=== PATIENT | male | born 1945 | race Caucasian/White ===

== ENCOUNTER 2023-08-14 11:56 | Outpatient (OUT) | payer MEDICARE, SELFPAY ==
[2023-08-14 10:05] LABS: Basophils Percent Auto 0.6 % (0.2-2.0); Eosinophils Absolute Auto 0.4 10^3/uL (0.0-0.7); Eosinophils Percent Auto 7.9 % (0.9-7.0); Immature Granulocytes Abs Auto 0.01 10^3/uL (0.00-0.03); Immature Granulocytes Pct Auto 0.2 % (0.0-0.5); Lymphocytes Absolute Auto 1.1 10^3/uL (1.2-3.8); Lymphocytes Percent Auto 20.7 % (20.5-60.0); Mean Corpuscular HGB Conc 32.6 g/dL (29.9-35.2); Mean Corpuscular Hemoglobin 29.6 pg (25.9-34.0); Mean Corpuscular Volume 90.9 fL (80.0-94.0); Mean Platelet Volume 9.5 fL (9.5-13.5); Monocytes Absolute Auto 0.4 10^3/uL (0.3-0.8); Monocytes Percent Auto 8.3 % (1.7-12.0); Neutrophils Absolute Auto 3.2 10^3/uL (1.4-6.5); Neutrophils Percent Auto 62.3 % (43.0-75.0); Platelet Count 242 10^3/uL (150-450); Red Blood Count 5.06 10^6/uL (4.70-6.10); Red Cell Distribution Width 13.1 % (11.0-15.0); White Blood Count 5.2 10^3/uL (4.0-11.0)
[2023-08-14 10:27] LABS: Estimated Average Glucose 114 mg/dL; Glycohemoglobin A1C 5.6 % (4.5-6.2)
[2023-08-14 11:28] LABS: Alanine Aminotransferase 26 U/L (16-63); Albumin Level 3.5 g/dL (3.4-5.0); Alkaline Phosphatase 97 U/L (46-116); Anion Gap 12.5; Aspartate Amino Transferase 19 U/L (15-37); BUN Creatinine Ratio 18.8; Bilirubin Total 0.7 mg/dL (0.2-1.0); Calcium 8.8 mg/dL (8.5-10.1); Carbon Dioxide 28.5 mmol/L (21.0-32.0); Chloride 108 mmol/L (98-107); Chol HDL Ratio 4.9; Cholesterol 244 mg/dL (<=200); Estimated GFR (African America >60 (>=60); Estimated GFR (Non-African Ame >60 (>=60); Globulin 3.5 g/dL; Glucose 91 mg/dL (74-106); HDL Cholesterol 50 mg/dL (40-60); Sodium 145 mmol/L (136-145); Triglycerides 111 mg/dL (<=150); VLDL CHOLESTEROL 22.2 mg/dL
[2023-08-14 11:36] LABS: Prostate Specific Antigen Scrn 3.08 ng/mL (<=4.00)
--- OUTSIDE RECORDS SUMMARY | 2023-08-14 12:38 | XMS_ITS | CCD ---
Author Name Unknown Address [address] [place] [address] Organization [facility] Care Team Providers Care Occupational Medicine Physician Name Role Phone UZIEL HALLMAN Primary Care Physician [phone] ANSELMO, DR CHRISTOPHER Wilkes Consulting Unavailable HAY, DR COELHO Attending Unavailable HAY, DR COELHO Admitting Unavailable HALLMAN, DR UZIEL Yao Primary Care Unavailable HAY, DR COELHO Consulting Unavailable HALLMAN, DR UZIEL Yao Admitting Unavailable HALLMAN, DR UZIEL Yao Attending Unavailable HALLMAN, DR UZIEL Yao Consulting Unavailable HALLMAN, DR UZIEL Yao Primary Care Unavailable HALLMAN, DR UZIEL Yao Admitting Unavailable HALLMAN, DR UZIEL Yao Attending Unavailable HALLMAN, DR UZIEL Yao Consulting Unavailable HALLMAN, DR UZIEL Yao Primary Care Unavailable ZIEBER, DR CHRISTOPHER Wilkes Consulting Unavailable COOK, Joey P Attending Unavailable COOK, Joey P Attending Unavailable COOK, Joey P Attending Unavailable COOK, Joey P Attending Unavailable COOK, Joey P Admitting Unavailable COOK, Joey P Attending Unavailable COOK, Joey P Referring Unavailable COOK, Joey P Admitting Unavailable COOK, Joey P Attending Unavailable COOK, Joey P Admitting Unavailable AMIR, Hasan Attending Unavailable AMIR, Hasan Admitting Unavailable COOK, Joey P Referring Unavailable COOK, Joey P Consulting Unavailable COOK, Joey P Consulting Unavailable COOK, Joey P Consulting Unavailable COOK, Joey P Consulting Unavailable COOK, Joey P Consulting Unavailable COOK, Joey P Consulting Unavailable COOK, Joey P Consulting Unavailable COOK, Joey P Consulting Unavailable COOK, Joey P Consulting Unavailable COOK, Joey P Consulting Unavailable COOK, Joey P Consulting Unavailable COOK, Joey P Consulting Unavailable COOK, Joey P Consulting Unavailable COOK, Joey P Attending Unavailable COOK, Joey P Referring Unavailable COOK, Joey P Admitting Unavailable COOK, Joey P Attending Unavailable COOK, Joey P Referring Unavailable COOK, Joey P Admitting Unavailable Joey DAVIS Attending Unavailable Joey DAVIS Referring Unavailable Joey DAVIS Admitting Unavailable Joey DAVIS Attending Unavailable Joey DAVIS Attending Unavailable Allergies Allergy Classification Reported Allergen(s) Allergy Type Date of Onset Reaction(s) Facility (10 sources) Adhesive Tape; Translations: [Tape] Drug allergy Red color (finding) [facility] (10 sources) Ketorolac; Translations: [ketorolac] Drug Allergy Swelling [facility] (10 sources) peanut; Translations: [Peanuts] Drug allergy Headache (finding) [facility] (10 sources) Sulfamethoxazole; Translations: [sulfamethoxazole ] Drug Allergy On examination - lip swelling (context-depend ent category) [facility] (1 source) Desonide Drug Allergy 4 [facility] (1 source) peanut allergenic extract Drug Allergy 4 [facility] (1 source) Sulfonamides (Antibiotic) Drug allergy (disorder) 4 [facility] Medications Current Medications Medication Drug Class(es) Dates Sig (Normalized) Sig (Original) acetaminophen 325 mg / HYDROcodone bitartrate 5 mg oral tablet (1 source) Opioid Agonist Start: 11-23-2021 End: 11-25-2021 acetaminophen-hy drocodone 325 mg-5 mg oral tablet 1 tab(s), Oral, q4hr Pain for 2 day(s), 7 tab(s), Refill(s) 0, N20.0, [facility]/pharmacy #[id number], 170, cm, 11/23/21 10:32:00 EDT, Height/Length Dosing, 72.1, kg, 11/23/21 10:32:00 EDT, Weight Dosing Start Date: 11/23/21 Stop Date: 11/25/21 Status: Ordered cephalexin 500 mg oral capsule (1 source) Cephalosporin Antibacterial Start: 10-27-2021 End: 10-30-2021 take 1 capsule by mouth three times daily Keflex 500 mg Cap 500 mg = 1 cap(s), Oral, TID, X 3 day(s), # 9 cap(s), Refills(s) 0, Pharmacy: [facility]/pharmacy #[id number], 170, cm, 04/27/22 16:22:00 EDT, Height/Length Dosing, 75.5, kg, 10/25/21 16:22:00 EDT, Weight Dosing Start Date: 10/27/21 Stop Date: 10/30/21 Status: Ordered ciprofloxacin 500 mg oral tablet (2 sources) Quinolone Antimicrobial Start: 01-04-2022 take 1 tablet by mouth twice daily Cipro 500 mg Tab 500 mg = 1 tab(s), Oral, BID, # 10 tab(s), Refills(s) 0, Pharmacy: [facility]/pharmacy #[id number], 170, cm, 12/28/21 10:50:00 EDT, Height/Length Dosing, 73, kg, 12/28/21 10:50:00 EDT, Weight Dosing Start Date: 01/04/22 Status: Ordered Mometasone (12 sources) Corticosteroid Start: 12-28-2021 mometasone = 0.1 %, Topical, Daily, solution for scalp, Refills(s) 0 Start Date: 12/28/21 Status: Ordered Start: 11-07-2020 mometasone Top 0.1% Crm 15 gram 1 jarrod, Topical, 30 gram, Refill(s) 0, prn psoriasis Start Date: 11/07/20 Status: Ordered Start: 11-07-2020 mometasone Top 0.1% Crm 15 gram 1 jarrod, Topical, Daily, 30 gram, Refill(s) 0 Start Date: 11/07/20 Status: Ordered mometasone Top 0.1% Lotion (6 sources) Start: 10-25-2021 mometasone Top 0.1% Lotion 1 jarrod, Topical, Daily, 30 mL, Refill(s) 0 Start Date: 10/25/21 Status: Ordered ondansetron 4 mg disintegrating oral tablet (9 sources) Serotonin-3 Receptor Antagonist Start: 10-25-2021 take 1 tablet by mouth every six hours as needed for nausea ondansetron 4 mg Dis Tab 4 mg = 1 tab(s), Oral, q6hr, PRN Nausea/Vomiting, # 10 tab(s), Refills(s) 0 Start Date: 10/25/21 Status: Ordered Start: 10-25-2021 take 1 tablet by jessica th every six hours as needed for nausea ondansetron 4 mg Dis Tab 4 mg = 1 tab(s), Oral, q6hr, PRN Nausea/Vomiting, # 10 tab(s), Refills(s) 0 Start Date: 10/25/21 Status: Ordered tamsulosin hydrochloride 0.4 mg oral capsule (7 sources) alpha-Adrenergic Etienne Start: 10-25-2021 End: 10-27-2021 take 1 capsule by mouth once daily tamsulosin 0.4 mg Cap 0.4 mg = 1 cap(s), Oral, Daily, Refills(s) 0 Start Date: 10/25/21 Status: Ordered thyroid (nursing home) 60 mg oral tablet (9 sources) Start: 10-25-2021 take 1 tablet by mouth once daily [place] Thyroid 60 mg Tab 60 mg = 1 tab(s), Oral, Daily, # 30 tab(s), Refills(s) 0, Thyroid Start Date: 10/25/21 Status: Ordered Problems Active Problems Problem Classification Problem Date Documented Date Episodic/Chronic Acute and unspecified renal failure (1 source) Acute renal failure syndrome; Translations: [Other acute kidney failure] Onset: 2 Episodic Calculus of urinary tract (15 sources) Kidney stone; Translations: [Calculus of kidney] Onset: 2 Episodic Coagulation and hemorrhagic disorders (1 source) Thrombocytopenia, unspecified; Translations: [THROMBOCYTOPENIA UNSPECIFIED] Onset: 2 Chronic Diabetes mellitus without complication (1 source) Prediabetes; Translations: [PREDIABETES] Onset: 2 Episodic Disorders of lipid metabolism (10 sources) Hypercholesterolemia; Translations: [Pure hypercholesterolemia, unspecified] Onset: 2 09-11-2013 Chronic Genitourinary symptoms and ill-defined conditions (8 sources) Urge incontinence; Translations: [Urge incontinence of urine] Onset: 2 Chronic Genitourinary symptoms and ill-defined conditions (5 sources) Urinary tract obstruction; Translations: [Obstructive and reflux uropathy, unspecified] Onset: 2 Episodic Headache; including migraine (9 sources) Headache 11-08-2020 Episodic Heart valve disorders (1 source) Rheumatic disorders of both mitral and aortic valves; Translations: [RHEUMATIC D/O MITRAL AORTIC VALVES] Onset: 1 Chronic Hyperplasia of prostate (17 sources) Benign prostatic hypertrophy with outflow obstruction; Translations: [Benign prostatic hyperplasia with lower urinary tract symptoms] Onset: 2 Chronic Nausea and vomiting (9 sources) Postoperative nausea and vomiting 11-07-2020 Episodic Open wounds of extremities (9 sources) Traumatic amputation, finger, 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 Comment on above: Partial amputation, from being caught in planer 1994 Other ear and sense organ disorders (9 sources) Hearing loss 11-07-2020 Chronic Other female genital disorders (7 sources) Disorder of reproductive system 11-13-2021 Episodic Other inflammatory condition of skin (9 sources) Psoriasis 09-11-2013 Chronic Other male genital disorders (1 source) Hydrocele of testis; Translations: [Hydrocele, unspecified] Onset: 2 Episodic Other nutritional; endocrine; and metabolic disorders (9 sources) Body mass index 25-29 - overweight 11-08-2020 Episodic Other screening for suspected conditions (not mental disorders or infectious disease) (3 sources) Plain X-ray cervical spine abnormal; Translations: [Encounter for screening for malignant neoplasm of prostate] Onset: 2 11-08-2020 Episodic Residual codes; unclassified (1 source) Patient encounter status; Translations: [Other specified health status] Onset: 2 Episodic Residual codes; unclassified (1 source) Family history of cancer; Translations: [Family history of malignant neoplasm of prostate] Onset: 2 Episodic Residual codes; unclassified (7 sources) Family history of prostate cancer 11-13-2021 Episodic Thyroid disorders (14 sources) Hypothyroidism; Translations: [Hypothyroidism, unspecified] Onset: 2 Chronic Unclassified (1 source) Asymptomatic microscopic hematuria 08-22-2022 Viral infection (9 sources) Herpes labialis 09-11-2013 Episodic Past or Other Problems Problem Classification Problem Date Documented Da te Episodic/Chronic Abdominal pain (3 sources) Left lower quadrant pain; Translations: [LEFT LOWER QUADRANT PAIN] Onset: 10-24-2021 Episodic Conditions associated with dizziness or vertigo (4 sources) Dizziness and giddiness; Translations: [DIZZINESS AND GIDDINESS] Onset: 05-31-2021 Episodic Heart valve disorders (1 source) Cardiac murmur, unspecified; Translations: [CARDIAC MURMUR UNSPECIFIED] Onset: 06-05-2021 Episodic Other aftercare (1 source) Other terminal gauger supervisor (current) drug therapy; Translations: [OTH DIRECTOR OF REGULATORY AFFAIRS CURRENT DRUG THERAPY] Onset: 10-26-2021 Episodic Results Test Name Value Interpretation Reference Range Facil ity Screenson 08-23-2022 Screens [id number]. 00CD:127 Normal [facility] Ambulatory Visit Summaryon 0 08-22-2022 Ambulatory Visit Summary WALT SKELTON :1945 Visit Date:08/22/2022 Ambulatory Visit Instructions Your Diagnosis Kidney stone 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 Asymptomatic microscopic hematuria Tests Performed Urnls Dip Stick Auto w/o Microscopy POC 20051 Your Care Team Attending Physician - Joey DAVIS MD Primary Care Physician - UZIEL HALLMAN DO This Is Your Medications List Contact prescribing physician if questions or concerns ciprofloxacin (Cipro 500 mg Tab) mometasone mometasone topical (mometasone Top 0.1% Crm 15 gram) ondansetron (ondansetron 4 mg Dis Tab) thyroid desiccated ([place] Thyroid 60 mg Tab) Procedures Performed Cystoscopy (01/04/2022), ESWL of kidney (11/23/2021), Cystoscopy (10/26/2021), Eye (07/01/2015), Excision of ganglion cyst of wrist, recurrent (09/21/2013), Arm (07/01/2013), EGD (esophagogastroduoden oscopy) gastric outlet reduction (07/01/2012), ESWL - Extracorporeal shockwave lithotripsy for renal calculus (07/01/2010), Cataract extraction and insertion of intraocular lens, Colonoscopy, History of subtotal thyroidectomy, INGUINAL HERNIA REPAIR,RIGHT, OPEN REDUCTION LEFT RADIUS. Discharge Vitals Heart Rate (Peripheral) 76 Respiratory Rate 16 Blood Pressure 125/61 Height 170 cm Height 67 in Weight 75 kg Weight 165 lb BMI 25.95 What to do next Scheduled Follow-Up Appointments Saturday 8:45 AM EST With: MARIBEL ANN, Joey Cantu Where: [facility] Coding Summary.on 08-22-2022 Coding Summary. CD:[id number] G h0bWw+PGhlYWQ+WF5ARJK bO92oiUIanD8SQ6hHZD6B MLGEFLWXZG5BGK0baHZ9S ToyG8JkteYq XgoeyHJxMJ17YNe2HZB2w QobPVejiI4qoBBoJ4r3Kl GkJF74oN67PQukFBPlJoA 3LjZpbjsgbWFy E7gqZxXyvJGiXzd+PHRhY mxlIHdpZHRoPScxMDAlJy LfoDluMX5tMx6qHDSoKZI vbGxhcHNlOiBj s6bxZRMiLXogRN3ifXamO 5ZtvBN3ZAEyh1d0Dw94zA I+AOItOJU0nOqfMKvvq71 4AtDav9qsITV3 cXBcECnpUKV5O92eg8Y2S EVsYNMfQOF9bQE6dR0gcZ lqepjfJ9NynETuVgW1DHH 5xKRlcI5ktUpf juyhdX6gOir+S40WBZ8IV DDXNV9VBuk9N0XqVvvlvZ I+EL84KWMuMC37oGYnbUK op5xbjEa9MwGt JBFwRFJ6jZqxXEfzq5WkR ICxJ50naKVjr2H6XUQdgJ kqwPEoMqPxkBJ3fF8kXDf ybchke7mwlptx Skaci2tqkj51vM53D37hB XdyKYRbUYM8LQKrEWTeuW hzut7biS2vFe6+GDawx0i sm2slfRl2HuHu RRVrujPxdHyqEED0s0KdB i72H0WkfVsqr0WtHjq5dd 91eXZdg3V5lCI0XQyrNLH toM7jNFbxUcI5 CHIvKwJhjC60pPGnVQyiH v3kzAezfWiqTA2wIKDbny rhRBUteH4hPXPnlEOhjFk gKC6pQPEavrhe n683CrAyCVN2WVKzfQRaP 8JjiF7oKtNyKCQaPJDyJ1 LxzJApJLnfX330BKdaQkC 7HAAobqPsU0Te UVIqbDitYrZ3v1J0Br2Dj 8NziidyTEZ9XTnuBKDyYw CiVhTcUcI6A3QuIlc8JKZ mbDdnTB9nC3Xi FBStmyvseaailMY3MIPnA XUxhQ62hPXiWFxiGy3ny6 Z1n998UMIiWLFctM42Nl4 udDogMTBwdCBU uV5jdtyki4espaezHoVqX DHaXNn5ODq7IRHrzRwsZm JjDCJ1VqU2YAQ2hFDufQ7 pyTcebkufbW0c Oyc+I49zhT8lFGP2CNN3f aavTDYtbsRbXL81UX79L5 RyPjwvdGFibGU+PGRpdiB jpYznGT0gWrXg h6tqa5ZqPPdiS0PlFXCmX VofQdf3YDTtDAF8fBR8tL 1gECLgBYrav2S7fJI8F3L hvuXtca5xf0yu SZOqEIwsL35yvCDps8L0E MIvaIW5OJFjcAatRfSofC 93Oyc+RGIulEktm5EaGpu vr4ohh0mgmQb4 PlExOQCntnUpxRplJUR1o 9LwJe18O62qWMizGJJwRG XqNSUyLKQimArhmd1biI7 wIi8+PGNvbCB3 dRD7wG1wQZRwZpC4WWxkC 263EiRkrTCtPrmzq5nsp4 penNu6JiKfFRFkamEbpVw gULM4h6OlKj02 X52hFFzdTWSqPJAoYJUkB MAolCgqer5ynT9sAy8+PC 1ll4ypzs48kX13jWK+PHR lFSR0lHmpEDva KTGmqM4gYVnuQaU2FFWbY wEuvB07fMFgJOnuPj1wkX hfeTgvEP3cMINmwgzzx15 1RpSjm1twMZFj fTVzOTlhXOV8C94za3G9N LBdABNjDLE0xGV4rF1arX lnbjogbGVmdDsgdmVydGl gIOcmDTilE143 IHRvcDsnPlBhdGllbnQgT nLdPUv3U7WmSpn7QWEaoL oxIW9jsEVxDKxtYf1vdOp hhZfuIV7fTBDr xngss171XvMim7uxXIZom NYvYBinMAS3A43mk7G7VQ CmCUFuVCI3pIN3mP3chCw nbjogbGVmdDsg mnWiwElrDDzkUBicM351K HRvcDsnPkJpcnRoIERhdG Q9UM31PP94kXCcv3U7sWA 9C0UgJURcmkye fniejFV8YPNcXXAxyK31Z l1evTbzQm1mJOAvLUK7QN FkuETiJ9QvnY0pMvXiCEZ sHUOgC1CrhSOy WBxvM556ENkvFgJ6HUOgg yAmM7BcXOOqwRzlPoR6j4 Z1Jf3CO1D6RW17EJ02iOS uc1S1eSG9Y5Xp WYYtmlxhqajrrQE8DTNnM TGslO87Tr5rtUuwXc5kDU WhGZC4XOUcbDBwX2BclQ7 yOiAjMDAwMDAw R0HwvNHzMBeqU648XMjzU cB7PHYvrxPkE4SiAWDchQ irGrU1s1F6Zn5DDPg8EC4 8KJ68nVKbk0G2 tRI6Z0AdXPOmbjgdmqtzu NF6LVYaUECssA64Dk3buG bwBp2jUCExCDP3JLVeaPJ rW7KwjW3eAhIt GSOuPFBoG8RycVOnXGvwZ 562KVdvCyO7PXJqxsEbG0 TrVGYxwJgqRbB5j4U7Yy9 MDZRwFP43KGO9 fVT8QL19WF49M3UvBzjgo GFibGU+PHRhYmxlIHdpZH RoPScxMDAlJyBzdHlsZT0 oKi8yPWBtOFNe qFctiRGaNaGac7jrMOEsS HzpJE6ytWmvW7KpaOW2RW Akq1g1Bv36C87vT3KsgDR +IRSksDN8zIT7 vM9rLgPtUgS3SRkiW870I fPlyQHcAxocz5lst5deiG q4VoU4WECtyjGcvMcfFMR 1e4YsBw29H19a IHdpZHRoPSIxNSUiIHZhb Exvbe7blD4fZt9+PGNvbC Q1rKT1cV8uPiSmHrZ7YYv zB143BsLfrLJr Rvfmv8xbs2kxaTx1SjTxK AXvkkKuaFinXGM1k3DrWf 13U2QasHdby9VjNrv7we5 7eOAic6W6jFG1 E0NiWWIdlkzxgFTpoZtoD R6dWNOemggoSGWlzE1lBG IdX1c2NkDgYfE4RNupE8R yuuT6GZCptIZv JNjkMBD2P85rn2K3CRRzC LUoAUA4mNV0kS5rcKupan ogbGVmdDsgdmVydGljYWw lRZthA700JSUg lNmvEDGrmN3nBMDfpFUlg EnfJS7rARNoedpkZubYTK DTWuwND36cMWVBOfZLJHM DBV24ZO88eOZj r6L5xPM4J9OmOHDnsvgze vgggZV5FXUjPWHioZ27pQ BoIMouZj0bx7V9s179CLS cDCUxlW86Ba5v lRyjYOPiuFQZrG0wiqkuv 3alfbpwGoWyANFsNOg0DN i2ZVKigIstKyLqRYT5DfP 1XRE3gVNvmD2c cTclruvptB8lCas+MDgvM aXlGWo7OzmdqBD+PHRkIH Y2oXtoJQrfHJMdzV1fSDA xT5m4YmOjCbY8 PTqiY6JhTWRdsgoqMu03u Z7tDlPqGvT4GYldZ2Bpnd T0ARUlgZMuEQmjJNL1Q40 vb5F2OINgJLAl EEY0oLB0bA2dxPqsvtcxg GVmdDsgdmVydGljYWwtYW crA157ERYpdIydAma3VYb wNVObKS92XQ90 cOGhw9C3kKR9D1SgFLJus cterdmwnFA7TXHkGASbtT 85zYYxHCzxQj8yu3O8s01 8RNUkMBJbuQ37 Fi3ujPmhQCOekGFPoR9dc eish5rgfdauAhUgGQAhLF q6TQt6XOOupFotGmKlUHS 5HhG5OBN2aUPf wT1ucZnfpshspP4mLkm+T WFsZTwvdGQ+RFDgNHK0rT taTTeoHSKurS1dUSMzM9v 6MxLfZlV5GThl A5BcBGEnxeogDq75iG6uX wZbVrE4LUxyS3HwnkX7DX GnkTCyZSeaKUV2B57sw3Y 8EMZdZRKzIWS1 cXS2fB3iyAanfbqoaAMcz DsgdmVydGljYWwtYWxpZ2 01MSAleRgeZx33eEFvzLf fxwO4G0IbRblw dHI+SR53LHGbJT18wEGaj KUkn1gitNd8WnGkGZJzBS J0rDmcLGpsq4QuNGSjL35 teQZgg3D4MFRw aWffaKKeUfSpyHW9mU9gI Yxcugbzi8dcidnlFrnxw0 vwqk46fU34E84wECybOCA oPSIzMCUiIHZh jZfjhp8anU0aAt0+PGNvb ZQ4gJY4oR9qHrXlBvI3AK daG847UlZmeEEfEtfif4c ja5vroRa8GbUi MTFpdpLyxSguDBP9k1IkP g50N27vCGcoYFAiPADiIY CeCMFfgBujro4ihV9cRn8 +BU3ep8qzck52 tS68jZZ+JYReCIS3nPjwR EzrCIMkaU6eYZgxGyR2XF ObEyRcsJ41oIQxTJiiUw7 ujWmkzZyaPD5b GWPkirxtp049JsSez5xlR SRoqFAwQHhiAGR0S24lt8 Y8ANLnSTSxVCF9xDU6yX8 hbGlnbjogbGVm dDsgdmVydGljYWwtYWxpZ 420JMOdyVcsMxBziVAzG3 njvgITHX9vCojvcDG+PHR vCHE7hUirSWzg QHNxfX9pMBFrS3y6RsHcR vD8LSxwI6OsuoD0AEMkoG EyUUSmmJVNpY4owklpf3d vcjogIzAwMDAw RFc0GEu0RWDjiLogSoZoV IP4SkD4QTG5rPHvhD1vqL eopnoosD0zQdl+RklOOjw vdGQ+PHRkIHN0 bMuxERtoGWHpcN0bLKUyJ 5a5QdPpSpS7GLnfP4Rxpt F7QHBpbALfHKVzzNMJlJ2 qkpwgb2ulnizi XfYkGZShFYt5YOk3LOYcl KapFoSfGKJ9PnV6VXQ4eT JweC7toVdktxjnrA3hJke +TVJOOjwvdGQ+ PYSbYWN8qMfcNQzrOXWdb E0oHZYnD9z5TpIaRqG1EI qjG0LtquA3DFYakHZpQQI ysYOMsT5eqzfv l2uvllkhWyHzZMWaFBr9E Mq8PFVriEcmRlQiGUG5Ck L7QFM7tPCjwF4nuEmmlfv oxU3yDqi+UGF5 YAC2ND44MZ74O2ObCcaxp GFibGU+PHRhYmxlIHdpZH RoPScxMDAlJyBzdHlsZT0 zVe3hQIHwOGBo bGxh (more content not included)... Normal [facility] Patient Educationon 08-22-19 Patient Education Urology Kidney Stones Kidney stones are rock-like masses that form inside of the kidneys. Kidneys are organs that make pee (urine). A kidney stone may move into other parts of the urinary tract, including: ? The tubes that connect the kidneys to the bladder (ureters). ? The bladder. ? The tube that carries urine out of the body (urethra). Kidney stones can cause very bad pain and can block the flow of pee. The stone usually leaves your body (passes) through your pee. You may need to have a doctor take out the stone. What are the causes? Kidney stones may be caused by: ? A condition in which certain glands make too much parathyroid hormone (primary hyperparathyroidism). ? A buildup of a type of crystals in the bladder made of a chemical called uric acid. The body makes uric acid when you eat certain foods. ? Narrowing (stricture) of one or both of the ureters. ? A kidney blockage that you were born with. ? Past surgery on the kidney or the ureters, such as gastric bypass surgery. What increases the risk? You are more likely to develop this condition if: ? You have had a kidney stone in the past. ? You have a family history of kidney stones. ? You do not drink enough water. ? You eat a diet that is high in protein, salt (sodium), or sugar. ? You are overweight or very overweight (obese). What are the signs or symptoms? Symptoms of a kidney stone may include: ? Pain in the side of the belly, right below the ribs (flank pain). Pain usually spreads (radiates) to the groin. ? Needing to pee often or right away (urgently). ? Pain when going pee (urinating). ? Blood in your pee (hematuria). ? Feeling like you may vomit (nauseous). ? Vomiting. ? Fever and chills. How is this treated? Treatment depends on the size, location, and makeup of the kidney stones. The stones will often pass out of the body through peeing. You may need to: ? Drink more fluid to help pass the stone. In some cases, you may be given fluids through an IV tube put into one of your veins at the hospital. ? Take medicine for pain. ? Make changes in your diet to help keep kidney stones from coming back. Sometimes, medical procedures are needed to remove a kidney stone. This may involve: ? A procedure to break up kidney stones using a beam of light (laser) or shock waves. ? Surgery to remove the kidney stones. Follow these instructions at home: Medicines ? Take cusy-chs-bpquebb and prescription medicines only as told by your doctor. ? Ask your doctor if the medicine prescribed to you requires you to avoid driving or using heavy machinery. Eating and drinking ? Drink enough fluid to keep your pee pale yellow. You may be told to drink at least 8?10 glasses of water each day. This will help you pass the stone. ? If told by your doctor, change your diet. This may include: ? Limiting how much salt you eat. ? Eating more fruits and vegetables. ? Limiting how much meat, poultry, fish, and eggs you eat. ? Follow instructions from your doctor about eating or drinking restrictions. General instructions ? Collect pee samples as told by your doctor. You may need to collect a pee sample: ? 24 hours after a stone comes out. ? 8?12 weeks after a stone comes out, and every 6?12 months after that. ? Strain your pee every time you pee (urinate), for as long as told. Use the strainer that your doctor recommends. ? Do not throw out the stone. Keep it so that it can be tested by your doctor. ? Keep all follow-up visits as told by your doctor. This is important. You may need follow-up tests. How is this prevented? To prevent another kidney stone: ? Drink enough fluid to keep your pee pale yellow. This is the best way to prevent kidney stones. ? Eat healthy foods. ? Avoid certain foods as told by your doctor. You may be told to eat less protein. ? Stay at a healthy weight. Where to find more information ? National Kidney Foundation (NKF): www.kidney.org ? [employer] (UCF): www.urologyhealth.org Contact a doctor if: ? You have pain that gets worse or does not get better with medicine. Get help right away if: ? You have a fever or chills. ? You get very bad pain. ? You get new pain in your belly (abdomen). ? You pass out (faint). ? You cannot pee. Summary ? Kidney stones are rock-like masses that form inside of the kidneys. ? Kidney stones can cause very bad pain and can block the flow of pee. ? The stones will often pass out of the body through peeing. ? Drink enough fluid to keep your pee pale yellow. This information is not intended to replace advice given to you by your health care provider. Make sure you discuss any questions you have with your health care provider. Document Released: 12/03/2008 Document Revised: 11/03/2019 Document Reviewed: 11/03/2019 [employer] Patient Education ? 2019 [employer]. [facility] Urology Office/Clinic Noteon 08-22-2022 Urology Office/Clinic Note Chief Complaint 6 month with KUB HPI Staff This is a 77 year old male here for 6 month with KUB. KUB done 08/20/22. S/P cysto/Lt. ureteral stent removal/Lt. ureteroscopy and ureteroscopic stone basket extraction/Lt. nephroscopy done 01/04/22, Rt. ESWL done 11/23/21. Previous DX: kidney stones and BPH w/LUTS. Dysuria: no Incomplete bladder emptying: no Hematuria: UA shows trace today Frequency: yes Urgency: yes Nocturia: 2x Stream: slow in the morning Leaking: yes Post void dripping: very little Wearing pads/ Depends: no Urge incontinence: yes mild Stress incontinence: no Incontinence without Sensory Awareness: no Abdominal pain: no Flank pain: no History of Present Illness Tests reviewed: reviewed UA & KUB. I have reviewed the previous health record information and history for this patient from Dr. Davis. I have reviewed and verified the staff HPI to be accurate for this encounter. There have been no associated fever, chills, flank pain, or blood in the urine. Denies any urinary infections since last encounter. Review of Systems PHQ Score Initial Depression Screen Score: 0 ROS - Provider Constitutional: denies weight loss, denies hot flashes. Eyes: denies eye problems. Gastrointestinal: denies nausea, denies vomiting. Cardiovascular: denies chest pain or angina. Integumentary: no dryness Musculoskeletal: denies musculoskeletal symptoms. ENMT: denies otolaryngeal symptoms. Respiratory: no shortness of breath. Heme/Lymph: denies easy bleeding tendency, denies easy bruising tendency. Psychiatric: no confusion, no anxiety. Genitourinary: denies dysuria, denies hematuria, denies discharge, denies urinary frequency, denies urinary hesitancy, denies nocturia, denies incontinence, denies genital sores, denies decreased libido, and denies erectile dysfunction. Physical Exam Vitals & Measurements HR: 76(Peripheral) RR: 16 BP: 125/61 HT: 67 in HT: 170 cm WT: 75 kg WT: 165 lb BMI: 25.95 General Appearance: alert, no distress, well nourished, well developed male. Genitourinary: normal scrotum, normal testes, normal urethra, normal epididymis, normal vas deferens/spermatic cord. Flank Pain: none. Bladder: nonpalpable. Assessment/Plan 1. Kidney stone (N20.0: Calculus of kidney) S/p Laser Litho done 10/26/21. S/p R stent removal and L ESWL done 11/23/21. S/p Cysto, L stent removal, L stone basket extraction done 01/04/22. Stone analysis shows calcium oxalate. KUB done 08/20/22 neg for obvious renal/ureteral stones. Pt. states he has increased his water intake. Advised to add lemon to water. Discussed metabolic workup, pt. states he completed work up years ago. At this time pt wishes to not repeat met w/up. Follow up in 1 year w/ KUB. All questions/concerns were discussed. Pt. to call the office if heencounters any issues prior. Pt. acknowledges understanding. 2. 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 is not currently taking any prostate medications. IPSS 13 (moderate symptoms). Experiencing small amount of post void dribbling. Pt. is not bothered at this time. States his primary care checks PSA, no DADA checks. 3. Asymptomatic microscopic hematuria (R31.21: Asymptomatic microscopic hematuria) UA today shows TRACE-INTACT blood, denies gross hematuria. Pt. to call our office if he would witness gross blood. Overall the patient is doing well. He has moderate urinary obstructive symptoms. We did look back at his operative note and he has moderate prostatic hypertrophy. Symptoms are not bad enough to undergo any therapy at this time but he will monitor this over time. Current KUB is negative as noted we will see him in 1 year with a repeat KUB. PSAs are being checked by his primary care physician Follow-up With When Contact Information Joey DAVIS MD, URL [address] [place], [place] [id number]- Additional Instructions: 1 year w/ KUB Patient Education Kidney Stones, Mrbh-pc-Eoyg INathaly, personally scribed for Dr. Davis on 08/22/2022 10:21:25. . Documentation recorded by the scribe, Nathaly Dumont, accurately reflects the services(s) I performed and decisions made by me. Authenticated by Dr. Davsi on 08/22/2022 10:25:12. 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 Normal [facility] Comment on above: Result Comment: Elec tronically Signed By: Joey DAVIS MD\.br\Date and Time Signed: 08/22/22 10:25 EST\.br\Electronically Co-Signed By: Nathaly Dumont\.br\Date and Time Co-Signed: 08/22/22 10:23 EST XR Abdomen 1 Viewon 08-21-19 23 XR Abdomen 1 View Exam Date/Time: 08/20/2022 09:46 EST Reason for Exam: N20.0 Report IMPRESSION: NONSPECIFIC ABDOMEN. CLINICAL HISTORY: N20.0 COMPARISON: KUB, January 04, 2022. FINDINGS: Gas and stool in colon. Gas in small bowel. No diffuse small bowel dilatation or mass effect. Multiple phleboliths again identified in pelvis, unchanged. Gas and stool obscures region of the kidneys bilaterally. Ordering Provider: Joey DAVIS FINAL REPORT Dictated: 08/21/2022 2:16 pm Savage Rodriguez MD Signed (Electronic Signature): 08/21/2022 2:16 pm Signed by: Savage Rodriguez MD Transcribed by: BEV Technologist: CAN [facility] Consent for Treatmenton 08-02 Consent for Treatment [id number] .00CD:127 Normal [facility] Physician Orderon 08-20-2022 Physician Order [id number]# 1.00CD:127 [facility] CBC AUTO DIFFon 05-21-2022 BASO # 0.0 103/ul Normal 0.0-0.1 [facility] Comment on above: Performed By: #### C BC ####[facility] [address] [place] [address]Dr. Keaton Tan Basophils/100 WBC (Bld) 0.4 % Normal 0.2-2.0 [facility] Comment on above: Performed By: #### C BC ####[facility] [address] [place] [address]Dr. Keaton Tan EO # 0.3 103/ul Normal 0.0-0.7 [facility] Comment on above: Performed By: #### C BC ####[facility] [address] [place] [address]Dr. Keaton Tan Eosinophils/100 WBC (Bld) 4.9 % Normal 0.9-7.0 [facility] Comment on above: Performed By: #### C BC ####[facility] [address] [place] [address]Dr. Keaton Tan Erythrocyte distribution width (RBC) [Ratio] 13.6 % Normal 11.0-15.0 [facility] Comment on above: Performed By: #### C BC ####[facility] [address] [place], [place] [address]Dr. Keaton Tan Hematocrit (Bld) [Volume fraction] 44.4 % Normal 42.0-54.0 [facility] Comment on above: Performed By: #### C BC ####[facility] [address] [place], [place] [address]Dr. Keaton Tan Hemoglobin (Bld) [Mass/Vol] 14.8 g/dL Normal 14.0-18.0 [facility] Comment on above: Performed By: #### C BC ####[facility] [address] [place], [place] [address]Dr. Keaton Tan IG # 0.01 10e3/ul Normal 0.00-0.03 [facility] Comment on above: Performed By: #### C BC ####[facility] [address] [place], [place] [address]Dr. Keaton Tan IG % 0.2 % Normal 0.0-0.5 [facility] Comment on above: Performed By: #### C BC ####[facility] [address] [place], [place] [address]Dr. Keaton Tan LYMPH # 1.0 103/ul Critically low 1.2-3.8 [facility] Comment on above: Performed By: #### C BC ####[facility] R[address] [place], [place] [address]Dr. Keaton Tan Lymphocytes/100 WBC (Bld) 19.8 % Critically low 20.5-60.0 [facility] Comment on above: Performed By: #### C BC ####[facility] [address] [place], [place] [address]Dr. Keaton Tan MANUAL DIFF REQ NO Normal [facility] Comment on above: Performed By: #### C BC ####[facility] [address] [place] [address]Dr. Keaton Tan MCH (RBC) [Entitic mass] 29.1 pg Normal 25.9-34.0 [facility] Comment on above: Performed By: #### C BC ####[facility] [address] [place] [address]Dr. Keaton Tan MCHC (RBC) [Mass/Vol] 33.3 g/dL Normal 29.9-35.2 [facility] Comment on above: Performed By: #### C BC ####[facility] [address] [place] [address]Dr. Keaton Dominick MCV (RBC) [Entitic vol] 87.2 fL Normal 80.0-94.0 [facility] Comment on above: Performed By: #### C BC ####[facility] [address] [place], [place] [address]Dr. Keaton Tan MONO # 0.4 103/ul Normal 0.3-0.8 [facility] Comment on above: Performed By: #### C BC ####[facility] [address] [place], [place] [address]Dr. Gertrudisdelfina Tan Monocytes/100 WBC (Bld) 7.6 % Normal 1.7-12.0 [facility] Comment on above: Performed By: #### C BC ####[facility] [address] [place], [place] [address]Dr. Keaton Tan NEUT # 3.5 103/ul Normal 1.4-6.5 [facility] Comment on above: Performed By: #### C BC ####[facility] [address] [place], [place] [address]Dr. Keaton Tan Neutrophils/100 WBC (Bld) 67.1 % Normal 43.0-75.0 [facility] Comment on above: Performed By: #### C BC ####[facility] [address]ls[address] [place], [place] [address]Dr. Keaton Tan Platelet mean volume (Bld) [Entitic vol] 8.8 fL Critically low 9.5-13.5 [facility] Comment on above: Performed By: #### C BC ####[facility] [address] [place] [address]Dr. Keaton Tan PLT 268 103/ul Normal 150-450 [facility] Comment on above: Performed By: #### C BC ####[facility] [address] [place], [place] [address]UvJak Tan RBC 5.09 106/ul Normal 4.70-6.10 [facility] Comment on above: Performed By: #### C BC ####[facility] [address] [place] [address]Dr. Keaton Tan WBC 5.1 103/ul Normal 4.0-11.0 [facility] Comment on above: Performed By: #### C BC ####[facility] [address] [place] [address]Dr. Keaton Tan FREE T3on 05-21-2022 FREE T3 2.87 pg/mlL Normal 2.18-3.98 [facility] Comment on above: Performed By: #### C MP, TSH, LIPID, FT3 #### [facility] [address] [place], [place] [address] Dr. Keaton Tan FREE T4on 05-21-2022 Free T4 [Mass/Vol] 0.87 ng/dL Normal 0.76-1.46 [facility] Comment on above: Performed By: #### P SASC, FT4 ####[facility] [address] [place] [address]Dr. Keaton Tan GLYCOHEMOGLOBIN A1Con 2021 ADA RECOMMENDATION SEE BELOW Normal [facility] Comment on above: Result Comment: ADA RECOMMENDED LIMIT 4.0 - 6.0 ADA THERAPEUTIC TARGET < 7.0 ACTION SUGGESTED > 7.0 Performed By: #### A 1C ####[facility] [address] [place] [address]Dr. Keaton Tan Glucose [Mass/Vol] 126 mg/dL Normal [facility] Comment on above: Performed By: #### A 1C ####[facility] [address] [place] [address]Dr. Keaton Tan HbA1c (Bld) [Mass fraction] 6.0 % Normal 4.5-6.2 [facility] Comment on above: Performed By: #### A 1C ####[facility] [address] [place] [address]Dr. Keaton Tan LIPID PROFILEon 05-21-2022 CHOL-HDL RATIO NORM SEE BELOW Normal [facility] Comment on above: Result Comment: 3.3 - 4.4 LOW RISK 4.4 - 7.1 AVERAGE RISK 7.1 - 11.0 MODERATE RISK >11.0 HIGH RISK Performed By: #### C MP, TSH, LIPID, FT3 #### [facility] [address] [place] [address] [address] Keaton Tan Cholesterol [Mass/Vol] 226 mg/dL Critically high <=200 [facility] Comment on above: Performed By: #### C MP, TSH, LIPID, FT3 #### [facility] [address] [place] [address] [address] Keaton Tan Cholesterol in HDL [Mass/Vol] 51 mg/dL Normal 40-60 [facility] Comment on above: Performed By: #### C MP, TSH, LIPID, FT3 #### [facility] [address] [place] [address] [address] Keaton Tan Cholesterol in LDL [Mass/Vol] 152.6 mg/dL Normal [facility] Comment on above: Performed By: #### C MP, TSH, LIPID, FT3 #### [facility] [address] [place] [address] [address] Keaton Tan Cholesterol.total/ Cholesterol in HDL [Mass ratio] 4.4 {ratio} Normal [facility] Comment on above: Performed By: #### C MP, TSH, LIPID, FT3 #### [facility] [address] [place] [address] [address] Keaton Tan HDL NORMAL > or = 60 mg/dl - LO W CARDIOVASCULAR RISK <40 mg/dl - HIGH CARDIOVASCULAR RISK Normal [facility] Comment on above: Performed By: #### C MP, TSH, LIPID, FT3 #### [facility] [address] [place] [address] [address] Keaton Tan LDL CALC NORMAL SEE BELOW Normal [facility] Comment on above: Result Comment: <100 mg/dl OPTIMAL 100 - 129 mg/dl NEAR OR ABOVE OPTIMAL 130 - 159 mg/dl BORDERLINE HIGH 160 - 189 mg/dl HIGH >190 mg/dl VERY HIGH Performed By: #### C MP, TSH, LIPID, FT3 #### [facility] [address] [place] [address] [address] Keaton Tan Triglyceride [Mass/Vol] 112 mg/dL Normal <=150 [facility] Comment on above: Performed By: #### C MP, TSH, LIPID, FT3 #### [facility] [address] [place] [address] [address] Keaton Tan VLDL CALC 22.4 mg/dL Normal [facility] Comment on above: Performed By: #### C MP, TSH, LIPID, FT3 #### [facility] [address] [place] [address] [address] Keaton Tan MICROALB CREAT RATIO RANDOMo n 05-21-2022 mALB 1.7 mg/L Normal <=30.0 [facility] Comment on above: Performed By: #### M CRR ####[facility] [address] [place] [address]Dr. Keaton Tan MALB CR RATIO 8.5 mg/g Normal 0.0-29.9 [facility] Comment on above: Performed By: #### M CRR ####[facility] [address] [place] [address]DrJak Tan MALB CR RATIO RANGE SEE BELOW Normal [facility] Comment on above: Result Comment: NO M ICROALBUMINURIA 0-29 MG/G CLINICAL MICROALBUMINURIA 30-300 MG/G MACROALBUMINURIA >300 MG/G Performed By: #### M CRR ####[facility] [address] [place] [address]Dr. Keaton Tan URINE CREAT 199.60 mg/dL Normal 20.00-300.00 [facility] Comment on above: Performed By: #### M CRR ####[facility] [address] [place] [address]Dr. Keaton Tan PROF 14(COMP METB)on 022 Albumin [Mass/Vol] 3.7 g/dL Normal 3.4-5.0 [facility] Comment on above: Performed By: #### C MP, TSH, LIPID, FT3 #### [facility] [address] [place] [address] [address] Keaton Tan Albumin/Globulin [Mass ratio] 1.1 {ratio} Normal [facility] Comment on above: Performed By: #### C MP, TSH, LIPID, FT3 #### [facility] [address] [place] [address] [address] Keaton Tan ALP [Catalytic activity/Vol] 88 U/L Normal 46-116 [facility] Comment on above: Performed By: #### C MP, TSH, LIPID, FT3 #### [facility] [address] [place] [address] [address] Keaton Tan ALT [Catalytic activity/Vol] 31 U/L Normal 16-63 [facility] Comment on above: Performed By: #### C MP, TSH, LIPID, FT3 #### [facility] [address] [place] [address] [address] Keaton Tan Anion gap [Moles/Vol] 8.6 mmol/L Normal [facility] Comment on above: Performed By: #### C MP, TSH, LIPID, FT3 #### [facility] [address] [place] [address] [address] Keaton Tan AST [Catalytic activity/Vol] 24 U/L Normal 15-37 [facility] Comment on above: Performed By: #### C MP, TSH, LIPID, FT3 #### [facility] [address] [place] [address] [address] Keaton Tan Bilirubin [Mass/Vol] 0.6 mg/dL Normal 0.2-1.0 [facility] Comment on above: Performed By: #### C MP, TSH, LIPID, FT3 #### [facility] [address] [place] [address] [address] Keaton Tan Calcium [Mass/Vol] 8.5 mg/dL Normal 8.5-10.1 [facility] Comment on above: Performed By: #### C MP, TSH, LIPID, FT3 #### [facility] [address] [place] [address] Dr. Keaton Tan Chloride [Moles/Vol] 105 mmol/L Normal 98-107 [facility] Comment on above: Performed By: #### C MP, TSH, LIPID, FT3 #### [facility] [address] [place] [address] Dr. Keaton Tan CO2 [Moles/Vol] 29.3 mmol/L Normal 21.0-32.0 [facility] Comment on above: Performed By: #### C MP, TSH, LIPID, FT3 #### [facility] [address] [place] [address] Dr. Keaton Tan Creatinine [Mass/Vol] 0.95 mg/dL Normal 0.70-1.30 [facility] Comment on above: Performed By: #### C MP, TSH, LIPID, FT3 #### [facility] [address] [place] [address] Dr. Keaton Tan EGFR-AF IRAQI >60 Normal >=60 [facility] Comment on above: Performed By: #### C MP, TSH, LIPID, FT3 #### [facility] [address] [place] [address] Dr. Keaton Tan EGFR-NON AF IRAQI >60 Normal >=60 [facility] Comment on above: Performed By: #### C MP, TSH, LIPID, FT3 #### [facility] [address] [place] [address] Dr. Keaton Tan Globulin (S) [Mass/Vol] 3.3 g/dL Normal [facility] Comment on above: Performed By: #### C MP, TSH, LIPID, FT3 #### [facility] [address] [place] [address] Dr. Keaton Tan Glucose [Mass/Vol] 100 mg/dL Normal 74-106 [facility] Comment on above: Performed By: #### C MP, TSH, LIPID, FT3 #### [facility] [address] [place] [address] [address] Keaton Tan Potassium [Moles/Vol] 3.9 mmol/L Normal 3.5-5.1 [facility] Comment on above: Performed By: #### C MP, TSH, LIPID, FT3 #### [facility] [address] [place] [address] [address] Keaton Tan Protein [Mass/Vol] 7.0 g/dL Normal 6.4-8.2 [facility] Comment on above: Performed By: #### C MP, TSH, LIPID, FT3 #### [facility] [address] [place] [address] [address] Keaton Tan Sodium [Moles/Vol] 139 mmol/L Normal 136-145 [facility] Comment on above: Performed By: #### C MP, TSH, LIPID, FT3 #### [facility] [address] [place] [address] [address] Keaton Tan Urea nitrogen [Mass/Vol] 18.0 mg/dL Normal 7.0-18.0 [facility] Comment on above: Performed By: #### C MP, TSH, LIPID, FT3 #### [facility] [address] [place] [address] [address] Keaton Tan Urea nitrogen/Creatinin e [Mass ratio] 18.9 mg/mg Normal [facility] Comment on above: Performed By: #### C MP, TSH, LIPID, FT3 #### [facility] [address] [place] [address] [address] Keaton Tan TSHon 05-21-2022 TSH 1.417 uIU/mL Normal 0.358-3.740 [facility] Comment on above: Performed By: #### C MP, TSH, LIPID, FT3 ####[facility] [address] [place], [place] [address]Dr. Keaton Tan Progress Note-Physicianon Progress Note-Physician Patient: WALT SKELTON Age: 76 years Sex: Male : 1945 Associated Diagnoses: None Author: Uziel Magana MD Postoperative Information Post Operative Note: Post Anesthesia Care Unit. Anesthetic utilized: General. Health Status Allergies: Allergic Reactions (All) Severity Not Documented Peanuts- Headache. Sulfamethoxazole- O/e - lip swelling. Tape- Redness. Toradol- Swelling. 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 / SNOMED CT 660226033 / Confirmed Partial amputation, 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 PONV (postoperative nausea and vomiting) / SNOMED CT 2357511 / Confirmed Benign localized hyperplasia of prostate with urinary retention / SNOMED CT 8132022331 / Confirmed Headache / SNOMED CT 60187684 / Confirmed Left hydrocele / SNOMED CT 671293988 / Confirmed Urge incontinence / SNOMED CT 371228763 / Confirmed Hypothyroid / SNOMED CT 60948521 / Confirmed Resolved: Psoriasis / SNOMED CT 85620330 Resolved: Hypercholesterolemia / SNOMED CT 58241542 Resolved: Cold sore / SNOMED CT 305762079 Canceled: Abnormal x-ray of cervical spine / SNOMED CT 561635307 Physical Examination Intake and Output adequate hydration Pain assessment: Self-reports no pain. General: Alert and oriented, No acute distress. HENT: Oral mucosa is moist, dentition unchanged. Respiratory: Respirations: Are within normal limits. Pattern: Regular. Cardiovascular: Normal rate. Neurologic: Alert, Oriented. Review / Management Lines and Tubes: Peripheral catheter. ECG interpretation: Within normal limits. Condition: Stable. Assessment Anesthetic outcome No anesthetic complications noted. Adequate pain relief. No Complaint of nausea and vomiting. Plan Transfer/ Discharge: Patient can be discharged from PACU when criteria met, Patient can be discharged from anesthesia care. Condition stable. Normal [facility] Comment on above: Result Comment: Elec tronically Signed By: Uziel Magana MD\.br\Date and Time Signed: 01/17/22 08:24 EDT Postoperative Documentson Postoperative Documents [id number]# 1.00CD:127 Normal [facility] Calculus Analysison 01-11-20 Calcium oxalate dihydrate Infrared spectroscopy (Stone) [Mass fraction] 10 % Invalid Interpretation Code [facility] Comment on above: Performed By: #### 2 194196, 1966351, [id number], [id number] #### [facility] [address] [place] [address] Calcium oxalate monohydrate (Stone) [Mass fraction] 90 % Invalid Interpretation Code [facility] Comment on above: Performed By: #### 2 673977, 6731225, 4653314, [id number] #### [facility] [address] [place] [address] Color (Stone) Brown Invalid Interpretation Code [facility] Comment on above: Performed By: #### 2 906831, 9651046, [id number], [id number] #### [facility] [address] [place] [address] Composition Comment Invalid Interpretation Code [facility] Comment on above: Result Comment: Perc entage (Represents the % composition) Performed By: #### 2 233449, 3280810, 4351243, [id number] #### [facility] [address] [place] [address] Disclaimer: Comment Invalid Interpretation Code [facility] Comment on above: Result Comment: This test was developed and its performance characteristics determined by [facility]. It has not been cleared or approved by the Food and Drug Administration. Performed at: [facility] [address] [place] [address] Dr Herrera, [place] [id number] PhD Ramiro Mills Performed By: #### 2 040436, 0346088, [id number], [id number] #### [facility] [address] [place] [address] Laboratory comment Carlos (Report) Comment Invalid Interpretation Code [facility] Comment on above: Result Comment: Loy villarreal questions regarding Calculi Analysis contact [facility] at: [phone]. Performed By: #### 2 125007, 6324275, 4156236, [id number] #### [facility] [address] [place] [address] Please Note: Comment Invalid Interpretation Code [facility] Comment on above: Result Comment: Calc lanette report will follow via computer, mail or nerve specialist delivery. Performed By: #### 2 783447, 8369382, 2976549, [id number] #### [facility] [address] [place] [address] Size (Stone) [Entitic vol] 4x3 Invalid Interpretation Code [facility] Comment on above: Result Comment: Mult iple pieces received. Dimensions of the largest piece reported. Performed By: #### 2 045367, 2418756, 5712618, [id number] #### [facility] [address] [place] [address] Specimen source subject Nom Comment Invalid Interpretation Code [facility] Comment on above: Result Comment: Urin pavel Bladder Performed By: #### 2 424165, 2521697, 2264194, [id number] #### [facility] [address] [place] [address] Stone Photo Comment Invalid Interpretation Code [facility] Comment on above: Result Comment: Phot ograph will follow under a separate cover Performed By: #### 2 679185, 1216140, 8502671, [id number] #### [facility] [address] [place] [address] Weight (Stone) 56 mg Invalid Interpretation Code [facility] Comment on above: Performed By: #### 2 734231, 1951126, 7260153, [id number] #### [facility] [address] [place] [address] Coding Summary.on 01-10-2022 Coding Summary. CD:[id number] G h0bWw+PGhlYWQ+HM7EOEN tJ55odRGvnL4XA9uAYK2W IPROZALBJZ1YJF7biGO2D VsnA8PbldNh QhlovUNdNH74XOl8YQJ0v AgyZQhiqQ8qbEEnH4d0Jk JjIC37cF99JTyhEDXfFxI 3LjZpbjsgbWFy J9ryOaWjhXKxBbd+PHRhY mxlIHdpZHRoPScxMDAlJy AvlRcqPW0mEt2kRKSzHJW vbGxhcHNlOiBj x7khFEYxBBfnBD0ooFpgS 1JxbUT0OEUhw8j5Px11cJ I+WDXaCAC1eYguSIrto76 4RmRub1xnYER7 pAFgCSvgZBK0L85os7N2A OUhCLAeUWJ4cCP6qK4jgK atsssbP7RunHRkLpY6ZGE 1kCAcmJ1vlKcb pltcwF5vUaw+Z58XPM1KA YSNAS3WLwu2Z8LmKsxkuC I+XF40HHDhLM95xMUgcRQ zv2zvaXn7WiDz NNXdTTM7zZsbBTsrm9QpI SQbB88wuPSfi2L2UTQrzF ycnKQdYxFolNH5lW0fTBe ecuxba2lludxd Fvbgt4dhfw15zS79U33dH BhkUFNtPIY1GTTbQNEcgP ewpy0fbR9sSi5+HEelj4r rv5qvlRj9BcVq JXDsrwNvmPnvSIY5t1LbS i32S6NdpDywz0GbIjg0fe 92hKEra1F2nPQ2PTctXHY xvN0nZStgZqI2 SZFrZpZdmT86iKKrLXbiA b4ydFltmYbkAZ4pFNCndm yxRDHhwE4yWXXgbPDtwXd hGP4tDJTmibio m235PbPxSZC7CJQqsEMaT 2BdiQ6lAyAwYKVvZSAvH9 DejZXmTRcdN624LFmxFqX 1SOPdzvGaX7Qt OKIkdJjlNdZ3b3U1Oc2Qn 6GpiwkmVSU0GDtjCQC7Jp MkQuCdBgH4K8KsYme7ELT pzMfaVE7nB2Xn HLCxlzabfdfevGU9ABZkU EAsmT57pGNeDVwmUd5ew8 Y1u395SNTpCTNttU46Ot7 udDogMTBwdCBU hG8cqchxv7fiecawTxGbD INoIGf4EPu2XNSmkMcfKl EvCQA8LeL7CIU9zGQofQ7 dwZxogpmaoO6k Oyc+V99ptD9mMBV7MXY8t xzxOCWigsWvKL16FK85W3 RyPjwvdGFibGU+PGRpdiB saHnxNZ3cUjMr l5afa8DiJXpbL8KuIGWaO YqnFto4SYMwFEA4dLL8sP 8jTSTyBXnfs7K9yOK5T9P jydNceg8pj1qi GTVnOGmlE30upXQfn0F2O TRpbIN2GMEnmSbmSyHagJ 93Oyc+ONItoXrpd2SiIdg hs5cxg1qruOd3 AfBlLSGrfdVcvZtcMLM6d 2RxOl14X04pNDftAVEdMW YwFZBfTPVihZzkma9flQ4 wIi8+PGNvbCB3 uVU1mM0cVVQdWrX1NPdaA 010QhKlrCThMcrwy8whm2 jetPl5QaNlYRAfizHvvWs mYWL6t1InRf96 O09uLHusNAEwRLIiVXZyK CLxkAhkye5pwB0lJi0+PC 9dz8jybw10xF30yQY+PHR zYUW3bDiqHOfd BBEkeL1jSYuuOwZ4BCUmB nWwhA23cTZoFFwbNk4vzG rwwPxoSR2gCAHrgadkz26 3GpQij8duMCNi tZFnLCuhRGB6O55ba3K6X OIdZRGaPXP0lME1eW8bxG lnbjogbGVmdDsgdmVydGl qKLrwAQseY372 IHRvcDsnPlBhdGllbnQgT kMaWCs4M7GqCyn1AQBppV ecQP9byDKyJYkxEn9lvGm qnHtvYQ5yUMXw wnhdf819HlHaa9twQTBfc CYeJTjnHTK5G04ru2X1YB HnQYOzESR3gZD3uM1ytUb nbjogbGVmdDsg gmCqnOexVSmxKQliF529A HRvcDsnPkJpcnRoIERhdG O5XD04WJ96wOHeb0D2zFS 6M4RtSQDykafq cdmsmGT2LHGuLDEjsA43F i3mqJnzHv9iKYEnNOH5FS YmrKWlA1SagK1lDlLmXRN gBXAwA0OcnUUm ZZbjG868HLoqWvK1DYUaq kTwN2KoPRRvhMlrBvP5z0 R6Ng3CV7A0SB62RQ78bDQ fo4N5rXA0C0Zf VXJbhlsihbryuGR8ZZHgX QQksS27Kl2dxZqeWo4bUG LoRYM4BOWkmOYkK2AkfF4 yOiAjMDAwMDAw H0GggBDwGQuaT815WFpdV mV0HFNclgSkV4CtRFTavJ clIgS6h8D0Re0MOPs5XI3 4LU59pXVyq4A8 bWQ4C8ZxFBXzfsymyvrcs NN1INEfRRXbbD04Eh7juK goQn2kDWYfRPG0EGSjhWL bS4YfoG0mOvAk SRWaFNTcS1VllTZlNRqaV 038RIrjGaG0LITwdoWiA1 VxESZisLvnIkS1a0E4Xs5 JDTJeFA69NCL0 oTU1AK61EB80U0EuAxixz GFibGU+PHRhYmxlIHdpZH RoPScxMDAlJyBzdHlsZT0 aEh4zAGSnECZh rZzkaGGhIfRfy0gtVISxD VepPO2yrMkrX2PerMV5VP Jft2q9Zj47T73iJ6KmbOT +CIHltZD8dUV7 lB2dQhKgBmP0QFibH962S tYmjVObOhsky1wpl6mmmV t2XmU1TKPlmhVsoAvhFDP 9n3CmJk73B38v IHdpZHRoPSIxNSUiIHZhb Bbsir1xeX7fCf4+PGNvbC D1wPG1wI3lNnXhUkG9ZOm fB683YwXwtHIp Qwzji6hzh2tuzVu0WrLuY FDghkVhfWdiNLQ0m0BsJt 36O6NigVfbu3ZdFgt4hp1 9eGEze6M8qLZ9 K0WaMJVpzajokUAoxIqjU Z8nNGMhwiqxBYSafL7vYF EjT9r3NjSxHdC7SBsvK2X yumR5APOsoLBl HSzuXJR6M17ok8U0FYIfW AHcXXC5lLB4jV5iqRqjqy ogbGVmdDsgdmVydGljYWw mCLmnU220WIWo eBabVPBqrD1mQBRsaKBrr IdpNU8jMPPjkporFktEQU TUQblGL29hWOCXGmWYGQQ WMB30WD55lAGh p0N5tSL9K8QfNVKdsvxmy bmcaJL0LWFeZLWowO53wT KtONgfYp2zw8B3o669HVD iFJYoqY97Eh9n nUomLVYomZUMcQ6czxfxp 8mpzuemGlGwGIDuEHm1YN z9AVFsaOinPrFySDM5MlO 4BCT4oHOxtP0p hKnkltgxsD2xZor+MDgvM zThNNu5CshvlVO+PHRkIH I3bGvkPSvvYGZjrQ7gOVP gK3x7YdXaQqZ5 IGdmI4MmEYUanridGx23a D7wUeBxPtR9YNglL3Fata K0NCPrjNGsLSjjTNO5A63 nb5E9GIAdWEUs QII5wVP4cS5ojAqezefvb GVmdDsgdmVydGljYWwtYW xzF682YZAyqCnfDof7EBi jZURcIU07CT92 bCMnw6Z4wIR3B4BgMQAta sacakhaxGS7IPQjTFJcsO 67uVVvAKwsXi9gt5A2m33 7EOWsFHMhpJ09 Oz5wtFzjVDYhoLNRvI9ct jvsk9vjciccJiXvIPVhLG w1DRh2LOLsjXdsSqWeHOX 0YfE9MMP3dMUl cW4dmChctfgwoX4nMoo+T WFsZTwvdGQ+OQLcFSG1fP ktFQwkTGCjiE2kBFYdO4x 7JiHnZiJ6AJgh H1GmLKKthpgzPy13wH4pE tOyNpR0CZpaQ5NdasS8XW FtpBCcMDipUZR4R53gn0J 1JWOrFWOiDCJ6 eXR1mO3qeWyxtxaybHMdm DsgdmVydGljYWwtYWxpZ2 46IHRvcDsnPkFtYnVsYXR cvdbzF2PqCGVB URtmD2IwL3KdoHuhlSE+P U98jc13H1DhPstsAon5FO QdURQ6mQV4bR3vWAUaHDr vz1T8dWY4A3Uj umKlkt3fc0vcXQAlGSqgP 93bnEQce8H3NXEzvEM2CT DvaHyeAaPhgQ31Hjh+PGN itBmcw2NtDray i5ipl6resEi8YfSaFNEly bDibGueYDL3v8PsGh07Y0 9sIHdpZHRoPSIzMCUiIHZ rcLpqlv0rkK7x Ii8+FXGblYZ6eCS4uM7kR rOfXaE4SDvkL672McVsjV PuQxmxb5sla3ibzBy1CuA wJSIgdmFsaWdu UMH3z5RsHz16P9WpaBkgi 3BqGki3fb07kUFtc9Y2vW P8E7BvSIBnlloinMDkoMg jKK0eYENyazra RITzbY8pQQHlA5s7BuNjN xK0DIrnX2UlccI1QOWdrF WzGSSzuQXXaL9ufgotk6d vcjogIzAwMDAw UIt1HOk7PEJrdFqpOuIgE TO5UfB6HYM5hQCrvF1cnV rkwdutvF9mEgy+VDn7q8m dyVOaUL5wjXP5 QD97NO80aXYss2P6lYZ3V 1AgDDQnpenusjktbGO3DC JjRDZygO77Uw5stWidGr8 vLQRhLQH4QUFu nVEbW6NgpK7dRlSmVYJwO YCeE7EafTNiVQoaL674LQ ykYnA4TAUpjyUlK0CtMIY iiBvkYhB4m1A2 Ru6KNS51BU29XG11pHVbo 4J7wMO4I1MvOVEzfxyysn njeEE8GEIbWUVxsF32Hy8 ksHmpBj1nGBYo QSR2XDKyqKAwV0IelN2bO dFgFSKqEKHbJ6JoaRPxHA shH315CGliByK7CZEvnnD mG4LyELFnsZcw OvE7e5I5Ho6FVe73EI31C R73hAMws8Y2dPR4R6EdXZ AqykmzhqdtjEM4SLQoQVL tnS78Tq8pgHws Gd7bGLBjMTC7OEQmdRFpY 2OzlJ8dKjJsEBUwOSGxE1 MxaJUlTSxmZ012HVszMbR 6FBMotjZyY4Iy EEMcfCqvAaI0m3T6Tf4IA Xdqzrk6Q1IhEmjpjXB+PC 41FTKkFY16zAUhkBZxq2t xyFz6UrKmUVQb IHN0 (more content not included)... [facility] IntraOperative Documentson 0 01-09-2022 IntraOperative Documents [id number]# 1.00CD:127 [facility] Consent for Anesthesiaon Consent for Anesthesia [id number]# 1.00CD:127 [facility] Consent for Procedure/Surger yon 01-05-2022 Consent for Procedure/Surgery [id number]# 1.00CD:127 [facility] Discharge Instructionson Discharge Instructions [id number]# 1.00CD:127 [facility] IntraOperative Documentson 0 01-05-2022 IntraOperative Documents [id number]# 1.00CD:127 [facility] Main OR Intraoperative Recor don 01-05-2022 Main OR Intraoperative Record IntraOp Document Type FT Summary Primary Physician: Joey DAVIS MD Finalized Date/Time: 01/05/22 09:28:22 Pt. Name: WALT SKELTON/Sex: 1945 Male Med Rec #: [id number] Physician: Joey DAVIS MD Financial #: [id number] Pt. Type: A Room/Bed: AS111/29 Admit/Disch: 01/04/22 09:27:35 - 01/04/22 14:55:00 Institution: Case Times FT Entry 1 Patient Times In Room 01/04/22 12:18:00 Out Room 01/04/22 13:00:00 Procedure Times Start 01/04/22 12:30:00 Stop 01/04/22 12:52:00 Anesthesia Times Start 01/04/22 12:18:00 Stop 01/04/22 13:00:00 Last Modified By: Lanette Wills RN 01/04/22 13:00:23 General Comments: 01/05/22 Chart opened to review and send charges [facility] CSFA Case Attendance FT Entry 1 Entry 2 Entry 3 Case Attendee Bacilio ANDUJAR, Rad DAVIS MD, Joey Orellana MACHINE TRIMMER, Savage Role Performed SHINGLE CARRIER Surgeon - Primary Fretted Instrument Inspector Time In 01/04/22 12:18:00 01/04/22 12:18:00 01/04/22 12:18:00 Time Out 01/04/22 13:00:00 01/04/22 13:00:00 01/04/22 13:00:00 Procedure CYSTOSCOPY CYSTOSCOPY CYSTOSCOPY URETEROSCOPY(Left) URETEROSCOPY(Left) URETEROSCOPY(Left) Comments DR MAGANA SUPERVISING Last Modified By: Anabela MACHINE TRIMMER, Monique Wills RN, Lanette Travis RN 01/05/22 09:25:54 01/04/22 14:04:16 01/04/22 14:04:16 Entry 4 Entry 5 Entry 6 Case Attendee Katia Nova RN, Lanette Woodson RT(R), Gillian Role Performed Scrub - Primary Construction Superintendent - Primary Hardboard Supervisor Time In 01/04/22 12:18:00 01/04/22 12:18:00 01/04/22 12:18:00 Time Out 01/04/22 13:00:00 01/04/22 13:00:00 01/04/22 13:00:00 Procedure CYSTOSCOPY CYSTOSCOPY CYSTOSCOPY URETEROSCOPY(Left) URETEROSCOPY(Left) URETEROSCOPY(Left) Comments Last Modified By: Elma RN, Lanette Wills RN, Lanette Travis RN 01/04/22 14:04:16 01/04/22 14:04:16 01/04/22 14:04:16 Perioperative Protocols FT Pre-Care Text: Implements protective measures prior to operative or invasive procedure, confirms identity before the operative or invasive procedure, verifies operative procedure, surgical site, and laterality Entry 1 Procedure(s) CYSTOSCOPY Patient Identity Birthday, ID Band URETEROSCOPY(Left) Verified (select at Check, Patient least 2): Participation Consents / H and P Anesthesia Consent, Operative Site Present Verified HandP, Surgery/Procedure Marking Verified Consent Surgical Site Yes Laterality Verified Yes Verified Procedure Verified Yes Correct Patient Yes Position Verified Availability Equipment, Implant, Prep Dry n/a Verified (If Medication, X-ray Applicable) PreOp Antibiotic Yes Time Out Rad Ribera CRNA, Given Participants Joey DAVIS MD, Wilhelm CST, Rohini Wan Kandyce, Barbee RN, Kimberly Y, Christman RT(R)Gillian Time Out Complete 01/04/22 12:29:00 Outcomes Met? Yes Last Modified By: Lanette Wills RN 01/04/22 14:04:18 Post-Care Text: The patient is free from signs and symptoms of injury caused by extraneous objects Allergy Information FT Pre-Care Text: Verifies allergies Entry 1 Allergies Reviewed? Yes Allergies Reviewed Self/Patient With Outcomes Met? Yes Last Modified By: Lanette Wilsl RN 01/04/22 12:38:43 Post-Care Text: The patient received appropriate medication(s) safely administered during the perioperative period Surgical Procedures FT Entry 1 Procedure Description Procedure CYSTOSCOPY URETEROSCOPY Modifiers Left Surgeon Description CYSTOSCOPY; LEFT URETERAL STENT REMOVAL; LEFT URETEROSCOPY AND URETEROSCOPIC STONE BASKET STONE EXTRACTION; LEFT NEPHROSCOPY Primary Procedure Yes Primary Surgeon Joey DAVIS MD Start 01/04/22 12:30:00 Stop 01/04/22 12:52:00 Anesthesia Type General Surgical Service Urology Wound Class 2 - Clean-Contaminated Last Modified By: Lanette Wills RN 01/04/22 14:05:41 General Case Data FT Pre-Care Text: Classifies surgical wound, implements aseptic technique, initiates traffic control Entry 1 Case Information OR OR 1 FT Case Level Level 3 Wound Class 2 - Clean-Contaminated Specialty Urology ASA Class 2 Preop Diagnosis KIDNEY STONES Postop Same As Preop Yes Postop Diagnosis KIDNEY STONES Outcomes Met? Yes Last Modified By: Monique Peñaloza CST 01/05/22 09:28:16 Post-Care Text: The patient is free from signs and symptoms of infection Skin Assessment (Pre Procedure) FT Pre-Care Text: Implements protective measures to prevent skin/ tissue injury due to thermal or mechanical sources Evaluates for signs and symptoms of physical injury to skin and tissue Entry 1 Skin Integrity Intact, [place], Warm, and Skin Abnormality No Dry Outcomes Met? Yes Last Modified By: Lanette Wills RN 01/04/22 12:46:43 Post-Care Text: The patient is free from signs and symptoms of injury caused by extraneous objects Patient Positioning FT Pre-Care Text: Identifies physical alterations that (more content not included)... [facility] Preoperative Documentson Preoperative Documents [id number]# 1.00CD:127 [facility] Preoperative Documents [id number]# 1.00CD:127 [facility] Coding Summary.on 01-04-2022 Coding Summary. CD:[id number]:[id number] G h0bWw+PGhlYWQ+LS4DJZS wA71rpBBvwT2OF6oONM6P CCZBHKBWMU7JBK0djBM2Q XxfI9SrthUc HjhqgLIhKX74FBp7IID0p BlyXEbtmU3oxPOcQ9l5Cb TcEC46kV90UYbpLNFdFxK 3LjZpbjsgbWFy G9xbZiSwzZHiHjy+PHRhY mxlIHdpZHRoPScxMDAlJy YhcWkoOP2pXf3sRLZtOCK vbGxhcHNlOiBj x5msTYUgKLcmFT2xvGgjQ 1TvbRO4XHExx1z9Lq64gL I+MEFsEAW4zLdcBUddg96 3HpGpi3pvQCG3 gZRfAKcmMNF4V88po6M0N GLuOCDsFFO2bAO5tZ3gvI opfpdoJ3LqqJZfUzW3WNP 5gYCzkA6jkEhq drygmW1xMyd+T33VKE9TA YZRFI5WKcs5W9NyQdgijZ I+QQ25UTZsTX21mCElvIT fw1nuzCz2DtUo RMRrNMZ1zPneCMrhw2EvW JLxD95psWBlj1Y2PSMnlM mzkASiLlUxdAG2rD0qFJk mspxph9fwwhfl Qwsgv4xmev17lE31H67pF WwzWDCqKBG7LNHoFHMvrX vrzu5lpV0aBt4+XMpjn6p cn9eooVk1LzIt HHJmmnZtkYqgEWG7i8AdI w56T0OdwYixa5PvSuq1ks 84fBDxz5A1fAB7QWbiWGT lgW9tBYxrGbK4 JVOoEeDymX82sLXrJTlkQ t3rwKyzyQitGD5yYISaai cjHYPvwA8nCDKlsOHakRh pRH5rCRXqgkyq h301CrWoCXV6JXHhiTNxF 4WuqX4bDoTjZVPrKKWoF5 FacYIcESnxQ480NJyoLoJ 8LZYusjGmH0Nb QLNeeIjaNxF3t1K4Jc7Yz 7EvjjvaLNM1NDhkIRF2Gq J9NnCaUrS0E5XhScb2MXV viEotWO5yI6Vs XQBcmubyjinioZN8CNEyW ZXbhD49pCFaMGzpBj5tp7 K8b660NWIaFPSzoJ18Fo6 udDogMTBwdCBU rS1cmypqr7pstlcxWhCnJ GKhQZr4EIo2XIIpoZsiXo XjNDM4LxM8ILZ0kBQdcL1 cpKfwgbpcfK9z Oyc+R19keR2nRJH0OEP6l zpiGNJngsRpJO54JK76K1 RyPjwvdGFibGU+PGRpdiB thUzwDP3vVnHj t1ppz0OnIMwfI8VqOKPuA SezPff4KKLrAME7lOL1tH 8nIQDlJYddj5X8dLL4U7S oxtZpup7tu0aa FSKhCYxsC02hoEFzg3D8J KKtmPI8KITkkEwiJhVnrP 93Oyc+YDRhrVuzy3KaDyq zb9qfc2ybnUu5 CcRgZCXbpvBifErvZOH7g 4OeMc22P12vHTzuDYVzAO FxEOZkBLHajVqtkj2aaU6 wIi8+PGNvbCB3 kGV0zC9iWZGcRyF5PQkbN 847KkLkiJNeVriju4lnk8 isiHy8HxBzLVUynyZclMs eIIP2y6YyWd63 I97jLGvkJVWpUSWgCBKuX EKpnWdjsf3riN6eJz8+PC 6gn5sgfd31bP34bWY+PHR jMVT0qWjsTEfs GDOqaJ8oPOdnJuZ0WNJkU dRxgV55jJHaYUulQi4ndC ijrIplHS5iKWUxgmvpv85 3AxMjl9mhTYPw tGBjBEkjPLI5L93ag9Z8R IBtRRLhBOT3vBW0jZ9dcZ lnbjogbGVmdDsgdmVydGl sKPpoZTvkF948 IHRvcDsnPlBhdGllbnQgT tQfONt7J7VnQie6OZFzrQ owFN4mgJNpQRzhFa7sxJg zsCneJJ8dPOTs pmcit539TyHuc0jsTTFeo QAnEPptACU3T79nw0F6WB IoKHZeHCB8iVY5eY6alEs nbjogbGVmdDsg raMwcJrePKxdKUcoO469R HRvcDsnPkJpcnRoIERhdG Y2IW71LS16zXGsq0V9lOJ 3P4MuJJXsfome kwxejER8UVKpETPwjS41L a3qdWmvTp8cUDXpAJG3CW FmxDXyB1PbiW4rQjDxUMA pNPHfP2CouDSg LFnnE652YYdiXgD7RFSif xHsI4DpYQQpmZpuGfM8v2 O1Bd6VC3W7FI87TX56sGD ra0N5bFY4S4Hb RMDpjromfftmhME8FCHrO WFjlW07Ph0gtNxkSe6uZI LqBQY7DYUanOEpK8AtyJ4 yOiAjMDAwMDAw D9YbfALuCZqgX862WVvwS jS1SCHzzuKoO3NbIEFtgQ ubDyL2g3W2Kq3ZBHr3OU9 7SI22aVTsg3I7 qCS8B7TbPMWzbtkpjymbv QB6TJWsHREbvA73Tu2kfL ioZq8uVBNtFIN6QCBoeCX oK6VulV8jOgUu ENAeINGdM9FvhRWyLSldM 444AKpuKsY4EDUrofTuY8 UhKPQdfUicJoM8d5N4Wi2 OEVDkPL93JUI1 dMO9PZ54CE76Q7UuBvqgx GFibGU+PHRhYmxlIHdpZH RoPScxMDAlJyBzdHlsZT0 vMg9wBVGmNCEb oWqryKZyWuIcg2pvPMIeT JvcZG9qfHktP9RnzUC1ZB Ioy4h8Qu08B85mC2MkoQP +GOVemTJ1cYU9 vZ1lHlQgNpQ3CYuiC390H aYwqZPfDmfmm8zau0ldjR z0EkP7FZRwmaJqzRnzMTB 7t0EyYq68E18b IHdpZHRoPSIxNSUiIHZhb Cqeyf8pkC4zOw9+PGNvbC W6oTC2gB2dVeWtLiR9HFe vM348PmWzfRTy Nonbl3rfs5dkaBg4AmNhD YIcrfHwbBbiQNI9q8CeYz 96A1MmlEpao0GqCmq7ro0 8uBScn7I3iWW6 S6BqFLRyezeupBAgdUebK R7wANJymlepRCDpaP6fTH TsB5z5OkNiGuU3HWqiO7L jipS0CEZwoDJr GLcmTXW2G99bu7L8HNLfJ THaUWP2mBI8cD6vbEpttt ogbGVmdDsgdmVydGljYWw rLRwbD126HQJy fTtsBDFvwS4rKVTskNVfz PfeSO5oJRRrsrpuBtkSLC CRQhkKM34zBPPPNeSFDKN FSR87IN86qBVn b8Y6uKG7X2ToRSWibyqnv pibjWG9TBUjQGNemT61bM KqYIizXp1qz5C4u899LSP dGLOlgG88Pk2x uXstYDMshWAMpT7libmxg 3batkcaCeHuHNVpTSq1RC h8FHDjoGtoJxPlJAT0JpP 1POT8oWJysA1n qXdrtpfgrB4pCxu+MDgvM tZdZEw5HyxtzTS+PHRkIH F0jPgfISjbJMXsuK4tXJH vO2g7AiVgHfT2 PKnhE6GcGMXbjcugCl74i V4cUgSbCxU5USehW7Hpuz V2NZPfoWExCUxlJET2Z45 fm3A0WDSsVPCx VJC7qPT2vV1mnUcubxgpq GVmdDsgdmVydGljYWwtYW rfF389NFRvzOvhCqy5QXs xRUAjFZ22KI37 yYCyj8F1iKR9U1RsDWAep relvggieLR7SSPvANAesX 92xBHyDIugQt3bx0F2t10 6ZUAjRWJyqM52 Pc4hnIxxWQNftMITaX8av ivet6tggoytFdNlKZIrCC e7ZHw9JCKupGegMqZiFUD 9YzM4SID6cMCx pU5dwDaslloffZ9rMcx+T WFsZTwvdGQ+LSNmQAY4fW ysMKmaENCqlX1oKCHdK3h 8WiTjJqO4NUxj L6IbQZXfuwidOh90kT6vF cLlLtN6XDgzX3IdzoK2IL WhtYCnDMvtQRC7X88qx6D 0JNWtZBRlVNQ0 hMW4kJ0rzCvkwlbmoFCbw DsgdmVydGljYWwtYWxpZ2 90KJMkmYhlJm33aBLtlTu qwdW2R3JeCuph dHI+WR86BKYmOZ99iSAjp PCdd4yhiZa2CuJtDYAjJP W9yZltIWlcy9DuZSFnJ60 wuQZrf2Z2NZPk vAyfjMUsFcBzmWK5nO5tT Ypghxrcu7nyqtxgJckve2 kery69dK77R88fQLsqFEU oPSIzMCUiIHZh hGdmqg9mdT6hTa3+PGNvb LD2jGA6pT0kVnXqVaE6QM mpP959VoYxvOCvHmziv4e bm0ryyRc0HqBg KCYbyhXqeHjiHYS8f6FvO k75D14tRTqlNQQaGPAbYB UaJXJzaZuqkl0bgN7aLn3 +LP9ys6oeac04 sX48wXH+KPAoIEN6wQglX YchXPZgqX4eUTmgUxR8CR MjVhKgyF12rBEtYUzcRu9 otMtvjFowRG6p TSEnlvrwv864GrPwr3mhR GOkvLRoPZdiOTL1F08lj1 O5HDOnCEWkTVO1kWN6fC8 hbGlnbjogbGVm dDsgdmVydGljYWwtYWxpZ 602FIXexZczXmCssETyR3 edtlRHYM2bLviewZP+PHR mAAN1vJspNCsq SOApuJ2cFSCbU5t1FaEbG cH9ZWobV2NqymU4VAEenU QbZMAygPZLqY4wynhqu2t vcjogIzAwMDAw OHw1SIs1VGXvpClzMyZxH IB5YzE9GUY0yFIpdD1vbD xtvgvjtN6sPzc+RklOOjw vdGQ+PHRkIHN0 rAvwHOrhDEBphO8oQNMoV 2j3YhXyFwF5MHjyW2Ywag V7JFUikLScPPEivADAuB5 qbhypi6owzinn JgUlGKBzHOk1YQw0RIDmi CwgIhJpCED5EjO0UJS5wD BagJ1mmCoayjuukS5cEfk +TVJOOjwvdGQ+ GRLwXFA1uIcxUHhcDYYxz U8aPJAcH9w2FcZoLdN4WM qrP2HaaxL1TWOvdGSeIVF bzGBZdY4jlcxq d5toylddNxRzOQCcAVf3X Hl1LCIxbCfxRuXsQTT5Yd V7RWM7aEYoxN3qeVciffm jwF6uIgi+UGF5 LFD2EX26XF20N3KiVarui GFibGU+PHRhYmxlIHdpZH RoPScxMDAlJyBzdHlsZT0 wMf1eJVQyIPFn bGxh (more content not included)... [facility] Consent for Treatmenton Consent for Treatment [id number] [id number] [facility] Inpatient Patient Summaryon 01-04-2022 Inpatient Patient Summary [place] [id number] Clinical Discharge Instructions PERSON INFORMATION Name: [facility] Admitting Physician: Joey DAVIS MD Attending Physician: Joey DAVIS MD PCP: UZIEL HALLMAN DO Discharge Diagnosis: Comment: PATIENT EDUCATION INFORMATION Instructions: Exxw-Yooo-jc Utereroscopy,Lithotri psy, Stone Extraction, Stent Placement (Custom) Medication Leaflets: Follow up: With: Address: When: Joey DAVIS [address] [place], [place] [address]Heather, [address], [place] [id number] Business (1) Within 6 months Comments: Call for followup appointment with an abdominal X-ray prior to your visit. Type Location Start [facility] Office Visit 08/22/2022 9:30 AM 08/22/2022 9:45 AM Confirmed MEDICATION LIST New Medications [id number], [address], [place] [id number], [phone] ciprofloxacin (Cipro 500 mg Tab) 1 Tablets By Mouth 2 times a day. Refills: 0. Medications to Continue with No Changes Other Medications mometasone 0.1 Percent Topical every day. solution for scalp. mometasone topical (mometasone Top 0.1% Crm 15 gram) 1 Application Topical. prn psoriasis., apply to back ondansetron (ondansetron 4 mg Dis Tab) 1 Tablets By Mouth every 6 hours as needed Nausea/Vomiting. thyroid desiccated ([place] Thyroid 60 mg Tab) 1 Tablets By Mouth every day. Comment: [facility] Main OR PACU I [facility] Main OR PACU I Record PACU Phase I Document Type FT Summary Primary Physician: Joey DAVIS MD Finalized Date/Time: 01/04/22 13:16:44 Pt. Name: WALT SKELTON./Sex: 1945 Male Med Rec #: [id number] Physician: Joey DAVIS MD Financial #: [id number] Pt. Type: A Room/Bed: [place] [address] Admit/Disch: 01/04/22 09:27:35 - Institution: Case Times PACU I FT Pre-Care Text: Identifies barriers to communication and implements measures to provide psychological support Develops individualized plan of care, and ensures continuity of care Maintains patient's dignity and privacy, and maintains patient confidentiality Identifies and reports philosophical, cultural, and spiritual beliefs and values Identifies individual values and wishes concerning care Implements aseptic technique, and administers prescribed antibiotic therapy and immunizing agents as ordered Evaluates postoperative tissue perfusion Implements thermoregulation measures, and monitors body temperature Evaluates postoperative respiratory status Evaluates postoperative cardiac status Evaluates postoperative neurological status Assesses pain control, collaborated in initiating patient-controlled analgesia and implements alternative methods of pain control Verifies allergies, administers prescribed medications and solutions, evaluates response to medications Entry 1 In PACU I 01/04/22 13:02:00 Discharge from PACU 01/04/22 13:32:00 I Outcomes Met? Yes Last Modified By: Celine Kong RN 01/04/22 13:16:29 Post-Care Text: The patient demonstrates knowledge of the expected response to the operative or invasive procedure The patient's care is consistent with the individualized perioperative plan of care The patient's right to privacy is maintained The patient's value system, lifestyle, ethnicity, and culture are considered, respected, and incorporated into the perioperative plan of care The patient participates in decisions affecting his or her perioperative plan of care The patient is free from signs and symptoms of infection The patient has wound/tissue perfusion consistent with or improved from baseline levels established preoperatively The patient is at or returning to normothermia at the conclusion of the immediate postoperative period The patient's respiratory function is consistent with or improved from baseline levels established preoperatively The patient's cardiovascular status is consistent with or improved from baseline levels established preoperatively The patient's cardiovascular status is consistent with or improved from baseline levels established preoperatively The patient demonstrates and/or reports adequate pain control throughout the perioperative period The patient received appropriate medication(s), safely administered during the perioperative period Acuity Level PACU I FT Entry 1 Start Time 01/04/22 13:02:00 Stop Time 01/04/22 13:32:00 Acuity Level Acuity Level I Last Modified By: Celine Kong RN 01/04/22 13:16:42 Finalized By: Celine Kong RN Document Signatures Signed By: Celine Kong RN 01/04/22 13:16 [facility] Main OR PACU II [facility] Main OR PACU II Record PACU Phase II Document Type FT Summary Primary Physician: Joey DAVIS MD Finalized Date/Time: 01/04/22 15:02:24 Pt. Name: WALT SKELTON/Sex: 1945 Male Med Rec #: [id number] Physician: Joey DAVIS MD Financial #: [id number] Pt. Type: A Room/Bed: [facility]11/29 Admit/Disch: 01/04/22 09:27:35 - Institution: Case Times PACU II FT Pre-Care Text: Identifies barriers to communication and implements measures to provide psychological support and determines knowledge level Develops individualized plan of care, and ensures continuity of care Maintains patient's dignity and privacy, and maintains patient confidentiality Identifies and reports philosophical, cultural, and spiritual beliefs and values Identifies individual values and wishes concerning care administers prescribed antibiotic therapy and immunizing agents as ordered, Evaluates postoperative tissue perfusion Implements thermoregulation measures, and monitors body temperature Evaluates postoperative respiratory status Evaluates postoperative cardiac status Evaluates postoperative neurological status Assesses pain control, collaborated in initiating patient-controlled analgesia and implements alternative methods of pain control Verifies allergies, administers prescribed medications and solutions, evaluates response to medications Entry 1 In PACU II 01/04/22 13:35:00 Discharge from PACU 01/04/22 14:55:00 II Outcomes Met? Yes Last Modified By: Vane Sewell RN 01/04/22 15:02:23 Post-Care Text: The patient demonstrates knowledge of the expected response to the operative or invasive procedure The patient's care is consistent with the individualized perioperative plan of care The patient's right to privacy is maintained The patient's value system, lifestyle, ethnicity, and culture are considered, respected, and incorporated into the perioperative plan of care The patient participates in decisions affecting his or her perioperative plan of care. The patient is free from signs and symptoms of infection The patient has wound/tissue perfusion consistent with or improved from baseline levels established preoperatively The patient is at or returning to normothermia at the conclusion of the immediate postoperative period The patient's respiratory function is consistent with or improved from baseline levels established preoperatively The patient's cardiovascular status is consistent with or improved from baseline levels established preoperatively The patient's neurological status is consistent with or improved from baseline levels established preoperatively The patient demonstrates and/or reports adequate pain control throughout the perioperative period The patient received appropriate medication(s), safely administered during the perioperative period Finalized By: Vane Sewell RN Document Signatures Signed By: Vane Sewell RN 01/04/22 15:02 [facility] Main OR Preoperative Recordo n 01-04-2022 Main OR Preoperative Record PreOp Document Type FT Summary Primary Physician: Joey DAVIS MD Finalized Date/Time: 01/04/22 12:39:00 Pt. Name: WALT SKELTON/Sex: 1945 Male Med Rec #: [id number] Physician: Joey DAVIS MD Financial #: [id number] Pt. Type: A Room/Bed: [facility]6/ Admit/Disch: 01/04/22 09:27:35 - Institution: Case Times PreOp FT Pre-Care Text: Verifies consent for planned procedure, identifies individual values and wishes concerning care, includes family members in perioperative teaching Entry 1 Patient Times. In Pre Surgery 01/04/22 09:45:00 Out Pre Surgery 01/04/22 12:16:00 Outcomes Met? Yes Last Modified By: Lanette Wills RN 01/04/22 12:38:57 Post-Care Text: The patient participates in decisions affecting his or her perioperative plan of care Finalized By: Lanette Wills RN Document Signatures Signed By: Lanette Wills RN 01/04/22 12:39 [facility] Monitor Recordon 01-04-2022 Monitor Record [id number]# 1.00CD:127 [facility] Operative Reporton 2 Operative Report Patient: WALT SKELTON Age: 76 years Sex: Male : 1945 Associated Diagnoses: None Author: Joey DAVIS MD Postoperative Information Date/ Time: 01/04/2022 13:23:00 Postoperative Diagnosis: Ureteral calculi ([id number] N20.1, Working, Medical). Performed by: Joey Davis MD. Findings: Procedure: Cystoscopy Left ureteral stent removal Left ureteroscopy and ureteroscopic stone basket extraction Left nephroscopy Anesthesia: General, LMA, Dr. Magana Indications: This is a 76-year-old male who had a large UPJ calculus on the left. He is status post cystoscopy and left stent and then subsequent lithotripsy. He still has stone fragments which were thought to be at the lower pole of the kidney and possibly down the ureter. He has multiple phleboliths making it difficult to distinctly identify stone fragments. Patient agreed to proceed with ureteroscopic and nephroscopic approach, stone basket extraction and possible stent replacement. He understands the risk of bleeding, infection, injury to ureter, among others. Did receive preoperative antibiotics and he does have sequential compression devices in place and functional bilateral lower extremities throughout the case Procedure: The patient was brought back to the operating room and a timeout was performed. All were in agreement with the operative plan. After the successful induction of general anesthesia he is placed in the modified dorsolithotomy position and prepped in usual fashion with Betadine solution. He is draped appropriately. Pressure points are padded. A well-lubricated 22 Singaporean cystourethroscope with 30 degree lens then passed into the bladder without difficulty. Anterior urethra was within normal limits. Membranous urethra intact. Prostatic urethra demonstrates moderate lateral lobe hypertrophy and a high riding bladder neck. Once into the bladder panendoscopy reveals a stent coming from the left orifice. No tumors or stones or diverticuli. A point 035 guidewire was then passed up the left ureter alongside the stent up into the kidney, confirmed under fluoroscopic guidance. The existing stent was then removed with an alligator forceps and discarded. I elected to perform ureteroscopy. With the safety wire left in place the semirigid ureteroscope was passed up the left ureter and about 2 cm proximally I encountered 3 stone fragments, each of which were basketed and extracted from the bladder. These are sent to pathology for evaluation. I utilized the nitinol 0 tip stone basket. With that accomplished ureteroscopy was carried up into the UPJ area with no other stones identified. I decided to proceed with ureteroscopy. The semirigid scope was removed and the flexible digital ureteroscope was passed over the wire. The wire was removed and endoscopy the entire upper collecting system was accomplished. No stones or fragments were identified. The scope was removed. I did not feel the stent needed replaced. The bladder was subsequently emptied and the procedure is terminated. He tolerates well and he transferred to the [facility] and then back to PACU in satisfactory condition, stable vital signs. Plan to be for discharge home with plans to follow-up in 6 months with a KUB. I sent prescription for Cipro to the pharmacy for prophylaxis. All this is discussed with the patient's postop and she is in agreement with the plan. Estimated Blood Loss: 1 ml. Complications: None. Anesthesia type: General. [facility] Comment on above: Result Comment: Elec tronically Signed By: MARIBEL ANN, Joey Castro.br\Date and Time Signed: 01/04/22 13:28 EDT Outpatient Surgery Discharge Instructionon 01-04-2022 Outpatient Surgery Discharge Instruction [address] [address] Patient Discharge Instructions PERSON INFORMATION Name: WALT SKELTON Date of : 1945 Current Date: 01/04/2022 13:23:40 PHYSICIANS Admitting Physician: Joey DAVIS MD Discharge Diagnosis: WALT SKELTON has been given the following list of follow-up instructions, prescriptions, and patient education materials: PATIENT FOLLOW-UP INFORMATION Diet: Regular Discharge Activity: Arrange for a responsible adult supervision for 24 hours, Expect mild pain, Expect minimal amount of drainage and/or bleeding Discharge Restrictions: No driving, Do not operate machinery or tools, Do not make important decisions for 24 hours, Do not drink alcoholic beverages for 24 hours Call Your Doctor For: Persistent or heavy bleeding, Temperature above 101.5 degrees IF UNABLE TO CONTACT YOUR PHYSICIAN AND YOU FEEL IT IS AN EMERGENCY, GO TO THE NEAREST EMERGENCY ROOM OR CALL 911 I, WALT SKELTON, have received the attached patient education materials/instruction s and have verbalized understanding: May we do a follow up call? Yes No I was present when discharge instructions were given Patient Signature Date Clinican/Nurse Signature Date Follow up: With: Address: When: Joey DAVIS [address] [place], [place] [address]Heather, [address], [place] [id number] Business (1) Within 6 months Comments: Call for followup appointment with an abdominal X-ray prior to your visit. Type Location Start Finish State URO Office Visit [facility] [place] 08/22/2022 9:30 AM 08/22/2022 9:45 AM Confirmed Pharmacy Information: You may receive a survey from [facility] asking you to rate your care experience. Your feedback is important and will help us understand what we do well and how we can improve the quality of care we provide to you, your loved ones and our community. It?s an honor to serve you. Thank you for choosing [facility] HERE ARE THE MEDICATION CHANGES THAT OCCURRED DURING YOUR HOSPITAL STAY New Medications [id number], [address], [place] [id number], [phone] ciprofloxacin (Cipro 500 mg Tab) 1 Tablets By Mouth 2 times a day. Refills: 0. Medications to Continue with No Changes Other Medications mometasone 0.1 Percent Topical every day. solution for scalp. mometasone topical (mometasone Top 0.1% Crm 15 gram) 1 Application Topical. prn psoriasis., apply to back ondansetron (ondansetron 4 mg Dis Tab) 1 Tablets By Mouth every 6 hours as needed Nausea/Vomiting. thyroid desiccated ([place] Thyroid 60 mg Tab) 1 Tablets By Mouth every day. PATIENT EDUCATION INFORMATION Instructions: [facility] [place], [place] Dr. Joey Lehman Post-operative Instructions for Ureteroscopy, Laser Lithotripsy, Stone Extraction and Stent Placement There are no incisions or dressings to be concerned with, as the procedure was performed inside the urinary system. For 24 hours after surgery: ? No driving or operating machinery ? Do not make important decisions ? Do not consume alcohol, sleeping pills Stent Placement No ureteral stent was replaced. The stone fragments were removed from the ureter. Diet You may resume your normal diet, but you may want to start slowly and avoid spicy food, caffeine, carbonated beverages and alcohol, especially if you have a stent. Your diet and fluid intake may make irritation from the stent worse. Activity You may resume your normal activities, although you should take it easy on the day of the procedure. Minimizing activity may decrease the back discomfort and irritation from the stent, if present. Medications ? You may resume your home medications unless instructed otherwise. ? Hold aspirin, ibuprofen, Coumadin (warfarin) and other blood thinners until your office visit (we will discuss when to resume these medications) ? Take your prescribed medications as directed, including your antibiotics. You may also be given a prescription for pain medicine or medicines to help with the bladder irritation from stent, if present. Things to watch for which would require an Emergency Room Visit (or call 911) (This is not a complete list) ? Fever over 101.5 degrees, with or without chills ? Severe bleeding ? Severe drug reactions with itching, hives, rash, or severe flank pain ? Tenderness or swelling or the calves, chest pain, or shortness of breath Please call the office to arrange for your post-operative appointment in about six months (with XRAY) [phone] Medicatio (more content not included)... [facility] PT & PTTon 01-04-2022 aPTT Coag (PPP) [Time] 35.2 second(s) Normal 25.1-36.5 [facility] Comment on above: Result Comment: Hepa rin therapeutic range (represented by Anti-Factor Xa activity of 0.2 - 0.4 U/mL) corresponds to PTT of 56.6 - 109.0 sec. Performed By: #### 2 [id number], 9459066, 0342927, [id number] #### [facility] [address] [place] [address] INR Coag (PPP) [Relative time] 1.1 {INR} Invalid Interpretation Code [facility] Comment on above: Result Comment: INR results are specifically intended to assess patients stabilized on long-term Anticoagulation therapy suggested INR?s ?Less Intensive Anticoagulation? 2.0 ? 3.0 Conventional Range 3.0 ? 4.5 Performed By: #### 2 [id number], 1439150, 6072625, [id number] #### [facility] [address] [place] [address] PT Coag (PPP) [Time] 12.6 second(s) Normal 10.2-12.9 [facility] Comment on above: Performed By: #### 2 995433, 4461524, 7259680, [id number] #### [facility] [address] [place] [address] Patient Education - Texton 0 01-04-2022 Patient Education - Text [facility] [place], [place] Dr. Joey Lehman Post-operative Instructions for Ureteroscopy, Laser Lithotripsy, Stone Extraction and Stent Placement There are no incisions or dressings to be concerned with, as the procedure was performed inside the urinary system. For 24 hours after surgery: ? No driving or operating machinery ? Do not make important decisions ? Do not consume alcohol, sleeping pills Stent Placement No ureteral stent was replaced. The stone fragments were removed from the ureter. Diet You may resume your normal diet, but you may want to start slowly and avoid spicy food, caffeine, carbonated beverages and alcohol, especially if you have a stent. Your diet and fluid intake may make irritation from the stent worse. Activity You may resume your normal activities, although you should take it easy on the day of the procedure. Minimizing activity may decrease the back discomfort and irritation from the stent, if present. Medications ? You may resume your home medications unless instructed otherwise. ? Hold aspirin, ibuprofen, Coumadin (warfarin) and other blood thinners until your office visit (we will discuss when to resume these medications) ? Take your prescribed medications as directed, including your antibiotics. You may also be given a prescription for pain medicine or medicines to help with the bladder irritation from stent, if present. Things to watch for which would require an Emergency Room Visit (or call 911) (This is not a complete list) ? Fever over 101.5 degrees, with or without chills ? Severe bleeding ? Severe drug reactions with itching, hives, rash, or severe flank pain ? Tenderness or swelling or the calves, chest pain, or shortness of breath Please call the office to arrange for your post-operative appointment in about six months (with XRAY) [phone] [facility] Progress Note-Physicianon Progress Note-Physician Patient: WALT SKELTON Age: 76 years Sex: Male : 1945 Associated Diagnoses: None Author: Uziel Magana MD Preoperative Information Anesthesia history: Patient History: No personal or Family history of problems with anesthesia. Re-eval prior to induction: Inital eval reviewed: No significant interval change. Review of Systems Constitutional: Negative. Cardiovascular: Cardiovascular risk stratafacation reviewed, 1 FOS without difficulty, No chest pain. Respiratory: No SOB. Hematology/Lymphatics : Negative. Gastrointestinal: Negative. Musculoskeletal: Negative. Neurologic: Negative. Health Status Allergies: Allergic Reactions (Selected) Severity Not Documented Peanuts- Headache. Sulfamethoxazole- O/e - lip swelling. Tape- Redness. Toradol- Swelling. Current medications: (Selected) Inpatient Medications Ordered Lactated Ringers IV [place] 1000 mL 1,000 mL: 1,000 mL, IV, 150 mL/hr, Routine, Start date 01/04/22 10:30:00 EDT, 6.7 hour(s), Total volume (mL): 1,000, 73 kg, 1.86, m2 gentamicin additive + Sodium Chloride 0.9% intravenous solution 50 mL: 80 mg = 50 mL, Soln-IV, IV Piggyback, PREOP, Routine, Start date 01/04/22 9:30:00 EDT, 100 mL/hr, Infuse over 30 minute(s) Documented Medications Documented [place] Thyroid 60 mg Tab: 60 mg = 1 tab(s), Oral, Daily, # 30 tab(s), Refills(s) 0, Thyroid mometasone Top 0.1% Crm 15 gram: 1 jarrod, Topical, 30 gram, Refill(s) 0, prn psoriasis mometasone: = 0.1 %, Topical, Daily, solution for scalp, Refills(s) 0 ondansetron 4 mg Dis Tab: 4 mg = 1 tab(s), Oral, q6hr, PRN Nausea/Vomiting, # 10 tab(s), Refills(s) 0 Problem list: All Problems Kidney stone / SNOMED CT 393256484 / Confirmed Family history of malignant neoplasm of prostate / SNOMED CT 8125260092 / Confirmed Hearing loss / SNOMED CT 20909483 / Confirmed Adult BMI 26.0-26.9 kg/sq m / SNOMED CT 0134914529 / Confirmed 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 / SNOMED CT 0873187457 / Confirmed 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 / SNOMED CT 532188474 / Confirmed Partial amputation, 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 PONV (postoperative nausea and vomiting) / SNOMED CT 8630486 / Confirmed Benign localized hyperplasia of prostate with urinary retention / SNOMED CT 1961437757 / Confirmed Headache / SNOMED CT 91935456 / Confirmed Left hydrocele / SNOMED CT 026704642 / Confirmed Urge incontinence / SNOMED CT 979662220 / Confirmed Hypothyroid / SNOMED CT 09727457 / Confirmed Resolved: Psoriasis / SNOMED CT 13476519 Resolved: Hypercholesterolemia / SNOMED CT 97561795 Resolved: Cold sore / SNOMED CT 238284232 Canceled: Abnormal x-ray of cervical spine / SNOMED CT 579523324 Histories Past Medical History: Active Kidney stone (939668419) Resolved Psoriasis (30392396): Resolved. Cold sore (037313540): Resolved. Hypercholesterolemia (50543562): Resolved. Procedure history: ESWL of kidney ([id number]) on 11/23/2021 at 76 Years. Cystoscopy ([id number]) on 10/26/2021 at 76 Years. Comments: 10/26/2021 15:30 MACO Newman RN, [place] stent placement Eye ([id number]) on 07/01/2015 at 70 Years. Comments: 11/07/2020 11:35 Jori Mcmillan MA Bilateral lens implants Excision of ganglion cyst of wrist, recurrent ([id number]) on 09/21/2013 at 68 Years. Arm ([id number]) on 07/01/2013 at 68 Years. Comments: 11/07/2020 11:35 Jori Mcmillan MA left arm plates and screws EGD (esophagogastroduoden oscopy) gastric outlet reduction (0753916306) on 07/01/2012 at 67 Years. ESWL - Extracorporeal shockwave lithotripsy for renal calculus (952360933) on 07/01/2010 at 65 Years. History of subtotal thyroidectomy (6539386739). OPEN REDUCTION LEFT RADIUS. INGUINAL HERNIA REPAIR,RIGHT. Colonoscopy (220385415). Cataract extraction and insertion of intraocular lens bilateral (2192229378). Social History Social & Psychosocial Habits Alcohol 05/30/2011 Risk Assessment: Denies Alcohol Use Substance Abuse 05/30/2011 Risk Assessment: Denies Substance Abuse Tobacco 05/30/2011 Risk Assessment: Denies Tobacco Use 12/04/2021 Tobacco Use: Never (less than 100 in l . Physical Examination Pain assessment: Self-reports no pain. Airway: Mallampati classification: II (soft palate, fauces, uvula visible). Distance: Adequate. Mouth: Adequate opening. Neck: Full range of motion. Respiratory: Respirations are non-labored. Cardiovascular: Regular rhythm. Neurologic: Alert, Oriented. Review / Management Results review: No qualifying data available . Plan [place] [employer] Anesthesiologists (ASA) physical status classification: Class II. Anesthetic Preoperative Plan Anesthesia: General. , discussed the benefits of obstaing from tobacco products. Anesthetic plan, risks, benefits, and alternatives discussed with the (more content not included)... [facility] Comment on above: Result Comment: Elec tronically Signed By: [place] ANN, Uziel\.br\Date and Time Signed: 01/04/22 16:03 EDT XR Abdomen 1 Viewon 01-05-20 22 XR Abdomen 1 View Exam Date/Time: 01/04/2022 13:27 EDT Reason for Exam: Kidney stone Report IMPRESSION: CYSTOSCOPY AND URETEROSCOPY WELL STONE BASKET. CLINICAL HISTORY: Kidney stone COMPARISON: Abdomen x-ray on 01/04/2022 9:32 AM. FINDINGS: Total 5 spot images of the left side abdomen were obtained. Cystoscope or ureteroscope is seen. There is interval removal of left ureteral stent. There was stone basket procedure. Radiation dose was 4.2 mGy. FINAL REPORT Dictated: 01/04/2022 2:21 pm Michael Red M.D. Signed (Electronic Signature): 01/04/2022 2:21 pm Signed by: Michael Red M.D. Transcribed by: BEV Technologist: CC [facility] XR Abdomen 1 View Exam Date/Time: 01/04/2022 09:44 EDT Reason for Exam: Kidney stone Report IMPRESSION: No significant interval change from prior. Left ureteral stent with calcifications adjacent to the distal stent. EXAMINATION/TECHNIQUE : XR Abdomen 1 View HISTORY: Having surgery for kidney stones. Current left-sided stent. COMPARISON: 12/04/2021. RESULT: Left ureteral stent, unchanged in position. Calcifications adjacent to the distal stent, similar to prior, likely within the ureter. Multiple other pelvic phleboliths. No distinct calcifications projecting over either kidney radiographically within limits of bowel gas. Nonspecific nondilated bowel gas pattern. Lung bases unremarkable. No acute osseous findings. Degenerative changes. No other significant abnormality. FINAL REPORT Dictated: 01/04/2022 11:15 am Uziel Weber MD. Signed (Electronic Signature): 01/04/2022 11:15 am Signed by: Uziel Weber MD Transcribed by: BEV Technologist: ABDIEL Normal [facility] Auto Diffon 12-28-2021 Basophils/100 WBC (Bld) 0.6 % Normal 0.0-2.0 [facility] Comment on above: Order Comment: Order Added by Discern Expert. Performed By: #### 2 896394, 5875420, 1375598, [id number] #### [facility] [address] [place] [address] Basophils/Leukocyt es Auto (Bld) [Pure # fraction] 0.0 E9/L Normal 0.0-0.2 [facility] Comment on above: Order Comment: Order Added by Discern Expert. Performed By: #### 2 741943, 1017099, 8062223, 79305351 #### [facility] [address] [place] [address] Eosinophils/100 WBC (Bld) 2.7 % Normal 0.0-8.0 [facility] Comment on above: Order Comment: Order Added by Discern Expert. Performed By: #### 2 950273, 9841157, 0995605, [id number] #### [facility] [address] [place] [address] Eosinophils/Leukoc ytes Auto (Bld) [Pure # fraction] 0.1 E9/L Normal 0.0-0.5 [facility] Comment on above: Order Comment: Order Added by Discern Expert. Performed By: #### 2 686235, 1931072, 3179528, 73729074 #### [facility] [address] [place] [address] Lymphocytes/100 WBC (Bld) 14.7 % Normal 14.0-50.0 [facility] Comment on above: Order Comment: Order Added by Discern Expert. Performed By: #### 2 425873, 6612341, 9382574, 37536306 #### [facility] [address] [place] [address] Lymphocytes/Leukoc ytes Auto (Bld) [Pure # fraction] 0.7 E9/L Low 1.0-4.0 [facility] Comment on above: Order Comment: Order Added by Discern Expert. Performed By: #### 2 872901, 4149944, 1267370, 74003616 #### [facility] [address] [place] [address] Monocytes/100 WBC (Bld) 6.8 % Normal 4.0-14.0 [facility] Comment on above: Order Comment: Order Added by Discern Expert. Performed By: #### 2 793452, 1442115, 6366530, 48809235 #### [facility] [address] [place] [address] Monocytes/Leukocyt es Auto (Bld) [Pure # fraction] 0.3 E9/L Normal 0.2-1.0 [facility] Comment on above: Order Comment: Order Added by Discern Expert. Performed By: #### 2 531347, 0361798, 0932778, 57573108 #### [facility] [address] [place] [address] Neutrophils/100 WBC (Bld) 75.2 % High 36.0-75.0 [facility] Comment on above: Order Comment: Order Added by Discern Expert. Performed By: #### 2 899341, 6140781, 0350975, 32835451 #### [facility] [address] [place] [address] Neutrophils/Leukoc ytes Auto (Bld) [Pure # fraction] 3.5 E9/L Normal 2.0-7.5 [facility] Comment on above: Order Comment: Order Added by Discern Expert. Performed By: #### 2 302916, 7329086, 1331332, 44767652 #### [facility] [address] [place] [address] BMPon 12-28-2021 Anion gap [Moles/Vol] 12 mmol/L Normal 6-16 [facility] Comment on above: Performed By: #### 2 083404, 9506105, 4719146, 06880210 #### [facility] [address] [place] [address] Calcium [Mass/Vol] 8.9 mg/dL Normal 8.9-11.1 [facility] Comment on above: Performed By: #### 2 090019, 8356625, 4407219, 25392993 #### [facility] [address] [place] [address] Chloride [Moles/Vol] 107 mmol/L Normal 101-111 [facility] Comment on above: Performed By: #### 2 127001, 3002563, 4095058, 57855017 #### [facility] [address] [place] [address] CO2 [Moles/Vol] 22 mmol/L Normal 21-31 [facility] Comment on above: Performed By: #### 2 140508, 2500116, 6231170, 63438409 #### [facility] [address] [place] [address] Creatinine [Mass/Vol] 1.0 mg/dL Normal 0.5-1.3 [facility] Comment on above: Performed By: #### 2 404556, 8723123, 9566662, 98844859 #### [facility] [address] [place] [address] Glucose [Mass/Vol] 114 mg/dL Normal 55-199 [facility] Comment on above: Result Comment: If t his glucose result represents a fasting glucose, interpretation should refer to the following reference range: 55-99 mg/dL Performed By: #### 2 767951, 3170258, 4185294, 00136279 #### [facility] [address] [place] [address] Potassium [Moles/Vol] 4.1 mmol/L Normal 3.5-5.3 [facility] Comment on above: Performed By: #### 2 290780, 3131628, 7148673, 34580481 #### [facility] [address] [place] [address] Sodium [Moles/Vol] 137 mmol/L Normal 135-145 [facility] Comment on above: Performed By: #### 2 411479, 5271763, 0140667, 24042188 #### [facility] [address] [place] [address] Urea nitrogen [Mass/Vol] 17 mg/dL Normal 5-21 [facility] Comment on above: Performed By: #### 2 763039, 2985358, 6172321, 50463529 #### [facility] [address] [place] [address] Urea nitrogen/Creatinin e [Mass ratio] 17 No Units Normal 10-20 [facility] Comment on above: Performed By: #### 2 997475, 1917539, 7427156, 09001613 #### [facility] [address] [place] [address] CBC w/ Auto Diffon 2 Erythrocyte distribution width (RBC) [Ratio] 14.7 % High 10.9-14.2 [facility] Comment on above: Performed By: #### 2 152242, 7785552, 7004869, 36915987 #### [facility] [address] [place] [address] Hematocrit (Bld) [Volume fraction] 42.0 % Normal 37.7-49.0 [facility] Comment on above: Performed By: #### 2 077781, 7553558, 8702584, 20345733 #### [facility] [address] [place] [address] Hemoglobin (Bld) [Mass/Vol] 13.8 g/dL Normal 13.5-17.5 [facility] Comment on above: Performed By: #### 2 454626, 6692809, 8105751, 27344998 #### [facility] [address] [place] [address] MCH (RBC) [Entitic mass] 28.8 pg Normal 27.0-34.0 [facility] Comment on above: Performed By: #### 2 715922, 7441391, 2686132, 04939997 #### [facility] [address] [place] [address] MCHC (RBC) [Mass/Vol] 32.8 g/dL Normal 31.4-36.0 [facility] Comment on above: Performed By: #### 2 711580, 8314798, 1719895, 59457608 #### [facility] [address] [place] [address] MCV (RBC) [Entitic vol] 87.7 fL Normal 80.0-100.0 [facility] Comment on above: Performed By: #### 2 052762, 1207850, 5607195, 05987515 #### [facility] [address] [place] [address] Platelet mean volume (Bld) [Entitic vol] 8.6 fL Normal 6.4-10.8 [facility] Comment on above: Performed By: #### 2 [id number], [id number], [id number], [id number] #### [facility] [address] [place] [address] Platelets (Bld) [#/Vol] 100.0 E9/L Low 150.0-500.0 [facility] Comment on above: Performed By: #### 2 111052, 7723520, 2150843, [id number] #### [facility] [address] [place] [address] RBC (Bld) [#/Vol] 4.8 E12/L Normal 4.3-5.9 [facility] Comment on above: Performed By: #### 2 405426, 8303741, 8659170, [id number] #### [facility] [address] [place] [address] WBC corrected for nucl RBC Auto (Bld) [#/Vol] 4.7 E9/L Normal 4.0-11.0 [facility] Comment on above: Performed By: #### 2 701106, 2583204, 3724234, [id number] #### [facility] [address] [place] [address] CHEMISTRYOrdered By: SYSTEM SYSTEM on 12-28-2021 Anion gap [Moles/Vol] 12 mmol/L Normal 6 - 16 mEq/L [facility] Remisol Calcium [Mass/Vol] 8.9 mg/dL Normal 8.9 - 11.1 mg/dL [facility] Remisol Chloride [Moles/Vol] 107 mmol/L Normal 101 - 111 mmol/L [facility] Remisol CO2 [Moles/Vol] 22 mmol/L Normal 21 - 31 mmol/L [facility] Remisol Creatinine [Mass/Vol] 1.0 mg/dL Normal 0.5 - 1.3 mg/dL [facility] Remisol GFR/1.73 sq M.predicted among blacks MDRD (S/P/Bld) [Vol rate/Area] mL/min/1.73 m2 Normal >=59mL/min/1.73 m2 [facility] Chem S GFR/1.73 sq M.predicted among non-blacks MDRD (S/P/Bld) [Vol rate/Area] mL/min/1.73 m2 Normal >=59mL/min/1.73 m2 [facility] Chem S Glucose [Mass/Vol] 114 mg/dL Normal 55 - 199 mg/dL [facility] Remisol Potassium [Moles/Vol] 4.1 mmol/L Normal 3.5 - 5.3 mmol/L [facility] Sodium [Moles/Vol] 137 mmol/L Normal 135 - 145 mmol/L [facility] Urea nitrogen [Mass/Vol] 17 mg/dL Normal 5 - 21 mg/dL [facility] Urea nitrogen/Creatinin e [Mass ratio] 17 mg/mg Normal 10 - 20 [facility] Consent for Treatmenton 12-01 Consent for Treatment [id number]:[id number] Normal [facility] HEMATOLOGYOrdered By: SYSTEM SYSTEM on 12-28-2021 Basophils/100 WBC (Bld) 0.6 % Normal 0.0 - 2.0 % [facility] Basophils/Leukocyt es Auto (Bld) [Pure # fraction] 0.0 E9/L Normal 0.0 - 0.2 E9/L [facility] Eosinophils/100 WBC (Bld) 2.7 % Normal 0.0 - 8.0 % [facility] Eosinophils/Leukoc ytes Auto (Bld) [Pure # fraction] 0.1 E9/L Normal 0.0 - 0.5 E9/L [facility] Lymphocytes/100 WBC (Bld) 14.7 % Normal 14.0 - 50.0 % [facility] Lymphocytes/Leukoc ytes Auto (Bld) [Pure # fraction] 0.7 E9/L Low 1.0 - 4.0 E9/L [facility] Monocytes/100 WBC (Bld) 6.8 % Normal 4.0 - 14.0 % [facility] Monocytes/Leukocyt es Auto (Bld) [Pure # fraction] 0.3 E9/L Normal 0.2 - 1.0 E9/L [facility] Neutrophils/100 WBC (Bld) 75.2 % High 36.0 - 75.0 % [facility] Neutrophils/Leukoc ytes Auto (Bld) [Pure # fraction] 3.5 E9/L Normal 2.0 - 7.5 E9/L [facility] HEMATOLOGYOrdered By: Ely Wong on 12-28-2021 Erythrocyte distribution width (RBC) [Ratio] 14.7 % High 10.9 - 14.2 % [facility] Hematocrit (Bld) [Volume fraction] 42.0 % Normal 37.7 - 49.0 % [facility] Hemoglobin (Bld) [Mass/Vol] 13.8 g/dL Normal 13.5 - 17.5 gm/dL [facility] MCH (RBC) [Entitic mass] 28.8 pg Normal 27.0 - 34.0 pg [facility] MCHC (RBC) [Mass/Vol] 32.8 g/dL Normal 31.4 - 36.0 gm/dL [facility] MCV (RBC) [Entitic vol] 87.7 fL Normal 80.0 - 100.0 fL [facility] Platelet mean volume (Bld) [Entitic vol] 8.6 fL Normal 6.4 - 10.8 fL [facility] Platelets (Bld) [#/Vol] 100.0 E9/L Low 150.0 - 500.0 E9/L [facility] RBC (Bld) [#/Vol] 4.8 E12/L Normal 4.3 - 5.9 E12/L [facility] WBC corrected for nucl RBC Auto (Bld) [#/Vol] 4.7 E9/L Normal 4.0 - 11.0 E9/L [facility] UA With Cult Reflexon 2021 Bacteria LM Ql (Urine sed) TRACE Normal Trace [facility] Comment on above: Performed By: #### 2 555136, 7969517, 9461488, [id number] #### [facility] [address] [place] [address] Bilirubin Ql (U) Negative Normal Negative [facility] Comment on above: Performed By: #### 2 143428, 5617517, 8737946, [id number] #### [facility] [address] [place] [address] Clarity (U) SL CLOUDY Invalid Interpretation Code [facility] Comment on above: Performed By: #### 2 364407, 7555357, 7550758, [id number] #### [facility] [address] [place] [address] Color (U) YELLOW Normal Yellow [facility] Comment on above: Performed By: #### 2 589189, 6019910, 3375942, [id number] #### [facility] [address] [place] [address] Epithelial cells.squamous LM.HPF (Urine sed) [#/Area] 0-2 Normal 0-2 [facility] Comment on above: Performed By: #### 2 716264, 6042127, 3468022, [id number] #### [facility] [address] [place] [address] Glucose Test strip (U) [Mass/Vol] Negative Normal Negative [facility] Comment on above: Performed By: #### 2 578011, 5019340, 7712038, [id number] #### [facility] [address] [place] [address] Hemoglobin Ql (U) 3+ Abnormal Negative [facility] Comment on above: Performed By: #### 2 440191, 5541937, 9551206, [id number] #### [facility] [address] [place] [address] Ketones (U) [Mass/Vol] Negative Normal Negative [facility] Comment on above: Performed By: #### 2 521313, 8811325, 2002634, [id number] #### [facility] [address] [place] [address] Clancy.plasma/Lit hium.RBC (Bld) [Mass ratio] >75 Abnormal 0-3 [facility] Comment on above: Performed By: #### 2 635743, 7136591, 3226519, [id number] #### [facility] [address] [place] [address] Mucus Ql (Urine sed) TRACE Normal [facility] Comment on above: Performed By: #### 2 392370, 2368336, 4812568, [id number] #### [facility] [address] [place] [address] Nitrite Ql (U) Negative Normal Negative [facility] Comment on above: Performed By: #### 2 064929, 7124327, 3519143, [id number] #### [facility] [address] [place] [address] pH (U) 6.0 [pH] Invalid Interpretation Code 5.0-9.0 [facility] Comment on above: Performed By: #### 2 228785, 4558709, 1681278, [id number] #### [facility] [address] [place], [place] [address] Protein (U) [Mass/Vol] 1+ Abnormal Negative [facility] Comment on above: Performed By: #### 2 687246, 0325280, 8626054, [id number] #### [facility] [address] [place], [place] [address] Specific gravity (U) [Rel density] >=1.030 Invalid Interpretation Code 1.005-1.030 [facility] Comment on above: Performed By: #### 2 904275, 5320798, 4564107, [id number] #### [facility] [address] [place], [place] [address] Type of Urine collection method Clean Catch Normal [facility] Comment on above: Performed By: #### 2 101165, 1173147, 1554700, [id number] #### [facility] [address] [place], [place] [address] Urobilinogen Qn (U) 0.2 {Whitney'U}/dL Normal 0.0-1.0 [facility] Comment on above: Performed By: #### 2 383015, 0407995, 9366873, [id number] #### [facility] [address] [place] [address] WBC Auto Ql (U) Negative Normal Negative [facility] Comment on above: Performed By: #### 2 599706, 7034983, 1507533, [id number] #### [facility] [address] [place] [id number] WBC LM.HPF (Urine sed) [#/Area] 0-5 Normal 0-5 [facility] Comment on above: Performed By: #### 2 896503, 9573141, 4735851, 01979043 #### [facility] [address] [place] [address] URINALYSISOrdered By: Cecilia Miller on 12-28-2021 Bacteria LM Ql (Urine sed) Trace /HPF Normal Trace/HPF [facility] UA Auto SS Bilirubin Ql (U) Negative (12/28/21 11:01 AM) Normal Negative [facility] UA Auto SS Clarity (U) SL CLOUDY Invalid Interpretation Code [facility] UA Auto SS Color (U) Yellow (12/28/21 11:01 AM) Normal Yellow [facility] UA Auto SS Epithelial cells.squamous LM.HPF (Urine sed) [#/Area] 0-2 /HPF Normal 0-2/HPF [facility] UA Auto SS Glucose Test strip (U) [Mass/Vol] Negative (12/28/21 11:01 AM) Normal Negative [facility] UA Auto SS Hemoglobin Ql (U) 3+ *ABN* (12/28/21 11:01 AM) Invalid Interpretation Code Negative [facility] UA Auto SS Ketones (U) [Mass/Vol] Negative (12/28/21 11:01 AM) Normal Negative [facility] UA Auto SS Clancy.plasma/Lit hium.RBC (Bld) [Mass ratio] >75 /HPF Invalid Interpretation Code 0-3/HPF [facility] UA Auto SS Mucus Ql (Urine sed) Trace (12/28/21 11:01 AM) Normal [facility] UA Auto SS Nitrite Ql (U) Negative (12/28/21 11:01 AM) Normal Negative [facility] UA Auto SS pH (U) 6.0 *NA* (12/28/21 11:01 AM) Invalid Interpretation Code 5.0 - 9.0 [facility] UA Auto SS Protein (U) [Mass/Vol] 1+ *ABN* (12/28/21 11:01 AM) Invalid Interpretation Code Negative [facility] UA Auto SS Specific gravity (U) [Rel density] >=1.030 *NA* (12/28/21 11:01 AM) Invalid Interpretation Code 1.005 - 1.030 [facility] UA Auto SS UA Spec Desc Clean Catch (12/28/21 11:01 AM) Normal [facility] UA Auto SS Urobilinogen Qn (U) 0.9544433 {Whitney'U}/dL Normal 0.0 - 1.0 EU/dL [facility] UA Auto SS WBC Auto Ql (U) Negative (12/28/21 11:01 AM) Normal Negative [facility] UA Auto SS WBC LM.HPF (Urine sed) [#/Area] 0-5 /HPF Normal 0-5/HPF [facility] UA Auto SS eGFRon 12-28-2021 GFR/1.73 sq M.predicted among blacks MDRD (S/P/Bld) [Vol rate/Area] mL/min/{1.73_m2} Normal >=59 [facility] Comment on above: Order Comment: Order added by Discern Expert. Result Comment: eGFR is race adjusted. AA=. Performed By: #### 2 053521, 3883083, 9343286, [id number] #### [facility] [address] [place] [address] GFR/1.73 sq M.predicted among non-blacks MDRD (S/P/Bld) [Vol rate/Area] mL/min/{1.73_m2} Normal >=59 [facility] Comment on above: Order Comment: Order added by Discern Expert. Result Comment: Paving Rammer gavi kidney disease could be indicated at eGFR's of less than 60 mL/min/1.73m2. Kidney failure is indicated at less than 15 mL/min/1.73m2. Performed By: #### 2 389192, 2967891, 8706390, [id number] #### [facility] [address] [place] [address] Coding Summary.on 12-12-2021 Coding Summary. [id number] G h0bWw+PGhlYWQ+PU4TXTU kX58rgZAaoI2QV8bHGS8D TDISQIMQEN6NRR1dzRV7B JygL8DiunXq ZyzlwHBgUI57SYh9ACG6l OeaCNtdtJ8wqCFzS2a3Wx DaVG63wM86IHvtICTsJtY 3LjZpbjsgbWFy L5cdZeXtwGXsXsv+PHRhY mxlIHdpZHRoPScxMDAlJy QvsMzlAF7gZa7vTWNbMAX vbGxhcHNlOiBj h2vrWWGhKPjtMU6wiMzvU 8DxuOO4CGVqc8h6Ss69qK I+PCXgJHR5jHtjUVsgv72 0VcVay7seGYY9 qJGkBPlqHVX6D44ce2M1S UCeGZDpTIH7dJK9hW9ygO fawospU5LtmCFvLtV7VSB 1dHRptH6qwIir urqozN5jFvt+F37VXS6ZB CVTXY9VCin7A5NcZndyiC I+MO45KULvDW18vATezIL ia1blkJi9QdQa QRXpQJL8mLnnOUgzf0ZrT ZHzE32pjFDbw3X6ZFVtxL dvgYNqKzRdjWQ1mU2uGYe bkdgfl5ljknpv Jorun7rxpj69kA14G28jT DkrVLOaEAN3BXNmYJBaiO epaf3pnT2wIf5+DItdc0y tp3tmoFo1JeJc BKYnrrNiuEghBTX6y0OiF x51T7CmcQykr5WaCla6jg 22zVRhc9O7aRA3QVxhDAR cvL0vYJloTnQ4 ZRApOpDsuQ02iIXrWLajM l7lnVygdOhsFB5hLFSsqq tiYVBsiB4oQQTgzQQskZp pZB8sYVMjvcxt s539HeBpDPT9IIKagVAtA 0FqzN8oYkPyUHDxOHSxZ0 JlqORtPJqqL201SZnrRjS 8DMCxtfKlJ3Iw FGCkgXbaPnQ5l7D2Zd3Ac 0QpigoyPTY4OMpiZGF5Zn L9WcNfMqE6S5GuZou5FHF asOffJZ8oQ0Uy YIYbnxpxsupowLN7CDEhA HEdfD59lGLqFYowNi1dj4 W1m957VIYjHPXdqO19Uc5 udDogMTBwdCBU aD0impbia8nfthpaCvYvL TGfVXy9ZCr2PQCkvOufId OmVEF0GfM3RZA3fDZukC5 uxSsdbbkzbP3x Oyc+H31ttI2jQFF1BPQ8n aeuZQJdzfWsMK36EK75E6 RyPjwvdGFibGU+PGRpdiB tcYmqUD9nHnRy j1qpp4DrVRqwV0BeBTMaF HxrIxn2WVJwFAL2mBA9vN 1xGKRyEHjym1T6dXV5W9Y mbxIudl2hh1oj JRZsIRdcG91ftYKjn1D6D UBwpJS4WOPwcHxgLyBpqG 93Oyc+YJTjwZcpz8GjJgt rf7jqa7icvYy8 WaXgPGQntaOtfOfmXCL3v 0FlFb98X67rFIgtETVmLS AfGVQeZASeyQexhk2ryJ0 wIi8+PGNvbCB3 iJD9tH7jNYUlUtB3IWuwT 870WjCmzVMkSjhpt6bwd0 kitUe3KlNvCVTctsOmxLp hSWV1p1QvUo95 I48yCHbmOPCjRBJjWYIlM YUqwNamyw7bbW4hPp8+PC 7yr3fzjv10yA19qKO+PHR bUZS9bUkkPPuz BVHtmN0hUTywIdJ4EEUpT gTmlF27qBOrORudWj1gdI vjlIopKY5tFTPixgnnc54 5WxEsg5yaCCDg bFWeWVvkZKJ2F51ch2C3L NPkPBLsEUU3vQY6gT4eqS lnbjogbGVmdDsgdmVydGl kUWwtZUzrD164 IHRvcDsnPlBhdGllbnQgT sAmGEa5M4RnAlp2QJBpvG axOG9kfHKaNClsGz3dcLo ybVmvNW0dXQVc ujfky867KrDyj7tiZHXjd SIsMCjaJEL3E21mc0F8IX MlQIIsEOD6hYE0fS8woHt nbjogbGVmdDsg kqZuxMxiNHfrXPwfW448O HRvcDsnPkJpcnRoIERhdG P3ZO93CO83pIWem6T9eGB 2L3QgFIXrnyrt vvboyME0ARUaGOHyaZ01A n1zkLzvNh3kYSToZTS8VF IciHDlZ8MsfC1vQzJnQIW jSZHfS4GnjHAf TOdyE731PYgnQeH9MLKrp nDcR9NhLAMcyIynMeA8v2 N0Rv8RR4P8MS32CP02lOX gz2G2aDZ5I1Bq NKDvmkyocwbgfXW1LFEuV PVhwD28Vg7voXrtJa8bUV LgFEV8LRZpfMYtM0CjqC4 yOiAjMDAwMDAw B4CdgJWuLGheY713WSgxA rO3FOEhtaBkX1IvQILitH seFxN2w3E7Db5LMQh7AF9 1RF48zEHuu3Z9 tLE9R2YmNNVffzxplogyc KY4VEVzSCTzcH30Rc5qwU iyTb2xBYWrPZU0PBUwxZU tI3QlbH1lFpYr NSJbSKSdZ0WmgRNbNBbxX 305YTxpPxJ7QQYvprMtO7 FrBFVpgIosFwH1y1H7Xr8 ZKKSlGF87UZD3 hVR3ZN06GK72N5CqMrksi GFibGU+PHRhYmxlIHdpZH RoPScxMDAlJyBzdHlsZT0 jHd3gAHEjZWBo nYzszOVbAoUxt8bjSKSsE NhxPH6vtOunI1RiqHK0WE Fxj4t3Dw48N57gH7RywGJ +HVFzqPX6kAU7 kJ1vFsVtJkB1KZbnX111K wCudRYhTvvgk4yrm2zuvX w5GcX8ZQIvbxLnfYaoLCR 0k1LsDe95K49n IHdpZHRoPSIxNSUiIHZhb Gqclc4pcU5eAw6+PGNvbC D5sFE4tY1fGnIbSzQ0YLj zV235ApFrtSQn Rhyfe5jjy5yimSg3AcNcI LJouuUunJbmESQ8k5FjAk 61Z7HkrSwfa7YuPth2ic2 3fKPxn5A7kBM6 N8JdVVFwbdksbQIpjOgoS C6nNPFzmmnyZSMofA3qAB YsC9x9EsHhHyW1QUtrC6J ceiU8UTBzwJLe QVwyORU2Z59me7L7HENeJ VScIKB9yMM0iF9ehFelan ogbGVmdDsgdmVydGljYWw tXUzcC863XGLa fJgfDWKhoY1fJRYnlOYtx XpeRB6kLLAfynyyHhvAKX HKTwtUD44mZEJCEqXSBWE TUF62DG63cQZx d4E2yUR0Z7YrXODrqkzyi qyxzMJ0IQWvSIRvtO76yW RdCOpfJc3hu9G9r139JYQ zSPXrbM30Kh5i qDfeSIOfyERZvO5nbgpmd 4qhiycnEtEjBESxETz9GL k7MZAgqDhdMeCfDKD4VnK 1DQV1jPIsdA4k pOxvvvhyyJ6bIdo+MDgvM kFcXRd6LexwrKC+PHRkIH C7zLdxPYziQLBjeQ7nZVK pJ1j3RpVcOtO6 PJrtY1KlOKQszsuyZz68i V5fWjSvUwV8TAelI9Uinp E4YTSoyYDpCZgwGXI5T26 fg1Q6IANxEGQb XUU4qOY2fX1ndByxbfsjy GVmdDsgdmVydGljYWwtYW grN807VYQpmVpwPjj5SIq jZUBpNT29HA52 gKIof8G9mZU2N7UoYYXim nvhywugbOL2DJUdKYZtsA 66rXXjFEorRt9xf9F6r48 8VXZjILHksJ00 Qn7tzBkoWSUqlSHTkE5xv vaaq3epmtpxXoTgOFMfRM d8OEu4YFXfzIkmMjKtRCN 9OtM3JPS4fRPb lU1kdYyhpimthP0dCtn+T WFsZTwvdGQ+APLeZAI6sM iwVLayQIXdmW8wKFDfV3b 5KxGyKeH6DXbp L6CaNRKvszxrMe80gU0xI pHeNvQ6LZklX9HyorP4NF OxmNKwBQjsGIR5I71nz0V 2OAWbVOJuYBB6 dWM7mP1jqIosqhxdgWZbf DsgdmVydGljYWwtYWxpZ2 99OUOvtFtvXd26gOSqkPa lcgQ1K9FoEsqs dHI+SZ55XWVxOU93oUQwb HJor5dqtNk5FxSfEIAhUB D4yBkhPDkte3VhXDAcY12 rtMUsm6M3UVOp pNtlnDGwXrDkwTQ9vE5bK Tnoxwvli4ctwpyvKlizp9 dbqb00tE72W35aZInqAYX oPSIzMCUiIHZh sKojrz3zuS8xMy0+PGNvb JP9lWD0wX3cBwJsYqZ4XO peM013CoExjJEeRnjmi6j yr2ouvVn0UgWd PJNfagQzgBwwSPT1w7WrT e49I83qFLojIFGkPSLiMQ ZpBMQpgNvzum3ykC3yIk5 +LP9wy0qfal90 oT03bHT+VAHaAPL3bXknY TbrUXZtfJ1iVHtcZnU3RB NpPuGikN02vKRaPRpiGn3 quDexyYwzLV6v TQWnhlpbh115PwQrr1gkV ZYpgRYtWBqpEXE3R92et5 S0UIAmOVElUVB4uEX8hG7 hbGlnbjogbGVm dDsgdmVydGljYWwtYWxpZ 615FSCuvYycQmRgqPPwK0 gmwaGYRL0kEroucCX+PHR tHXJ6pOxySFxq ZXSsbW2lGOLcT1l4ZaAdM mV7FMktI0YggoF6NEMfgS GpQLEreQRGsD4ufvrxo2d vcjogIzAwMDAw ZGx3IXe0LJOiyLgyUzObJ QK7UsU8XGG4hILuyO4bdB lhtetykK5nUlt+RklOOjw vdGQ+PHRkIHN0 xHdyZPbiFRFybA8jPAVwQ 5e7BeLjWvM4RNbbZ6Gpch G4GAYnvRHzCIKdeFDEgY9 funfyo1ekgsdh IkMcDVLmXPk4AMf4YUIan UilRyOuDWS2TwM7VLT7gG IyvX5ewUhmaczplH2hAdg +TVJOOjwvdGQ+ SEYoABT6oZafSJizGLXcr W4rMJWgV6w4BgCnMuY6BD tiC4GoywC3YEPfyVIyCLJ ggZODmN3fevce h0yknvjgOcPjMOQwAKw7D Bu6LEDnsRpeLhXgKIU7Us R3YVU0gDBzkN3mdBbbdji mnF1lSrh+UGF5 CBI1QA34HT59W7NqXpnxa GFibGU+PHRhYmxlIHdpZH RoPScxMDAlJyBzdHlsZT0 gBu1hRKIiZIYm bGxh (more content not included)... 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 and reflux uropathy, unspecified Your Care Team Attending Physician - Joey DAVIS MD Primary Care Physician - UZIEL HALLMAN DO This Is Your Medications List Contact prescribing physician if questions or concerns mometasone topical (mometasone Top 0.1% Crm 15 gram) mometasone topical (mometasone Top 0.1% Lotion) ondansetron (ondansetron 4 mg Dis Tab) tamsulosin (tamsulosin 0.4 mg Cap) thyroid desiccated ([place] Thyroid 60 mg Tab) Procedures Performed ESWL of kidney (11/23/2021), Cystoscopy (10/26/2021), Eye (07/01/2015), Excision of ganglion cyst of wrist, recurrent (09/21/2013), Arm (07/01/2013), EGD (esophagogastroduoden oscopy) gastric outlet reduction (07/01/2012), ESWL - Extracorporeal shockwave lithotripsy for renal calculus (07/01/2010), Colonoscopy, History of subtotal thyroidectomy, INGUINAL HERNIA REPAIR,RIGHT, OPEN REDUCTION LEFT RADIUS. Discharge Vitals Height 170.0 cm Height 170.0 cm Weight 75.0 kg Weight 75.0 kg BMI 25.95 What to do next Scheduled Follow-Up Appointments Saturday 9:30 AM EST With: Joey DAVIS MD Where: [facility] Consent for Treatmenton Consent for Treatment [id number] .[id number]:127 [facility] Patient Educationon 12-05-19 22 Patient Education Nephrology Lithotripsy, Care After This sheet gives you information about how to care for yourself after your procedure. Your health care provider may also give you more specific instructions. If you have problems or questions, contact your health care provider. What can I expect after the procedure? After the procedure, it is common to have: ? Some blood in your urine. This should only last for a few days. ? Soreness in your back, sides, or upper abdomen for a few days. ? Blotches or bruises on your back where the pressure wave entered the skin. ? Pain, discomfort, or nausea when pieces (fragments) of the kidney stone move through the tube that carries urine from the kidney to the bladder (ureter). Stone fragments may pass soon after the procedure, but they may continue to pass for up to 4?8 weeks. ? If you have severe pain or nausea, contact your health care provider. This may be caused by a large stone that was not broken up, and this may mean that you need more treatment. ? Some pain or discomfort during urination. ? Some pain or discomfort in the lower abdomen or (in men) at the base of the penis. Follow these instructions at home: Medicines ? Take mmqi-rgp-zngoggx and prescription medicines only as told by your health care provider. ? If you were prescribed an antibiotic medicine, take it as told by your health care provider. Do not stop taking the antibiotic even if you start to feel better. ? Do not drive for 24 hours if you were given a medicine to help you relax (sedative). ? Do not drive or use heavy machinery while taking prescription pain medicine. Eating and drinking ? Drink enough water and fluids to keep your urine clear or pale yellow. This helps any remaining pieces of the stone to pass. It can also help prevent new stones from forming. ? Eat plenty of fresh fruits and vegetables. ? Follow instructions from your health care provider about eating and drinking restrictions. You may be instructed: ? To reduce how much salt (sodium) you eat or drink. Check ingredients and nutrition facts on packaged foods and beverages. ? To reduce how much meat you eat. ? Eat the recommended amount of calcium for your age and gender. Ask your health care provider how much calcium you should have. General instructions ? Get plenty of rest. ? Most people can resume normal activities 1?2 days after the procedure. Ask your health care provider what activities are safe for you. ? Your health care provider may direct you to lie in a certain position (postural drainage) and tap firmly (percuss) over your kidney area to help stone fragments pass. Follow instructions as told by your health care provider. ? If directed, strain all urine through the strainer that was provided by your health care provider. ? Keep all fragments for your health care provider to see. Any stones that are found may be sent to a medical lab for examination. The stone may be as small as a grain of salt. ? Keep all follow-up visits as told by your health care provider. This is important. Contact a health care provider if: ? You have pain that is severe or does not get better with medicine. ? You have nausea that is severe or does not go away. ? You have blood in your urine longer than your health care provider told you to expect. ? You have more blood in your urine. ? You have pain during urination that does not go away. ? You urinate more frequently than usual and this does not go away. ? You develop a rash or any other possible signs of an allergic reaction. Get help right away if: ? You have severe pain in your back, sides, or upper abdomen. ? You have severe pain while urinating. ? Your urine is very dark red. ? You have blood in your stool (feces). ? You cannot pass any urine at all. ? You feel a strong urge to urinate after emptying your bladder. ? You have a fever or chills. ? You develop shortness of breath, difficulty breathing, or chest pain. ? You have severe nausea that leads to persistent vomiting. ? You faint. Summary ? After this procedure, it is common to have some pain, discomfort, or nausea when pieces (fragments) of the kidney stone move through the tube that carries urine from the kidney to the bladder (ureter). If this pain or nausea is severe, however, you should contact your health care provider. ? Most people can resume normal activities 1?2 days after the procedure. Ask your health care provider what activities are safe for you. ? Drink enough water and fluids to keep your urine clear or pale yellow. This helps any remaining pieces of the stone to pass, and it can help prevent new stones from forming. ? If directed, strain your urine and keep all fragments for your health care provider to see. Fragments or stones may be as small as a grain of salt. ? Get help right away if you have severe pain in your back, sides, or upper abdomen or camilo (more content not included)... [facility] Urology Office/Clinic Noteon 12-04-2021 Urology Office/Clinic Note Chief Complaint PO ESWL HPI Staff Follow up to Rt. ESWL done 11/23/21 kub [facility] [place] Patient has passed a few small stones Dysuria: intermittent burning Incomplete bladder emptying: no Hematuria: mild pinkish if he does to much physically Frequency: yes Urgency: sudden severe Nocturia: 2-3x Stream: moderate stream Leaking: no Post void dripping:no Wearing pads/ Depends: no Urge incontinence: no Stress incontinence: no Incontinence without Sensory Awareness: no Abdominal pain:no Flank pain: mid back pain Sexual complaints: no History of Present Illness reviewed op report, KUB no associated fever, chills, pain or blood. Review of Systems ROS - Provider Constitutional: denies weight loss, denies hot flashes. Eyes: denies eye problems. Gastrointestinal: denies nausea, denies vomiting. Cardiovascular: denies chest pain or angina. Integumentary: no dryness Musculoskeletal: denies musculoskeletal symptoms. ENMT: denies otolaryngeal symptoms. Respiratory: no shortness of breath. Heme/Lymph: denies easy bleeding tendency, denies easy bruising tendency. Psychiatric: no confusion, no anxiety. Genitourinary: denies dysuria, mild hematuria, denies discharge, denies urinary frequency, denies urinary hesitancy, moderate nocturia, denies incontinence, denies genital sores, denies decreased libido, and denies erectile dysfunction. Physical Exam Vitals & Measurements HT: 170.0 cm HT: 170.0 cm WT: 75.0 kg WT: 75.0 kg BMI: 25.95 General Appearance: alert, no distress, well nourished, well developed male. Genitourinary: normal scrotum, normal testes, normal urethra, normal epididymis, normal vas deferens/spermatic cord. Flank Pain: none. Bladder: nonpalpable. Assessment/Plan 1. Kidney stone (N20.0: Calculus of kidney) cysto , left retrograde, left double J-stent placement, rt retrograde, rt ureteroscopy, ureteroscopic stone basket extraction, right double J-stent placement done 10/26/21 and Cysto/ R Stent removal and left ESWL done 11/23/21. KUB shows fragments on left side, 4-5mm in size, discussed with patient risk of removing left ureteral stent and trying to pass the fragments or schedule patient for cysto/ RG/ L URS/ basket/ L stent exchange/ poss L stent removal. Patient is at risk for obstruction, will leave stent in place for now and schedule patient for L URS. risk's of procedure discussed with patient including bleeding, infection, anesthesia, repeat surgery. 2. 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 Patient not currently on any BPH medications at this time Obstructive and reflux uropathy, unspecified (N13.9: Obstructive and reflux uropathy, unspecified) Discussed options with patient including cystoscopy and stent removal versus a retrograde ureteroscopic approach. After full discussion he wishes to proceed with the latter even though the stent has been bothering him. He would prefer to clean the ureter and kidney out versus attempting to pass fragments on his own. Anesthesia risk discussed and we will proceed. Follow-up No qualifying data available Patient Education Lithotripsy, Care After I, Shara Schmidt, personally scribed for Dr. Davis on 12/04/2021 11:47:43. . Documentation recorded by the scribe, Shara Schmidt, accurately reflects the services(s) I performed and decisions made by me. Authenticated by Dr. Davis on 12/04/2021 12:48:27. 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 Medications [place] Thyroid 60 mg Tab, 60 mg= 1 tab(s), Oral, Daily mometasone Top 0.1% Crm 15 gram, 1 jarrod, Topical, Daily mometasone Top 0.1% Lotion, 1 jarrod, Topical, Daily ondansetron 4 mg Dis Tab, 4 mg= 1 tab(s), Oral, q6hr, PRN, Not taking tamsulosin 0.4 mg Cap, 0.4 mg= 1 cap(s), Oral, Daily, (more content not included)... [facility] Comment on above: Result Comment: Elec tronically Signed By: Joey DAVIS MD\.br\Date and Time Signed: 12/04/21 12:49 EDT\.br\Electronically Co-Signed By: Shara Schmidt\.br\Date and Time Co-Signed: 12/04/21 11:47 EDT XR Abdomen 1 Viewon 12-05-19 22 XR Abdomen 1 View Exam Date/Time: 12/04/2021 09:21 EDT Reason for Exam: N20.0 calculus of kidney;Kidney stone Report IMPRESSION: RIGHT URETERAL STENT REMOVED. OTHERWISE NO SIGNIFICANT CHANGE EXAM: XR Abdomen 1 View DATE AND TIME: 12/04/2021 9:12 AM CLINICAL HISTORY: Acute epigastric pain. Kidney stone, N20.0 calculus of kidney COMPARISON: 11/23/2021 FINDINGS: Right ureteral stent is no longer present. Left ureteral stent remains in satisfactory position. 2. Calcifications overlie the distal third of the left ureter presumably representing distal ureteral stones. Appearance is unchanged no visible renal calculi. Multiple calcified cases the pelvis presumably vascular phleboliths. FINAL REPORT Dictated: 12/04/2021 2:56 pm Luis Fernando Vasquez MD Signed (Electronic Signature): 12/04/2021 2:56 pm Signed by: Luis Fernando Vasquez MD Transcribed by: BEV Technologist: DONNA [facility] IntraOperative Documentson 0 11-29-2021 IntraOperative Documents [id number]# 1.00CD:127 [facility] Postoperative Documentson Postoperative Documents [id number]# 1.00CD:127 [facility] Coding Summary.on 11-28-2021 Coding Summary. CD:[id number] G h0bWw+PGhlYWQ+KQ9LEYV oB18uyIQayZ7DV5kUHK7I OJGZUQQDSZ2WSI8nyZV2H ZipL8MsjaEl MmlbwWDbXJ32IKb8DOF6a SarNSpbfN2osMSyI1j9El PkKI32bG13PBqlPXNbLiW 3LjZpbjsgbWFy K5buQkJfeOWgWue+PHRhY mxlIHdpZHRoPScxMDAlJy ZxoEwqUK3bQs4aYHMdXPW vbGxhcHNlOiBj y8cgMWNeGWumCH1jwPgoQ 7ErsST7JFLmn1u0Xb30vL I+MZShOXF0uClnECpkl89 5MpKgq1rfSGF6 lQIqCTcfIHX8I80sr3N2Q CZmLCOgNGT3lVZ7oW3nyE jugcllN0XbsUUxXwG4DEK 0pZLvaU1snTsd lglzvS1qCgy+N86GZP5OM WLPAJ1PGsj4P5NgNzklhA I+WF50UXOwTF12fRLxoVQ rv9bsoDb9VaKd CRIkWDH8rElkBMvvx0BeC MRmJ41qhTFsn1F9HGYgeI hpgLKvPqYjcHG2xK3qTFh zavuzh3juqavg Bhkba8cvds90qB67B26bJ IomMQEoQGY5KQGiVUEywQ dkww0tnA6iRs3+QZtmk1y eh1wzuBr2XeHx LVPwywBtoJqtRYZ1q9VeX h07V9KudHnyz3LfJrv9fy 81fIApp2F3hUE3EYveABV zbC6cTWitCcW9 EEYyWkZlsE60yJSqYTtmJ w4haZprkSpfRX4mWMWmeu koLNRxyU3xCLWeyVKnyZz wQH5uKNBensxw d554EfTmNSR7BVHagLEuQ 1PykL8tPoFwAGNiFFUfU3 MriROhVObfR879BRmsHeZ 6ECLedqBgV5Wv KFEsuIbeLhV3e2M4Cg6Ds 0AihvfxNKQ1LGyzIAE3Th HhTeVkAeA8T6PbNqq7CDK jwJowBB9pU7Uh VHGgesdlzhwzgRP8KUMcL YTddD36eJGgFSutDk1xc7 A3b702OEPvANFvfT58Sp4 udDogMTBwdCBU oL3xlqpte7ggzmlvBwHbG RQlJGi0MKs2KSSlmZptIf FlNJG7TwP8VCL2eZPcmV4 bwTpooavpxX5g Oyc+T85ydW4jOPL5ERX1h nxxAGCqiqLtQP69UA57R3 RyPjwvdGFibGU+PGRpdiB zqOcbMR0cTaJq j3gef3IzQQtmX9HrEIVcW JqeIip7EEIfDYF5vRD2gH 1qSSDmEQigz3J6nYA2D7B qeuGntl9fp7ta ELMmARveC21fkULmv2R8Q BSqjJS4YIYusCzvSkDrtC 93Oyc+JPKcpGoao7SnKlr sv6ckr6twlAv2 AdNcWXHjcgTahAqiBFL5f 8FiXr63E43uIWrxEUXdVB FdJACdPWJykOuzcq2mnL2 wIi8+PGNvbCB3 lTM7yF0mYMHtNuL1YQxzW 680IiIwyRIuNdpdx9voy4 yxgJk8JuSrBJEdisRnfIv zVXK5l1PsPx28 J27cSXqnUVWxJWBsIKZxT NTttWlvjl4myX1cUp5+PC 1ew4zmlr41vT91qGY+PHR rYMM4oEepOHbn MRWyeZ6pQDfaAxR8ACDoT sGchK62qCHaDNbrIz3mtN bqcBpdHR7lUDCqeicth23 4KkGur2veNTMf sUAdGDyfXPV6A03nf0L6N OEnXWCkMHV4zUF2aB1meL lnbjogbGVmdDsgdmVydGl eIPexDJchF382 IHRvcDsnPlBhdGllbnQgT wRwZUv2T6XzBkw6NAWhrL uzIJ2akTHsRKtkSx2ayMr slNsxSP7oTRZw jiuzb521OoZcf0wnEDChw WVuOXroUUO4F75ya6K2XQ HwWIZwFRY3xFY5fJ3nkJr nbjogbGVmdDsg xgVpoKbkYOpaEYysR633U HRvcDsnPkJpcnRoIERhdG P9AE35QS88aAAsa5I5vRL 8X1ChKRPytjsb zgtdcJI7VJPdMSUzkU42X l2bjNgsGb8gKJKbNHZ5IS KadTXqV8GawR7kSpSwTLQ zYDLtS9GpoXRv VCpxP825HKtzLvU9KNIyz eEbP2WhBITihDptTvI3z9 F7Df9PV1T8ZX42RX43gHU ny8F7uRU4I9Bk NYBysfvhbsqexQQ1LMBlK SKukI07Oh4giRdqMx4qQK YmMMH5GUUfyZDvC8TjyZ1 yOiAjMDAwMDAw R1ScuCCpXKcfO881VGniA lZ7BIMegsTvU0XlRPGjgO fsIuW0a5N3Vx3MCBg9JO7 4DQ26gYVub2Q1 wSJ5K5RtIQGyppshsqacx BJ3VBMaLXEppT32Ri6ppA ycSl0uUQUzBXZ4YQPblLI nI6WziL3gBvQx DPSxCHVbS9BdrWRjYUdfY 761MKgoQyY1NRSpnbDuY0 ZfLDZruKhkYmD9z7I2Wv0 CNXOyHQ31WWK6 jFL6QG05CH43W2XnJjxlp GFibGU+PHRhYmxlIHdpZH RoPScxMDAlJyBzdHlsZT0 tEn7iLKZsKJAv bYakaAMkQqVbu2tvKCDzG ZlmQR9qlNfhP7ZwvVZ0AK Dzb4s4Ww61C52kJ2MorOK +JJVzkXY9vHP0 uD8qFlWbJgJ5LFpkC779Y uVfrQQzVelij8mbh5mciS w7StO5JHQmqjYahMmbIII 5u9LeXb98N81k IHdpZHRoPSIxNSUiIHZhb Fsiha1eoY7sMc6+PGNvbC P6mUD5aW9gGcYpErV7MOo lD853TjXrgTOa Wppxj6boa9afmXt1VqAhL CYovsHxpPzfIDC4p1NdAv 79V7KdwOwxk7EjWko4en8 2dRXxy3G1dJF6 L1HdGGJhblzemXNuxNtiD M8nUNQkhtlqIRAraA5hOG OvN0l0MnWxPiA5QPqjC5C srwF8GOKfeLQp GEfyWNI6R69bl3A3XFJkE OZtAIG6bNA4dP7qkTqeqw ogbGVmdDsgdmVydGljYWw zVSxzG558ZWFw iPblRHSffB8gHRPsqAOaq IxnRZ5wHSIcemtgFvwWUT IWHtzFY95xWKDAKkHPEDF KGG80OZ66iVDe q7O4oOO2E8IdAHFltwwph owwhCA1XHQnRXHmlE96pL XnXXgiGm9zt4M5v796ILN yYAKvrB73Xc0v gMzcDZLumDLNdS7sjkvyp 2muyrymBiWzJSAjKDc8RF r2JTSpkZwyAsNdHHH9BjP 4BRQ0qWKyqN8s dTxaxvkfsF9kTre+MDgvM mHzVWn3TtstuBR+PHRkIH V3fWloVErdJUHekR7jTRW qK4y1NkXrZpT3 RBmlP8AsNMLhgezqDt38z C4wMsWzKxX0WScpY3Qkpq L5MCBmeMAiLAvxRTO9X72 ql4W1TZNpPQTy TRB0nGW3lG6waJzvpjtab GVmdDsgdmVydGljYWwtYW sjE519DWDqwDaiWxq0PCr pZEXwXC05SB88 pVCgc2S5aNY4X4MzNOGsu rzlxathcMP3PMOkJNZraD 44oHDmHWgpWi3tm4H6a31 4FQOkQWTlfP98 Ww6pwDylLPEeuMABuA0ou fjif4jgghmcTkGgQUSvDE e6AYg0ERGdpXhkGgCiYUK 6ZtN1HYU6oHBh tD0csIljduwfeT0lLwq+T WFsZTwvdGQ+ITEzOHH5eH gsITtwNQQwuW9dPQDcC6u 3XvBvEgZ2YHdt P7NiVDDnpactMa82gN4iD hLhPrI2SPefU1DxuaZ9OH XdvNOvLGcbJTV4R75ly5N 1TKFdFXDnUTO4 qPC9zG7btSdlsjqmmKAtc DsgdmVydGljYWwtYWxpZ2 46IHRvcDsnPkFtYnVsYXR hprgyH7MrBLYN WTxcF7KmD7GqjUmsmTO+P J83tm58Q7YmEzshMiy5JJ DpYSD6tYD9iG7hVOQnOIj ct4K6eGM5Z2Cg yvOcfd9za9lyFGWtFXsbM 93zdQEzs1C2TEEbkYM4RU DcuEhcNcZhxU72Zef+PGN waAwmv7PsAqth j5diw6tcoLf6RoTdZAPxd kMlyJxcVLL4f7XiTy65B2 9sIHdpZHRoPSIzMCUiIHZ qvOjbuc1lqH3f Ii8+JVRifMF4bKO9qP0zN zGiZeK5MRkkL310LeStzI RoMtopx5jit6bemUe6JkX wJSIgdmFsaWdu KGH6d4UoAz76K0BwlLyhi 4MyUtr5uv83mUZct7L4kY R7A9ShDWZqlybmfUZqsCq dRV5xRHIiijqp JTYgjZ4iAHUrX7m4ErHaE nK8AFsvG5QcleP4DSHskI EcIMQnsPGApS0knicnc9c vcjogIzAwMDAw EGt7QRi5GMLvrLulStUmF FK4JrE7OFT4pVNnxE3seM chykemxM9mPrg+XLf7x0q jiLPeSH1mjAE4 XG82QY33xNBgn1A3nQT1W 4CtDPPikdwmjpeshIG5CD DiBZAieW36Oo0waUrcDi0 wXRKwDLT5XYYl nTAdL6HmbD2gVaOrLAIwJ GTfD5IjwCOiYNzqA206QK nnSrG9GSWseuOnM6TwAQD kgBnmTiL0w1A2 In1YVH36AU59NF94rZZwx 4C5aMY4R8IkRELlkyfwar zxkKD0EIKdYRBwaM33Tp2 seEdhTl7rDPKh TOB8RWCupIYeO5ZtnP6lP qHjKBVxJHUcE7AysUDzOT krL210OSkgMnH3OBYepqB oM0BxPQVwbFdk HoL6s6R5Vf9EZe65RQ17X K17fXXqa6X8eGG5L3CbLF VqehribkqthFD1RRZyQAD uhL39Rh1psMhw Qr7rCNIzFDF5IKFqsZOhA 7OuvL8rJzOvZSZsZMVvF5 EtxOOyQTobW071ACqfJzE 1KNVqidXfC5Rl SBEnxLzgWlH6g8X1Ce2DN Zwqlmp8B5PuHmagkOO+PC 03OZMuTH19zLPguCSpn7f mxYb1DlPbLVKp IHN0 (more content not included)... [facility] Main OR Intraoperative Recor don 11-28-2021 Main OR Intraoperative Record IntraOp Document Type FT Summary Primary Physician: Joey DAVIS MD Finalized Date/Time: 11/28/21 10:15:58 Pt. Name: WALT SKELTON./Sex: 1945 Male Med Rec #: [id number] Physician: Joey DAVIS MD Financial #: [id number] Pt. Type: A Room/Bed: [place] [address] Admit/Disch: 11/23/21 09:54:30 - 11/23/21 15:25:00 Institution: Case Times FT Entry 1 Patient Times In Room 11/23/21 12:02:00 Out Room 11/23/21 12:35:00 Procedure Times Start 11/23/21 12:08:00 Stop 11/23/21 12:31:00 Anesthesia Times Start 11/23/21 12:02:00 Stop 11/23/21 12:35:00 Last Modified By: Caprice RN, BSN, Rose 11/23/21 12:38:10 General Comments: 11/28/21 Chart opened to review and send charges [facility]FA Case Attendance FT Entry 1 Entry 2 Entry 3 Case Attendee Jarred ANDUJAR, Rohit DAVIS MD, Joey Perez MACHINE TRIMMER, Stephanie Mcmillan Role Performed CON Surgeon - Primary Scrub - Primary Time In 11/23/21 12:02:00 11/23/21 12:02:00 11/23/21 12:02:00 Time Out 11/23/21 12:35:00 11/23/21 12:35:00 11/23/21 12:15:00 Procedure EXTRACORPOREAL SHOCK EXTRACORPOREAL SHOCK EXTRACORPOREAL SHOCK WAVE LITHOTRIPSY(Left) WAVE LITHOTRIPSY(Left) WAVE LITHOTRIPSY(Left) Comments [facility] Last Modified By: Caprice RN, BSN, Rose Vasques RN, BSN, Rose Vasques RN, BSN, Rose 11/23/21 12:38:12 11/23/21 12:38:12 11/23/21 12:38:12 Entry 4 Entry 5 Entry 6 Case Attendee Chirag RN, Kaylen Vasques RN, BSN, Rose Peñaloza CST, Monique Romero Role Performed Construction Superintendent - Primary Construction Superintendent - Relief Scrub - Relief Time In 11/23/21 12:02:00 11/23/21 12:10:00 11/23/21 12:14:00 Time Out 11/23/21 12:15:00 11/23/21 12:35:00 11/23/21 12:35:00 Procedure EXTRACORPOREAL SHOCK EXTRACORPOREAL SHOCK EXTRACORPOREAL SHOCK WAVE LITHOTRIPSY(Left) WAVE LITHOTRIPSY(Left) WAVE LITHOTRIPSY(Left) Comments Last Modified By: Caprice RN, BSN, Rose Vasques RN, BSN, Rose Vasques RN, BSN, Rose 11/23/21 12:38:12 11/23/21 12:38:12 11/23/21 12:38:12 General Comments: JOSEPH 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 Protocols FT Pre-Care Text: Implements protective measures prior to operative or invasive procedure, confirms identity before the operative or invasive procedure, verifies operative procedure, surgical site, and laterality Entry 1 Procedure(s) EXTRACORPOREAL SHOCK Patient Identity Birthday, ID Band WAVE LITHOTRIPSY(Left) Verified (select at Check, Patient least 2): Participation Consents / H and P Anesthesia Consent, Operative Site Present Verified HandP, Surgery/Procedure Marking Verified Consent Surgical Site Yes Laterality Verified Yes Verified Procedure Verified Yes Correct Patient Yes Position Verified Availability Equipment, Implant, Prep Dry n/a Verified (If Medication, X-ray Applicable) PreOp Antibiotic Yes Time Out Rohit Stern CRNA, Given Participants MARIBEL ANNJoey Kinsley CST, Chirag Kim RN, Kaylen Time Out Complete 11/23/21 12:07:00 Outcomes Met? Yes Last Modified By: ELIZABETH Vasques RN, Melinda 11/23/21 12:19:00 Post-Care Text: The patient is free from signs and symptoms of injury caused by extraneous objects Allergy Information FT Pre-Care Text: Verifies allergies Entry 1 Allergies Reviewed? Yes Allergies Reviewed Self/Patient With Outcomes Met? Yes Last Modified By: ELIZABETH Vasques RN, Melinda 11/23/21 12:18:37 Post-Care Text: The patient received appropriate medication(s) safely administered during the perioperative period Surgical Procedures FT Entry 1 Procedure Description Procedure EXTRACORPOREAL SHOCK Modifiers Left WAVE LITHOTRIPSY Surgeon Description CYSTOSCOPY LEFT ESWL, RIGHT STENT REMOVAL Primary Procedure Yes Primary Surgeon Joey DAVIS MD Start 11/23/21 12:08:00 Stop 11/23/21 12:31:00 Anesthesia Type General Surgical Service Urology Wound Class 1 - Clean Last Modified By: ELIZABETH Vasques RN, Melinda 11/23/21 12:38:15 General Case Data FT Pre-Care Text: Classifies surgical wound, implements aseptic technique, initiates traffic control Entry 1 Case Information OR OR 5 FT Case Level Level 3 Wound Class 2 - Clean-Contaminated Specialty Urology ASA Class 2 Preop Diagnosis KIDNEY STONE Postop Same As Preop No Postop Diagnosis left kidney stone Outcomes Met? Yes Last Modified By: Monique Peñaloza CST 11/28/21 10:13:15 Post-Care Text: The patient is free from signs and symptoms of infection Skin Assessment (Pre Procedure) FT Pre-Care Text: Implements protective measures to prevent skin/ tissue injury due to thermal or mechanical sources Evaluates for signs and symptoms of physical injury to skin and tissue Entry 1 Skin Integrity Intact, [place], Warm, and Skin Abnormality No Dry Outcomes Met? Yes Last Modified By: ELIZABETH Vasques RN, Melinda 11/23/21 12:25:16 Post-Care Text: The patient is free from signs and symptoms of injury caused by extraneous objects Patient Positioning FT (more content not included)... [facility] Consent for Anesthesiaon Consent for Anesthesia [id number]# 1.00CD:127 [facility] Discharge Instructionson Discharge Instructions [id number]# 1.00CD:127 [facility] IntraOperative Documentson 0 11-24-2021 IntraOperative Documents [id number]# 1.00CD:127 [facility] Preoperative Documentson Preoperative Documents [id number]# 1.00CD:127 [facility] Consent for Procedure/Surger yon 11-23-2021 Consent for Procedure/Surgery [id number]#1 .00CD:127 [facility] Consent for Treatmenton 10-30 Consent for Treatment [id number]#1 .00CD:127 [facility] H&P Updateon 11-23-2021 H&P Update [id number]# 1.00CD:127 [facility] Inpatient Patient Summaryon 11-23-2021 Inpatient Patient Summary [place] [id number] [facility] Clinical Discharge Instructions PERSON INFORMATION Name: WALT SKELTON [facility]#:[id number] PHYSICIANS Admitting Physician: Joey DAVIS MD Attending Physician: Joey DAVIS MD PCP: UZIEL HALLMAN DO Discharge Diagnosis: Comment: PATIENT EDUCATION INFORMATION Instructions: Post Op Patient Instructions - FT (CUSTOM); Lithotripsy, Care After Medication Leaflets: Follow up: With: Address: When: Joey DAVIS [address] [place], [place] [address], [address], [place] [id number] Business (1) Within 1 to 2 weeks Comments: Call for followup appointment, with an abdominal X-ray prior to your visit. Type Location Start Finish State URO Office Visit [facility] 08/22/2022 9:30 AM 08/22/2022 9:45 AM Confirmed MEDICATION LIST New Medications [id number], [address], [place] [id number], [phone] acetaminophen-hydroco done (acetaminophen-hydroc odone 325 mg-5 mg oral tablet) 1 Tablets By Mouth every 4 hours as needed Pain for 2 Days. N20.0. Refills: 0. Medications to Continue with No Changes Other Medications mometasone topical (mometasone Top 0.1% Crm 15 gram) 1 Application Topical every day., apply to back mometasone topical (mometasone Top 0.1% Lotion) 1 Application Topical every day., apply to back ondansetron (ondansetron 4 mg Dis Tab) 1 Tablets By Mouth every 6 hours as needed Nausea/Vomiting. tamsulosin (tamsulosin 0.4 mg Cap) 1 Capsules By Mouth every day. thyroid desiccated ([place] Thyroid 60 mg Tab) 1 Tablets By Mouth every day. Comment: [facility] Main OR PACU I Recordon 10-30 Main OR PACU I Record PACU Phase I Document Type FT Summary Primary Physician: Joey DAVIS MD Finalized Date/Time: 11/23/21 13:46:03 Pt. Name: WALT SKELTON/Sex: 1945 Male Med Rec #: [id number] Physician: Joey DAVIS MD Financial #: [id number] Pt. Type: A Room/Bed: [facility]/ Admit/Disch: 11/23/21 09:54:30 - Institution: Case Times PACU I FT Pre-Care Text: Identifies barriers to communication and implements measures to provide psychological support Develops individualized plan of care, and ensures continuity of care Maintains patient's dignity and privacy, and maintains patient confidentiality Identifies and reports philosophical, cultural, and spiritual beliefs and values Identifies individual values and wishes concerning care Implements aseptic technique, and administers prescribed antibiotic therapy and immunizing agents as ordered Evaluates postoperative tissue perfusion Implements thermoregulation measures, and monitors body temperature Evaluates postoperative respiratory status Evaluates postoperative cardiac status Evaluates postoperative neurological status Assesses pain control, collaborated in initiating patient-controlled analgesia and implements alternative methods of pain control Verifies allergies, administers prescribed medications and solutions, evaluates response to medications Entry 1 In PACU I 11/23/21 12:36:00 Discharge from PACU 11/23/21 13:30:00 I Outcomes Met? Yes Last Modified By: Celine Kong RN 11/23/21 13:45:47 Post-Care Text: The patient demonstrates knowledge of the expected response to the operative or invasive procedure The patient's care is consistent with the individualized perioperative plan of care The patient's right to privacy is maintained The patient's value system, lifestyle, ethnicity, and culture are considered, respected, and incorporated into the perioperative plan of care The patient participates in decisions affecting his or her perioperative plan of care The patient is free from signs and symptoms of infection The patient has wound/tissue perfusion consistent with or improved from baseline levels established preoperatively The patient is at or returning to normothermia at the conclusion of the immediate postoperative period The patient's respiratory function is consistent with or improved from baseline levels established preoperatively The patient's cardiovascular status is consistent with or improved from baseline levels established preoperatively The patient's cardiovascular status is consistent with or improved from baseline levels established preoperatively The patient demonstrates and/or reports adequate pain control throughout the perioperative period The patient received appropriate medication(s), safely administered during the perioperative period Acuity Level PACU I FT Entry 1 Start Time 11/23/21 12:36:00 Stop Time 11/23/21 13:30:00 Acuity Level Acuity Level I Last Modified By: Celine Kong RN 11/23/21 13:46:03 Finalized By: Celine Kong RN Document Signatures Signed By: Celine Kong RN 11/23/21 13:46 [facility] Main OR PACU II Recordon Main OR PACU II Record PACU Phase II Document Type FT Summary Primary Physician: Joey DAVIS MD Finalized Date/Time: 11/23/21 15:32:32 Pt. Name: WALT SKELTON/Sex: 1945 Male Med Rec #: [id number] Physician: Joey DAVIS MD Financial #: [id number] Pt. Type: A Room/Bed: [place] [address] Admit/Disch: 11/23/21 09:54:30 - Institution: Case Times PACU II FT Pre-Care Text: Identifies barriers to communication and implements measures to provide psychological support and determines knowledge level Develops individualized plan of care, and ensures continuity of care Maintains patient's dignity and privacy, and maintains patient confidentiality Identifies and reports philosophical, cultural, and spiritual beliefs and values Identifies individual values and wishes concerning care administers prescribed antibiotic therapy and immunizing agents as ordered, Evaluates postoperative tissue perfusion Implements thermoregulation measures, and monitors body temperature Evaluates postoperative respiratory status Evaluates postoperative cardiac status Evaluates postoperative neurological status Assesses pain control, collaborated in initiating patient-controlled analgesia and implements alternative methods of pain control Verifies allergies, administers prescribed medications and solutions, evaluates response to medications Entry 1 In PACU II 11/23/21 13:30:00 Discharge from PACU 11/23/21 15:25:00 II Outcomes Met? Yes Last Modified By: Tanya Barraza RN 11/23/21 15:32:28 Post-Care Text: The patient demonstrates knowledge of the expected response to the operative or invasive procedure The patient's care is consistent with the individualized perioperative plan of care The patient's right to privacy is maintained The patient's value system, lifestyle, ethnicity, and culture are considered, respected, and incorporated into the perioperative plan of care The patient participates in decisions affecting his or her perioperative plan of care. The patient is free from signs and symptoms of infection The patient has wound/tissue perfusion consistent with or improved from baseline levels established preoperatively The patient is at or returning to normothermia at the conclusion of the immediate postoperative period The patient's respiratory function is consistent with or improved from baseline levels established preoperatively The patient's cardiovascular status is consistent with or improved from baseline levels established preoperatively The patient's neurological status is consistent with or improved from baseline levels established preoperatively The patient demonstrates and/or reports adequate pain control throughout the perioperative period The patient received appropriate medication(s), safely administered during the perioperative period Finalized By: Tanya Barraza RN Document Signatures Signed By: Tanya Barraza RN 11/23/21 15:32 [facility] Monitor Recordon 11-23-2021 Monitor Record [id number]# [id number]:127 Normal [facility] Operative Reporton 2 Operative Report Patient: WALT SKELTON Age: 76 years Sex: Male : 1945 Associated Diagnoses: None Author: Joey DAVIS MD Postoperative Information Date/ Time: 11/23/2021 12:28:00 Postoperative Diagnosis: Ureteral stone ([id number] N20.1, Working, Medical). Performed by: Joey Davis MD. Findings: Procedure: Cystoscopy Right ureteral stent removal ESWL left ureteral calculus Anesthesia: General, LMA, Dr Martinez, 2 % xylocaine jelly per urethra Indications: This is a 76-year-old white male status post cystoscopy and ureteroscopic stone extraction and stent placement. He is also status post left-sided ureteral stent placement secondary to a large UPJ calculus on the left as well as left renal calculi. He presents today for cystoscopy and right stent removal followed by ESWL of the left UPJ calculus with the inherent risk of bleeding, infection, bleeding around the kidney, need for additional procedures, risk of anesthesia with heart and lung problems. He does have sequential compression devices in place and functional bilateral lower extremities throughout the case. Procedure: The patient was brought back to the operating room and a timeout was performed. All were in agreement with the operative plan. After the successful induction of general anesthesia he is placed supine on the Dornier delta 3 lithotripsy table. Under C-arm fluoroscopic imaging the left UPJ calculus is easily visualized as well as smaller stones in the kidney. While initiating the lithotripsy per protocol up to level 7, we started the shockwave proces At the same time his penis and external genitalia were prepped in usual fashion Betadine solution. He is draped appropriately. 2% Xylocaine jelly placed per urethra and a well-lubricated flexible cystoscope was introduced. The anterior urethra was within normal limits. Prostate is moderately obstructing in the lateral lobes. No median lobe extending into the bladder. Once into the bladder he has 2 stents, 1 extending from each orifice. There is moderate inflammation ongoing. I grasped the stent as it exited the right ureteral orifice with an alligator forceps. The stent was subsequently removed along with the scope. The left stent remains intact and unchanged in positioning, confirmed under fluoroscopic imaging. Completion of the left UPJ calculus lithotripsy was accomplished, with a 2500 shocks administered. There appears to be a change in character of the stone. He tolerates it well. Is transferred to the rsaint cloud and then back to PACU in satisfactory condition, stable vital signs. Plan to be for discharge home with plans to follow-up within the next 1 to 2 weeks with a KUB. Discussed all this with his postop and she is in agreement with the plan. Prescription sent to the pharmacy for [facility].. Estimated Blood Loss: 0 ml. Complications: None. Anesthesia type: General. [facility] Comment on above: Result Comment: Elec tronically Signed By: Joey DAVIS MD\.br\Date and Time Signed: 11/23/21 12:33 EDT Outpatient Surgery Discharge Instructionon 11-23-2021 Outpatient Surgery Discharge Instruction [place] [id number] Patient Discharge Instructions PERSON INFORMATION Name: WALT SKELTON Date of : 1945 Current Date: 11/23/2021 12:41:04 PHYSICIANS Admitting Physician: Joey DAVIS MD Discharge Diagnosis: MARIANOWALT SHOEMAKER has been given the following list of follow-up instructions, prescriptions, and patient education materials: PATIENT FOLLOW-UP INFORMATION Diet: Regular Discharge Activity: Arrange for a responsible adult supervision for 24 hours, Expect mild pain, Expect minimal amount of drainage and/or bleeding Discharge Restrictions: No driving, Do not operate machinery or tools, Do not make important decisions for 24 hours, Do not drink alcoholic beverages for 24 hours Call Your Doctor For: Persistent or heavy bleeding, Temperature above 101.5 degrees IF UNABLE TO CONTACT YOUR PHYSICIAN AND YOU FEEL IT IS AN EMERGENCY, GO TO THE NEAREST EMERGENCY ROOM OR CALL 911 INAFISA RONALD L, have received the attached patient education materials/instruction s and have verbalized understanding: May we do a follow up call? Yes No I was present when discharge instructions were given Patient Signature Date Clinican/Nurse Signature Date Follow up: With: Address: When: Joey DAVIS [facility] [address], [address], [address] [place] [address] Business (1) Within 1 to 2 weeks Comments: Call for followup appointment, with an abdominal X-ray prior to your visit. Type Location Start Finish State [facility] Office Visit [facility] Justino 08/22/2022 9:30 AM 08/22/2022 9:45 AM Confirmed Pharmacy Information: [facility] Kandy You may receive a survey from Rodrigue Garza asking you to rate your care experience. Your feedback is important and will help us understand what we do well and how we can improve the quality of care we provide to you, your loved ones and our community. It?s an honor to serve you. Thank you for choosing [facility] HERE ARE THE MEDICATION CHANGES THAT OCCURRED DURING YOUR HOSPITAL STAY New Medications [id number], [address] [place] [id number], [phone] acetaminophen-hydroco done (acetaminophen-hydroc odone 325 mg-5 mg oral tablet) 1 Tablets By Mouth every 4 hours as needed Pain for 2 Days. N20.0. Refills: 0. Medications to Continue with No Changes Other Medications mometasone topical (mometasone Top 0.1% Crm 15 gram) 1 Application Topical every day., apply to back mometasone topical (mometasone Top 0.1% Lotion) 1 Application Topical every day., apply to back ondansetron (ondansetron 4 mg Dis Tab) 1 Tablets By Mouth every 6 hours as needed Nausea/Vomiting. tamsulosin (tamsulosin 0.4 mg Cap) 1 Capsules By Mouth every day. thyroid desiccated ([place] Thyroid 60 mg Tab) 1 Tablets By Mouth every day. PATIENT EDUCATION INFORMATION Instructions: Lithotripsy, Care After This sheet gives you information about how to care for yourself after your procedure. Your health care provider may also give you more specific instructions. If you have problems or questions, contact your health care provider. What can I expect after the procedure? After the procedure, it is common to have: ? Some blood in your urine. This should only last for a few days. ? Soreness in your back, sides, or upper abdomen for a few days. ? Blotches or bruises on your back where the pressure wave entered the skin. ? Pain, discomfort, or nausea when pieces (fragments) of the kidney stone move through the tube that carries urine from the kidney to the bladder (ureter). Stone fragments may pass soon after the procedure, but they may continue to pass for up to 4?8 weeks. ? If you have severe pain or nausea, contact your health care provider. This may be caused by a large stone that was not broken up, and this may mean that you need more treatment. ? Some pain or discomfort during urination. ? Some pain or discomfort in the lower abdomen or (in men) at the base of the penis. Follow these instructions at home: Medicines ? Take gtmj-jel-uidmbtc and prescription medicines only as told by your health care provider. ? If you were prescribed an antibiotic medicine, take it as told by your health care provider. Do not stop taking the antibiotic even if you start to feel better. ? Do not drive for 24 hours if you were given a medicine to help you relax (sedative). ? Do not drive or use heavy machinery while taking prescription pain medicine. Eating and drinking (Inserted Image. (more content not included)... Normal [facility] Patient Education - Texton 0 11-23-2021 Patient Education - Text Nephrology Lithotripsy, Care After This sheet gives you information about how to care for yourself after your procedure. Your health care provider may also give you more specific instructions. If you have problems or questions, contact your health care provider. What can I expect after the procedure? After the procedure, it is common to have: ? Some blood in your urine. This should only last for a few days. ? Soreness in your back, sides, or upper abdomen for a few days. ? Blotches or bruises on your back where the pressure wave entered the skin. ? Pain, discomfort, or nausea when pieces (fragments) of the kidney stone move through the tube that carries urine from the kidney to the bladder (ureter). Stone fragments may pass soon after the procedure, but they may continue to pass for up to 4?8 weeks. ? If you have severe pain or nausea, contact your health care provider. This may be caused by a large stone that was not broken up, and this may mean that you need more treatment. ? Some pain or discomfort during urination. ? Some pain or discomfort in the lower abdomen or (in men) at the base of the penis. Follow these instructions at home: Medicines ? Take xcda-zeo-qnkjyde and prescription medicines only as told by your health care provider. ? If you were prescribed an antibiotic medicine, take it as told by your health care provider. Do not stop taking the antibiotic even if you start to feel better. ? Do not drive for 24 hours if you were given a medicine to help you relax (sedative). ? Do not drive or use heavy machinery while taking prescription pain medicine. Eating and drinking ? Drink enough water and fluids to keep your urine clear or pale yellow. This helps any remaining pieces of the stone to pass. It can also help prevent new stones from forming. ? Eat plenty of fresh fruits and vegetables. ? Follow instructions from your health care provider about eating and drinking restrictions. You may be instructed: ? To reduce how much salt (sodium) you eat or drink. Check ingredients and nutrition facts on packaged foods and beverages. ? To reduce how much meat you eat. ? Eat the recommended amount of calcium for your age and gender. Ask your health care provider how much calcium you should have. General instructions ? Get plenty of rest. ? Most people can resume normal activities 1?2 days after the procedure. Ask your health care provider what activities are safe for you. ? Your health care provider may direct you to lie in a certain position (postural drainage) and tap firmly (percuss) over your kidney area to help stone fragments pass. Follow instructions as told by your health care provider. ? If directed, strain all urine through the strainer that was provided by your health care provider. ? Keep all fragments for your health care provider to see. Any stones that are found may be sent to a medical lab for examination. The stone may be as small as a grain of salt. ? Keep all follow-up visits as told by your health care provider. This is important. Contact a health care provider if: ? You have pain that is severe or does not get better with medicine. ? You have nausea that is severe or does not go away. ? You have blood in your urine longer than your health care provider told you to expect. ? You have more blood in your urine. ? You have pain during urination that does not go away. ? You urinate more frequently than usual and this does not go away. ? You develop a rash or any other possible signs of an allergic reaction. Get help right away if: ? You have severe pain in your back, sides, or upper abdomen. ? You have severe pain while urinating. ? Your urine is very dark red. ? You have blood in your stool (feces). ? You cannot pass any urine at all. ? You feel a strong urge to urinate after emptying your bladder. ? You have a fever or chills. ? You develop shortness of breath, difficulty breathing, or chest pain. ? You have severe nausea that leads to persistent vomiting. ? You faint. Summary ? After this procedure, it is common to have some pain, discomfort, or nausea when pieces (fragments) of the kidney stone move through the tube that carries urine from the kidney to the bladder (ureter). If this pain or nausea is severe, however, you should contact your health care provider. ? Most people can resume normal activities 1?2 days after the procedure. Ask your health care provider what activities are safe for you. ? Drink enough water and fluids to keep your urine clear or pale yellow. This helps any remaining pieces of the stone to pass, and it can help prevent new stones from forming. ? If directed, strain your urine and keep all fragments for your health care provider to see. Fragments or stones may be as small as a grain of salt. ? Get help ri (more content not included)... Normal [facility] Progress Note-Nurseon 2021 Progress Note-Nurse 1315 Pt previously not opening eyes to verbal stimuli. Extremities flacc when turned to assess operative site. CON Stern at bedside. Extremities weak left side almost flaccid. 1320 Dr. Martinez here at cartside. Pt responds to questions. Eyes open and moving all extremities. Pt states my stomach hurts . Dr. Martinez discussed procedures preformed and that discomfort from scope. Pt received urinal to attempt to void. Normal [facility] Progress Note-Physicianon Progress Note-Physician Patient: WALT SKELTON Age: 76 years Sex: Male : 1945 Associated Diagnoses: None Author: Kenneth Martinez JR, DO Postoperative Information Post Operative Note: Post Anesthesia Care Unit. Anesthetic utilized: General, Monitored anesthesia care. Health Status Allergies: Allergic Reactions (Selected) Severity Not Documented Peanuts- Headache. Sulfamethoxazole- O/e - lip swelling. Tape- Redness. Toradol- Swelling. Current medications: (Selected) Inpatient Medications Ordered HYDROmorphone 1 mg/mL injectable solution: 0.4 mg = 0.4 mL, Injection, IV Push, q4min PRN Pain for 5 dose(s), Stop date Limited # of times, Routine, Start date 11/23/21 8:19:00 EDT, 11/23/21 8:19:00 EDT Lactated Ringers IV Chelsea 1000 mL 1,000 mL: 1,000 mL, IV, 100 mL/hr, Routine, Start date 11/23/21 8:19:00 EDT, 10 hour(s), Total volume (mL): 1,000, 75 kg, 1.88, m2 Lactated Ringers IV Chelsea 1000 mL 1,000 mL: 1,000 mL, IV, 150 mL/hr, Routine, Start date 11/23/21 12:00:00 EDT, 6.7 hour(s), Total volume (mL): 1,000, 75 kg, 1.88, m2 Levsin 0.125 mg SL Tab: 0.125 mg = 1 tab(s), Tab, SubLingual, q4hr PRN Spasm, STAT, Start date 11/23/21 12:28:00 EDT, prn bladder spasms, 11/23/21 12:28:00 EDT Phenergan 25 mg/mL Injection: 12.5 mg = 0.5 mL, Injection, IV Push, q2min PRN Other (see comment) for 2 dose(s), Stop date Limited # of times, Routine, Start date 11/23/21 8:19:00 EDT, 11/23/21 8:19:00 EDT Prescriptions Prescribed acetaminophen-hydroco done 325 mg-5 mg oral tablet: 1 tab(s), Oral, q4hr Pain for 2 day(s), 7 tab(s), Refill(s) 0, N20.0, [id number], 170, cm, 11/23/21 10:32:00 EDT, Height/Length Dosing, 72.1, kg, 11/23/21 10:32:00 EDT, Weight Dosing Documented Medications Documented [place] Thyroid 60 mg Tab: 60 mg = 1 tab(s), Oral, Daily, # 30 tab(s), Refills(s) 0 mometasone Top 0.1% Crm 15 gram: 1 jarrod, Topical, Daily, 30 gram, Refill(s) 0 mometasone Top 0.1% Lotion: 1 jarrod, Topical, Daily, 30 mL, Refill(s) 0 ondansetron 4 mg Dis Tab: 4 mg = 1 tab(s), Oral, q6hr, PRN Nausea/Vomiting, # 10 tab(s), Refills(s) 0 tamsulosin 0.4 mg Cap: 0.4 mg = 1 cap(s), Oral, Daily, Refills(s) 0 Problem list: All Problems Kidney stone / SNOMED CT 662072035 / Confirmed Family history of malignant neoplasm of prostate / SNOMED CT 7249760656 / Confirmed Hearing loss / SNOMED CT 21184445 / Confirmed Adult BMI 26.0-26.9 kg/sq m / SNOMED CT 6538116752 / Confirmed 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 / SNOMED CT 7485421925 / Confirmed 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 / SNOMED CT 842568117 / Confirmed Partial amputation, 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 PONV (postoperative nausea and vomiting) / SNOMED CT 9383933 / Confirmed Benign localized hyperplasia of prostate with urinary retention / SNOMED CT 8718894877 / Confirmed Headache / SNOMED CT 04492601 / Confirmed Left hydrocele / SNOMED CT 504038342 / Confirmed Urge incontinence / SNOMED CT 908438227 / Confirmed Hypothyroid / SNOMED CT 94335925 / Confirmed Resolved: Psoriasis / SNOMED CT 77789041 Resolved: Hypercholesterolemia / SNOMED CT 39973459 Resolved: Cold sore / SNOMED CT 346545580 Canceled: Abnormal x-ray of cervical spine / SNOMED CT 006546812 Physical Examination Intake and Output Denies significant n/v and is tolerating p.o. Vital Signs (last 24 hrs) Last Charted Temp Oral 36.7 DegC (NOVEMBER 23 13:36) Heart Rate Apical 62 bpm (NOVEMBER 23 10:20) Resp Rate 20 br/min (NOVEMBER 23 13:) SBP H 158mmHg (NOVEMBER 23 13:36) DBP 77 mmHg (NOVEMBER 23 13:36) SpO2 97 % (NOVEMBER 23 13:36) Weight 72.1 kg (NOVEMBER 23 10:22) BMI 24.95 (NOVEMBER 23 10:22) Pain assessment: Pain Assessment 11/23/2021 13:36 EDT Preliminary Pain Scale 3 11/23/2021 13:36 EDT Primary Pain Location Abdomen lower Primary Pain Quality Unable to describe 11/23/2021 10:20 EDT Preliminary Pain Scale 0 . Respiratory: Adequate air exchange with muslim of preoperative function.. Cardiovascular: Cardiovascular function is stable and has returned to preoperative levels.. Neurologic: Pt has returned to preoperative baseline.. Review / Management Condition: Stable. Assessment Anesthetic outcome No anesthetic complications noted. Plan Transfer/ Discharge: Patient can be discharged from PACU when criteria met. Condition good. Normal [facility] Comment on above: Result Comment: Elec tronically Signed By: Kenneth Martinez JR, DO\.br\Date and Time Signed: 11/23/21 13:42 EDT Progress Note-Physician Patient: WALT SKELTON Age: 76 years Sex: Male : 1945 Associated Diagnoses: None Author: Kenneth Martinez JR, DO Postoperative Information Post Operative Note: Post Anesthesia Care Unit. Anesthetic utilized: General, Monitored anesthesia care. Health Status Allergies: Allergic Reactions (Selected) Severity Not Documented Peanuts- Headache. Sulfamethoxazole- O/e - lip swelling. Tape- Redness. Toradol- Swelling. Current medications: (Selected) Inpatient Medications Ordered Lactated Ringers IV Chelsea 1000 mL 1,000 mL: 1,000 mL, IV, 150 mL/hr, Routine, Start date 11/23/21 12:00:00 EDT, 6.7 hour(s), Total volume (mL): 1,000, 75 kg, 1.88, m2 famotidine 10 mg/mL IV Chelsea: 20 mg = 2 mL, Soln-IV, IV Push, Once, Stop date 11/23/21 12:00:00 EDT, Routine, Start date 11/23/21 12:00:00 EDT, 11/23/21 12:00:00 EDT Documented Medications Documented [place] Thyroid 60 mg Tab: 60 mg = 1 tab(s), Oral, Daily, # 30 tab(s), Refills(s) 0 mometasone Top 0.1% Crm 15 gram: 1 jarrod, Topical, Daily, 30 gram, Refill(s) 0 mometasone Top 0.1% Lotion: 1 jarrod, Topical, Daily, 30 mL, Refill(s) 0 ondansetron 4 mg Dis Tab: 4 mg = 1 tab(s), Oral, q6hr, PRN Nausea/Vomiting, # 10 tab(s), Refills(s) 0 tamsulosin 0.4 mg Cap: 0.4 mg = 1 cap(s), Oral, Daily, Refills(s) 0 Problem list: All Problems Kidney stone / SNOMED CT 368152080 / Confirmed Family history of malignant neoplasm of prostate / SNOMED CT 6675319051 / Confirmed Hearing loss / SNOMED CT 39783441 / Confirmed Adult BMI 26.0-26.9 kg/sq m / SNOMED CT 6087221091 / Confirmed 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 / SNOMED CT 1010446647 / Confirmed 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 / SNOMED CT 793045235 / Confirmed Partial amputation, 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 PONV (postoperative nausea and vomiting) / SNOMED CT 5857037 / Confirmed Benign localized hyperplasia of prostate with urinary retention / SNOMED CT 4324218265 / Confirmed Headache / SNOMED CT 13577315 / Confirmed Left hydrocele / SNOMED CT 148782555 / Confirmed Urge incontinence / SNOMED CT 136904929 / Confirmed Hypothyroid / SNOMED CT 18466227 / Confirmed Resolved: Psoriasis / SNOMED CT 54168187 Resolved: Hypercholesterolemia / SNOMED CT 11405024 Resolved: Cold sore / SNOMED CT 776590539 Canceled: Abnormal x-ray of cervical spine / SNOMED CT 532431789 Physical Examination Intake and Output Denies significant n/v and is tolerating p.o. No qualifying data available Respiratory: Adequate air exchange with muslim of preoperative function.. Cardiovascular: Cardiovascular function is stable and has returned to preoperative levels.. Neurologic: Pt has returned to preoperative baseline.. Review / Management Condition: Stable. Assessment Anesthetic outcome No anesthetic complications noted. Plan Transfer/ Discharge: Patient can be discharged from PACU when criteria met. Condition good. Normal [facility] Comment on above: Result Comment: Elec tronically Signed By: Kenneth Martinez JR, DO URINALYSISOrdered By: Ely Wong on 11-23-2021 Bilirubin Ql (U) Negative (11/23/21 10:21 AM) Normal Negative [facility] UA Auto SS Clarity (U) Cloudy *ABN* (11/23/21 10:21 AM) Invalid Interpretation Code Clear [facility] UA Auto SS Color (U) Red *ABN* (11/23/21 10:21 AM) Invalid Interpretation Code Yellow [facility] UA Auto SS Epithelial cells.squamous LM.HPF (Urine sed) [#/Area] 0-2 /HPF Normal 0-2/HPF [facility] UA Auto SS Glucose Test strip (U) [Mass/Vol] Negative (11/23/21 10:21 AM) Normal Negative [facility]A Auto SS Hemoglobin Ql (U) 3+ *ABN* (11/23/21 10:21 AM) Invalid Interpretation Code Negative [facility] UA Auto SS Ketones (U) [Mass/Vol] Negative (11/23/21 10:21 AM) Normal Negative [facility] UA Auto SS Clancy.plasma/Lit hium.RBC (Bld) [Mass ratio] >75 /HPF Invalid Interpretation Code 0-3/HPF [facility] UA Auto SS Nitrite Ql (U) Negative (11/23/21 10:21 AM) Normal Negative [facility]A Auto SS pH (U) 6.0 *NA* (11/23/21 10:21 AM) Invalid Interpretation Code 5.0 - 9.0 [facility] UA Auto SS Protein (U) [Mass/Vol] 2+ *ABN* (11/23/21 10:21 AM) Invalid Interpretation Code Negative [facility] UA Auto SS Specific gravity (U) [Rel density] 1.025 *NA* (11/23/21 10:21 AM) Invalid Interpretation Code 1.005 - 1.030 [facility] UA Auto SS UA Spec Desc Clean Catch (11/23/21 10:21 AM) Normal [facility] UA Auto SS Urobilinogen Qn (U) 0.0689731 {Whitney'U}/dL Normal 0.0 - 1.0 EU/dL [facility] UA Auto SS WBC Auto Ql (U) 1+ *ABN* (11/23/21 10:21 AM) Invalid Interpretation Code Negative [facility] UA Auto SS WBC LM.HPF (Urine sed) [#/Area] 0-5 /HPF Normal 0-5/HPF [facility] UA Auto SS Urinalysison 11-23-2021 Epithelial cells.squamous LM.HPF (Urine sed) [#/Area] 0-2 Normal 0-2 [facility] Comment on above: Performed By: #### 2 [id number], [id number], [id number], [id number] #### [facility] [address] [place], [place] [id number] Clancy.plasma/Lit hium.RBC (Bld) [Mass ratio] >75 Abnormal 0-3 [facility] Comment on above: Performed By: #### 2 [id number], [id number], [id number], [id number] #### [facility] [address] [place] [address] WBC LM.HPF (Urine sed) [#/Area] 0-5 Normal 0-5 [facility] Comment on above: Performed By: #### 2 985290, 3174350, [id number], [id number] #### [facility] [address] [place] [address] Bilirubin Ql (U) Negative Normal Negative [facility] Comment on above: Performed By: #### 2 881953, 2863402, [id number], [id number] #### [facility] [address] [place] [address]1968 Clarity (U) CLOUDY Abnormal Clear [facility] Comment on above: Performed By: #### 2 669053, [id number], [id number], [id number] #### [facility] [address] [place] [address] 84333 Color (U) RED Abnormal Yellow [facility] Comment on above: Performed By: #### 2 529206, 7609012, [id number], [id number] #### [facility] [address] [place] [address] Glucose Test strip (U) [Mass/Vol] Negative Normal Negative [facility] Comment on above: Performed By: #### 2 763888, 7390279, [id number], [id number] #### [facility] [address] [place] [address] 28038 Hemoglobin Ql (U) 3+ Abnormal Negative [facility] Comment on above: Performed By: #### 2 287809, 9999429, [id number], [id number] #### [facility] [address] [place] [address] 30090 Ketones (U) [Mass/Vol] Negative Normal Negative [facility] Comment on above: Performed By: #### 2 677750, 3333784, 9109243, [id number] #### [facility] [address] [place] [address] 67163 Nitrite Ql (U) Negative Normal Negative [facility] Comment on above: Performed By: #### 2 613422, 8056181, 2509994, [id number] #### [facility] [address] [place] [address] 82396 pH (U) 6.0 [pH] Invalid Interpretation Code 5.0-9.0 [facility] Comment on above: Performed By: #### 2 083025, 1412939, 4163283, [id number] #### [facility] [address] [place] [address] 36368 Protein (U) [Mass/Vol] 2+ Abnormal Negative [facility] Comment on above: Performed By: #### 2 048752, 2563148, 5567047, [id number] #### [facility] [address] [place] [address] 76510 Specific gravity (U) [Rel density] 1.025 Invalid Interpretation Code 1.005-1.030 [facility] Comment on above: Performed By: #### 2 573508, 4213385, 3227128, [id number] #### [facility] [address] [place] [address]4301 Type of Urine collection method Clean Catch Normal [facility] Comment on above: Performed By: #### 2 059078, 1663593, 5248882, [id number] #### [facility] [address] [place] [address] 42369 Urobilinogen Qn (U) 0.2 {Whitney'U}/dL Normal 0.0-1.0 [facility] Comment on above: Performed By: #### 2 430757, 0417497, 8510894, [id number] #### [facility] [address] [place] [id number] WBC Auto Ql (U) 1+ Abnormal Negative [facility] Comment on above: Performed By: #### 2 [id number], [id number], [id number], [id number] #### [facility] [address] [place] [address] [place] [address] XR Abdomen 1 Viewon 11-24-19 XR Abdomen 1 View Exam Date/Time: 11/23/2021 10:17 EDT Reason for Exam: Kidney stone Report IMPRESSION: Bilateral ureteral stents. Calcifications as discussed. EXAMINATION/TECHNIQUE : XR Abdomen 1 View HISTORY: Having lithotripsy today. Kidney stones. COMPARISON: 11/09/2021. RESULT: Bilateral ureteral stents, unchanged. Renal shadows obscured by bowel gas. Possible calculi projecting near the left ureteropelvic junction, grossly unchanged. Possible other small left renal calculi. No distinct calcifications projecting over the right kidney or right ureteral stent the limitations due to bowel gas. Multiple pelvic phleboliths. Nonspecific nondilated bowel gas pattern. Lung bases unremarkable. No acute osseous findings. No other significant abnormality. FINAL REPORT Dictated: 11/23/2021 12:15 pm Uziel Weber MD. Signed (Electronic Signature): 11/23/2021 12:15 pm Signed by: Uziel Weber MD Transcribed by: BEV Technologist: DONNA [facility] Progress Note-Physicianon Progress Note-Physician Patient: WALT SKELTON Age: 76 years Sex: Male : 1945 Associated Diagnoses: None Author: Kenneth Martinez JR, DO Preoperative Information Anesthesia history: Patient History: Pt./ family denies any personal or family hx of problems/difficulties with anesthesia.. Re-eval prior to induction: Inital eval reviewed: No significant interval change, NPO 10 hours.. Review of Systems Constitutional: See nursing assessment.. Cardiovascular: Cardiac risk assessment performed. Pt. denies any significant change in their cv hx.. Respiratory: Pt. denies any signicant change in their respiratory status.. Neurologic: Pt. denies any acute neurological changes.. Health Status Allergies: Allergic Reactions (Selected) Severity Not Documented Peanuts- Headache. Sulfamethoxazole- O/e - lip swelling. Tape- Redness. Toradol- Swelling., Allergies (4) Active Reaction Peanuts Headache sulfamethoxazole O/E - lip swelling Tape Redness Toradol Swelling Current medications: (Selected) Inpatient Medications Ordered Lactated Ringers IV Chelsea 1000 mL 1,000 mL: 1,000 mL, IV, 150 mL/hr, Routine, Start date 11/23/21 12:00:00 EDT, 6.7 hour(s), Total volume (mL): 1,000, 75 kg, 1.88, m2 famotidine 10 mg/mL IV Chelsea: 20 mg = 2 mL, Soln-IV, IV Push, Once, Stop date 11/23/21 12:00:00 EDT, Routine, Start date 11/23/21 12:00:00 EDT, 11/23/21 12:00:00 EDT Documented Medications Documented [place] Thyroid 60 mg Tab: 60 mg = 1 tab(s), Oral, Daily, # 30 tab(s), Refills(s) 0 mometasone Top 0.1% Crm 15 gram: 1 jarrod, Topical, Daily, 30 gram, Refill(s) 0 mometasone Top 0.1% Lotion: 1 jarrod, Topical, Daily, 30 mL, Refill(s) 0 ondansetron 4 mg Dis Tab: 4 mg = 1 tab(s), Oral, q6hr, PRN Nausea/Vomiting, # 10 tab(s), Refills(s) 0 tamsulosin 0.4 mg Cap: 0.4 mg = 1 cap(s), Oral, Daily, Refills(s) 0, Medications (2) Active Scheduled: (1) famotidine 10 mg/mL IV Chelsea [F] 20 mg 2 mL, IV Push, Once Continuous: (1) Lactated Ringers 1,000 mL 1,000 mL, IV, 150 mL/hr PRN: (0) Problem list: All Problems Kidney stone / SNOMED CT 050394057 / Confirmed Family history of malignant neoplasm of prostate / SNOMED CT 8697401709 / Confirmed Hearing loss / SNOMED CT 19917362 / Confirmed Adult BMI 26.0-26.9 kg/sq m / SNOMED CT 5644458207 / Confirmed 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 / SNOMED CT 2958781353 / Confirmed 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 / SNOMED CT 047397010 / Confirmed Partial amputation, 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 PONV (postoperative nausea and vomiting) / SNOMED CT 3874654 / Confirmed Benign localized hyperplasia of prostate with urinary retention / SNOMED CT 1447256658 / Confirmed Headache / SNOMED CT 41156965 / Confirmed Left hydrocele / SNOMED CT 871266997 / Confirmed Urge incontinence / SNOMED CT 029520998 / Confirmed Hypothyroid / SNOMED CT 87808079 / Confirmed Resolved: Psoriasis / SNOMED CT 78127725 Resolved: Hypercholesterolemia / SNOMED CT 19760863 Resolved: Cold sore / SNOMED CT 490796422 Canceled: Abnormal x-ray of cervical spine / SNOMED CT 866569293, Active Problems (12) Adult BMI 26.0-26.9 kg/sq m 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 Cold sore (765881765): Resolved. Hypercholesterolemia (84744680): Resolved. Family History: Cancer Father Acute congestive heart failure Mother Lupus Mother Osteoporosis Mother Heart disease Father Mother Procedure history: Cystoscopy ([id number]) on 10/26/2021 at 76 Years. Comments: 10/26/2021 15:30 MACO Newman RN, [place] stent placement Eye ([id number]) on 07/01/2015 at 70 Years. Comments: 11/07/2020 11:35 Jori Mcmillan MA Bilateral lens implants Excision of ganglion cyst of wrist, recurrent ([id number]) on 09/21/2013 at 68 Years. Arm ([id number]) on 07/01/2013 at 68 Years. Comments: 11/07/2020 11:35 Jori Mcmillan MA left arm plates and screws EGD (esophagogastroduoden oscopy) gastric outlet reduction ([id number]) on 07/01/2012 at 67 Years. ESWL - Extracorporeal shockwave lithotripsy for renal calculus ([id number]) on 07/01/2010 at 65 Years. History of subtotal thyroidectomy (1681589912). OPEN REDUCTION LEFT RADIUS. INGUINAL HERNIA REPAIR,RIGHT. Colonoscopy (812118356). Social History Social & Psychosocial Habits Alcohol 05/30/2011 (more content not included)... Normal [facility] Comment on above: Result Comment: Elec tronically Signed By: Kenneth Martinez JR, DO.juan c\Date and Time Signed: 11/22/21 11:06 EDT Coding Summary.on 11-17-2021 Coding Summary. [id number] G h0bWw+PGhlYWQ+DE2NKUV jF45jfPOpkQ5GC7vJGG8C CHGZRKVQEC8ELP3yzRT3V KuyD1LbiaZo PgieiNCdLP60QLz0OBP4d ZkrIYbfpC0iyOTxF9t5Ko WlXW30zR45RMzoKCFaIdH 3LjZpbjsgbWFy R3lgXgNvkQAhQjo+PHRhY mxlIHdpZHRoPScxMDAlJy JntAfuFF3yMb5kKKTjTMG vbGxhcHNlOiBj b2swOXMeGWvtIH3lcKblO 9TcuQS8IHWub0g6Dx47sA I+QMJsMIL7fDthRInnk30 0CvXcz5neBGM5 hHSeFRynRKO7T64mb4Z8B IVbQMWuPFU6cNE0jJ2xlC bchdqzV7BmuIPgNtW7GDP 0qERieL2eqSoy bwugtJ5nSlx+E35BPX9ZM JZZEE7BHdc2I3WkGnsqjW I+SO26JUNgAJ54xMYukGG ej4lloXp6HrQf IPDuQKF3vRgkDZbwb7EiL DIfD92neIDpo9X8XNXpjK vojDGoKtDgrAI6rH8jSPu bsgrzh4wqpqhp Ijoov5lvkg79gM77S06oS KsgFGCqQOU5OALlDKNanB zzmq5vhX1uKj3+CKoqg3l qn5ucdGz6WtLo BVTfcjNnjNkuFUP5h0FgW s03I0NyjGeqc2IsWxf1vu 76qXNtm0H1cIC5BMufZET bkS0uHRvxCvS7 TEDjCmFgqE34qFRdYEdpG c4euPwjuTfmAN1rTGHffk qbNGVfwE4tMTOnuEVhdHw uNL5pNDFgcirj t039HnIbKPD7YHFerCAzH 8QzhE3kQoMzRSVgWDZzK2 RjrNSeVVyyW661KHcdJeV 4POSkucRfA4Nd ZFGbvOezGkW5z3M1Sn3Yn 3RqqvkdTJV2VUjoAUG9Fo PzMiOxKkA7I3HpDeb7EQX sgGtxGI0cC3Kw NMGqsjfscwduiHO2XEMtP RIbeB80xGAdLAboJt6sf5 Z9a638USMyWDKcuS42Hc8 udDogMTBwdCBU eK6dlxorw2kgyhiwYbKaO PQtSQp2YVi0SLXpqPpkSw ZpIZG3XsQ9PZG7qNHxzL0 zxSkkmjkvsN9p Oyc+T80weW2mZKU4VRH0o wlxGZQdmfMpFK54BB89B5 RyPjwvdGFibGU+PGRpdiB dbRklJJ7hGaUl n3xjy1TzKMpbA6YfRIBxY ObmVkh6ZYAoGGN1iYA1vV 1pSTViMEedu4X6cMN8A8C cmsBuiw7oh4qs XESzEAhoG25daDZbc9S6M HZetXS8YAHihLqmWmNleQ 93Oyc+XRPmsPkaa5OhYpb vp3yhd8gybPt6 AmAxXFKehgWjkLboUPV6e 8EbYm73G59iSGjhDAPwBU PnEWZiCEWrxLliny8fnY0 wIi8+PGNvbCB3 jGG7kY9dKBLwFiH7EUpmA 598AoMliJJjAsayz7xox8 qbbWn9CoSoGBRmrzBzyXe qPEM5w4UjBv77 O52wYPqrAUWaPOOoBEOkN JNidXuoqe1aaT6kFq4+PC 7pj3gnbr54jZ60gJJ+PHR rTVU7dGgcFLgp HRKpsO1bPVexYuT9TRCdZ cZpnL45dZHqNNroTp1ldC ufaKbiFU0cFWXwdebpz44 3UlOnz1wcHMFs uVPfAPzsDQB0T43ba6A9R PDnVIJvEIF5rUO7qR7fxS lnbjogbGVmdDsgdmVydGl nKUzlZLtpC428 IHRvcDsnPlBhdGllbnQgT eTkBWt2C3WjGsi2ZVOakO fiZU8dbZGiNRgaNf1rkVm dlBsbAP4tJFFy bifhp059FdTjf3waZDScu SIeDZzyAFK4K55pm4L6UB RfFWWuOLA4uSZ0wM6soJq nbjogbGVmdDsg ymUseRceXArxWInzL619G HRvcDsnPkJpcnRoIERhdG T6GG91CR26tHWmq7I2tGM 9E4JjLVIwygpl mdofyQK5YFXnZCSmcP60F i9xcPepCi0yCNCrGPZ6BA KhmYGuW8ZqdL2oJeArMWM xDQXwL6WjbGPo DCvuN479HKggMnI5RHIpc sCgI4TgUVWwsAloRiM3g4 R5Xz8QL9N0BG21NI37wYE ox1A9hSX0N7Tf XLJbfomgigmcsJF9SUOdN FUqgD57Dq0ilVahFe1nBD RmOLU5DUXesTGdX4NkrN0 yOiAjMDAwMDAw T7PcbWOkPChuW232YBvnR rR8DXOigzCpM5GpKRCwaM oiSmD0q1U5Yq5MCIv2XX5 2NI80gFLne7A9 zBB0B7BtCKEgtcionjrtj ZK6KBEpMIFpeD85Jx5xnM ngZf0pXYXiEJO4LZSemKZ uU3ThsI2iLyIc TBRqJSBfF9AzvUUqPAftS 942YZglPuN0ZOEoayCaY6 BtUVSbnZmqUqW2z3O8Qe8 DZJQnQH19ECJ4 tVE8KR09RG39F6ChHbmws GFibGU+PHRhYmxlIHdpZH RoPScxMDAlJyBzdHlsZT0 nGa1tSZZpEGCw qUqecWJeSoRuy3orDNXdW RdxGY1lvWcsD2TawQR1EV Fbh4q7Ry30K47uN7LieTH +SBHjkAZ9eRX9 mV8zJjVtDhK8OQgxC357C cXtpIUmNuubb9tcq7slwB w7HzY6NYZdogYdhOxiHFS 0z7FhFi40H14c IHdpZHRoPSIxNSUiIHZhb Ddzxe1fnY7wGs5+PGNvbC T8nPN4hH2lFkMiQeJ4PUy mN225VpQejAUj Pisso3ntb4fivQi8ZyKpP SKojhEspTqlEPJ6c6OrHm 12G7WfoRgli8CfNnn3uh4 6gFOhh2K8pZN2 X1MdMDNebcxqvISomViiU U6rGJJdmzhiFYDusK3lGR KpN4h2AbNhDhF3TXvoT6S dpdE1TPJtpRQg XPdoDTW9H90er6T9NVMoQ SXtVSG3vKK0rU2owNknnv ogbGVmdDsgdmVydGljYWw dCDbzV768GAMo jPeyTUUlbW0yAYBvoYOnb UjqIH8mIBHzkkjrFlaSVC QYDrbLK92lJZEFLoZRARE ACS40MH83wWEl z3W7yAU5I5KbROEpivqjf tnagWR2DMYvVRJzrW27dJ OwEWzhLs2mb2N1g060EMW pXEEtdS08Ed4q fBbuZMBikZVSxV9uimovf 1bpqlizOcCaXITgPOy4YK s2BUWqzPsrPhLwVYK7ByD 7JTY1qPMfkY3m gMlambwwcD8xEmf+MDgvM eVjQSb6KmjamRX+PHRkIH B1kWseTFmyNUFvaJ9gXGX wJ4k7PkVkUuS6 JIztJ7ZfRZPrazinZn41u J0nUiLrFwC0NWdsB7Eptj D9LJSskCOvVGnwNXU9Q85 qd0Y8LESmRGJw XFU2zGU0gI9abDrqbglsm GVmdDsgdmVydGljYWwtYW ypW458ALNopXasShg3NWy aEXUsXU41BK38 jIRnt9A7fOW2I2HoXMGzr uaklmqzqCP4IYLpXLCilP 90tCUzMQugAg3lw2R6p38 2DZEfKXMaaI03 Vj1rjFvnIQYpdXGUtS2fy xwcb1zjhymfUfOeEAVuFR c1ASx4SADizAwyEjJmNVR 4XmC7CIT3lAEg hY9ipNfavtcwlV2oPtc+T WFsZTwvdGQ+JBHtZLI8rN moEZeaGFZmoO8mDMYtE2l 4HrNtQoP7NNdd C1TkQGMbylshTc68pN0mE pRnShI5NCwsJ5YuilQ4EF CjdNUbZLpqHFY0C90vy6I 5SJLuTGEaDRM0 jOK8pX0bjOxwvgayuVPef DsgdmVydGljYWwtYWxpZ2 90QFFvtYraMs90yAGqqUp zcqS1O3ZxSpvu dHI+CB38BOJvII03iGDqh GAqh4yfsNl4XiTfKVGbMV H2vCviJGypa1QbRYCgV40 jyDJlc4A0AVZt xFyywRLgWqUuhDC4kZ2zF Yhyuzrgx7fhtxuaBudnh5 msvl55jW05P50dWIohNLH oPSIzMCUiIHZh aGeswe4gzQ9mMr4+PGNvb RF6tRS4yT4cGtJdOqF3PK ggK371EaUchNVkLqwto3u mt7tfxEs7YnMn EWSasyXpvGtdMTM0a2CwO c17D60cTPouIKKwACQwFO TiUXYtiSoldi1rxE3uTg7 +NB1gg7qsgk53 uG05iTD+PWWwIHN8eArqV JriTCYfsY6nVJheLoJ1NF KpGqKweL21pWKjJOdwNh2 fpBvehFtgXX4o SGGilmbrs090ZqExn9orS FSqgRPaDEvsHZQ5O83hh4 N1YUExGQBfQMI9hYY7cV7 hbGlnbjogbGVm dDsgdmVydGljYWwtYWxpZ 295XFVbbZcyJbTknSOkC9 xpdtZAYM3vIbhedRF+PHR wCJD2qOlmBUnm EVOqyS7mJSVqL1y5PeFpX tQ7CLhsS0IsoxH5SBLoaZ PhVCNihUZPnC6lixcoe9n vcjogIzAwMDAw JVr8PKx1OAPpbTamOtNsW CN2HtP7YHM1gSPxdP1tgR aoqioxlW7zJlw+RklOOjw vdGQ+PHRkIHN0 rQynXMivFZJuiZ5kFYYtO 1t9TcVkYqT0YLbbC1Rgzm A7JGKobCFfBVPvrYQGiD7 kecfbi8okjhjg XnJgWSRdYLs8XUh1FEGpy TipUjYkDXE3RkX6KLO8bS OdwK2nqZfpguhqtI2oIqv +TVJOOjwvdGQ+ QFRbZUP7fJdkNAvjZWCuj J8jZEHzU9n8KdKgFsZ1GB kzD4IikpJ4WFRenMLiXGM mlOMUfB2rhruf r6efwzpiRaVfOPXyVKm1Z Xf1DRLigAeuXoQaOMD5Am E1VQQ1oEFgnQ5glVqvnqp ksN1qVai+UGF5 FLA4IC61QH87Z3OiOahli GFibGU+PHRhYmxlIHdpZH RoPScxMDAlJyBzdHlsZT0 hEk4vUHPhCZVv bGxh (more content not included)... [facility] Ambulatory Visit Summaryon 0 11-13-2021 Ambulatory Visit Summary WALT SKELTON :1945 Visit Date:11/13/2021 Ambulatory Visit Instructions Your Diagnosis Benign localized hyperplasia of prostate with urinary retention Kidney stone Urge incontinence Left hydrocele Family history of malignant neoplasm of prostate Obstructive and reflux uropathy, unspecified Other retention of urine Your Care Team Attending Physician - MARIBEL ANN, Joey Cantu Primary Care Physician - UZIEL HALLMAN DO This Is Your Medications List Contact prescribing physician if questions or concerns mometasone topical (mometasone Top 0.1% Crm 15 gram) mometasone topical (mometasone Top 0.1% Lotion) ondansetron (ondansetron 4 mg Dis Tab) tamsulosin (tamsulosin 0.4 mg Cap) thyroid desiccated ([place] Thyroid 60 mg Tab) Procedures Performed Cystoscopy (10/26/2021), Eye (07/01/2015), Excision of ganglion cyst of wrist, recurrent (09/21/2013), Arm (07/01/2013), EGD (esophagogastroduoden oscopy) gastric outlet reduction (07/01/2012), ESWL - Extracorporeal shockwave lithotripsy for renal calculus (07/01/2010), Colonoscopy, History of subtotal thyroidectomy, INGUINAL HERNIA REPAIR,RIGHT, OPEN REDUCTION LEFT RADIUS. Discharge Vitals Height 170.0 cm Height 170.0 cm Weight 75.0 kg Weight 75 kg BMI 25.95 What to do next Scheduled Follow-Up Appointments Saturday 9:30 AM EST With: Joey DAVIS MD Where: [facility] Patient Educationon 11-14-19 Patient Education Urology Kidney Stones Kidney stones are rock-like masses that form inside of the kidneys. Kidneys are organs that make pee (urine). A kidney stone may move into other parts of the urinary tract, including: ? The tubes that connect the kidneys to the bladder (ureters). ? The bladder. ? The tube that carries urine out of the body (urethra). Kidney stones can cause very bad pain and can block the flow of pee. The stone usually leaves your body (passes) through your pee. You may need to have a doctor take out the stone. What are the causes? Kidney stones may be caused by: ? A condition in which certain glands make too much parathyroid hormone (primary hyperparathyroidism). ? A buildup of a type of crystals in the bladder made of a chemical called uric acid. The body makes uric acid when you eat certain foods. ? Narrowing (stricture) of one or both of the ureters. ? A kidney blockage that you were born with. ? Past surgery on the kidney or the ureters, such as gastric bypass surgery. What increases the risk? You are more likely to develop this condition if: ? You have had a kidney stone in the past. ? You have a family history of kidney stones. ? You do not drink enough water. ? You eat a diet that is high in protein, salt (sodium), or sugar. ? You are overweight or very overweight (obese). What are the signs or symptoms? Symptoms of a kidney stone may include: ? Pain in the side of the belly, right below the ribs (flank pain). Pain usually spreads (radiates) to the groin. ? Needing to pee often or right away (urgently). ? Pain when going pee (urinating). ? Blood in your pee (hematuria). ? Feeling like you may vomit (nauseous). ? Vomiting. ? Fever and chills. How is this treated? Treatment depends on the size, location, and makeup of the kidney stones. The stones will often pass out of the body through peeing. You may need to: ? Drink more fluid to help pass the stone. In some cases, you may be given fluids through an IV tube put into one of your veins at the hospital. ? Take medicine for pain. ? Make changes in your diet to help keep kidney stones from coming back. Sometimes, medical procedures are needed to remove a kidney stone. This may involve: ? A procedure to break up kidney stones using a beam of light (laser) or shock waves. ? Surgery to remove the kidney stones. Follow these instructions at home: Medicines ? Take uhsy-bbi-jlermdd and prescription medicines only as told by your doctor. ? Ask your doctor if the medicine prescribed to you requires you to avoid driving or using heavy machinery. Eating and drinking ? Drink enough fluid to keep your pee pale yellow. You may be told to drink at least 8?10 glasses of water each day. This will help you pass the stone. ? If told by your doctor, change your diet. This may include: ? Limiting how much salt you eat. ? Eating more fruits and vegetables. ? Limiting how much meat, poultry, fish, and eggs you eat. ? Follow instructions from your doctor about eating or drinking restrictions. General instructions ? Collect pee samples as told by your doctor. You may need to collect a pee sample: ? 24 hours after a stone comes out. ? 8?12 weeks after a stone comes out, and every 6?12 months after that. ? Strain your pee every time you pee (urinate), for as long as told. Use the strainer that your doctor recommends. ? Do not throw out the stone. Keep it so that it can be tested by your doctor. ? Keep all follow-up visits as told by your doctor. This is important. You may need follow-up tests. How is this prevented? To prevent another kidney stone: ? Drink enough fluid to keep your pee pale yellow. This is the best way to prevent kidney stones. ? Eat healthy foods. ? Avoid certain foods as told by your doctor. You may be told to eat less protein. ? Stay at a healthy weight. Where to find more information ? National Kidney Foundation (NKF): www.kidney.org ? [employer] (F): www.urologyhealth.org Contact a doctor if: ? You have pain that gets worse or does not get better with medicine. Get help right away if: ? You have a fever or chills. ? You get very bad pain. ? You get new pain in your belly (abdomen). ? You pass out (faint). ? You cannot pee. Summary ? Kidney stones are rock-like masses that form inside of the kidneys. ? Kidney stones can cause very bad pain and can block the flow of pee. ? The stones will often pass out of the body through peeing. ? Drink enough fluid to keep your pee pale yellow. This information is not intended to replace advice given to you by your health care provider. Make sure you discuss any questions you have with your health care provider. Document Released: 12/03/2008 Document Revised: 11/03/2019 Document Reviewed: 11/03/2019 [employer] Patient Education ? 2019 [employer] Benign Prostatic Hyperpla (more content not included)... [facility] XR Abdomen 1 Viewon 11-11-19 22 XR Abdomen 1 View Exam Date/Time: 11/09/2021 08:11 EDT Reason for Exam: N20.0 Calculus of kidney;Kidney stone Report IMPRESSION: BILATERAL URETERAL STENTS. LEFT RENAL CALCULI AND CALCULI AT THE LEFT URETEROPELVIC JUNCTION. CLINICAL HISTORY: Kidney stone, N20.0 Calculus of kidney. COMPARISON: 10/26/2021. COMMENT: AP supine. There are bilateral ureteral stents, that appear to be in good position. Both kidneys are largely obscured by overlying bowel. There are small calculi in the left kidney. There are two adjacent calculi in the region of the left ureteropelvic junction, with the larger measuring 4 mm. No definite right renal calculus is evident, but a right renal calculus could easily be obscured. There are multiple calcified phleboliths in the pelvis. The abdominal gas pattern is unremarkable. FINAL REPORT Dictated: 11/10/2021 3:54 pm El Smith M.D. Signed (Electronic Signature): 11/10/2021 3:54 pm Signed by: El Smith M.D. Transcribed by: BEV Technologist: NEMO Hagan [facility] Consent for Treatmenton 10-29 Consent for Treatment [id number]:127 [facility] Progress Note-Physicianon Progress Note-Physician Patient: WALT SKELTON Age: 76 years Sex: Male : 1945 Associated Diagnoses: None Author: El Villa Jr, DO Postoperative Information Post Operative Note: Post Anesthesia Care Unit. Anesthetic utilized: General. Health Status Allergies: Allergic Reactions (Selected) Severity Not Documented Peanuts- Headache. Sulfamethoxazole- O/e - lip swelling. Tape- Redness. Toradol- Swelling. 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 / SNOMED CT 135427483 / Confirmed Partial amputation, 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 Resolved: Cold sore / SNOMED CT 729954669 Resolved: Hypercholesterolemia / SNOMED CT 23238272 Resolved: Psoriasis / SNOMED CT 54226519 Physical Examination Vital Signs 10/26/2021 15:51 EDT SpO2 95 % 10/26/2021 15:45 EDT Temperature Oral 36.8 DegC Heart Rate Monitored 70 bpm Respiratory Rate 18 br/min Systolic Blood Pressure 157 mmHg HI Diastolic Blood Pressure 71 mmHg Mean Arterial Pressure, Monitered 100 mmHg SpO2 94 % 10/26/2021 14:26 EDT Systolic Blood Pressure 130 mmHg Diastolic Blood Pressure 72 mmHg 10/26/2021 14:00 EDT Temperature Temporal Artery 36.6 DegC Heart Rate Monitored 72 bpm Respiratory Rate Monitored 16 br/min Systolic Blood Pressure 130 mmHg Diastolic Blood Pressure 72 mmHg Blood Pressure Location Right arm Mean Arterial Pressure, Cuff 91 mmHg SpO2 94 % 10/26/2021 13:45 EDT Heart Rate Monitored 73 bpm Respiratory Rate Monitored 16 br/min Systolic Blood Pressure 130 mmHg Diastolic Blood Pressure 66 mmHg Blood Pressure Location Right arm Mean Arterial Pressure, Cuff 87 mmHg SpO2 93 % 10/26/2021 13:40 EDT Heart Rate Monitored 73 bpm Respiratory Rate Monitored 16 br/min Systolic Blood Pressure 124 mmHg Diastolic Blood Pressure 66 mmHg Blood Pressure Location Right arm Mean Arterial Pressure, Cuff 85 mmHg SpO2 98 % 10/26/2021 13:35 EDT Heart Rate Monitored 80 bpm Respiratory Rate Monitored 16 br/min Systolic Blood Pressure 130 mmHg Diastolic Blood Pressure 74 mmHg Blood Pressure Location Right arm Mean Arterial Pressure, Cuff 93 mmHg SpO2 98 % 10/26/2021 13:33 EDT Temperature Temporal Artery 36.1 DegC LOW Heart Rate Monitored 75 bpm Respiratory Rate Monitored 16 br/min Systolic Blood Pressure 135 mmHg Diastolic Blood Pressure 75 mmHg Blood Pressure Location Right arm Mean Arterial Pressure, Cuff 95 mmHg SpO2 98 % 10/26/2021 13:30 EDT Heart Rate Monitored 89 bpm bpm Respiratory Rate 7 br/min br/min SpO2 98 % % 10/26/2021 13:25 EDT Heart Rate Monitored 69 bpm bpm Respiratory Rate 26 br/min br/min Systolic Blood Pressure 101 mmHg mmHg Diastolic Blood Pressure 52 mmHg mmHg SpO2 98 % % 10/26/2021 13:21 EDT Systolic Blood Pressure 99 mmHg mmHg Diastolic Blood Pressure 54 mmHg mmHg 10/26/2021 13:20 EDT Heart Rate Monitored 71 bpm bpm Respiratory Rate 26 br/min br/min SpO2 97 % % 10/26/2021 13:17 EDT Systolic Blood Pressure 106 mmHg mmHg Diastolic Blood Pressure 57 mmHg mmHg 10/26/2021 13:15 EDT Heart Rate Monitored 68 bpm bpm Respiratory Rate 30 br/min br/min SpO2 98 % % 10/26/2021 13:13 EDT Systolic Blood Pressure 102 mmHg mmHg Diastolic Blood Pressure 62 mmHg mmHg 10/26/2021 13:10 EDT Heart Rate Monitored 71 bpm bpm Respiratory Rate 28 br/min br/min SpO2 97 % % 10/26/2021 13:09 EDT Systolic Blood Pressure 98 mmHg mmHg Diastolic Blood Pressure 53 mmHg mmHg 10/26/2021 13:05 EDT Heart Rate Monitored 71 bpm bpm Respiratory Rate 30 br/min br/min Systolic Blood Pressure 100 mmHg mmHg Diastolic Blood Pressure 57 mmHg mmHg SpO2 98 % % 10/26/2021 13:01 EDT Systolic Blood Pressure 100 mmHg mmHg Diastolic Blood Pressure 54 mmHg mmHg 10/26/2021 13:00 EDT Heart Rate Monitored 72 bpm bpm Respiratory Rate 27 br/min br/min SpO2 99 % % 10/26/2021 12:57 EDT Systolic Blood Pressure 123 mmHg mmHg Diastolic Blood Pressure 72 mmHg mmHg 10/26/2021 12:55 EDT Heart Rate Monitored 78 bpm bpm Respiratory Rate 9 br/min br/min SpO2 96 % % 10/26/2021 12:53 EDT Systolic Blood Pressure 152 mmHg mmHg Diastolic Blood Pressure 80 mmHg mmHg 10/26/2021 10:00 EDT Hourly Rounding Yes Promise to Return Yes 10/26/2021 9:30 EDT Hourly Rounding Yes 10/26/2021 9:00 EDT Hourly Rounding Yes Promise to Return Yes 10/26/2021 8:09 EDT Temperature Oral 36.9 DegC Heart Rate Monitored 66 bpm Respiratory Rate 16 br/min Systolic Blood Pressure 147 mmHg HI Diastolic Blood Pressure 75 mmHg Blood Pressure Location Left arm (more content not included)... Normal [facility] Comment on above: Result Comment: Elec tronically Signed By: El Villa Jr, DO\.br\Date and Time Signed: 11/02/21 09:58 EDT Progress Note-Physician Patient: WALT SKELTON Age: 76 years Sex: Male : 1945 Associated Diagnoses: None Author: El Villa Jr, DO Preoperative Information Time patient last ate or drank:=== (npo 8 hours) Anesthesia history: Patient history: No prior anesthesia problems. Re-evaluation prior to induction: Completed, Initial evaluation reviewed. Review of Systems Respiratory: No shortness of breath. Cardiovascular: No chest pain. Hematology/Lymphatics : No bruising tendency, No bleeding tendency. Health Status Allergies: Allergic Reactions (All) Severity Not Documented Peanuts- Headache. Sulfamethoxazole- O/e - lip swelling. Tape- Redness. Toradol- Swelling. Current medications: (Selected) Inpatient Medications Ordered Al hydroxide/Mg hydroxide/simethicone 200 mg-200 mg-20 mg/5 mL oral suspension: 30 mL, Susp-Oral, Oral, q6hr PRN Indigestion, STAT, Start date 10/25/21 17:06:00 EDT [place] Thyroid 30 mg Tab: 60 mg = 2 tab(s), Tab, Oral, Daily, Routine, Start date 10/26/21 6:30:00 EDT Lactated Ringers IV [place] 1000 mL 1,000 mL: 1,000 mL, IV, 150 mL/hr, Routine, Start date 10/26/21 11:30:00 EDT, 6.7 hour(s), Total volume (mL): 1,000, 75.5 kg, 1.89, m2 Milk of Magnesia 8% Susp-Oral: 30 mL, Susp-Oral, Oral, q6hr PRN Constipation, STAT, Start date 10/25/21 17:06:00 EDT NS 1000 mL Soln-IV 1,000 mL: 1,000 mL, IV, 125 mL/hr, Routine, Start date 10/25/21 17:06:00 EDT, 8 hour(s), Total volume (mL): 1,000, 75.5 kg, 1.89, m2 Zofran 4 mg/2 mL Injection: 4 mg = 2 mL, Injection, IV Push, q6hr PRN Nausea, Routine, Start date 10/25/21 17:06:00 EDT, 10/25/21 17:06:00 EDT acetaminophen 325 mg Tab: 650 mg = 2 tab(s), Tab, Oral, q6hr PRN Pain, Routine, Start date 10/25/21 17:06:00 EDT, 10/25/21 17:06:00 EDT ceftriaxone additive + Sodium Chloride 0.9% intravenous solution 50 mL: 1,000 mg = 1 EA, Injection, IV Piggyback, Daily, Routine, Start date 10/26/21 9:00:00 EDT, 100 mL/hr, Infuse over 30 minute(s) morphine 2 mg/mL Inj: 2 mg = 1 mL, Injection, IV Push, q4hr PRN Pain for 5 day(s), Stop date 10/30/21 17:05:00 EDT, Routine, Start date 10/25/21 17:06:00 EDT, 10/25/21 17:06:00 EDT tamsulosin 0.4 mg Cap: 0.4 mg = 1 cap(s), Cap, Oral, Daily, Routine, Start date 10/26/21 9:00:00 EDT, 10/25/21 17:04:00 EDT triamcinolone Top 0.1% Crm 15 gram: 1 jarrod, Cream, Topical, Daily, STAT, Start date 10/25/21 17:04:00 EDT Documented Medications Documented [place] Thyroid 60 mg Tab: 60 mg = 1 tab(s), Oral, Daily, # 30 tab(s), Refills(s) 0 mometasone Top 0.1% Crm 15 gram: 1 jarrod, Topical, Daily, 30 gram, Refill(s) 0 mometasone Top 0.1% Lotion: 1 jarrod, Topical, Daily, 30 mL, Refill(s) 0 ondansetron 4 mg Dis Tab: 4 mg = 1 tab(s), Oral, q6hr, PRN Nausea/Vomiting, # 10 tab(s), Refills(s) 0 tamsulosin 0.4 mg Cap: 0.4 mg = 1 cap(s), Oral, Daily, Refills(s) 0 Problem list: All Problems Adult BMI 26.0-26.9 kg/sq m / SNOMED CT 3821140764 / Confirmed Headache / SNOMED CT 39440463 / Confirmed Hearing loss / SNOMED CT 36866727 / Confirmed Hypothyroid / SNOMED CT 97864613 / Confirmed Kidney stone / SNOMED CT 991739811 / Confirmed Abnormal x-ray of cervical spine / SNOMED CT 081873666 / Confirmed PONV (postoperative nausea and vomiting) / SNOMED CT 1592838 / Confirmed 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 Cold sore (040005660): Resolved. Hypercholesterolemia (67232317): Resolved. Family History: Cancer Father Acute congestive heart failure Mother Lupus Mother Osteoporosis Mother Heart disease Father Mother Procedure history: Eye ([id number]) on 07/01/2015 at 70 Years. Comments: 11/07/2020 11:35 EDT - Jori Triplett MA Bilateral lens implants Excision of ganglion cyst of wrist, recurrent ([id number]) on 09/21/2013 at 68 Years. Arm ([id number]) on 07/01/2013 at 68 Years. Comments: 11/07/2020 11:35 EDT - Jori Triplett MA left arm plates and screws EGD (esophagogastroduoden oscopy) gastric outlet reduction ([id number]) on 07/01/2012 at 67 Years. ESWL - Extracorporeal shockwave lithotripsy for renal calculus (081711686) on 07/01/2010 at 65 Years. History of subtotal thyroidectomy (7097938397). OPEN REDUCTION LEFT RADIUS. INGUINAL HERNIA REPAIR,RIGHT. Colonoscopy (628800729). Social History Social & Psychosocial Habits Alcohol 05/30/2011 Risk Assessment: Denies Alcohol Use Substance Abuse 05/30/2011 Risk Assessment: Denies Substance Abuse Tobacco 05/30/2011 Risk Assessment: Denies Tobacco Use 11/08/2020 Tobacco Use: Never (less than 100 in l . Physical Examination Vital Signs (more content not included)... Normal [facility] Comment on above: Result Comment: Elec tronically Signed By: Allen Pérez DO, [place] Yao\.br\Date and Time Signed: 11/02/21 08:27 EDT Calculus Analysison 11-02-19 22 Calcium oxalate dihydrate Infrared spectroscopy (Stone) [Mass fraction] 20 % Invalid Interpretation Code [facility] Comment on above: Performed By: #### 1 [id number] ####[facility] [address] [place] [address] Calcium oxalate monohydrate (Stone) [Mass fraction] 80 % Invalid Interpretation Code [facility] Comment on above: Performed By: #### 1 [id number] ####[facility] [address] [place] [address] Color (Stone) Brown Invalid Interpretation Code [facility] Comment on above: Performed By: #### 1 [id number] ####[facility] [address] [place] [address] Composition Comment Invalid Interpretation Code [facility] Comment on above: Result Comment: Perc entage (Represents the % composition) Performed By: #### 1 [id number] ####[facility] [address] [place] [address] Disclaimer: Comment Invalid Interpretation Code [facility] Comment on above: Result Comment: This test was developed and its performance characteristics determined by [facility]. It has not been cleared or approved by the Food and Drug Administration. Performed at: [facility] LinPrim Stone Analysis [address] [place] [address] [address] [place], [place] [id number] PhD [place] Performed By: #### 1 [id number] ####[address] [address] Laboratory comment Carlos (Report) Comment Invalid Interpretation Code [facility] Comment on above: Result Comment: Loy villarreal questions regarding Calculi Analysis contact [facility] at: [phone]. Performed By: #### 1 [id number] ####[address] [address] Please Note: Comment Invalid Interpretation Code [facility] Comment on above: Result Comment: Calc lanette report will follow via computer, mail or nerve specialist delivery. Performed By: #### 1 [id number] ####[address] [place] [address] Size (Stone) [Entitic vol] 6x3 Invalid Interpretation Code [facility] Comment on above: Result Comment: Sing le piece received. Performed By: #### 1 [id number] ####[facility] [address] [place] [address] Specimen source subject Nom Comment Invalid Interpretation Code [facility] Comment on above: Result Comment: Not provided Performed By: #### 1 [id number] ####[address] [place] [address] Stone Photo Comment Invalid Interpretation Code [facility] Comment on above: Result Comment: Phot ograph will follow under a separate cover Performed By: #### 1 [id number] ####[address] [place] [address] Weight (Stone) 45 mg Invalid Interpretation Code [facility] Comment on above: Performed By: #### 1 [id number] ####[facility] [address] [place] [address] IntraOperative Documentson 0 10-31-2021 IntraOperative Documents [id number]# 1.00CD:127 Normal [facility] Coding Summary.on 10-30-2021 Coding Summary. CD:[id number] G h0bWw+PGhlYWQ+YI9JXHX yN49zwVKmuX9WY4sDKV3E FRKBDVTACX4PSL1brMT3L OsoD9YsnxSq AyjiyZWqSC37LOu6YVN7t MezAJyswG6yoJBkV5u6Xc MoOZ12yE83VJxpTIJjJcP 3LjZpbjsgbWFy N7zoOsSfuIRbAmq+PHRhY mxlIHdpZHRoPScxMDAlJy ZmyWbqOO8kIe2oHXAcLPX vbGxhcHNlOiBj u9ufDWTbZCqqQZ6ezJrnL 4VzyJV6AHApf3m4Dj69vT I+ZGEaHEX3jRccPOwbn61 6BhNut6mtDCB3 ePSgWLpfAEO9K77cw4W7Q NMzMHAbRQQ6gRY4qS4wiW hamnkbN9GmeZXrFcW3TYI 0eBOdiY3yuZid kjkcxY1uSrr+A51SFM3LS SENAL8MCek0E4TqIdjrdT I+IL86RCTgXR05fCMsqIK yw1ojtUd1EmNx DCQiBNU4oPqjDLsmv3QjU VRrJ20tbWEdz1I6VCXmdS wwkOZjAzFssSP5tU8mQCl pwebay6dddnij Tvnef7rpkj93tT90U08yS LkiVHAnTCC1LBCnLFKpgY rqjw3mpW2iMn3+WWbiv2v cs1gqfYk7ZqLe CCRhocIqbRwkWMN5y1NeP z37O8RjaUjea3JbXak5um 81hEAge3S3rST9EMsiXYT nbD1bSDknIqZ9 GADmVhYnoK54aNSwEPyjD y3ejLvlvGapHD3rHLJfav qjUMBxdL1nANHijVNgcZr lHL2oCDIubdxl m069ArCiBIH7KKBtoFPnY 2RbbS5sNoGuKSFzFAMzN9 NkaUWsVQpuF874RTqdDcJ 1GEAnysExL6Np MQFwvCccVjP8z7K8Sy0Eg 2DtkrdvDIS6MYswOHW2Cf XbLeWrQrM6Q3MgNxh5CIS tbAyqKZ1qK3Cc HWFoteakuidqcDY8KDGvB CBctH42kTUnYEefCf1vc4 Q5g636RHIbZJElxK04Kj2 udDogMTBwdCBU iI8uefqxe4wxaqmnZxMjQ OJoCVk0ZLb7KCVmtPmyOy UdHSO6KjO5FFU6hTKudR2 nhDimkrmiiC7l Oyc+D03epG2lYWH2EIU0a kzoMBQaxcOlYI71YO80P6 RyPjwvdGFibGU+PGRpdiB gsCgbFR5aZaFu h7rgy5MlDSkoY2CmYFTxI ByeEvk3NVTpNTA5lAC9rU 2zMUYdEQbva3K3lCR3W3M rumYiep6ka8hb NTGiCUzgT25kbVMwa4G3Z WDvoBK7CLIgwTdiCbBzzH 93Oyc+GFWveNbuk1ZhPva eh3fba5jheUq7 CoLeUEGjqbYqrAtlJZG0h 5UgZw74Q60lZThkUPOwUZ MkCQOkCWZveEhatq0wrX8 wIi8+PGNvbCB3 eZN1aU5qSKFbLdG9VBfeI 141UdEzyAKePufdn6yce2 jndRe7CjCnAOGtmlUubYi uHFT3h1KuVx58 W04kXUmeMKNdTWCfPJIhE ZTovBmrpn0ftW3kNw5+PC 9ci5wgcn09iO96cFH+PHR nEFZ2qFguFQdr UMLboG3aLVuzGdG9QIDnS mXodN06dVVlUAtbNa7rdX yblUvlHQ2gQJPenufcd37 1GjKew5doABId yTThVZhpLBQ2V71tb6F2E BSxNTRzOOG1aNF2vJ4ywV lnbjogbGVmdDsgdmVydGl jOPbxCVvqM371 IHRvcDsnPlBhdGllbnQgT tSgXDa7I9VgCbw8UWMcdD siPV0gkKCwXDkuUt6thVc gaUtsPX2vJGMt vunsv502EuQsw0dwRSFnk HQhYFuaYMG6C99rn2F2CW KeCDQfFAF3lLJ7gA0cjFe nbjogbGVmdDsg dqLrtKhrIMlfYKddR536M HRvcDsnPkJpcnRoIERhdG W5KN27NR82cRThu0J9pRU 2A9EbNSCwlqix pinotTM2FAUvZAImaS74P r2aoDfbNd2zCCIhRJI1NG UcsOXqH4XfxE9oGpPnXQC hXDFsQ0NtjJDd HPhgS061VHkzIuU4FBHjf zOgS5RuPCLbtUuvAbI5h1 C6Zl2EM8B4WN21MU61eJY fw0A4oDB1U6Sj VWJcdombxahqvGG7QKAqT DUcoU54Ue6jaRhbRx7xKO JcAOY6EFBocBGiG9MzyC8 yOiAjMDAwMDAw U9LrzHBzKPmpR564PDswT sK2YQBrfeYbL1LxKLYseP lhZeM0h9H0Nu0DRRf5VX6 5TA78rBXtl6M8 aTH6N2GlWWYmqvlueoxbs VX8GROdGVWytX55Ic3jeJ cjWb1iOKCaZAF0IKGgrWZ yT5DwpJ8fZvDc MMZbDKZvU0SbkJCxUAyfW 704MPapAoC5FGMpqkVuZ4 WoXEUkuYmxDgS4v4B6Tg3 XILPpZN17TRY4 cXW3ID95YH00X6NzGxzfa GFibGU+PHRhYmxlIHdpZH RoPScxMDAlJyBzdHlsZT0 xCs7kKRGvIMGp uVjnqCPvOeBbe2skVCBiD QjrMW4ixJvjJ5CjfAR3NF Epv5y9Xf29Y66iJ6UcrPC +FXRkdMC9pAR0 kD6bVgInEtT9DJegY100H hIzvIReGsrnm7uli6ocwE t0QaU2VEAfbcWodIvwXUY 4f2AeSr60R23q IHdpZHRoPSIxNSUiIHZhb Ylgrv6gdH3bPy4+PGNvbC R5iHG1wA1vFfHyQsV3MTr aS853UkNzzBAy Rhmhe4fja6fclCy5MtGwK RNnjaOdfTkwXTB9o7TiIp 13U6QseZqrm1QxHkw8cp7 0tJExi3Y6nIQ9 I6YrUCBtpousgVWxkMbyA S4rPSUqtwkbERAalK1hKA BhN2m7CzZzPlQ6TQriG9V ibjW1NPAucDJo PElwVGT2K66mz9B6XRJxQ CAxGYL0rVB3rE6lwLzqng ogbGVmdDsgdmVydGljYWw qYEomH318FENj nCdkTXOdtE1kDAOqcSJlo KseIQ3nKWJadojxGzhXGM JTWftCF49lKGDPPmJANGX BNM80TF45aGQs d2S3mTT9I2LwLSCrixdju rtrdSZ6WIDfOFSajR91oG JpKCxqSa1zm0R4n006DGZ mVHDvqE73Id9e hHslTLPqkEBVfT3qoglrh 6lblryoGeKhBHCfVFk9PQ h9HGYhgWfbFkWoYHK4CxY 2QAJ2tXWcyT0i mWaottvtbY2rKrm+MDgvM iAoYMx2YsewpFZ+PHRkIH Z4cVqeTXdmBUFpmN3qHZC eN6t5XxHsXtZ7 UZgsZ9ShBQRhzcayXa39i Z2sIaDeUaE0BXzzK1Uvsu Q4YWQfyGToHJfgOUV4T21 it6F4VISgZSDh DJF5sFZ7sZ5yvPucxrtjl GVmdDsgdmVydGljYWwtYW esK478LCWuwDnkEpm2QVl qUWYpDX87PR06 nYCmy3G5iQM7E5HfQBTkd ldfypuoeOO1WYDuIJTmyX 12xBBdPBetXh1xb3Q1n93 6TTKuOWQxxQ52 Yl1bcTemYBZelFGRcZ5jd bxcb9cydejrLhSyAPImQU i9DAr2FDZwxQgiErJjGYN 0HrP9WID4pDTx pO4xlXlsxyzqdP6mQbg+T WFsZTwvdGQ+CCLrZXF1iO swAPilXRAldV4hUDOwY0s 2AiUlZzZ4IFna K4CeLNJlwibyFr13dS8vP sJeXhY2UXuvK9BzncO9EI XspZAgGGzpXUT5H39nn9Q 6EIAhSKIsMYF8 bDV0tQ8vzNygqiarqLOpe DsgdmVydGljYWwtYWxpZ2 74JJHkqFwcNl5zo8OvbzD 4iU8dXY62DC18 M5HlTdpvjWAmpOI+PHRhY mxlIHdpZHRoPScxMDAlJy FrmVzvLV6xSx1kSTMuZUB vbGxhcHNlOiBj w0rfXLGlMZipGP9sjRtmS 1XjiID7BEZea4c9Wu06V7 3xT8UgjDM+KKAroMH0nOQ 8oC0rVmUrMjG3 TDgqN768TtGvzLCkDqsow 5fos4leoVj3ZkFdFYPbbx QfsGfaIFE5r3FrTs69I33 sIHdpZHRoPSIy UAAjTDOrzDilpt6hyZ3xH i8+RFNiqJI9kQG3kK0fVl UdOyL3NDtmT349MoVzrGE sXvwwK35cM8Wy dXA+JTCaPvk3SBHmiAooM E8rkUVkJYuxAv0qOWX8Ta ZnWvMtCMkxR2RdWSKjagq zakzdgFL7JDSg ORJxkG51Ce0rrDxyOg5eA KFoUGV3UNHdnMPtZ9PadF 2wZfQnPHHtQLEbL9ZwzWL vZYhmI767ZKws JeD6MTOnljRxE4AyAOVob IzrRmK6p1N3Ao1UuUcadX GrPC5yWnXzRCm1D5YgSry 4DPEesMdkVX7d cLUkKPskWt5voGxvuDtuI S5eOMVkrahrv303JaOhz3 bvLVWdpAPwCCrnPPD5E86 ut6N9CYYwIMKd ZGC1eCR5uX0oeOdohuzmr GVmdDsgdmVydGljYWwtYW qyM138CATxwXfyNiPCCtd 9I1ZwEgp8CYJf cJjlCB9wwPEsPTfcLh4ev KmgvLvtIS0uALMzmmfow6 50EwUeu9hhIJNgnIJbUGp vAGF2V30jt9H8 MPLzMIFxFOR8xRD5oX9qj GlnbjogbGVmdDsgdmVydG vaGWnrAOhoZ267MPFlwQp nWc2WDzj5O2Ej Gwf7NPQkjOalTJ2abYFnG ZbkMo0suWfvuMshBS5tBC Mgparle592DtYpc4bcEHM wcHQgVGltZXM7 M04kt6P3DNMiHXObBGU5a CU3qD8dnDwlapusxTYumZ bylgStqSlkIHyhOFcoH37 6IHRvcDsnPlBh eWVyOjwvdGQ+BT43wb04H 5DqSsphQdy2GQNyJPP0hN H3gS3qNKKoXXqjl9R3cMS 3L9OjjvBpox1h b2xs (more content not included)... Normal [facility] Auto Diffon 10-27-2021 Basophils/100 WBC (Bld) 0.2 % Normal 0.0-2.0 [facility] Comment on above: Order Comment: Order Added by Discern Expert. Performed By: #### 2 149478, 7542128, 2836171, [id number] ####[address] [address] Basophils/Leukocyt es Auto (Bld) [Pure # fraction] 0.0 E9/L Normal 0.0-0.2 [facility] Comment on above: Order Comment: Order Added by Discern Expert. Performed By: #### 2 022267, 2221681, 6984450, [id number] ####[address] [place] [address] Eosinophils/100 WBC (Bld) 0.1 % Normal 0.0-8.0 [facility] Comment on above: Order Comment: Order Added by Discern Expert. Performed By: #### 2 455832, 9014247, 8654116, 80558586 ####[address] [place] [address] Eosinophils/Leukoc ytes Auto (Bld) [Pure # fraction] 0.0 E9/L Normal 0.0-0.5 [facility] Comment on above: Order Comment: Order Added by Discern Expert. Performed By: #### 2 007577, 8273753, 4239540, [id number] ####[address] [place] [address] Lymphocytes/100 WBC (Bld) 7.7 % Low 14.0-50.0 [facility] Comment on above: Order Comment: Order Added by Discern Expert. Performed By: #### 2 695127, 9799401, 6193052, 97319506 ####[address] [address] Lymphocytes/Leukoc ytes Auto (Bld) [Pure # fraction] 0.6 E9/L Low 1.0-4.0 [facility] Comment on above: Order Comment: Order Added by Chance Expert. Performed By: #### 2 447281, 1051463, 3030510, [id number] ####[address] [address] Monocytes/100 WBC (Bld) 7.2 % Normal 4.0-14.0 [facility] Comment on above: Order Comment: Order Added by Chance Expert. Performed By: #### 2 692005, 2990156, 2403478, 81383383 ####[address] [address] Monocytes/Leukocyt es Auto (Bld) [Pure # fraction] 0.5 E9/L Normal 0.2-1.0 [facility] Comment on above: Order Comment: Order Added by Discern Expert. Performed By: #### 2 891985, 8597128, 1134084, 97482792 ####[address] [place] [address] Neutrophils/100 WBC (Bld) 84.8 % High 36.0-75.0 [facility] Comment on above: Order Comment: Order Added by Chance Expert. Performed By: #### 2 537210, 6685361, 1540942, 78676644 ####[address] [place] [address] Neutrophils/Leukoc ytes Auto (Bld) [Pure # fraction] 6.3 E9/L Normal 2.0-7.5 [facility] Comment on above: Order Comment: Order Added by Discern Expert. Performed By: #### 2 759943, 5142229, 7468523, 86734366 ####[facility] [address] [place] [address] BMPon 10-27-2021 Creatinine [Mass/Vol] 1.2 mg/dL Normal 0.5-1.3 [facility] Comment on above: Performed By: #### 2 748739, 1387903, 7091594, 20854313 ####[facility] [address] [place] [address] Anion gap [Moles/Vol] 7 mmol/L Normal 6-16 [facility] Comment on above: Performed By: #### 2 491686, 7859748, 9473924, 62276682 ####[facility] [address] [place] [address] Calcium [Mass/Vol] 8.6 mg/dL Low 8.9-11.1 [facility] Comment on above: Performed By: #### 2 008583, 6369286, 5045024, 30595568 ####[facility] [address] [place] [address] Chloride [Moles/Vol] 111 mmol/L Normal 101-111 [facility] Comment on above: Performed By: #### 2 806517, 8340364, 1987781, 44621054 ####[facility] [address] [place] [facility] [place] [address] CO2 [Moles/Vol] 26 mmol/L Normal 21-31 [facility] Comment on above: Performed By: #### 2 903226, 2875661, 4114330, 77011937 ####[facility] [address] [place] [address] Glucose [Mass/Vol] 120 mg/dL Normal 55-199 [facility] Comment on above: Result Comment: If t his glucose result represents a fasting glucose, interpretation should refer to the following reference range: 55-99 mg/dL Performed By: #### 2 342542, 4631308, 5660738, 57124051 ####[facility] [address] [place] [address] Potassium [Moles/Vol] 4.2 mmol/L Normal 3.5-5.3 [facility] Comment on above: Performed By: #### 2 908460, 8817937, 5935152, 47573965 ####[facility] [address] [place] [address] Sodium [Moles/Vol] 140 mmol/L Normal 135-145 [facility] Comment on above: Performed By: #### 2 541292, 9603520, 1507173, 12419431 ####[facility] [address] [place] [address] Urea nitrogen [Mass/Vol] 16 mg/dL Normal 5-21 [facility] Comment on above: Performed By: #### 2 997383, 4697513, 6301192, 25181843 ####[facility] [address] [place] [address] Urea nitrogen/Creatinin e [Mass ratio] 13 No Units Normal 10-20 [facility] Comment on above: Performed By: #### 2 458847, 9598383, 1309701, 72512608 ####[facility] [address] [place] [address] CBC w/ Auto Diffon 2 Erythrocyte distribution width (RBC) [Ratio] 13.8 % Normal 10.9-14.2 [facility] Comment on above: Performed By: #### 2 433914, 1280397, 6646462, 70456494 ####[facility] [address] [place] [address] Hematocrit (Bld) [Volume fraction] 37.3 % Low 37.7-49.0 [facility] Comment on above: Performed By: #### 2 562197, 6712830, 4923724, 86290958 ####[facility] [address] [place] [address] Hemoglobin (Bld) [Mass/Vol] 12.6 g/dL Low 13.5-17.5 [facility] Comment on above: Performed By: #### 2 405227, 2016201, 5533598, 08651915 ####[address] [address] MCH (RBC) [Entitic mass] 29.1 pg Normal 27.0-34.0 [facility] Comment on above: Performed By: #### 2 755151, 7350279, 5789290, 63003522 ####[address] [address] MCHC (RBC) [Mass/Vol] 33.9 g/dL Normal 31.4-36.0 [facility] Comment on above: Performed By: #### 2 328530, 6340009, 4972194, 65613274 ####[address] [address] MCV (RBC) [Entitic vol] 85.9 fL Normal 80.0-100.0 [facility] Comment on above: Performed By: #### 2 236577, 2127490, 1396172, 73274128 ####[address] [address] Platelet mean volume (Bld) [Entitic vol] 7.5 fL Normal 6.4-10.8 [facility] Comment on above: Performed By: #### 2 156838, 4233622, 4215312, 95400816 ####[address] [address] Platelets (Bld) [#/Vol] 224.0 E9/L Normal 150.0-500.0 [facility] Comment on above: Performed By: #### 2 937830, 6398009, 6689654, 02325147 ####[address] [address] RBC (Bld) [#/Vol] 4.4 E12/L Normal 4.3-5.9 [facility] Comment on above: Performed By: #### 2 783334, 7030777, 5348388, 28388309 ####[facility] [address] [place] [address] WBC corrected for nucl RBC Auto (Bld) [#/Vol] 7.4 E9/L Normal 4.0-11.0 [facility] Comment on above: Performed By: #### 2 080358, 5897798, 5496199, 77196982 ####[facility] [address] [place] [address] CHEMISTRYOrdered By: SYSTEM SYSTEM on 10-27-2021 Anion gap [Moles/Vol] 7 mmol/L Normal 6 - 16 mEq/L FT Remisol Calcium [Mass/Vol] 8.6 mg/dL Low 8.9 - 11.1 mg/dL FT Remisol Chloride [Moles/Vol] 111 mmol/L Normal 101 - 111 mmol/L FT Remisol CO2 [Moles/Vol] 26 mmol/L Normal 21 - 31 mmol/L FT Remisol GFR/1.73 sq M.predicted among blacks MDRD (S/P/Bld) [Vol rate/Area] mL/min/1.73 m2 Normal >=59mL/min/1.73 m2 [facility] Chem S GFR/1.73 sq M.predicted among non-blacks MDRD (S/P/Bld) [Vol rate/Area] 59 mL/min/1.73 m2 Normal >=59mL/min/1.73 m2 [facility] Chem S Glucose [Mass/Vol] 120 mg/dL Normal 55 - 199 mg/dL FT Remisol Potassium [Moles/Vol] 4.2 mmol/L Normal 3.5 - 5.3 mmol/L FT Remisol Sodium [Moles/Vol] 140 mmol/L Normal 135 - 145 mmol/L FT Remisol Urea nitrogen [Mass/Vol] 16 mg/dL Normal 5 - 21 mg/dL FT Remisol Urea nitrogen/Creatinin e [Mass ratio] 13 mg/mg Normal 10 - 20 FT Remisol CHEMISTRYOrdered By: Brooklynn olivarez on 10-27-2021 Creatinine [Mass/Vol] 1.2 mg/dL Normal 0.5 - 1.3 mg/dL [facility] Remisol Consent for Anesthesiaon Consent for Anesthesia [id number]#1 .[id number]:127 Normal [facility] Discharge Instructionson Discharge Instructions [id number] 1.00CD:127 Normal [facility] Discharge Note-Nursingon Discharge Note-Nursing WALT SKELTON :1945 Visit Date:10/25/2021 Inpatient Discharge Instructions Your Care Team Admitting Physician - LON ANN, Mckay Consulting Physician - MARIBEL ANN, Joey Sanches MD, Dickson Referring Physician - MARIBEL ANN, Joey Cantu Reason for Your Visit B/L Kidney Stones Your Diagnosis Renal calculus, bilateral Other acute kidney failure Hypothyroid No contraindication to deep vein thrombosis (DVT) prophylaxis Abdominal pain Hematuria Hydronephrosis with ureteral calculus This Is Your Medications List cephalexin (Keflex 500 mg Cap) mometasone topical (mometasone Top 0.1% Crm 15 gram) mometasone topical (mometasone Top 0.1% Lotion) ondansetron (ondansetron 4 mg Dis Tab) tamsulosin (tamsulosin 0.4 mg Cap) thyroid desiccated ([place] Thyroid 60 mg Tab) Procedures Performed Cystoscopy (10/26/2021), Eye (07/01/2015), Excision of ganglion cyst of wrist, recurrent (09/21/2013), Arm (07/01/2013), EGD (esophagogastroduoden oscopy) gastric outlet reduction (07/01/2012), ESWL - Extracorporeal shockwave lithotripsy for renal calculus (07/01/2010), Colonoscopy, History of subtotal thyroidectomy, INGUINAL HERNIA REPAIR,RIGHT, OPEN REDUCTION LEFT RADIUS. Discharge Vitals Temperature (Oral) 36.4 ?C Heart Rate (Monitored) 68 Respiratory Rate 16 Blood Pressure 158/78 Height 170.18 cm Weight 77.1 kg What to do next Instructions From Your Doctor Event Name Event Result Discharge Activity Ambulate as tolerated Discharge Diet(s) Regular Pending Diagnostic Test Results None Previously Scheduled Follow-Up Appointments Saturday 8:30 AM EDT With: MARIBEL ANN, Joey Cantu Where: [facility] Normal [address], [address] [place] [address]- \.br\ New Follow Up Appointments after Discharge\.br\ Follow Up with Joey DAVIS When: 11/13/2021 08:30 AM EDT\.br\ Comments:\.br\ abdominal X-ray prior to your office visit. We will make decisions regarding the stone in the left upper ureter, as well as when to remove the right stent.Call central scheduling at [phone] ext [phone] to schedule xray\.br\ \.br\ Where:\.br\ [address]br\ [address]\.br\ [facility] [address]\.br\ [place] [address]-\.br\ Business (1)\.br\ Follow Up with UZIEL HALLMAN When: Within 3 to 5 days\.br\ Comments:\.br\ Call for followup appointment\.br\ \.br\ Where:\.br\ [address]\.br\ [place] [address]-\.br\ Business (1)\.br\ Medications\.br\ What How Much When Instructions Next Dose\.br\ New cephalexin (Keflex 500 mg Cap) 1 Capsules By Mouth 3 times a day Duration: 3 Days Pickup at [facility] #[id number] 10/28 @ 9 AM\.br\ Unchanged mometasone topical (mometasone Top 0.1% Crm 15 gram) 1 Application Topical Every day 10/28 @ 9 AM\.br\ Unchanged mometasone topical (mometasone Top 0.1% Lotion) 1 Application Topical Every day 10/28 @ 9 AM\.br\ Unchanged ondansetron (ondansetron 4 mg Dis Tab) 1 Tablets By Mouth Every 6 hours as needed for Nausea/Vomiting NEEDED FOR NAUSEA\.br\ Unchanged tamsulosin (tamsulosin 0.4 mg Cap) 1 Capsules By Mouth Every day 10/28 @ 9 AM\.br\ Unchanged thyroid desiccated ([place] Thyroid 60 mg Tab) 1 Tablets By Mouth Every day 10/28 @ 9 AM\.br\ Pharmacy Information\.br\ [id number]: [address], [place] [phone]\.br\ Test Results\.br\ CBC \.br\ BMP \.br\ WBC: 7.4 E9/L (10/27/21 05:54:00)\.br\ Glucose Lvl: 120 mg/dL (10/27/21 05:54:00)\.br\ RBC: 4.4 E12/L (10/27/21 05:54:00)\.br\ BUN: 16 mg/dL (10/27/21 05:54:00)\.br\ HGB: 12.6 gm/dL Low (10/27/21 05:54:00)\.br\ Creatinine: 1.2 mg/dL (10/27/21 05:54:00)\.br\ Hct: 37.3 % Low (10/27/21 05:54:00)\.br\ BUN/Creat Ratio: 13 (10/27/21 05:54:00)\.br\ MCV: 85.9 fL (10/27/21 05:54:00)\.br\ Sodium Lvl: 140 mmol/L (10/27/21 05:54:00)\.br\ MCH: 29.1 pg (10/27/21 05:54:00)\.br\ Potassium Lvl: 4.2 mmol/L (10/27/21 05:54:00)\.br\ MCHC: 33.9 gm/dL (10/27/21 05:54:00)\.br\ Chloride: 111 mmol/L (10/27/21 05:54:00)\.br\ RDW: 13.8 % (10/27/21 05:54:00)\.br\ CO2: 26 mmol/L (10/27/21 05:54:00)\.br\ Platelet: 224 E9/L (10/27/21 05:54:00)\.br\ AGAP: 7 mEq/L (10/27/21 05:54:00)\.br\ MPV: 7.5 fL (10/27/21 05:54:00)\.br\ Calcium Lvl: 8.6 mg/dL Low (10/27/21 05:54:00)\.br\ Allergies\.br\ Peanuts (Headache)\.br\ Tape (Redness)\.br\ Toradol (Swelling)\.br\ sulfamethoxazole (O/E - lip swelling)\.br\ Problems\.br\ Ongoing - Any problem that you are currently receiving treatment for.\.br\ Abnormal x-ray of cervical spine\.br\ Adult BMI 26.0-26.9 kg/sq m\.br\ Headache\.br\ Hearing loss\.br\ Hypothyroid\.br\ Kidney stone\.br\ 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 br\ Ureter R\.br\ STENT URETERAL 4.7FR 22-32CM [[id number]] 10/26/2021, Unknown - ALEKSANDR: {01}[id number]{1 7}[id number]{10}[id number] \.br\ Education Materials\.br\ Kidney Stones\.br\ \.br\ Kidney stones are rock-like masses that form inside of the kidneys. Kidneys are organs that make pee (urine). A kidney stone may move into other parts of the urinary tract, including:\.br\ ?\.br\ The tubes that connect the kidneys to the bladder (ureters).\.br\ ?\.br\ The bladder.\.br\ ?\.br\ The tube that carries urine out of the body (urethra).\.br\ Kidney stones can cause very bad pain and can block the flow of pee. The stone usually leaves your body (passes) through your pee. You may need to have a doctor take out the stone.\.br\ What are the causes?\.br\ Kidney stones may be caused by:\.br\ ?\.br\ A condition in which certain glands make too much parathyroid hormone (primary hyperparathyroidism) .\.br\ ?\.br\ A buildup of a type of crystals in the bladder made of a chemical called uric acid. The body makes uric acid when you eat certain foods.\.br\ ?\.br\ Narrowing (stricture) of one or both of the ureters.\.br\ ?\.br\ A kidney blockage that you were born with.\.br\ ?\.br\ Past surgery on the kidney or the ureters, such as gastric bypass surgery.\.br\ What increases the risk?\.br\ You are more likely to develop this condition if:\.br\ ?\.br\ You have had a kidney stone in the past.\.br\ ?\.br\ You have a family history of kidney stones.\.br\ ?\.br\ You do not drink enough water.\.br\ ?\.br\ You eat a diet that is high in protein, salt (sodium), or sugar.\.br\ ?\.br\ You are overweight or very overweight (obese).\.br\ What are the signs or symptoms?\.br\ Symptoms of a kidney stone may include:\.br\ ?\.br\ Pain in the side of the belly, right below the ribs (flank pain). Pain usually spreads (radiates) to the groin.\.br\ ?\.br\ Needing to pee often or right away (urgently).\.br\ ?\.br\ Pain when going pee (urinating).\.br\ ?\.br\ Blood in your pee (hematuria).\.br\ ?\.br\ Feeling like you may vomit (nauseous).\.br\ ?\.br\ Vomiting.\.br\ ?\.br\ Fever and chills.\.br\ How is this treated?\.br\ Treatment depends on the size, location, and makeup of the kidney stones. The stones will often pass out of the body through peeing. You may need to:\.br\ ?\.br\ Drink more fluid to help pass the stone. In some cases, you may be given fluids through an IV tube put into one of your veins at the hospital.\.br\ ?\.br\ Take medicine for pain.\.br\ ?\.br\ Make changes in your diet to help keep kidney stones from coming back.\.br\ Sometimes, medical procedures are needed to remove a kidney stone. This may involve:\.br\ ?\.br\ A procedure to break up kidney stones using a beam of light (laser) or shock waves.\.br\ ?\.br\ Surgery to remove the kidney stones.\.br\ Follow these instructions at home:\.br\ Medicines\.br\ ?\.br\ Take vinu-ahs-rnbhjco and prescription medicines only as told by your doctor.\.br\ ?\.br\ Ask your doctor if the medicine prescribed to you requires you to avoid driving or using heavy machinery.\.br\ Eating and drinking\.br\ ?\.br\ Drink enough fluid to keep your pee pale yellow. You may be told to drink at least 8?10 glasses of water each day. This will help you pass the stone.\.br\ ?\.br\ If told by your doctor, change your diet. This may include:\.br\ ?\.br\ Limiting how much salt you eat.\.br\ ?\.br\ Eating more fruits and vegetables.\.br\ ?\.br\ Limiting how much meat, poultry, fish, and eggs you eat.\.br\ ?\.br\ Follow instructions from your doctor about eating or drinking restrictions.\.br\ General instructions\.br\ ?\.br\ Collect pee samples as to [facility] HEMATOLOGYOrdered By: SYSTEM SYSTEM on 10-27-2021 Basophils/100 WBC (Bld) 0.2 % Normal 0.0 - 2.0 % [facility] Basophils/Leukocyt es Auto (Bld) [Pure # fraction] 0.0 E9/L Normal 0.0 - 0.2 E9/L [facility] Eosinophils/100 WBC (Bld) 0.1 % Normal 0.0 - 8.0 % [facility] Eosinophils/Leukoc ytes Auto (Bld) [Pure # fraction] 0.0 E9/L Normal 0.0 - 0.5 E9/L [facility] Lymphocytes/100 WBC (Bld) 7.7 % Low 14.0 - 50.0 % [facility] Lymphocytes/Leukoc ytes Auto (Bld) [Pure # fraction] 0.6 E9/L Low 1.0 - 4.0 E9/L [facility] Monocytes/100 WBC (Bld) 7.2 % Normal 4.0 - 14.0 % [facility] Monocytes/Leukocyt es Auto (Bld) [Pure # fraction] 0.5 E9/L Normal 0.2 - 1.0 E9/L [facility] Neutrophils/100 WBC (Bld) 84.8 % High 36.0 - 75.0 % [facility] Neutrophils/Leukoc ytes Auto (Bld) [Pure # fraction] 6.3 E9/L Normal 2.0 - 7.5 E9/L [facility] HEMATOLOGYOrdered By: Ely Wong on 10-27-2021 Erythrocyte distribution width (RBC) [Ratio] 13.8 % Normal 10.9 - 14.2 % [facility] Hematocrit (Bld) [Volume fraction] 37.3 % Low 37.7 - 49.0 % [facility] Hemoglobin (Bld) [Mass/Vol] 12.6 g/dL Low 13.5 - 17.5 gm/dL [facility] MCH (RBC) [Entitic mass] 29.1 pg Normal 27.0 - 34.0 pg [facility] MCHC (RBC) [Mass/Vol] 33.9 g/dL Normal 31.4 - 36.0 gm/dL [facility] MCV (RBC) [Entitic vol] 85.9 fL Normal 80.0 - 100.0 fL [facility] Platelet mean volume (Bld) [Entitic vol] 7.5 fL Normal 6.4 - 10.8 fL [facility] Platelets (Bld) [#/Vol] 224.0 E9/L Normal 150.0 - 500.0 E9/L [facility] RBC (Bld) [#/Vol] 4.4 E12/L Normal 4.3 - 5.9 E12/L [facility] WBC corrected for nucl RBC Auto (Bld) [#/Vol] 7.4 E9/L Normal 4.0 - 11.0 E9/L [facility] Inpatient Clinical Summaryon 10-27-2021 Inpatient Clinical Summary [address] [address] Clinical Summary Person Information: Name: WALT SKELTON Age: 76 Years : 1945 Sex: Male PCP: UZIEL HALLMAN DO Marital Status: Race: White Ethnicity: Non- or Language: Grenadian Visit Id: Visit Reason: Abdominal pain; Hematuria; URETEROLITHIAS Speciality: Acuity: Enc Type: Observation Med Service: Medical Arrival: 10/25/2021 14:59:50 Discharge: Dispo Type: Admitted as IP to this [facility] Address: [address] [place] [address] [place] [address] [id number] Provider Notes: Diagnosis: 1:Renal calculus, bilateral; 2:Other acute kidney failure; 3:Hypothyroid; 4:No contraindication to deep vein thrombosis (DVT) prophylaxis Problems Active Hypothyroid Headache Abnormal x-ray of cervical spine Adult BMI 26.0-26.9 kg/sq m PONV (postoperative nausea and vomiting) Hearing loss 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 Kidney stone Smoking Status: Never Smoker Functional Status: Sensory Deficits: Hearing deficit, left ear, Hearing deficit, right ear History of Falls: Mobility Assistance Prior to Admission: Independent ADLs: Independent Current Level of Assistance for Self-Care/Mobility: Cognitive Status: Oriented x 3 Allergies sulfamethoxazole () Tape (Redness) Peanuts (Headache) Toradol (Swelling) Measurements: Height: 170.18 cm Weight: 77.1 kg Blood Pressure: 158 mmHg / 78 mmHg BMI: 26.48 kg/m2 Procedures Cystoscopy (10/26/2021) Immunizations No Immunizations Documented This Visit Final Med List: cephalexin (Keflex 500 mg Cap) 1 Capsules By Mouth 3 times a day for 3 Days. Refills: 0. mometasone topical (mometasone Top 0.1% Crm 15 gram) 1 Application Topical every day. mometasone topical (mometasone Top 0.1% Lotion) 1 Application Topical every day. ondansetron (ondansetron 4 mg Dis Tab) 1 Tablets By Mouth every 6 hours as needed Nausea/Vomiting. tamsulosin (tamsulosin 0.4 mg Cap) 1 Capsules By Mouth every day. thyroid desiccated ([place] Thyroid 60 mg Tab) 1 Tablets By Mouth every day. Care Team Members: Attending Physician: Mckya FORREST MD Consulting Physician: Joey DAVIS MD; Dickson Sanches MD Referring Physician: Joey DAVIS MD Follow up: With: Address: When: UZIEL HALLMAN [place] [address] [place] [address] Business (1) Within 3 to 5 days With: Address: When: Joey DAVIS [address] [place] [address], [address], [place] [id number] [facility] (1) Within 1 to 2 weeks Comments: Call for followup appointment and make arrangements for an abdominal X-ray prior to your office visit. We will make decisions regarding the stone in the left upper ureter, as well as when to remove the right stent. Type Location Start [facility] URO Office Visit 08/22/2022 9:30 AM 08/22/2022 9:45 AM Confirmed Patient Education Information: [facility] Inpatient Patient Summaryon 10-27-2021 Inpatient Patient Summary [address] [address] Patient Discharge Instructions PERSON INFORMATION Name: WALT SKELTON Date of : 1945 Current Date: 10/27/2021 08:10:03 PHYSICIANS Admitting Physician: Mckay FORREST MD Primary Care Physician: UZIEL HALLMAN DO PCP Comment: Discharge Diagnosis: 1:Renal calculus, bilateral; 2:Other acute kidney failure; 3:Hypothyroid; 4:No contraindication to deep vein thrombosis (DVT) prophylaxis Condition at Discharge: Improved WALT SKELTON has been given the following list of follow-up instructions, prescriptions, and patient education materials: PATIENT FOLLOW-UP INFORMATION Diet: Regular Discharge Activity: Ambulate as tolerated Discharge Restrictions: Wound Care Instructions: Remove Your Dressing In Days Call Your Doctor For: IF UNABLE TO CONTACT YOUR PHYSICIAN AND YOU FEEL IT IS AN EMERGENCY, GO TO THE NEAREST EMERGENCY ROOM OR CALL 911 Home Treatment: Devices/Equipment: Special Services: Additional Instructions: Primary Care Physician to provide the following pending test results: None Follow up: With: Address: When: UZIEL HALLMAN [address] [place] [address] Business (1) Within 3 to 5 days With: Address: When: Joey DAVIS [address] [place] [address], [address], [address] [address] [facility] (1) Within 1 to 2 weeks Comments: Call for followup appointment and make arrangements for an abdominal X-ray prior to your office visit. We will make decisions regarding the stone in the left upper ureter, as well as when to remove the right stent. In the event that this physician does not participate in your insurance network, please consult with your insurance company to find a nearby participating provider. Type Location Start [facility] Office Visit [facility] Margie 08/22/2022 9:30 AM 08/22/2022 9:45 AM Confirmed Comment: NAFISA Aaron RONALD L, have received the attached patient education materials/instruction s and have verbalized understanding: Patient Signature Date Clinican/Nurse Signature Date HERE ARE THE MEDICATION CHANGES THAT OCCURRED DURING YOUR HOSPITAL STAY New Medications [id number], [address] [facility] [place], [place] [id number], [phone] cephalexin (Keflex 500 mg Cap) 1 Capsules By Mouth 3 times a day for 3 Days. Refills: 0. Last Dose: ____Next Dose: ____ Medications to Continue Taking That Have Changed Other Medications START: thyroid desiccated ([place] Thyroid 60 mg Tab) 1 Tablets By Mouth every day. Last Dose: ____Next Dose: ____ Medications to Continue with No Changes Other Medications mometasone topical (mometasone Top 0.1% Crm 15 gram) 1 Application Topical every day., apply to back Last Dose: ____Next Dose: ____ mometasone topical (mometasone Top 0.1% Lotion) 1 Application Topical every day., apply to back Last Dose: ____Next Dose: ____ ondansetron (ondansetron 4 mg Dis Tab) 1 Tablets By Mouth every 6 hours as needed Nausea/Vomiting. Last Dose: ____Next Dose: ____ tamsulosin (tamsulosin 0.4 mg Cap) 1 Capsules By Mouth every day. Last Dose: ____Next Dose: ____ Comment: MEDICATION LIST PROVIDED FOR YOU IS A LIST OF YOUR CURRENT MEDICATIONS. PLEASE CARRY THIS WITH YOU AT ALL TIMES. cephalexin (Keflex 500 mg Cap) 1 Capsules By Mouth 3 times a day for 3 Days. Refills: 0. mometasone topical (mometasone Top 0.1% Crm 15 gram) 1 Application Topical every day. mometasone topical (mometasone Top 0.1% Lotion) 1 Application Topical every day. ondansetron (ondansetron 4 mg Dis Tab) 1 Tablets By Mouth every 6 hours as needed Nausea/Vomiting. tamsulosin (tamsulosin 0.4 mg Cap) 1 Capsules By Mouth every day. thyroid desiccated ([place] Thyroid 60 mg Tab) 1 Tablets By Mouth every day. Pharmacy Information: Comment: PATIENT EDUCATION INFORMATION Instructions: Medication Leaflets: You may receive a survey from [employer] asking you to rate your care experience. Your feedback is important and will help us understand what we do well and how we can improve the quality of care we provide to you, your loved ones and our community. It?s an honor to serve you. Thank you for choosing [facility] Insurance Correspondence Off ice10-27-2021 Insurance Correspondence Office [id number] .[id number]:127 [facility] Interdisciplinary Note - Sae e Manageron 10-27-2021 Interdisciplinary Note - Cro CRM to room to discuss DC plans. patient is awake, alert and oriented. Patient has updated family . Patient rounded on by Dr. Forrest and he is a DC home. Patient denies any needs or home services. He will be transported by his spouse. CRM contact # and White board updated. CRM following. [facility] Comment on above: Result Comment: Elec tronically Signed By: Shara Sanchez\.juan c\Date and Time Signed: 10/27/21 12:15 EDT IntraOperative Documentson 0 10-27-2021 IntraOperative Documents [id number] .[id number]:127 [facility] IntraOperative Documents [id number] .[id number]:127 [facility] Main OR Intraoperative Recor don 10-27-2021 Main OR Intraoperative Record IntraOp Document Type FT Summary Primary Physician: Joey DAVIS MD Finalized Date/Time: 10/27/21 10:19:41 Pt. Name: NAFISA WALTJAVAN NavarroO.B./Sex: 1945 Male Med Rec #: [id number] Physician: Mckay FORREST MD Financial #: [id number] Pt. Type: O Room/Bed: [place] [address] Admit/Disch: 10/25/21 14:59:50 - Institution: Case Times FT Entry 1 Patient Times In Room 10/26/21 12:51:00 Out Room 10/26/21 13:32:00 Procedure Times Start 10/26/21 13:03:00 Stop 10/26/21 13:25:00 Anesthesia Times Start 10/26/21 12:51:00 Stop 10/26/21 13:32:00 Last Modified By: Linsey Mata RN 10/26/21 13:31:55 General Comments: 10/27/21 Chart opened to review and send charges LRoth CSFA Case Attendance FT Entry 1 Entry 2 Entry 3 Case Attendee Lu Hemphill MD, Linsey Brooks RN Role Performed Anesthesiologist Surgeon - Primary Construction Superintendent - Primary X Ray Service Technician Time In 10/26/21 12:51:00 10/26/21 12:51:00 10/26/21 12:51:00 Time Out 10/26/21 13:32:00 10/26/21 13:32:00 10/26/21 13:32:00 Procedure CYSTOSCOPY W/ HOMIUM CYSTOSCOPY W/ HOMIUM CYSTOSCOPY W/ HOMIUM LASER(Bilateral) LASER(Bilateral) LASER(Bilateral) Comments Dr. Villa supervising Last Modified By: Adolfo RN, Linsey Mata RN, Linsey Mata RN, Linsey Graff 10/26/21 13:43:41 10/26/21 13:43:41 10/26/21 13:43:41 Entry 4 Entry 5 Entry 6 Case Attendee Kaiden YOUNG, Radha Bae CST, Veronica Gomez Role Performed Scrub - Primary Hardboard Supervisor Staff - Other Time In 10/26/21 12:51:00 10/26/21 12:55:00 10/26/21 12:51:00 Time Out 10/26/21 13:32:00 10/26/21 13:32:00 10/26/21 13:32:00 Procedure CYSTOSCOPY W/ HOMIUM CYSTOSCOPY W/ HOMIUM CYSTOSCOPY W/ HOMIUM LASER(Bilateral) LASER(Bilateral) LASER(Bilateral) Comments Last Modified By: Adolfo DELUCA, Linsey Mata RN, Linsey Mata RN, Linsey Graff 10/26/21 13:43:41 10/26/21 13:43:41 10/26/21 13:43:41 Perioperative Protocols FT Pre-Care Text: Implements protective measures prior to operative or invasive procedure, confirms identity before the operative or invasive procedure, verifies operative procedure, surgical site, and laterality Entry 1 Procedure(s) CYSTOSCOPY W/ HOMIUM Patient Identity Birthday, ID Band Check LASER(Bilateral) Verified (select at least 2): Consents / H and P Anesthesia Consent, Operative Site N/A Verified HandP, Surgery/Procedure Marking Verified Consent Surgical Site Yes Laterality Verified n/a Verified Procedure Verified Yes Correct Patient Yes Position Verified Availability Equipment, Implant, Prep Dry Yes Verified (If Medication, X-ray Applicable) Time Out MARIBEL ANN, Joey Cantu, Time Out Complete 10/26/21 13:02:00 Participants Adolfo DELUCA, Kaiden Wood CST, Arabella Page Chelsea R, Moses CAA, Nicole M, Wilhelm CST, Veronica Gomez Outcomes Met? Yes Last Modified By: Linsey Mata RN 10/26/21 13:43:35 Post-Care Text: The patient is free from signs and symptoms of injury caused by extraneous objects Allergy Information FT Pre-Care Text: Verifies allergies Entry 1 Allergies Reviewed? Yes Allergies Reviewed Self/Patient With Outcomes Met? Yes Last Modified By: Linsey Mata RN 10/26/21 12:33:57 Post-Care Text: The patient received appropriate medication(s) safely administered during the perioperative period Surgical Procedures FT Entry 1 Procedure Description Procedure CYSTOSCOPY W/ HOMIUM Modifiers Bilateral LASER Surgeon Description CYSTOSCOPY, LEFT RETROGRADE, LEFT STENT PLACEMENT, RIGHT URETEROSCOPY, STONE BASKET, STENT PLACEMENT Primary Procedure Yes Primary Surgeon Joey DAVIS MD Start 10/26/21 13:03:00 Stop 10/26/21 13:25:00 Anesthesia Type General Surgical Service Urology Wound Class 2 - Clean-Contaminated Last Modified By: Linsey Mata RN 10/26/21 13:42:34 General Case Data FT Pre-Care Text: Classifies surgical wound, implements aseptic technique, initiates traffic control Entry 1 Case Information OR OR 1 FT Case Level Level 3 Wound Class 2 - Clean-Contaminated Specialty Urology ASA Class 3 Preop Diagnosis BILATERAL KIDNEY STONES Postop Same As Preop Yes Postop Diagnosis BILATERAL KIDNEY STONES Outcomes Met? Yes Last Modified By: Linsey Mata RN 10/26/21 13:42:39 Post-Care Text: The patient is free from signs and symptoms of infection Skin Assessment (Pre Procedure) FT Pre-Care Text: Implements protective measures to prevent skin/ tissue injury due to thermal or mechanical sources Evaluates for signs and symptoms of physical injury to skin and tissue Entry 1 Skin Integrity Intact, [place], Warm, and Skin Abnormality No Dry Outcomes Met? Yes Last Modified By: Linsey Mata RN 10/26/21 13:42:45 Post-Care Text: The patient is free from signs and symptoms of injury caused by extraneous objects Patient Positioning FT Pre-Care Text: Identifies physical alterations that require additional precautions for procedure-specific positioning, verifies (more content not included)... [facility] Progress Note-Physicianon Progress Note-Physician Patient: WALT SKELTON Age: 76 years Sex: Male : 1945 Associated Diagnoses: None Author: Dickson Sanches MD Basic Information Pt is a 76 M PMH hypothyroid admitted from ED complaining of hematuria, difficulty urinating. pt says he was seen at [place] yesterday. Pt was found to have bilateral renal calculus. Pt was found to have 5x4x4 mm non obstructing stone within distal right ureter and partially obstructing 7x6x5 mm stone within the left ureter. Pt with some subjective fevers. pt with nausea, no vomiting, has had decreased PO intake. pt denies any flank pain,did have some right groin pain. Denies any hx of kidney disease. Denies any NSAIDS use. Been having hematuria since admission. Does have a hx of kidney stones. Subjective Denies any new complaint Health Status Allergies: Allergic Reactions (Selected) Severity Not Documented Peanuts- Headache. Sulfamethoxazole- O/e - lip swelling. Tape- Redness. Toradol- Swelling. Current medications: Home Medications (6) Active [place] Thyroid 60 mg Tab 60 mg = 1 tab(s), Oral, Daily Keflex 500 mg Cap 500 mg = 1 cap(s), Oral, TID mometasone Top 0.1% Crm 15 gram 1 jarrod, Topical, Daily mometasone Top 0.1% Lotion 1 jarrod, Topical, Daily ondansetron 4 mg Dis Tab 4 mg = 1 tab(s), PRN, Oral, q6hr tamsulosin 0.4 mg Cap 0.4 mg = 1 cap(s), Oral, Daily , Medications (11) Active Scheduled: (4) ceftriaxone + Sodium Chloride 0.9% Minibag 50 mL 1,000 mg 1 EA, IV Piggyback, Daily tamsulosin 0.4 mg Cap [F] 0.4 mg 1 cap(s), Oral, Daily thyroid desiccated 30 mg Tab [F] 60 mg 2 tab(s), Oral, Daily triamcinolone Top 0.1% Crm 15 gram [F] 1 jarrod, Topical, Daily Continuous: (2) Lactated Ringers 1,000 mL 1,000 mL, IV, 150 mL/hr Lactated Ringers 1,000 mL 1,000 mL, IV PRN: (5) acetaminophen 325 mg Tab UD [F] 650 mg 2 tab(s), Oral, q6hr Al hydroxide/Mg hydroxide/simethicone 200 mg-200 mg-20 mg/5 mL Oral Susp 30 mL [F] 30 mL, Oral, q6hr magnesium hydroxide 8% Oral Susp 30 mL [F] 30 mL, Oral, q6hr morphine 2 mg/mL preservative-free SOLN [F] 2 mg 1 mL, IV Push, q4hr ondansetron 2 mg/mL Inj [F] 4 mg 2 mL, IV Push, q6hr Problem list: All Problems Adult BMI 26.0-26.9 kg/sq m / SNOMED CT 2403848829 / Confirmed Headache / SNOMED CT 65483013 / Confirmed Hearing loss / SNOMED CT 15004462 / Confirmed Hypothyroid / SNOMED CT 60624379 / Confirmed Kidney stone / SNOMED CT 190649125 / Confirmed Abnormal x-ray of cervical spine / SNOMED CT 690371899 / Confirmed PONV (postoperative nausea and vomiting) / SNOMED CT 1692650 / Confirmed 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 Cold sore (756300230): Resolved. Hypercholesterolemia (40044107): Resolved. Family History: Cancer Father Acute congestive heart failure Mother Lupus Mother Osteoporosis Mother Heart disease Father Mother Procedure history: Cystoscopy ([id number]) on 10/26/2021 at 76 Years. Comments: 10/26/2021 15:30 MACO Newman RN, Hans[place] stent placement Eye ([id number]) on 07/01/2015 at 70 Years. Comments: 11/07/2020 11:35 Jori Mcmillan MA Bilateral lens implants Excision of ganglion cyst of wrist, recurrent ([id number]) on 09/21/2013 at 68 Years. Arm ([id number]) on 07/01/2013 at 68 Years. Comments: 11/07/2020 11:35 Jori Mcmillan MA left arm plates and screws EGD (esophagogastroduoden oscopy) gastric outlet reduction ([id number]) on 07/01/2012 at 67 Years. ESWL - Extracorporeal shockwave lithotripsy for renal calculus ([id number]) on 07/01/2010 at 65 Years. History of subtotal thyroidectomy (4560475936). OPEN REDUCTION LEFT RADIUS. INGUINAL HERNIA REPAIR,RIGHT. Colonoscopy (217433598). Social History Social & Psychosocial Habits Alcohol 05/30/2011 Risk Assessment: Denies Alcohol Use Substance Abuse 05/30/2011 Risk Assessment: Denies Substance Abuse Tobacco 05/30/2011 Risk Assessment: Denies Tobacco Use 11/08/2020 Tobacco Use: Never (less than 100 in l . Objective Vital Signs (last 24 hrs) Last Charted Temp Oral 36.4 DegC (OCT 27 03:40) Resp Rate 16 br/min (OCT 26 14:00) SBP H 158mmHg (OCT 27 08:59) DBP 78 mmHg (OCT 27 08:59) SpO2 97 % (OCT 27 07:57) Weight 77.1 kg (OCT 27 05:20) General: No acute distress. HENT: Oral mucosa is moist. Respiratory: Lungs are clear to auscultation. Cardiovascular: Normal rate, Regular rhythm. Gastrointestinal: Soft, Non-tender, Non-distended. Musculoskeletal No swelling. Review / Management Results review: Lab results 10/27/2021 5:54 EDT BUN 16 mg/dL Creatinine 1.2 mg/dL 10/26/2021 6:21 EDT BUN 32 mg/dL HI Creatinine 3.3 mg/dL HI 10/25/2021 15:14 EDT BUN 33 mg/dL HI Creatin (more content not included)... Normal [facility] Comment on above: Result Comment: Elec tronically Signed By: Myron ANN, Dickson\.br\Date and Time Signed: 10/27/21 11:03 EDT eGFRon 10-27-2021 GFR/1.73 sq M.predicted among blacks MDRD (S/P/Bld) [Vol rate/Area] mL/min/{1.73_m2} Normal >=59 [facility] Comment on above: Order Comment: Order added by Discern Expert. Result Comment: eGFR is race adjusted. AA=. Performed By: #### 2 [id number], [id number], [id number], [id number] ####[facility] [address] [place] [address] GFR/1.73 sq M.predicted among non-blacks MDRD (S/P/Bld) [Vol rate/Area] 59 mL/min/1.73 m2 Normal >=59 [facility] Comment on above: Order Comment: Order added by Discern Expert. Result Comment: Paving Rammer gavi kidney disease could be indicated at eGFR's of less than 60 mL/min/1.73m2. Kidney failure is indicated at less than 15 mL/min/1.73m2. Performed By: #### 2 [id number], 5039726, 2619790, [id number] ####[facility] [address] [place] [address] Auto Diffon 10-26-2021 Basophils/100 WBC (Bld) 1.0 % Normal 0.0-2.0 [facility] Comment on above: Order Comment: Order Added by Chance Expert. Performed By: #### 1 [id number], 7469977, 3953398, 7061154 ####[address] [address] Basophils/Leukocyt es Auto (Bld) [Pure # fraction] 0.1 E9/L Normal 0.0-0.2 [facility] Comment on above: Order Comment: Order Added by Chance Expert. Performed By: #### 1 [id number], 1231228, 6521332, 5907584 ####[address] [place] [address] Eosinophils/100 WBC (Bld) 2.9 % Normal 0.0-8.0 [facility] Comment on above: Order Comment: Order Added by Chance Expert. Performed By: #### 1 [id number], 7729314, 0137226, 1392958 ####[address] [place] [address] Eosinophils/Leukoc ytes Auto (Bld) [Pure # fraction] 0.2 E9/L Normal 0.0-0.5 [facility] Comment on above: Order Comment: Order Added by Chance Expert. Performed By: #### 1 [id number], 0619908, 8546717, 2325779 ####[address] [place] [address] Lymphocytes/100 WBC (Bld) 10.5 % Low 14.0-50.0 [facility] Comment on above: Order Comment: Order Added by Discern Expert. Performed By: #### 1 [id number], 1487933, 6418147, 7859976 ####[address] [place] [address] Lymphocytes/Leukoc ytes Auto (Bld) [Pure # fraction] 0.7 E9/L Low 1.0-4.0 [facility] Comment on above: Order Comment: Order Added by Discern Expert. Performed By: #### 1 6502904, 6032022, 9557519, 1479474 ####[address] [place] [address] Monocytes/100 WBC (Bld) 9.6 % Normal 4.0-14.0 [facility] Comment on above: Order Comment: Order Added by Discern Expert. Performed By: #### 1 [id number], 1457023, 7711113, 9252742 ####[address] [address] Monocytes/Leukocyt es Auto (Bld) [Pure # fraction] 0.7 E9/L Normal 0.2-1.0 [facility] Comment on above: Order Comment: Order Added by Discern Expert. Performed By: #### 1 1651356, 0989745, 0982762, 4403759 ####[address] [address] Neutrophils/100 WBC (Bld) 76.0 % High 36.0-75.0 [facility] Comment on above: Order Comment: Order Added by Discern Expert. Performed By: #### 1 5877031, 2150983, 2807677, 3324108 ####[address] [place] [address] Neutrophils/Leukoc ytes Auto (Bld) [Pure # fraction] 5.4 E9/L Normal 2.0-7.5 [facility] Comment on above: Order Comment: Order Added by Discern Expert. Performed By: #### 1 1647158, 3170809, 2415400, 9575962 ####[facility] [address] [place] [address] BMPon 10-26-2021 Anion gap [Moles/Vol] 9 mmol/L Normal 6-16 [facility] Comment on above: Performed By: #### 1 8430759, 8912148, 6574787, 2942215 ####[facility] [address] [facility] [place] [address] Calcium [Mass/Vol] 8.0 mg/dL Low 8.9-11.1 [facility] Comment on above: Performed By: #### 1 0500788, 0639408, 2284192, 9808829 ####[facility] [address] [facility] [place] [address] Chloride [Moles/Vol] 111 mmol/L Normal 101-111 [facility] Comment on above: Performed By: #### 1 1345631, 0974937, 7266156, 1765412 ####[facility] [address] [facility] [place] [address] CO2 [Moles/Vol] 25 mmol/L Normal 21-31 [facility] Comment on above: Performed By: #### 1 1373637, 6781337, 0915397, 1327434 ####[facility] [address] [facility] [place] [address] Creatinine [Mass/Vol] 3.3 mg/dL High 0.5-1.3 [facility] Comment on above: Performed By: #### 1 7665108, 6128326, 8149058, 4970937 ####[facility] [address] [facility] [place] [address] Glucose [Mass/Vol] 101 mg/dL Normal 55-199 [facility] Comment on above: Result Comment: If t his glucose result represents a fasting glucose, interpretation should refer to the following reference range: 55-99 mg/dL Performed By: #### 1 8120108, 6329887, 7941764, 1538288 ####[facility] [address] [place] [address] Potassium [Moles/Vol] 4.4 mmol/L Normal 3.5-5.3 [facility] Comment on above: Performed By: #### 1 4492599, 4965972, 4478933, 3666740 ####[facility] [address] [place] [address] Sodium [Moles/Vol] 141 mmol/L Normal 135-145 [facility] Comment on above: Performed By: #### 1 9171030, 9867199, 2630412, 1139556 ####[facility] [address] [place] [address] Urea nitrogen [Mass/Vol] 32 mg/dL High 5-21 [facility] Comment on above: Performed By: #### 1 7590640, 7284200, 6377778, 6360683 ####[address] [place] [address] Urea nitrogen/Creatinin e [Mass ratio] 10 No Units Normal 10-20 [facility] Comment on above: Performed By: #### 1 1830864, 6683894, 9579137, 1957740 ####[facility] [address] [place] [address] CBC w/ Auto Diffon 2 Erythrocyte distribution width (RBC) [Ratio] 14.1 % Normal 10.9-14.2 [facility] Comment on above: Performed By: #### 1 7120755, 8878895, 9493903, 3666379 ####[address] [place] [address] Hematocrit (Bld) [Volume fraction] 37.0 % Low 37.7-49.0 [facility] Comment on above: Performed By: #### 1 4779557, 4567632, 6159767, 0626308 ####[address] [place] [address] Hemoglobin (Bld) [Mass/Vol] 12.8 g/dL Low 13.5-17.5 [facility] Comment on above: Performed By: #### 1 6369470, 8715701, 0331238, 3970659 ####[address] [place] [address] MCH (RBC) [Entitic mass] 29.8 pg Normal 27.0-34.0 [facility] Comment on above: Performed By: #### 1 7448511, 7398477, 3857550, 6090034 ####[address] [address] MCHC (RBC) [Mass/Vol] 34.6 g/dL Normal 31.4-36.0 [facility] Comment on above: Performed By: #### 1 3831727, 3415344, 0280853, 8179715 ####[address] [address] MCV (RBC) [Entitic vol] 86.3 fL Normal 80.0-100.0 [facility] Comment on above: Performed By: #### 1 0869845, 6820266, 7739127, 7875289 ####[address] [address] Platelet mean volume (Bld) [Entitic vol] 7.2 fL Normal 6.4-10.8 [facility] Comment on above: Performed By: #### 1 3434839, 7847027, 4878765, 3233135 ####[address] [address] Platelets (Bld) [#/Vol] 232.0 E9/L Normal 150.0-500.0 [facility] Comment on above: Performed By: #### 1 3273557, 8028716, 1713918, 7886521 ####[address] [address] RBC (Bld) [#/Vol] 4.3 E12/L Normal 4.3-5.9 [facility] Comment on above: Performed By: #### 1 8581030, 9550784, 5710948, 3025296 ####[address] [address] WBC corrected for nucl RBC Auto (Bld) [#/Vol] 7.1 E9/L Normal 4.0-11.0 [facility] Comment on above: Performed By: #### 1 8767850, 6341488, 4462610, 1881440 ####[facility] [address] [place] [address] CHEMISTRYOrdered By: SYSTEM SYSTEM on 10-26-2021 Troponin I.cardiac [Mass/Vol] 6.10 pg/mL Low 15.90 - 38.40 pg/mL FT Remisol Troponin I.cardiac [Mass/Vol] 4.00 pg/mL Low 15.90 - 38.40 pg/mL [facility] Remisol Troponin I.cardiac [Mass/Vol] 4.30 pg/mL Low 15.90 - 38.40 pg/mL [facility] Anion gap [Moles/Vol] 9 mmol/L Normal 6 - 16 mEq/L [facility] Calcium [Mass/Vol] 8.0 mg/dL Low 8.9 - 11.1 mg/dL [facility] Chloride [Moles/Vol] 111 mmol/L Normal 101 - 111 mmol/L [facility] CO2 [Moles/Vol] 25 mmol/L Normal 21 - 31 mmol/L [facility] Creatinine [Mass/Vol] 3.3 mg/dL High 0.5 - 1.3 mg/dL [facility] GFR/1.73 sq M.predicted among blacks MDRD (S/P/Bld) [Vol rate/Area] 22 mL/min/1.73 m2 Low >=59mL/min/1.73 m2 [facility] Chem S GFR/1.73 sq M.predicted among non-blacks MDRD (S/P/Bld) [Vol rate/Area] 18 mL/min/1.73 m2 Low >=59mL/min/1.73 m2 [facility] Chem S Glucose [Mass/Vol] 101 mg/dL Normal 55 - 199 mg/dL [facility] Potassium [Moles/Vol] 4.4 mmol/L Normal 3.5 - 5.3 mmol/L [facility] Sodium [Moles/Vol] 141 mmol/L Normal 135 - 145 mmol/L [facility] Urea nitrogen [Mass/Vol] 32 mg/dL High 5 - 21 mg/dL [facility] Urea nitrogen/Creatinin e [Mass ratio] 10 mg/mg Normal 10 - 20 [facility] Remisol Consent for Procedure/Surger yon 10-26-2021 Consent for Procedure/Surgery [id number]# [id number] Normal [facility] Consultation Noteon 10-27-19 Consultation Note Patient: WALT SKELTON Age: 76 years Sex: Male : 1945 Associated Diagnoses: None Author: Joey DAVIS MD Chief Complaint 10/25/2021 18:13 EDT B/L Kidney Stones 10/25/2021 15:03 EDT Pt presents to ED from Dr Davis's office. Pt complaint of urinating blood, CT confirmed kidney stones on left and right. Pt hasn't voided. This patient is a 76-year-old white male who is well-known to me. He had been in the [place] emergency room about 48 hours ago with right-sided flank pain. CT scan had demonstrated the presence of a 5 mm distal right ureteral calculus with hydronephrosis and a nonobstructing 7 mm stone on the left side. He was sent home on oral analgesics, alpha blockers and instructions to contact my office. He was having abdominal bloating and some difficulties urinating. It was my recommendation then that he seek evaluation again in the emergency room as his story is somewhat suspicious for developing kidney failure and the possibility of urinary retention and or anuria. In the ER he was evaluated and found to have only 30 cc PVR in the bladder but he was in a fairly florid renal failure. He subsequently admitted under the hospitalist service with urologic consultation to manage the obstructing ureteral stones. The entire past medical history, past surgical history, systems review, family history, social history, medications, and allergies are as noted in the admission history and physical performed by Dr. Forrest yesterday. These are unchanged. Health Status Allergies: Allergic Reactions (Selected) Severity Not Documented Peanuts- Headache. Sulfamethoxazole- O/e - lip swelling. Tape- Redness. Toradol- Swelling., Allergies (4) Active Reaction Peanuts Headache sulfamethoxazole O/E - lip swelling Tape Redness Toradol Swelling Current medications: (Selected) Inpatient Medications Ordered Al hydroxide/Mg hydroxide/simethicone 200 mg-200 mg-20 mg/5 mL oral suspension: 30 mL, Susp-Oral, Oral, q6hr PRN Indigestion, STAT, Start date 10/25/21 17:06:00 EDT [place] Thyroid 30 mg Tab: 60 mg = 2 tab(s), Tab, Oral, Daily, Routine, Start date 10/26/21 6:30:00 EDT HYDROmorphone 1 mg/mL injectable solution: 0.4 mg = 0.4 mL, Injection, IV Push, q4min PRN Pain for 5 dose(s), Stop date Limited # of times, Routine, Start date 10/26/21 12:40:00 EDT, 10/26/21 12:40:00 EDT Lactated Ringers IV [place] 1000 mL 1,000 mL: 1,000 mL, IV, 100 mL/hr, Routine, Start date 10/26/21 12:40:00 EDT, 10 hour(s), Total volume (mL): 1,000, 75.5 kg, 1.89, m2 Lactated Ringers IV [place] 1000 mL 1,000 mL: 1,000 mL, IV, 150 mL/hr, Routine, Start date 10/26/21 11:30:00 EDT, 6.7 hour(s), Total volume (mL): 1,000, 75.5 kg, 1.89, m2 Milk of Magnesia 8% Susp-Oral: 30 mL, Susp-Oral, Oral, q6hr PRN Constipation, STAT, Start date 10/25/21 17:06:00 EDT NS 1000 mL Soln-IV 1,000 mL: 1,000 mL, IV, 125 mL/hr, Routine, Start date 10/25/21 17:06:00 EDT, 8 hour(s), Total volume (mL): 1,000, 75.5 kg, 1.89, m2 Phenergan 25 mg/mL Injection: 12.5 mg = 0.5 mL, Injection, IV Push, q2min PRN Other (see comment) for 2 dose(s), Stop date Limited # of times, Routine, Start date 10/26/21 12:40:00 EDT, 10/26/21 12:40:00 EDT Zofran 4 mg/2 mL Injection: 4 mg = 2 mL, Injection, IV Push, q6hr PRN Nausea, Routine, Start date 10/25/21 17:06:00 EDT, 10/25/21 17:06:00 EDT acetaminophen 325 mg Tab: 650 mg = 2 tab(s), Tab, Oral, q6hr PRN Pain, Routine, Start date 10/25/21 17:06:00 EDT, 10/25/21 17:06:00 EDT ceftriaxone additive + Sodium Chloride 0.9% intravenous solution 50 mL: 1,000 mg = 1 EA, Injection, IV Piggyback, Daily, Routine, Start date 10/26/21 9:00:00 EDT, 100 mL/hr, Infuse over 30 minute(s) morphine 2 mg/mL Inj: 2 mg = 1 mL, Injection, IV Push, q4hr PRN Pain for 5 day(s), Stop date 10/30/21 17:05:00 EDT, Routine, Start date 10/25/21 17:06:00 EDT, 10/25/21 17:06:00 EDT tamsulosin 0.4 mg Cap: 0.4 mg = 1 cap(s), Cap, Oral, Daily, Routine, Start date 10/26/21 9:00:00 EDT, 10/25/21 17:04:00 EDT triamcinolone Top 0.1% Crm 15 gram: 1 jarrod, Cream, Topical, Daily, STAT, Start date 10/25/21 17:04:00 EDT Documented Medications Documented [place] Thyroid 60 mg Tab: 60 mg = 1 tab(s), Oral, Daily, # 30 tab(s), Refills(s) 0 mometasone Top 0.1% Crm 15 gram: 1 jarrod, Topical, Daily, 30 gram, Refill(s) 0 mometasone Top 0.1% Lotion: 1 jarrod, Topical, Daily, 30 mL, Refill(s) 0 ondansetron 4 mg Dis Tab: 4 mg = 1 tab(s), Oral, q6hr, PRN Nausea/Vomiting, # 10 tab(s), Refills(s) 0 tamsulosin 0.4 mg Cap: 0.4 mg = 1 cap(s), Oral, Daily, Refills(s) 0, Home Medications (5) Active [place] Thyroid 60 mg Tab 60 mg = 1 tab(s), Oral, Daily mometasone Top 0.1% Crm 15 gram 1 jarrod, Topical, Daily mometasone Top 0.1% Lotion 1 jarrod, Topical, Daily ondansetron 4 mg Dis Tab 4 mg = 1 tab(s), PRN, Oral, q6hr tamsulosin 0.4 mg Cap 0.4 mg = 1 cap(s), Oral, Daily Problem list: All Problems Kidney stone / SNOMED CT 632443270 / Confirmed Partial traumatic amputation of left middle (more content not included)... Normal [facility] Comment on above: Result Comment: Elec tronically Signed By: MARIBEL ANN, Joey Cantu\.br\Date and Time Signed: 10/26/21 12:59 EDT Consultation Note Patient: WALT SKELTON Age: 76 years Sex: Male : 1945 Associated Diagnoses: None Author: Dickson Sanches MD Basic Information Pt is a 76 M PMH hypothyroid admitted from ED complaining of hematuria, difficulty urinating. pt says he was seen at [place] yesterday. Pt was found to have bilateral renal calculus. Pt was found to have 5x4x4 mm non obstructing stone within distal right ureter and partially obstructing 7x6x5 mm stone within the left ureter. Pt with some subjective fevers. pt with nausea, no vomiting, has had decreased PO intake. pt denies any flank pain,did have some right groin pain. Denies any hx of kidney disease. Denies any NSAIDS use. Been having hematuria since yesterday. Does have a hx of kidney stones. History of Present Illness Denies any new complaint Review of Systems Constitutional: Negative. Respiratory: Negative. Cardiovascular: Negative. Gastrointestinal: Negative. Genitourinary: Hematuria. ROS reviewed as documented in chart Health Status Allergies: Allergic Reactions (Selected) Severity Not Documented Peanuts- Headache. Sulfamethoxazole- O/e - lip swelling. Tape- Redness. Toradol- Swelling., Allergies (4) Active Reaction Peanuts Headache sulfamethoxazole O/E - lip swelling Tape Redness Toradol Swelling Current medications: (Selected) Inpatient Medications Ordered Al hydroxide/Mg hydroxide/simethicone 200 mg-200 mg-20 mg/5 mL oral suspension: 30 mL, Susp-Oral, Oral, q6hr PRN Indigestion, STAT, Start date 10/25/21 17:06:00 EDT [place] Thyroid 30 mg Tab: 60 mg = 2 tab(s), Tab, Oral, Daily, Routine, Start date 10/26/21 6:30:00 EDT Lactated Ringers IV [place] 1000 mL 1,000 mL: 1,000 mL, IV, 150 mL/hr, Routine, Start date 10/26/21 11:30:00 EDT, 6.7 hour(s), Total volume (mL): 1,000, 75.5 kg, 1.89, m2 Milk of Magnesia 8% Susp-Oral: 30 mL, Susp-Oral, Oral, q6hr PRN Constipation, STAT, Start date 10/25/21 17:06:00 EDT NS 1000 mL Soln-IV 1,000 mL: 1,000 mL, IV, 125 mL/hr, Routine, Start date 10/25/21 17:06:00 EDT, 8 hour(s), Total volume (mL): 1,000, 75.5 kg, 1.89, m2 Zofran 4 mg/2 mL Injection: 4 mg = 2 mL, Injection, IV Push, q6hr PRN Nausea, Routine, Start date 10/25/21 17:06:00 EDT, 10/25/21 17:06:00 EDT acetaminophen 325 mg Tab: 650 mg = 2 tab(s), Tab, Oral, q6hr PRN Pain, Routine, Start date 10/25/21 17:06:00 EDT, 10/25/21 17:06:00 EDT ceftriaxone additive + Sodium Chloride 0.9% intravenous solution 50 mL: 1,000 mg = 1 EA, Injection, IV Piggyback, Daily, Routine, Start date 10/26/21 9:00:00 EDT, 100 mL/hr, Infuse over 30 minute(s) morphine 2 mg/mL Inj: 2 mg = 1 mL, Injection, IV Push, q4hr PRN Pain for 5 day(s), Stop date 10/30/21 17:05:00 EDT, Routine, Start date 10/25/21 17:06:00 EDT, 10/25/21 17:06:00 EDT tamsulosin 0.4 mg Cap: 0.4 mg = 1 cap(s), Cap, Oral, Daily, Routine, Start date 10/26/21 9:00:00 EDT, 10/25/21 17:04:00 EDT triamcinolone Top 0.1% Crm 15 gram: 1 jarrod, Cream, Topical, Daily, STAT, Start date 10/25/21 17:04:00 EDT Documented Medications Documented [place] Thyroid 60 mg Tab: 60 mg = 1 tab(s), Oral, Daily, # 30 tab(s), Refills(s) 0 mometasone Top 0.1% Crm 15 gram: 1 jarrod, Topical, Daily, 30 gram, Refill(s) 0 mometasone Top 0.1% Lotion: 1 jarrod, Topical, Daily, 30 mL, Refill(s) 0 ondansetron 4 mg Dis Tab: 4 mg = 1 tab(s), Oral, q6hr, PRN Nausea/Vomiting, # 10 tab(s), Refills(s) 0 tamsulosin 0.4 mg Cap: 0.4 mg = 1 cap(s), Oral, Daily, Refills(s) 0, Medications (11) Active Scheduled: (4) ceftriaxone + Sodium Chloride 0.9% Minibag 50 mL 1,000 mg 1 EA, IV Piggyback, Daily tamsulosin 0.4 mg Cap [F] 0.4 mg 1 cap(s), Oral, Daily thyroid desiccated 30 mg Tab [F] 60 mg 2 tab(s), Oral, Daily triamcinolone Top 0.1% Crm 15 gram [F] 1 jarrod, Topical, Daily Continuous: (2) Lactated Ringers 1,000 mL 1,000 mL, IV, 150 mL/hr Sodium Chloride 0.9% 1,000 mL 1,000 mL, IV, 125 mL/hr PRN: (5) acetaminophen 325 mg Tab UD [F] 650 mg 2 tab(s), Oral, q6hr Al hydroxide/Mg hydroxide/simethicone 200 mg-200 mg-20 mg/5 mL Oral Susp 30 mL [F] 30 mL, Oral, q6hr magnesium hydroxide 8% Oral Susp 30 mL [F] 30 mL, Oral, q6hr morphine 2 mg/mL preservative-free SOLN [F] 2 mg 1 mL, IV Push, q4hr ondansetron 2 mg/mL Inj [F] 4 mg 2 mL, IV Push, q6hr Problem list: All Problems Adult BMI 26.0-26.9 kg/sq m / SNOMED CT 2849059818 / Confirmed Headache / SNOMED CT 77897179 / Confirmed Hearing loss / SNOMED CT 79863593 / Confirmed Hypothyroid / SNOMED CT 54598834 / Confirmed Kidney stone / SNOMED CT 817833325 / Confirmed Abnormal x-ray of cervical spine / SNOMED CT 849145652 / Confirmed PONV (postoperative nausea and vomiting) / SNOMED CT 2635834 / Confirmed 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 Normal [facility] Comment on above: Result Comment: Elec tronically Signed By: Myron ANN, Dickson\.br\Date and Time Signed: 10/26/21 11:30 EDT HEMATOLOGYOrdered By: SYSTEM SYSTEM on 10-26-2021 Basophils/100 WBC (Bld) 1.0 % Normal 0.0 - 2.0 % [facility] HemeAutoSS Basophils/Leukocyt es Auto (Bld) [Pure # fraction] 0.1 E9/L Normal 0.0 - 0.2 E9/L [facility] HemeAutoSS Eosinophils/100 WBC (Bld) 2.9 % Normal 0.0 - 8.0 % [facility] HemeAutoSS Eosinophils/Leukoc ytes Auto (Bld) [Pure # fraction] 0.2 E9/L Normal 0.0 - 0.5 E9/L [facility] HemeAutoSS Lymphocytes/100 WBC (Bld) 10.5 % Low 14.0 - 50.0 % [facility] HemeAutoSS Lymphocytes/Leukoc ytes Auto (Bld) [Pure # fraction] 0.7 E9/L Low 1.0 - 4.0 E9/L [facility] HemeAutoSS Monocytes/100 WBC (Bld) 9.6 % Normal 4.0 - 14.0 % [facility] HemeAutoSS Monocytes/Leukocyt es Auto (Bld) [Pure # fraction] 0.7 E9/L Normal 0.2 - 1.0 E9/L [facility] HemeAutoSS Neutrophils/100 WBC (Bld) 76.0 % High 36.0 - 75.0 % [facility] HemeAutoSS Neutrophils/Leukoc ytes Auto (Bld) [Pure # fraction] 5.4 E9/L Normal 2.0 - 7.5 E9/L [facility] HemeAutoSS HEMATOLOGYOrdered By: Evie alvarenga on 10-26-2021 Erythrocyte distribution width (RBC) [Ratio] 14.1 % Normal 10.9 - 14.2 % [facility]eAutoSS Hematocrit (Bld) [Volume fraction] 37.0 % Low 37.7 - 49.0 % [facility] HemeAutoSS Hemoglobin (Bld) [Mass/Vol] 12.8 g/dL Low 13.5 - 17.5 gm/dL [facility] HemeAutoSS MCH (RBC) [Entitic mass] 29.8 pg Normal 27.0 - 34.0 pg [facility] HemeAutoSS MCHC (RBC) [Mass/Vol] 34.6 g/dL Normal 31.4 - 36.0 gm/dL [facility]eAutoSS MCV (RBC) [Entitic vol] 86.3 fL Normal 80.0 - 100.0 fL [facility]eAutoSS Platelet mean volume (Bld) [Entitic vol] 7.2 fL Normal 6.4 - 10.8 fL [facility] HemeAutoSS Platelets (Bld) [#/Vol] 232.0 E9/L Normal 150.0 - 500.0 E9/L [facility]eAutoSS RBC (Bld) [#/Vol] 4.3 E12/L Normal 4.3 - 5.9 E12/L [facility] HemeAutoSS WBC corrected for nucl RBC Auto (Bld) [#/Vol] 7.1 E9/L Normal 4.0 - 11.0 E9/L [facility] HemeAutoSS Interdisciplinary Note - Sae e Manageron 10-26-2021 Interdisciplinary Note - Cro CRM to room to discuss DC Planning. Patient is alert, and oriented and participates in DC planning. No family in room but they are on there way in to hospital. Patient white board updated and CRM contact number and info provided. Patient PCP verified. Reviewed insurance and medicare rights with patient. Discussed home DME. Patient is from home with spouse and she will transport at DC. Patient is to have surgery today for kidney stones. He is a possible DC later today depending on procedure and labs. Dr Forrest is obtaining labs from previous hospital stays. Patient denies any home needs or services at this time. Anticipated Dc 4.28 or 4.29. CRM following Normal [facility] Comment on above: Result Comment: Elec tronically Signed By: Shara Sanchez\.br\Date and Time Signed: 10/26/21 11:25 EDT Main OR PACU I Recordon 09-30 Main OR PACU I Record PACU Phase I Document Type FT Summary Primary Physician: Joey DAVIS MD Finalized Date/Time: 10/26/21 14:34:12 Pt. Name: WALT SKELTON D.O.B./Sex: 1945 Male Med Rec #: [id number] Physician: Mckay FORREST MD Financial #: [id number] Pt. Type: O Room/Bed: N314[facility] Admit/Disch: 10/25/21 14:59:50 - Institution: Case Times PACU I FT Pre-Care Text: Identifies barriers to communication and implements measures to provide psychological support Develops individualized plan of care, and ensures continuity of care Maintains patient's dignity and privacy, and maintains patient confidentiality Identifies and reports philosophical, cultural, and spiritual beliefs and values Identifies individual values and wishes concerning care Implements aseptic technique, and administers prescribed antibiotic therapy and immunizing agents as ordered Evaluates postoperative tissue perfusion Implements thermoregulation measures, and monitors body temperature Evaluates postoperative respiratory status Evaluates postoperative cardiac status Evaluates postoperative neurological status Assesses pain control, collaborated in initiating patient-controlled analgesia and implements alternative methods of pain control Verifies allergies, administers prescribed medications and solutions, evaluates response to medications Entry 1 In PACU I 10/26/21 13:33:00 Discharge from PACU 10/26/21 14:03:00 I Outcomes Met? Yes Last Modified By: July Salcido RN 10/26/21 14:34:01 Post-Care Text: The patient demonstrates knowledge of the expected response to the operative or invasive procedure The patient's care is consistent with the individualized perioperative plan of care The patient's right to privacy is maintained The patient's value system, lifestyle, ethnicity, and culture are considered, respected, and incorporated into the perioperative plan of care The patient participates in decisions affecting his or her perioperative plan of care The patient is free from signs and symptoms of infection The patient has wound/tissue perfusion consistent with or improved from baseline levels established preoperatively The patient is at or returning to normothermia at the conclusion of the immediate postoperative period The patient's respiratory function is consistent with or improved from baseline levels established preoperatively The patient's cardiovascular status is consistent with or improved from baseline levels established preoperatively The patient's cardiovascular status is consistent with or improved from baseline levels established preoperatively The patient demonstrates and/or reports adequate pain control throughout the perioperative period The patient received appropriate medication(s), safely administered during the perioperative period Acuity Level PACU I FT Entry 1 Start Time 10/26/21 13:33:00 Stop Time 10/26/21 14:03:00 Acuity Level Acuity Level I Last Modified By: July Salcido RN 10/26/21 14:34:09 Finalized By: July Salcido RN Document Signatures Signed By: July Salcido RN 10/26/21 14:34 [facility] Main OR Preoperative Recordo n 10-26-2021 Main OR Preoperative Record PreOp Document Type FT Summary Primary Physician: Joey DAVIS MD Finalized Date/Time: 10/26/21 13:46:17 Pt. Name: WALT SKELTON/Sex: 1945 Male Med Rec #: [id number] Physician: Mckay FORREST MD Financial #: [id number] Pt. Type: O Room/Bed: N314/01 Admit/Disch: 10/25/21 14:59:50 - Institution: Case Times PreOp FT Pre-Care Text: Verifies consent for planned procedure, identifies individual values and wishes concerning care, includes family members in perioperative teaching Entry 1 Patient Times. In Pre Surgery 10/26/21 11:30:00 Out Pre Surgery 10/26/21 12:49:00 Outcomes Met? Yes Last Modified By: Linsey Mata RN 10/26/21 13:46:16 Post-Care Text: The patient participates in decisions affecting his or her perioperative plan of care Finalized By: Linsey Mata RN Document Signatures Signed By: Linsey Mata RN 10/26/21 13:46 [facility] Message from Medicareon 09-30 Message from Medicare [id number]# 1.00CD:127 [facility] Monitor Recordon 10-26-2021 Monitor Record [id number]# 1.00CD:127 [facility] Monitor Record [id number]# 1.00CD:127 [facility] Monitor Record [id number]# 1.00CD:127 [facility] Operative Reporton Operative Report Patient: WALT SKELTON Age: 76 years Sex: Male : 1945 Associated Diagnoses: None Author: Joey DAVIS MD Postoperative Information Date/ Time: 10/26/2021 13:53:00 Postoperative Diagnosis: Renal calculus, bilateral (NQN26-WH N20.0, Discharge, Medical), Other acute kidney failure (JYX63-QI N17.8, Discharge, Medical), Hydronephrosis with ureteral calculus (XFO68-QB N13.2, Working, Medical). Performed by: Joey Davis MD. Findings: Procedure: Cystoscopy Left retrograde pyelogram Left double-J stent placement under fluoroscopic guidance Right retrograde pyelogram Right ureteroscopy Ureteroscopic stone basket extraction Right double-J stent placement under fluoroscopic guidance Anesthesia: General, LMA, Dr. Villa, 2% Xylocaine jelly per urethra Indications: This is a 76-year-old male admitted with history of emergency room evaluation at the [facility]. He was found to have bilateral ureteral calculi with a 5 mm in the right lower ureter and a 7 mm in the left upper ureter. The patient was told the left ureter did not appear obstructed however. He called my office with continued pain and my recommendation was for ER evaluation and possible admission for some difficulties urinating and the fact that he had some other associated systemic symptoms. He was found to have no significant urinary retention. However significant renal failure was present with a GFR of about 17. Recommendation now is for operative intervention with cystoscopy and retrograde pyelograms and the possibility of ureteroscopic stone extractions possible stents and possible further procedures in the future. The patient and his are fully aware the risk benefits and details of this procedure and they want to proceed. He has already been on intravenous antibiotics. He did have sequential compression devices in place and functional bilateral lower extremities throughout the case. Procedure: The patient is brought back to the operating room and a timeout was performed. All were in agreement with the operative plan. After the successful induction of general anesthesia he is placed in a modified dorsolithotomy position and prepped in usual fashion Betadine solution. He is draped appropriately. 2% Xylocaine jelly is placed per urethra and a well-lubricated 22 Singaporean is urethroscope with 30 degree lens then passed into the bladder without difficulty. Prostatic urethra demonstrates lateral lobe hypertrophy and a high riding bladder neck. The main obstruction is laterally. Once into the bladder panendoscopy reveals no tumors or stones or diverticuli. Orifices normal x2. A left retrograde pyelogram was performed. This reveals a fairly narrowed distal ureter and then a completely normal ureter up to the level of the left ureteropelvic junction where a filling defect is identified. This is consistent with the stone previously seen. He does have some moderate hydronephrosis noted. I felt that a stent was indicated. A 0.035 guidewire was then passed in retrograde fashion up the left orifice beyond the stone and into the kidney. Over that then a 4.7 Singaporean Bard inlay double-J stent is passed into the kidney. Wire removed and there is good curl within the bladder and the kidney itself. Unclear if the stone still resides at the UPJ or if it has been pushed into the kidney. Attention was then turned towards the right side. Right retrograde pyelogram reveals immediately a filling defect about 1 cm proximal to the ureterovesical junction. This is consistent with the stone previously seen on CT scan. A 0.035 wire was then passed up the right ureter up into the kidney. Cystoscope removed and a semirigid ureteroscope was then passed into the bladder. I was having difficulties gaining access into the right ureter. I utilized the stone basket itself to gain access and then the scope was pushed on through a fairly narrowed area at the ureterovesical junction. The stone was actually pushed into a more dilated portion of the ureter. It was then basket extracted and sent to pathology for evaluation. Secondary to the patient's ongoing renal failure which has not improved at last check combined with the narrowing and need for manipulation to gain access to the stone I felt that a right-sided stent was also needed. With the safety wire left in place, the ureteroscope was removed, the cystoscope was backloaded over the wire and a 4.7 Singaporean Bard inlay 22 to 30 cm stent is then again placed into the right kidney. Wire removed and there is good curl within the kidney and the bladder. Tolerates it well and is transferred to the gurney and then back to PACU in satisfactory condition, stable vital signs. Plan to be for transfer to the floor for postoperative management. I extensively discussed the intraoperative findings and plans with the patient's postoperatively and she is in agreement with the plan. Hopefully his kidney function will improve markedly by tomorrow now t (more content not included)... [facility] Comment on above: Result Comment: Elec tronically Signed By: MARIBEL ANN, Joey Cantu\.br\Date and Time Signed: 10/26/21 13:59 EDT Outside Recordson 10-26-2021 Outside Records [id number]#1 .00CD:127 [facility] Progress Note-Physicianon Progress Note-Physician Assessment/Plan 1. Renal calculus, bilateral (N20.0: Calculus of kidney) - 5x4x4 mm non obstructing stone within distal right ureter and partially obstructing 7x6x5 mm stone within the left ureter on CT imaging from [place] 10/23 - d/w urology Dr. Davis, plan for OR tomorrow, NPO for OR today - IVF, ceftriaxone IV Ordered: 2. Other acute kidney failure (N17.8: Other acute kidney failure) - secondary to a combination of pre-renal causes, may have obstructive component - IVF, BMP in AM - hold nephrotoxic meds -slight decrease in Cr today, will consult nephrology, will attempt to get baseline labs from PCP and from visit at [place] 3. Hypothyroid (E03.9: Hypothyroidism, unspecified) - [place] thyroid 4. No contraindication to deep vein thrombosis (DVT) prophylaxis (Z78.9: Other specified health status) - SCDs Orders: acetaminophen, 650 mg = 2 tab(s), Tab, Oral, q6hr PRN Pain, Routine, Start date 10/25/21 17:06:00 EDT, 10/25/21 17:06:00 EDT Al hydroxide/Mg hydroxide/simethicone , 30 mL, Susp-Oral, Oral, q6hr PRN Indigestion, STAT, Start date 10/25/21 17:06:00 EDT ceftriaxone + Sodium Chloride 0.9% intravenous solution 50 mL, 1,000 mg = 1 EA, Injection, IV Piggyback, Daily, Routine, Start date 10/26/21 9:00:00 EDT, 100 mL/hr, Infuse over 30 minute(s) magnesium hydroxide, 30 mL, Susp-Oral, Oral, q6hr PRN Constipation, STAT, Start date 10/25/21 17:06:00 EDT morphine, 2 mg = 1 mL, Injection, IV Push, q4hr PRN Pain for 5 day(s), Stop date 10/30/21 17:05:00 EDT, Routine, Start date 10/25/21 17:06:00 EDT, 10/25/21 17:06:00 EDT ondansetron, 4 mg = 2 mL, Injection, IV Push, q6hr PRN Nausea, Routine, Start date 10/25/21 17:06:00 EDT, 10/25/21 17:06:00 EDT Sodium Chloride 0.9% intravenous solution 1,000 mL, 1,000 mL, IV, 125 mL/hr, Routine, Start date 10/25/21 17:06:00 EDT, 8 hour(s), Total volume (mL): 1,000, 75.5 kg, 1.89, m2 tamsulosin, 0.4 mg = 1 cap(s), Cap, Oral, Daily, Routine, Start date 10/26/21 9:00:00 EDT, 10/25/21 17:04:00 EDT thyroid desiccated, 60 mg = 2 tab(s), Tab, Oral, Daily, Routine, Start date 10/26/21 6:30:00 EDT triamcinolone topical, 1 jarrod, Cream, Topical, Daily, STAT, Start date 10/25/21 17:04:00 EDT Ambulate with Assistance Automated Diff Basic Metabolic Panel Below the Knee Intermittent Pneumatic Compression Device Cardiac Monitoring CBC w/ Auto Diff Consult to Urology eGFR Evaluate Need For Continued Telemetry Extra Blue Tube Extra Lav Tube Intake and Output Notify Provider Vital Signs Notify Provider Vital Signs NPO Diet Oxygen Protocol Place in Status Pulse Oximetry Regular Diet Troponin 0 Hr. Troponin 3 Hr. Troponin 6 Hr. Troponin 9 Hr. Vital Signs Weight Subjective Pt complains of some chest pain earlier, says its from the EKG leads stuck to him. Pt denies any sob. no nausea or vomiting, no diaphoresis. Pt says urine clear ,no blood. denies any flank or groin pain. Review of Systems Constitutional: No fevers, chills Eye: Negative. Ear/Nose/Mouth/Throat : Negative. Respiratory: Negative Cardiovascular: Negative. Gastrointestinal: Negative. Genitourinary: Negative. Immunologic: Negative. Musculoskeletal: Negative. Integumentary: Negative. Neurologic: Negative. Psychiatric: Negative. All other systems are negative Objective Vitals & Measurements T: 36.9 ?C(Oral) TMIN: 36.9 ?C(Oral) TMAX: 37.0 ?C(Oral) HR: 66(Monitored) RR: 16 BP: 147/75 SpO2: 97% WT: 76.7 kg Intake & Output This visit (24 hour periods starting at 07:00 EDT) 10/26/21 * 10/25/21 10/24/21 Total Summary Intake mL -- 924.79 -- Output mL -- 650 -- Fluid Balance -- 274.79 -- Intake (2) Sodium Chloride 0.9% intravenous solution 1,000 mL mL -- 874.79 -- Sodium Chloride 0.9%, ceftriaxone mL -- 50 -- Total -- 924.79 -- Output (1) Urine Voided mL -- 650 -- Total -- 650 -- Counts (0) * This column has not completed the indicated time period. Physical Exam General: alert, no acute distress ENMT: oral mucosa moist, no pharyngeal erythema or exudate Cardiovascular: regular rate and rhythm, normal peripheral perfusion Respiratory: Lungs CTA, respirations non labored Abdomen: soft, NTND, +BS Skin: warm, dry, intact Extremities: no deformity, no trauma Neurological: LOC appropriate for age, CN II-XII intact, motor strength equal & normal bilaterally, sensation equal & normal bilaterally, speech normal Lab Results WBC: 7.1 E9/L (10/26/21 06:21:00) RBC: 4.3 E12/L (10/26/21 06:21:00) HGB: 12.8 gm/dL Low (10/26/21 06:21:00) Hct: 37 % Low (10/26/21 06:21:00) MCV: 86.3 fL (10/26/21 06:21:00) MCH: 29.8 pg (10/26/21 06:21:00) MCHC: 34.6 gm/dL (10/26/21 06:21:00) RDW: 14.1 % (10/26/21 06:21:00) Platelet: 232 E9/L (10/26/21 06:21:00) MPV: 7.2 fL (10/26/21 06:21:00) Neutro Auto: 76 % High (10/26/21 06:21:00) Lymph Auto: 10.5 % Low (10/26/21 06:21:00) [place] Auto: 9.6 % (10/26/21 (more content not included)... [facility] Comment on above: Result Comment: Elec tronically Signed By: LON ANN, Mckay\.br\Date and Time Signed: 10/26/21 08:37 EDT Troponin 0 Hr.on 10-26-2021 Troponin I.cardiac [Mass/Vol] 4.40 pg/mL Low 15.90-38.40 [facility] Comment on above: Order Comment: Per p tony Vines, the pt is getting an xray, will check back later [id number] 10/26/2021 08:05:02 EDT Result Comment: The 95% CI (Confidence Interval) PPV (Positive Predictive Value) for myocardial infarction in females is 38 pg/mL, in males 51 pg/mL. The results should be used in conjunction with clinical conditions of myocardial infarction. (Access High Sensitivity Troponin I Instructions For Use, RIDERS, January 2018) Performed By: #### 1 [id number] #### [facility] [address] [place] [address] Troponin 3 Hr.on 10-26-2021 Troponin I.cardiac [Mass/Vol] 4.30 pg/mL Low 15.90-38.40 [facility] Comment on above: Result Comment: The 95% CI (Confidence Interval) PPV (Positive Predictive Value) for myocardial infarction in females is 38 pg/mL, in males 51 pg/mL. The results should be used in conjunction with clinical conditions of myocardial infarction. (1Rebel High Sensitivity Troponin I Instructions For Use, RIDERS, January 2018) Performed By: #### 1 [id number] ####[facility] [address] [place] [address] Troponin 6 Hr.on 10-26-2021 Troponin I.cardiac [Mass/Vol] 4.00 pg/mL Low 15.90-38.40 [facility] Comment on above: Order Comment: Pt is in surgery, Adria Francois is aware that the 6 hr troponin will be late. [id number] 10/26/2021 13:43:50 EDT Result Comment: The 95% CI (Confidence Interval) PPV (Positive Predictive Value) for myocardial infarction in females is 38 pg/mL, in males 51 pg/mL. The results should be used in conjunction with clinical conditions of myocardial infarction. (Access High Sensitivity Troponin I Instructions For Use, RIDERS, January 2018) Performed By: #### 1 [id number] ####[facility] [address] [place] [address] Troponin 9 Hr.on 10-26-2021 Troponin I.cardiac [Mass/Vol] 6.10 pg/mL Low 15.90-38.40 [facility] Comment on above: Order Comment: Due t o Pt being in surgery his 6hr trop was late. 9hr will be drawn at 1740. [id number]/26/2021 15:32:35 EDT Result Comment: The 95% CI (Confidence Interval) PPV (Positive Predictive Value) for myocardial infarction in females is 38 pg/mL, in males 51 pg/mL. The results should be used in conjunction with clinical conditions of myocardial infarction. (Access High Sensitivity Troponin I Instructions For Use, Chandu Seb, January 2018) Performed By: #### 1 [id number] ####[facility] [address] [place] [address] XR Abdomen 1 Viewon 10-27-19 22 XR Abdomen 1 View Exam Date/Time: 10/26/2021 08:04 EDT Reason for Exam: Kidney stone Report IMPRESSION: THERE ARE NO ACUTE CHANGES. CLINICAL HISTORY: Kidney stone COMPARISON: KUB from 10/25/2021 FINDINGS: The bowel gas pattern is unremarkable. There are no dilated loops of bowel. Overlying bowel gas and contents limit evaluation for renal stones. There are increased densities, possible calcifications on the left which may represent renal stones. No prior CTs available for comparison. There are no acute osseous changes. There are no radiopaque foreign bodies. FINAL REPORT Dictated: 10/26/2021 8:37 am Guicho Cohen MD, V. Signed (Electronic Signature): 10/26/2021 8:37 am Signed by: Guicho Cohen MD, V. Transcribed by: BEV Technologist: [facility] XR Chest 2 Viewson 2 XR Chest 2 Views Exam Date/Time: 10/26/2021 08:03 EDT Reason for Exam: P.A.T. Report IMPRESSION: THERE ARE NO FOCAL INFILTRATES OR EFFUSIONS. CLINICAL HISTORY: P.A.T. COMPARISON: NONE. FINDINGS: The cardiomediastinal silhouette is unremarkable. Low inspiratory volume with bronchovascular crowding. The lungs are free of infiltrates effusions or consolidations. There is a linear density in the left lung base which may represent scarring versus platelike atelectasis. The bones and soft tissues are within normal limits. FINAL REPORT Dictated: 10/26/2021 8:34 am Guicho Cohen MD, V. Signed (Electronic Signature): 10/26/2021 8:34 am Signed by: Guicho Cohen MD, V. Transcribed by: BEV Technologist: [facility] XR Urography Retrograde Bila teralon 10-26-2021 XR Urography Retrograde Bilateral Exam Date/Time: 10/26/2021 13:31 EDT Reason for Exam: Kidney stone Report IMPRESSION: FLUOROSCOPIC ASSISTANCE IS PROVIDED DURING PLEASE REFER TO THE OPERATIVE REPORT CLINICAL HISTORY: Kidney stone. COMPARISON: None available. FINDINGS: Fluoroscopic assistance was provided during retrograde pyelogram. Fluoroscopy time is 1.5 minutes Total radiation dose is 2.0mGy, 15 images FINAL REPORT Dictated: 10/26/2021 2:28 pm Guicho Cohen MD, V. Signed (Electronic Signature): 10/26/2021 2:28 pm Signed by: Guicho Cohen MD, V. Transcribed by: BEV Technologist: ABDIEL Technical Comments Radiation Dose: Ka,r in mGy = 12 [facility] eGFRon 10-26-2021 GFR/1.73 sq M.predicted among blacks MDRD (S/P/Bld) [Vol rate/Area] 22 mL/min/1.73 m2 Low >=59 [facility] Comment on above: Order Comment: Order added by Discern Expert. Result Comment: eGFR is race adjusted. AA=. Performed By: #### 1 [id number], [id number], [id number], [id number] ####[facility] [address] [place] [address] GFR/1.73 sq M.predicted among non-blacks MDRD (S/P/Bld) [Vol rate/Area] 18 mL/min/1.73 m2 Low >=59 [facility] Comment on above: Order Comment: Order added by Discern Expert. Result Comment: Paving Rammer gavi kidney disease could be indicated at eGFR's of less than 60 mL/min/1.73m2. Kidney failure is indicated at less than 15 mL/min/1.73m2. Performed By: #### 1 [id number], 8603686, 3844752, [id number] ####[facility] [address] [place] [address] Auto Diffon 10-25-2021 Basophils/100 WBC (Bld) 0.4 % Normal 0.0-2.0 [facility] Comment on above: Order Comment: Order Added by Discern Expert. Performed By: #### 2 284028, 4527985, 0576630, [id number] #### [facility] [address] [place] [address] Basophils/Leukocyt es Auto (Bld) [Pure # fraction] 0.0 E9/L Normal 0.0-0.2 [facility] Comment on above: Order Comment: Order Added by Discern Expert. Performed By: #### 2 382095, 1016361, 6696144, [id number] #### [facility] [address] [place] [address] Eosinophils/100 WBC (Bld) 0.6 % Normal 0.0-8.0 [facility] Comment on above: Order Comment: Order Added by Discern Expert. Performed By: #### 2 658937, 8539216, 0557054, [id number] #### [facility] [address] [place] [address] Eosinophils/Leukoc ytes Auto (Bld) [Pure # fraction] 0.1 E9/L Normal 0.0-0.5 [facility] Comment on above: Order Comment: Order Added by Discern Expert. Performed By: #### 2 191644, 9311032, 4939548, [id number] #### [facility] [address] [place] [address] Lymphocytes/100 WBC (Bld) 6.8 % Low 14.0-50.0 [facility] Comment on above: Order Comment: Order Added by Discern Expert. Performed By: #### 2 652380, 9086698, 1877572, [id number] #### [facility] [address] [place] [address] Lymphocytes/Leukoc ytes Auto (Bld) [Pure # fraction] 0.6 E9/L Low 1.0-4.0 [facility] Comment on above: Order Comment: Order Added by Discern Expert. Performed By: #### 2 360851, 9644892, 3042031, [id number] #### [facility] [address] [place] [address] Monocytes/100 WBC (Bld) 10.0 % Normal 4.0-14.0 [facility] Comment on above: Order Comment: Order Added by Discern Expert. Performed By: #### 2 537045, 9347923, 7151318, [id number] #### [facility] [address] [place] [address] Monocytes/Leukocyt es Auto (Bld) [Pure # fraction] 0.9 E9/L Normal 0.2-1.0 [facility] Comment on above: Order Comment: Order Added by Discern Expert. Performed By: #### 2 333440, 9282189, 8680680, [id number] #### [facility] [address] [place] [address] Neutrophils/100 WBC (Bld) 82.2 % High 36.0-75.0 [facility] Comment on above: Order Comment: Order Added by Discern Expert. Performed By: #### 2 179029, 8567492, 2302515, 10143450 #### [facility] [address] [place] [address] Neutrophils/Leukoc ytes Auto (Bld) [Pure # fraction] 7.4 E9/L Normal 2.0-7.5 [facility] Comment on above: Order Comment: Order Added by Discern Expert. Performed By: #### 2 723756, 3890184, 2295442, [id number] #### [facility] [address] [place] [address] BMPon 10-25-2021 Creatinine [Mass/Vol] 3.5 mg/dL High 0.5-1.3 [facility] Comment on above: Performed By: #### 2 563626, 2934609, 4923677, 60385814 ####[facility] [address] [place] [address] Urea nitrogen [Mass/Vol] 33 mg/dL High 5-21 [facility] Comment on above: Performed By: #### 2 464155, 9603895, 0462201, 73072972 ####[facility] [address] [place] [address] Urea nitrogen/Creatinin e [Mass ratio] 9 No Units Low 10-20 [facility] Comment on above: Performed By: #### 2 658695, 3298583, 3936778, 74147687 ####[facility] [address] [place] [address] Anion gap [Moles/Vol] 14 mmol/L Normal 6-16 [facility] Comment on above: Performed By: #### 2 780214, 4119667, 2794209, 09898799 ####[facility] [address] [place] [address] Calcium [Mass/Vol] 8.7 mg/dL Low 8.9-11.1 [facility] Comment on above: Performed By: #### 2 457986, 8088973, 5742988, 50427353 ####[facility] [address] [place] [address] Chloride [Moles/Vol] 104 mmol/L Normal 101-111 [facility] Comment on above: Performed By: #### 2 657499, 5225599, 1990157, 12911260 ####[facility] [address] [place] [address] CO2 [Moles/Vol] 21 mmol/L Normal 21-31 [facility] Comment on above: Performed By: #### 2 144630, 0714603, 5624135, 45296928 ####[facility] [address] [place] [address] Glucose [Mass/Vol] 116 mg/dL Normal 55-199 [facility] Comment on above: Result Comment: If t his glucose result represents a fasting glucose, interpretation should refer to the following reference range: 55-99 mg/dL Performed By: #### 2 029874, 2381370, 8875685, [id number] ####[facility] [address] [place] [address] Potassium [Moles/Vol] 4.0 mmol/L Normal 3.5-5.3 [facility] Comment on above: Performed By: #### 2 214319, 3043401, 8157782, 20747908 ####[facility] [address] [place] [address] Sodium [Moles/Vol] 135 mmol/L Normal 135-145 [facility] Comment on above: Performed By: #### 2 115043, 6203457, 8530040, 13660905 ####[facility] [address] [place] [address] CBC w/ Auto Diffon 2 Erythrocyte distribution width (RBC) [Ratio] 14.1 % Normal 10.9-14.2 [facility] Comment on above: Performed By: #### 2 426042, 4820280, 4223797, 20008340 #### [facility] [address] [place] [address] Hematocrit (Bld) [Volume fraction] 41.8 % Normal 37.7-49.0 [facility] Comment on above: Performed By: #### 2 777154, 5151283, 7963427, 90101094 #### [facility] [address] [place] [address] Hemoglobin (Bld) [Mass/Vol] 14.2 g/dL Normal 13.5-17.5 [facility] Comment on above: Performed By: #### 2 206941, 3028162, 0857781, 07072949 #### [facility] [address] [place] [address] MCH (RBC) [Entitic mass] 29.2 pg Normal 27.0-34.0 [facility] Comment on above: Performed By: #### 2 353985, 3789716, 1189517, 34535167 #### [facility] [address] [place] [address] MCHC (RBC) [Mass/Vol] 33.9 g/dL Normal 31.4-36.0 [facility] Comment on above: Performed By: #### 2 844089, 4738440, 3419596, 31993878 #### [facility] [facility] [address] [place] [address] MCV (RBC) [Entitic vol] 86.1 fL Normal 80.0-100.0 [facility] Comment on above: Performed By: #### 2 [id number], [id number], [id number], [id number] #### [facility] [address] [place] [address] Platelet mean volume (Bld) [Entitic vol] 7.1 fL Normal 6.4-10.8 [facility] Comment on above: Performed By: #### 2 [id number], [id number], [id number], [id number] #### [facility] [address] [place] [address] Platelets (Bld) [#/Vol] 262.0 E9/L Normal 150.0-500.0 [facility] Comment on above: Performed By: #### 2 [id number], [id number], [id number], [id number] #### [facility] [address] [place] [address] RBC (Bld) [#/Vol] 4.9 E12/L Normal 4.3-5.9 [facility] Comment on above: Performed By: #### 2 [id number], [id number], [id number], [id number] #### [facility] [address] [place] [address] WBC corrected for nucl RBC Auto (Bld) [#/Vol] 9.0 E9/L Normal 4.0-11.0 [facility] Comment on above: Performed By: #### 2 [id number], [id number], [id number], [id number] #### [facility] [address] [place] [address] CHEMISTRYOrdered By: SYSTEM SYSTEM on 10-25-2021 Anion gap [Moles/Vol] 14 mmol/L Normal 6 - 16 mEq/L [facility] Remisol Calcium [Mass/Vol] 8.7 mg/dL Low 8.9 - 11.1 mg/dL [facility] Remisol Chloride [Moles/Vol] 104 mmol/L Normal 101 - 111 mmol/L [facility] CO2 [Moles/Vol] 21 mmol/L Normal 21 - 31 mmol/L [facility] Remisol Creatinine [Mass/Vol] 3.5 mg/dL High 0.5 - 1.3 mg/dL [facility] Remisol GFR/1.73 sq M.predicted among blacks MDRD (S/P/Bld) [Vol rate/Area] 21 mL/min/1.73 m2 Low >=59mL/min/1.73 m2 [facility] Chem S GFR/1.73 sq M.predicted among non-blacks MDRD (S/P/Bld) [Vol rate/Area] 17 mL/min/1.73 m2 Low >=59mL/min/1.73 m2 [facility] S Glucose [Mass/Vol] 116 mg/dL Normal 55 - 199 mg/dL [facility] Remisol Potassium [Moles/Vol] 4.0 mmol/L Normal 3.5 - 5.3 mmol/L [facility] Sodium [Moles/Vol] 135 mmol/L Normal 135 - 145 mmol/L [facility] Urea nitrogen [Mass/Vol] 33 mg/dL High 5 - 21 mg/dL [facility] Remisol Urea nitrogen/Creatinin e [Mass ratio] 9 mg/mg Low 10 - 20 [facility] Remisol Consent for Treatmenton 09-30 Consent for Treatment [id number]:127 Normal [facility] ED Clinical Summaryon 2021 ED Clinical Summary [place] [address] ED Clinical Summary Person Information Name: WALT SKELTON [place] Age: 76 Years : 1945 Sex: Male Language: Grenadian PCP: UZIEL HALLMAN DO Marital Status: Visit Id: Visit Reason: Abdominal pain; Hematuria; URETEROLITHIAS Speciality: Acuity: 3 Enc Type: Observation Med Service: Medical Arrival: 10/25/2021 14:59:50 Discharge: LOS: 000 03:13 Checkin: 10/25/2021 14:59:50 Checkout: 10/25/2021 18:12:37 Dispo Type: Admitted as IP to this [facility] EVENTS: Event Name Event Status Request Date/Time Start Date/Time Complete Date/Time Arrive Complete 10/25/2021 14:59:50 10/25/2021 14:59:50 10/25/2021 14:59:50 Document Home Meds Request 10/25/2021 14:59:50 Triage Complete 10/25/2021 14:59:50 10/25/2021 15:07:23 10/25/2021 15:07:23 Bed Assign Complete 10/25/2021 15:01:49 10/25/2021 15:01:49 10/25/2021 15:01:49 Dr Exam Complete 10/25/2021 15:01:49 10/25/2021 15:03:07 10/25/2021 15:03:07 RN Exam Complete 10/25/2021 15:01:49 10/25/2021 15:32:23 10/25/2021 15:32:23 Registration Complete 10/25/2021 15:03:07 10/25/2021 15:12:18 10/25/2021 15:12:18 Dr Exam Complete 10/25/2021 15:03:40 10/25/2021 15:03:40 10/25/2021 15:03:40 Consult Request 10/25/2021 15:04:35 Hospitalist Consult Request 10/25/2021 15:04:35 Pending Labs Request 10/25/2021 15:04:35 Lab Request 10/25/2021 15:04:35 Urine Collect Request 10/25/2021 15:04:35 X-Ray Complete 10/25/2021 15:11:49 10/25/2021 15:35:00 10/25/2021 15:45:56 Reg Complete Request 10/25/2021 15:12:18 Pending Labs Complete 10/25/2021 15:20:35 10/25/2021 15:20:35 10/25/2021 16:10:04 Lab Complete 10/25/2021 15:20:35 10/25/2021 15:20:35 10/25/2021 16:10:04 Meds Admin Complete 10/25/2021 15:23:41 10/25/2021 16:54:52 Pending Labs Complete 10/25/2021 15:32:16 10/25/2021 15:32:16 10/25/2021 15:32:22 Lab Complete 10/25/2021 15:32:16 10/25/2021 15:32:16 10/25/2021 15:32:22 Wet Read Request 10/25/2021 15:45:56 Meds Admin Request 10/25/2021 17:04:55 Patient Care Request 10/25/2021 17:07:13 Meds Admin Request 10/25/2021 17:07:13 Pending Labs Request 10/25/2021 17:07:13 Lab Request 10/25/2021 17:07:13 RT Request 10/25/2021 17:07:13 RT Tx/ABG Request 10/25/2021 17:07:13 Bed Request Request 10/25/2021 17:07:13 Reg Bed Request Request 10/25/2021 17:07:13 Admit Request 10/25/2021 17:07:13 Consult Request 10/25/2021 17:08:28 Meds Admin Request 10/25/2021 17:10:13 NPO Request 10/25/2021 17:11:10 Patient Care Request 10/25/2021 17:59:37 Patient Care Request 10/25/2021 17:59:37 Patient Care Request 10/25/2021 17:59:38 Patient Care Request 10/25/2021 17:59:38 ADDRESS: [id number] [id number] PHYS DOC NOTES: MEDICAL INFORMATION: Prescriptions Given: Medications to Continue Taking That Have Changed Other Medications START: thyroid desiccated ([place] Thyroid 60 mg Tab) 1 Tablets By Mouth every day. Medications to Continue with No Changes Other Medications mometasone topical (mometasone Top 0.1% Crm 15 gram) 1 Application Topical every day. mometasone topical (mometasone Top 0.1% Lotion) 1 Application Topical every day. ondansetron (ondansetron 4 mg Dis Tab) 1 Tablets By Mouth every 6 hours as needed Nausea/Vomiting. tamsulosin (tamsulosin 0.4 mg Cap) 1 Capsules By Mouth every day. PATIENT EDUCATION INFORMATION: Instructions: Follow up: DIAGNOSIS: 1:Renal calculus, bilateral; 2:Other acute kidney failure; 3:Hypothyroid; 4:No contraindication to deep vein thrombosis (DVT) prophylaxis Normal [facility] ED Note-Physicianon 10-26-19 ED Note-Physician Basic Information Time Seen: Piotr Chan M.D. 10/25/2021 15:03 Chief Complaint Pt presents to ED from Dr Davis's office. Pt complaint of urinating blood, CT confirmed kidney stones on left and right. Pt hasn't voided. History of Present Illness 76-year-old male comes to the ED for evaluation of abdominal pain with known urolithiasis. Patient has a history of kidney stones. Over the last 2 days had bilateral flank pain. He was seen at [place] [facility] yesterday had CT scan performed demonstrating bilateral obstructive stones. He was discharged home with pain medications and urology follow-up. Since that time has had worsening abdominal bloating and dysuria. Feels like he cannot pass urine only dribbling small amounts. Has had associated nausea and vomiting today as well. No fever or chills. He contacted his urologist who recommended repeat ED evaluation for likely admission and intervention. Review of Systems A 10 point review of systems is negative except as noted above. Medical and Surgical History: Reviewed and noted Social history: Lives at home Tobacco: Denies Physical Exam Vitals & Measurements T: 36.9 ?C(Oral) HR: 75(Peripheral) RR: 18 BP: 160/90 SpO2: 96% HT: 170.0 cm HT: 170 cm WT: 75.5 kg WT: 75.5 kg BMI: 26.12 Nurses notes and vital signs reviewed and patient is not hypoxic. General: The patient appears well and in no significant distress Patient is resting comfortably on the exam bed. Skin: Warm, dry, no pallor noted. Head: Atraumatic. Neck: No JVD. Eye: Normal conjunctiva. Ears, Nose, Mouth, and Throat: Moist mucous membranes Cardiovascular: Strong distal pulses. Chest wall: Respiratory: Respirations are nonlabored. Back: Normal range of motion, no reproducible CVA tenderness. Musculoskeletal: Normal ROM with no gross deformity. Gastrointestinal: Abdomen is soft. Somewhat protuberant. Bladder is not palpable. Urological: Neurological: Awake and alert. No focal deficits. Follows commands. GCS 15. Psychiatric: Cooperative. Medical Decision Making Overall patient appears to be resting comfortably. Patient has known bilateral obstructive ureteral stones. Case is discussed with urology. The plan is to move the patient to the hospitalist service with surgical intervention tomorrow. His bladder scan shows approximately 30 cc of retained urine. KUB with no significant findings. Laboratory studies reviewed and noted. Patient with acute kidney injury, with creatinine of 3.5. Patient treated with IV fluids, pain medications and ceftriaxone. Assessment/Plan 1. Renal calculus, bilateral (N20.0: Calculus of kidney) 2. Hypothyroid (E03.9: Hypothyroidism, unspecified) 3. No contraindication to deep vein thrombosis (DVT) prophylaxis (Z78.9: Other specified health status) 4. Acute kidney injury (N17.9: Acute kidney failure, unspecified) Orders: ceftriaxone + Sodium Chloride 0.9% intravenous solution 50 mL, 1,000 mg = 1 EA, IV Piggyback, Once, Stop date 10/25/21 15:23:00 EDT, STAT, Start date 10/25/21 15:23:00 EDT, 100 mL/hr, Infuse over 30 minute(s), 10/25/21 15:23:00 EDT morphine, 4 mg = 1 mL, Injection, IV Push, Once, Stop date 10/25/21 15:23:00 EDT, STAT, Start date 10/25/21 15:23:00 EDT, 10/25/21 15:23:00 EDT ondansetron, 4 mg = 2 mL, Injection, IV Push, Once, Stop date 10/25/21 15:23:00 EDT, STAT, Start date 10/25/21 15:23:00 EDT, 10/25/21 15:23:00 EDT Automated Diff Basic Metabolic Panel CBC w/ Auto Diff ED Physician consult Hospitalist for continued care eGFR UA With Cult Reflex XR Abdomen 1 View Disposition Plan Patient Discharge Condition Disposition: Admitted to the hospital Condition: Improved and stable Counseled: Patient and/or family were counseled to workup, results, treatment plan and follow-up recommendations Discharge Prescription List Prescriptions No active prescription medications Follow-up No qualifying data available Attestation Patient seen and evaluated by the physician bilingual sales assistant. Attending physician was present in the emergency department and supervised care. This visit was performed by both the physician and an APC. I performed all aspects of the MDM as documented. This report was transcribed using voice recognition software. Every effort was made to ensure accuracy, however, inadvertently computerized equity manager mistakes may be present. Appropriate healthcare PPE was used in evaluating this patient. The patient was placed in a mask. The healthcare provider was wearing mask, gloves, and utilizing proper hand hygiene. All equipment was properly cleansed. 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 Normal [facility] Comment on above: Result Comment: Elec tronically Signed By: Jose Damon PA-C\.br\Date and Time Signed: 10/25/21 16:11 EDT\.br\Electronically Co-Signed By: Piotr Chan M.D.\.br\Date and Time Co-Signed: 10/25/21 16:41 EDT ED Patient Education Noteon 10-25-2021 ED Patient Education Note Normal [facility] ED Patient Summaryon 022 ED Patient Summary [place] [id number] Patient Discharge Instructions Person Information Name: WALT SKELTON Age: 76 Years Arrival Date: 10/25/2021 14:59:50 Discharge Diagnosis: 1:Renal calculus, bilateral; 2:Other acute kidney failure; 3:Hypothyroid; 4:No contraindication to deep vein thrombosis (DVT) prophylaxis Primary Care Physician: UZIEL HALLMAN DO Provider Information Primary Provider: Rocio Morris, Piotr Bland Advanced Equity Director:Jose Damon PA-C The exam and treatment you received in the Emergency Department were for an urgent problem and are not intended as complete care. It is important that you follow up with a doctor, nurse practitioner, or physician?s bilingual sales assistant for ongoing care. If your symptoms become worse or you do not improve as expected and you are unable to reach your usual health care provider, you should return to the Emergency Department. We are available 24 hours a day. WALT SKELTON has been given the following list of patient education materials, prescriptions and follow-up instructions: Follow-up Instructions: In the event that this physician does not participate in your insurance network, please consult with your insurance company to find a nearby participating provider. Patient Education Materials: A MESSAGE TO ALL PATIENTS REGARDING OPIOIDS PRESCRIPTION OPIOIDS: WHAT YOU NEED TO KNOW Prescription opioids can be used to help relieve oeoiqjmo-ni-qxfpyb pain and are often prescribed following a surgery or injury, or for certain health conditions. These medications can be an important part of the treatment but also come with serious risks. It is important to work with your healthcare provider to make sure you are getting the safest, most effective care. WHAT ARE THE RISKS AND SIDE EFFECTS OF OPIOID USE? Prescription opioids carry serious risks of addiction and overdose, especially with prolonged use. An opioid overdose, often marked by slowed breathing, can cause sudden . The use of prescription opioids can have a number of side effects as well, even when taken as directed: ? Tolerance?meaning you might need to take more of the medication for the same pain relief ? Physical dependence?meaning you have symptoms of withdrawal when a medication is stopped ? Increased sensitivity to pain ? Constipation ? Nausea, vomiting, and dry mouth ? Sleepiness and dizziness ? Confusion ? Depression ? Low levels of testosterone that can result in lower sex drive, energy, and strength ? Itching and sweating RISKS ARE GREATER WITH: ? History of drug misuse, substance use disorder, or overdose ? Mental health conditions (such as depression or anxiety) ? Sleep apnea ? Older age (65 years and older) ? Avoid alcohol while taking prescription opioids. Also, unless specifically advised by your health care provider, medications to avoid include: ? Benzodiazepines (such as Xanax or Valium) ? Muscle relaxants (such as Soma or Flexeril) ? Hypnotics (such as Ambien or Lunesta) ? Other prescription opioids KNOW YOUR OPTIONS Talk to your health care provider about ways to manage your pain that don?t involve prescription opioids. Some of these options may actually work better and have fewer risks and side effects. Options may include: ? Pain relievers such as acetaminophen, ibuprofen, and naproxen ? Some medication that are also used for depression or seizures ? Physical therapy and exercise ? Cognitive behavioral therapy, a psychological, goal-directed approach, in which patients learn how to modify physical, behavioral, and emotional triggers of pain and stress. IF YOU ARE PRESCRIBED OPIOIDS FOR PAIN: ? Never take opioids in greater amounts or more often than prescribed. ? Follow up with your primary health care provider. o Work together to create a plan on how to manage your pain. o Talk about ways to help manage your pain that don?t involve prescription opioids. o Talk about any and all concerns and side effects. ? Help prevent misuse and abuse o Never sell or share prescription opioids. o Never use another person?s prescription opioids. ? Store prescription opioids in a secure place and out of reach of others (this may include visitors, children, friends, and family). ? Safely dispose of unused prescription opioids: Find your community drug take-back program or your pharmacy mail-back program, or flush them down the toilet, following guidance from the Food and Drug Administration (www.fda.gov/Drugs/Re sourcesForYou). ? Visit www.cdc.gov/drugoverd ose to learn about the risks of opioids abuse and overdose. ? If you believe you may be struggling with addiction, tell your health acute care nurse practitioner and ask for guidance or call [facility] National Helpline at 5-536-434-LXDX. v Source: US Department of Health and (more content not included)... Normal [facility] HEMATOLOGYOrdered By: SYSTEM SYSTEM on 10-25-2021 Basophils/100 WBC (Bld) 0.4 % Normal 0.0 - 2.0 % [facility] HemeAutoSS Basophils/Leukocyt es Auto (Bld) [Pure # fraction] 0.0 E9/L Normal 0.0 - 0.2 E9/L [facility] HemeAutoSS Eosinophils/100 WBC (Bld) 0.6 % Normal 0.0 - 8.0 % [facility] HemeAutoSS Eosinophils/Leukoc ytes Auto (Bld) [Pure # fraction] 0.1 E9/L Normal 0.0 - 0.5 E9/L [facility] HemeAutoSS Lymphocytes/100 WBC (Bld) 6.8 % Low 14.0 - 50.0 % [facility] HemeAutoSS Lymphocytes/Leukoc ytes Auto (Bld) [Pure # fraction] 0.6 E9/L Low 1.0 - 4.0 E9/L [facility] HemeAutoSS Monocytes/100 WBC (Bld) 10.0 % Normal 4.0 - 14.0 % [facility] HemeAutoSS Monocytes/Leukocyt es Auto (Bld) [Pure # fraction] 0.9 E9/L Normal 0.2 - 1.0 E9/L [facility] HemeAutoSS Neutrophils/100 WBC (Bld) 82.2 % High 36.0 - 75.0 % [facility] HemeAutoSS Neutrophils/Leukoc ytes Auto (Bld) [Pure # fraction] 7.4 E9/L Normal 2.0 - 7.5 E9/L [facility] HemeAutoSS HEMATOLOGYOrdered By: Evie alvarenga on 10-25-2021 Erythrocyte distribution width (RBC) [Ratio] 14.1 % Normal 10.9 - 14.2 % [facility] HemeAutoSS Hematocrit (Bld) [Volume fraction] 41.8 % Normal 37.7 - 49.0 % [facility] HemeAutoSS Hemoglobin (Bld) [Mass/Vol] 14.2 g/dL Normal 13.5 - 17.5 gm/dL [facility] HemeAutoSS MCH (RBC) [Entitic mass] 29.2 pg Normal 27.0 - 34.0 pg [facility] HemeAutoSS MCHC (RBC) [Mass/Vol] 33.9 g/dL Normal 31.4 - 36.0 gm/dL [facility] HemeAutoSS MCV (RBC) [Entitic vol] 86.1 fL Normal 80.0 - 100.0 fL [facility] HemeAutoSS Platelet mean volume (Bld) [Entitic vol] 7.1 fL Normal 6.4 - 10.8 fL [facility] HemeAutoSS Platelets (Bld) [#/Vol] 262.0 E9/L Normal 150.0 - 500.0 E9/L [facility] HemeAutoSS RBC (Bld) [#/Vol] 4.9 E12/L Normal 4.3 - 5.9 E12/L [facility] HemeAutoSS WBC corrected for nucl RBC Auto (Bld) [#/Vol] 9.0 E9/L Normal 4.0 - 11.0 E9/L [facility] HemeAutoSS XR Abdomen 1 Viewon 10-26-19 22 XR Abdomen 1 View Exam Date/Time: 10/25/2021 15:45 EDT Reason for Exam: Kidney stone Report IMPRESSION: THERE ARE NO ACUTE INTRA-ABDOMINAL CHANGES. CLINICAL HISTORY: Kidney stone COMPARISON: NONE. FINDINGS: The bowel gas pattern is unremarkable. There are no dilated loops of bowel. Overlying bowel gas and contents limit evaluation for renal stones. There are degenerative changes of the lumbar spine. There calcified phleboliths in the pelvis. FINAL REPORT Dictated: 10/25/2021 3:58 pm Guicho Cohen MD, V. Signed (Electronic Signature): 10/25/2021 3:58 pm Signed by: Guicho Cohen MD, V. Transcribed by: BEV Technologist: KAREN Hagan [facility] eGFRon 10-25-2021 GFR/1.73 sq M.predicted among blacks MDRD (S/P/Bld) [Vol rate/Area] 21 mL/min/1.73 m2 Low >=59 [facility] Comment on above: Order Comment: Order added by Discern Expert. Result Comment: eGFR is race adjusted. AA=. Performed By: #### 2 [id number], [id number], [id number], [id number] ####[facility] [address] [place] [address] GFR/1.73 sq M.predicted among non-blacks MDRD (S/P/Bld) [Vol rate/Area] 17 mL/min/1.73 m2 Low >=59 [facility] Comment on above: Order Comment: Order added by Discern Expert. Result Comment: Paving Rammer gavi kidney disease could be indicated at eGFR's of less than 60 mL/min/1.73m2. Kidney failure is indicated at less than 15 mL/min/1.73m2. Performed By: #### 2 [id number], [id number], [id number], [id number] ####[facility] [address] [place] [address] CBC AUTO DIFFon 10-24-2021 BASO # 0.0 103/ul Normal 0.0-0.1 [facility] Comment on above: Performed By: #### C BC ####[facility] [address] [place] [id number]. Keaton Tan Basophils/100 WBC (Bld) 0.3 % Normal 0.2-2.0 [facility] Comment on above: Performed By: #### C BC ####[facility] [address] [place], [place] [address]Dr. Keaton Tan EO # 0.2 103/ul Normal 0.0-0.7 [facility] Comment on above: Performed By: #### C BC ####[facility] [address] [place], [place] [address]Dr. Keaton Tan Eosinophils/100 WBC (Bld) 3.3 % Normal 0.9-7.0 [facility] Comment on above: Performed By: #### C BC ####[facility] [address] [place], [place] [address]Dr. Keaton Tan Erythrocyte distribution width (RBC) [Ratio] 13.3 % Normal 11.0-15.0 [facility] Comment on above: Performed By: #### C BC ####[facility] [address] [place], [place] [address]Dr. Keaton Tan Hematocrit (Bld) [Volume fraction] 43.7 % Normal 42.0-54.0 [facility] Comment on above: Performed By: #### C BC ####[facility] [address] [place], [place] [address]Dr. Keaton Tan Hemoglobin (Bld) [Mass/Vol] 14.2 g/dL Normal 14.0-18.0 [facility] Comment on above: Performed By: #### C BC ####[facility] [address] [place], [place] [address]Dr. Keaton Tan IG # 0.02 10e3/ul Normal 0.00-0.03 [facility] Comment on above: Performed By: #### C BC ####[facility] [address] [place], [place] [address]Dr. Keaton Tan IG % 0.3 % Normal 0.0-0.5 [facility] Comment on above: Performed By: #### C BC ####[facility] [address] [place] [address]Dr. Keaton Dominick LYMPH # 1.4 103/ul Normal 1.2-3.8 [facility] Comment on above: Performed By: #### C BC ####[facility] [address] [place] [address]Dr. Gertrudisdelfina Tan Lymphocytes/100 WBC (Bld) 19.9 % Critically low 20.5-60.0 [facility] Comment on above: Performed By: #### C BC ####[facility] [address] [place] [address]Dr. Keaton Tan MANUAL DIFF REQ NO Normal [facility] Comment on above: Performed By: #### C BC ####[facility] [address] [place], [place] [address]Dr. Keaton Tan MCH (RBC) [Entitic mass] 28.9 pg Normal 25.9-34.0 [facility] Comment on above: Performed By: #### C BC ####[facility] [address] [place], [place] [address]Dr. Gertrudisdelfina Tan MCHC (RBC) [Mass/Vol] 32.5 g/dL Normal 29.9-35.2 [facility] Comment on above: Performed By: #### C BC ####[facility] [address] [place] [address]Dr. Keaton Tan MCV (RBC) [Entitic vol] 89.0 fL Normal 80.0-94.0 [facility] Comment on above: Performed By: #### C BC ####[facility] [address] [place], [place] [address]Dr. Keaton Tan MONO # 0.6 103/ul Normal 0.3-0.8 [facility] Comment on above: Performed By: #### C BC ####[facility] [address] [place], [place] [address]Dr. Keaton Tan Monocytes/100 WBC (Bld) 7.9 % Normal 1.7-12.0 [facility] Comment on above: Performed By: #### C BC ####[facility] [address] [place] [address]Dr. Keaton Tan NEUT # 4.8 103/ul Normal 1.4-6.5 [facility] Comment on above: Performed By: #### C BC ####[facility] [address] [place] [address]Dr. Keaton Tan Neutrophils/100 WBC (Bld) 68.3 % Normal 43.0-75.0 [facility] Comment on above: Performed By: #### C BC ####[facility] [address] [place] [address]Dr. Keaton Tan Platelet mean volume (Bld) [Entitic vol] 9.0 fL Critically low 9.5-13.5 [facility] Comment on above: Performed By: #### C BC ####[facility] [address] [place] [address]Dr. Keaton Tan PLT 306 103/ul Normal 150-450 [facility] Comment on above: Performed By: #### C BC ####[facility] [address] [place] [address]Dr. Keaton Tan RBC 4.91 106/ul Normal 4.70-6.10 [facility] Comment on above: Performed By: #### C BC ####[facility] [address] [place] [address]Dr. Keaton Tan WBC 7.0 103/ul Normal 4.0-11.0 [facility] Comment on above: Performed By: #### C BC ####[facility] [address] [place], [place] [address]Dr. Keaton Tan CT ABD/PELVIS WO CONon 10-24 CT ABD/PELVIS WO CON EXAMINATION: CT ABD/PELVIS WO CON HISTORY: Lemuel hematuria , left lower quadrant pain COMPARISON: No relevant comparison available. TECHNIQUE: Axial, Coronal, and Sagittal images were created without IV contrast. Dose reduction techniques were achieved by using automated exposure control and/or adjustment of mA and/or kV according to patient size and/or use of iterative reconstruction technique. FINDINGS: LUNG BASES: Trace amount of infiltrate versus scarring within posterior lateral lingula near diaphragm. LIVER: 2 small hypodensities within the right lobe, nonspecific but statistically favoring cysts or hemangiomas. BILIARY: No dilatation or calcification. PANCREAS: No lesion, fluid collection, ductal dilatation, or atrophy. SPLEEN: No enlargement or focal lesion. ADRENALS: No mass or enlargement. KIDNEYS: 5 x 4 x 4 mm nonobstructing stone within distal right ureter. Incidental parapelvic cysts within right kidney. Partially obstructing 7 x 6 x 5 mm stone within proximal left ureter at ureteropelvic junction. Additional parapelvic cysts. No additional urinary tract calculi. BOWEL/MESENTERY: Diverticulosis of sigmoid colon without acute inflammatory changes. No visible mass, obstruction, or bowel wall thickening. AORTA/VASCULAR: No aneurysm or dissection. RETROPERITONEUM: No mass or adenopathy. LYMPH NODES: No adenopathy. URINARY BLADDER: No visible focal wall thickening, lesion, or calculus. PELVIC ORGANS: No visible mass. Pelvic organs appropriate for patient age. ABDOMINAL WALL: No mass or hernia. BONES: Multilevel marked degenerative disc disease. OTHER: Negative. IMPRESSION: 1. Nonobstructing proximal right ureteral stone. 2. Partially (minimally) obstructing proximal left ureteral stone. Electronically authenticated by: CHRISTOPHER BRIONES Date: 2021-10-24 17:14 Normal [facility] CULTURE URINEon 10-24-2021 CULTURE URINE Culture Observations : No growth Normal [facility] Comment on above: Performed By: #### U RCX #### [facility] [address] [address] [address] Keaton Tan ER URINE PROFILEon 2 Bilirubin Ql (U) SMALL Abnormal NEGATIVE [facility] Comment on above: Performed By: #### E RUY UMICRO #### [facility] [address] [address] [address] Keaton Tan Clarity (U) TURBID Abnormal CLEAR [facility] Comment on above: Performed By: #### E RUY UMICRO #### [facility] [address] [address] [address] Keaton Tan Color (U) BROWN Abnormal YELLOW [facility] Comment on above: Performed By: #### E RUR, UMICRO #### [facility] [address] [place] [address] Dr. Keaton L[place] A micrscopic examination will be performed if indicated. Normal [facility] Comment on above: Performed By: #### Heather REDMOND UMICRO #### [facility] [address] [place] [address] Dr. Keaton Tan Glucose Ql (U) Negative Normal NEGATIVE [facility] Comment on above: Performed By: #### Heather REDMOND UMICRO #### [facility] [address] [place] [address] Dr. Keaton Tan Hemoglobin Ql (U) LARGE Abnormal NEGATIVE [facility] Comment on above: Performed By: #### Heather REDMOND UMICRO #### [facility] [address] [place] [address] Dr. Keaton Tan Ketones Ql (U) TRACE Abnormal NEGATIVE [facility] Comment on above: Performed By: #### Heather REDMOND UMICRO #### [facility] [address] [place] [address] Dr. Keaton Tan LEUKOCYTES Negative Normal NEGATIVE [facility] Comment on above: Performed By: #### Heather REDMOND UMICRO #### [facility] [address] [place] [address] Dr. Keaton Tan Nitrite Ql (U) Negative Normal NEGATIVE [facility] Comment on above: Performed By: #### Heather REDMOND UMICRO #### [facility] [address] [place] [address] Dr. Keaton Tan pH (U) 5.5 [pH] Normal 5-9 [facility] Comment on above: Performed By: #### Heather REDMOND UMICRO #### [facility] [address] [place] [address] Dr. Keaton Tan Protein (U) [Mass/Vol] 100 mg/dL Abnormal NEGATIVE/ TRACE [facility] Comment on above: Performed By: #### Heather REDMOND UMICRO #### [facility] [address] [place] [address] Dr. Keaton Tan SPEC GRAVITY >=1.030 Abnormal 1.005-<=1.025 [facility] Comment on above: Performed By: #### SARAY ANDREWS #### [facility] [address] [place] [address] Dr. Keaton Tan UR MICRO IND INDICATED Normal [facility] Comment on above: Performed By: #### SARAY ANDREWS #### [facility] [address] [place] [address] Dr. Keaton Tan Urobilinogen Qn (U) 0.2 {Whitney'U}/dL Normal 0.2 - 1.0 [facility] Comment on above: Performed By: #### SARAY ANDREWS #### [facility] [address] [place] [address] Dr. Keaton Tan PROF 14(COMP METB)on 022 Albumin [Mass/Vol] 3.5 g/dL Normal 3.4-5.0 [facility] Comment on above: Performed By: #### C MP ####[facility] [address] [address]DrJak Tan Albumin/Globulin [Mass ratio] 1.1 {ratio} Normal [facility] Comment on above: Performed By: #### C MP ####[facility] [address] [address]DrJak Tan ALP [Catalytic activity/Vol] 97 U/L Normal 46-116 [facility] Comment on above: Performed By: #### C MP ####[facility] [address] [address]DrJak Tan ALT [Catalytic activity/Vol] 21 U/L Normal 16-63 [facility] Comment on above: Performed By: #### C MP ####[facility] [address] [address]DrJak Tan Anion gap [Moles/Vol] 14.6 mmol/L Normal [facility] Comment on above: Performed By: #### C MP ####[facility] [address] [place], [place] [address]DrJak Tan AST [Catalytic activity/Vol] 16 U/L Normal 15-37 [facility] Comment on above: Performed By: #### C MP ####[facility] [address] [address]Dr. Keaton Tan Bilirubin [Mass/Vol] 0.5 mg/dL Normal 0.2-1.0 [facility] Comment on above: Performed By: #### C MP ####[facility] [address] [place], [place] [address]Dr. Keaton Tan Calcium [Mass/Vol] 8.3 mg/dL Critically low 8.5-10.1 [facility] Comment on above: Performed By: #### C MP ####[facility] [address] [place], [place] [address]Dr. Keaton Tan Chloride [Moles/Vol] 101 mmol/L Normal 98-107 [facility] Comment on above: Performed By: #### C MP ####[facility] [address] [place], [place] [address]Dr. Keaton Tan CO2 [Moles/Vol] 26.0 mmol/L Normal 21.0-32.0 [facility] Comment on above: Performed By: #### C MP ####[facility] [address] [place], [place] [address]Dr. Keaton Tan Creatinine [Mass/Vol] 0.95 mg/dL Normal 0.70-1.30 [facility] Comment on above: Performed By: #### C MP ####[facility] [address] [place], [place] [address]Dr. Keaton Dominick EGFR-AF IRAQI >60 Normal >=60 [facility] Comment on above: Performed By: #### C MP ####[facility] [address] [place], [place] [address]Dr. Gertrudisdelfina Dominick EGFR-NON AF IRAQI >60 Normal >=60 [facility] Comment on above: Performed By: #### C MP ####[facility] [address] [place], [place] [address]Dr. Keaton Domincik Globulin (S) [Mass/Vol] 3.2 g/dL Normal [facility] Comment on above: Performed By: #### C MP ####[facility] [address] [id number]. Keaton Tan Glucose [Mass/Vol] 132 mg/dL Critically high 74-106 [facility] Comment on above: Performed By: #### C MP ####[facility] [address] [id number]. Keaton Tan Potassium [Moles/Vol] 3.6 mmol/L Normal 3.5-5.1 [facility] Comment on above: Performed By: #### C MP ####[facility] [address] [address]Dr. Keaton Tan Protein [Mass/Vol] 6.7 g/dL Normal 6.1-8.2 [facility] Comment on above: Performed By: #### C MP ####[facility] [address] [address]Dr. Keaton Tan Sodium [Moles/Vol] 138 mmol/L Normal 136-145 [facility] Comment on above: Performed By: #### C MP ####[facility] [address] [address]DrJak Tan Urea nitrogen [Mass/Vol] 21.0 mg/dL Critically high 7.0-18.0 [facility] Comment on above: Performed By: #### C MP ####[facility] [address] [address]DrJak Tan Urea nitrogen/Creatinin e [Mass ratio] 22.1 mg/mg Normal [facility] Comment on above: Performed By: #### C MP ####[facility] [address] [id number]. Keaton Tan PROTIMEon 10-24-2021 INR Coag (PPP) [Relative time] 1.01 {INR} Normal [facility] Comment on above: Performed By: #### P TT, PT #### [facility] [address] [address] [address] Keaton Tan INR GUIDELINES SEE BELOW Normal [facility] Comment on above: Result Comment: JOZEF RED INR: 2.0 - 3.0 CONDITIONS NOT LISTED BELOW 2.5 - 3.5 FOR PROSTHETIC HEART VALVE REPLACEMENT 2.5 - 3.5 RECURRENT THROMBOSIS Performed By: #### P TT, PT #### [facility] [address] [place] [address] Dr. Keaton Tan PT Coag (PPP) [Time] 10.9 s Normal 9.0-11.6 [facility] Comment on above: Performed By: #### P TT, PT #### [facility] [address] [place] [address] Dr. Keaton Tan PTTon 10-24-2021 aPTT Coag (Bld) [Time] 29.0 s Normal 22.3-36.2 [facility] Comment on above: Performed By: #### P TT, PT #### [facility] [address] [place] [address] Dr. Keaton Tan URINE MICROSCOPIC ONLYon BACTERIA SMALL Abnormal NONE SEEN [facility] Comment on above: Performed By: #### E RUR, UMICRO #### [facility] [address] [place] [address] Dr. Keaton Tan Bacteria identified Cx Nom (U) INDICATED Normal [facility] Comment on above: Performed By: #### E RUR, UMICRO #### [facility] [address] [place] [address] Dr. Keaton Tan CAST NONE SEEN Normal NONE SEEN [facility] Comment on above: Performed By: #### E RUR, UMICRO #### [facility] [address] [place] [address] Dr. Keaton Tan Crystals LM Nom (Urine sed) NONE SEEN Normal NONE SEEN [facility] Comment on above: Performed By: #### E RUR, UMICRO #### [facility] [address] [place] [address] Dr. Keaton Tan Epithelial cells LM Ql (Urine sed) FEW Abnormal NONE SEEN /RARE [facility] Comment on above: Performed By: #### E RUR, UMICRO #### [facility] [address] [address] [address] Keaton Tan MUCOUS LARGE Abnormal NONE SEEN [facility] Comment on above: Performed By: #### SARAY ANDREWS #### [facility] [address] [address] [address] Keaton Tan RBC (U) [#/Vol] /uL Abnormal 0-2 [facility] Comment on above: Performed By: #### SARAY ANDREWS #### [facility] [address] [address] [address] Keaton Tan WBC 0-2 Abnormal NONE SEEN [facility] Comment on above: Performed By: #### SARAY ANDREWS #### [facility] [address] [address] [address] Keaton Tan ECHOCARDIO M/2D COMPLETEon 1 08-01-2020 ECHOCARDIO M/2D COMPLETE Patient: WALT SKELTON Exam Date: 05/31/2021 : 1945 Gender:M Ordering : DR UZIEL HALLMAN D.O. Admission #: [id number] Family : Order #: [id number] CLICK HERE TO VIEW EXAM ECHOCARDIOGRAM REPORT PROCEDURE: CARDIO PULMONARY ECHOCARDIO M/2D COMP INDICATIONS: Cardiac murmur, Visual disturbance COMPARISON: None. DESCRIPTION: COMPLETE ECHOCARDIOGRAM Real-time transthoracic echocardiography with 2D, M-mode, spectral and color flow Doppler performed. QUALITY: Technical quality was good. LEFT VENTRICLE: Normal chamber size. Normal left ventricular wall thickness. No regional wall motion abnormalities. Visual EF 65% LV EF: Normal left ventricular ejection fraction, (>55%). DIASTOLIC: Diastolic function is indeterminate. ATRIAL SEPTUM: Agitated saline contrast does not reveal an intra-cardiac shunt. LEFT ATRIUM: Normal chamber size. RIGHT ATRIUM: Normal chamber size. RIGHT VENTRICLE: Normal in size. Normal systolic function. TRICUSPID VALVE: Normal mobility and thickness. No stenosis with mild regurgitation. Doppler studies reveal mildly (35-45) elevated right sided pressures. RVSP 35 mmHg MITRAL VALVE: Normal mobility and thickness. No evidence of mitral valve stenosis. There is no mitral annular calcification. Mild mitral regurgitation. AORTIC VALVE: Normal trileaflet appearance. Normal leaflet mobility. No evidence of aortic valve stenosis. Mild aortic regurgitation. AORTIC ROOT: Normal diameter and appearance. Ascending aorta is normal in size. PULMONIC VALVE: Normal thickness and mobility. No stenosis. Mild to moderate regurgitation. PERICARDIUM: No evidence of pericardial effusion. IVC: Collapses with inspirations. CONCLUSION: Global left ventricular systolic function is normal; visually estimated ejection fraction 60 to 65%. No wall motion abnormalities. Diastolic function is indeterminate. Right ventricle is normal in size and systolic function. Mild tricuspid regurgitation. Mildly elevated right-sided pressures. Mild mitral regurgitation. Mild aortic regurgitation. Mild to moderate pulmonic regurgitation. Adult Echocardiography Procedure Report Left Ventricle LVEDD (3.7 - 5.6 cm): 4.60 cm LVESD (2.2 - 4.0 cm): 3.01 cm LVIVS thickness (0.6 - 1.2 cm): 1.12 cm LVPW thickness (0.5 - 1.0 cm): 7.22 mm e': 11.40 cm/s E - e': 4.60 LVOT Area (cm2): 4.15 cm2 LVOT Diameter 2.30 cm Left Ventricular Ejection Fraction: 63.70 % Left Atrium LA Volume Index (2D A2C): 29.90 ml/m2 Left Atrium Systolic Dimension: 3.90 cm Left Atrium Systolic Area(A2C): 19.10 cm2 Left Atrium Systolic Area(A4C): 14.80 cm2 Left Atrium Systolic Volume(A2C): 00478 mm3 Left Atrium Systolic Volume(A4C): 71840 mm3 Mitral Valve MV E to A Ratio: 0.70 Mitral Valve A-Wave Peak Velocity: 77.50 cm/s Mitral Valve E-Wave Peak Velocity: 52.30 cm/s Deceleration Time: 232 ms Right Ventricle Aorta AO Root Diam: 3.80 cm Aortic Valve Peak Velocity (Antegrade Flow): 117.00 cm/s AoV Area (Peak Jeet): 2.88 cm2 Peak Velocity(Antegrade Flow): 120.00 cm/s Peak Gradient(Antegrade Flow): 6 mm[Hg] Tricuspid Valve Peak Velocity (Regurgitant Flow): 228.00 cm/s Pulmonic Valve Peak Velocity: 137.00 cm/s Peak Gradient: 8 mm[Hg] Right Atrium Dictated by: Ivory Short M.D. on 06/01/2021 at 16:10 Approved by: Ivory Short M.D. on 06/01/2021 at 16:16 Normal [facility] US CAROTID ART BILon 021 US CAROTID ART SHANTA EXAMINATION: US CAROTID ART SHANTA HISTORY: Dizziness and giddiness COMPARISON: No relevant comparison available. TECHNIQUE: Duplex Doppler ultrasound analysis of carotid and vertebral arteries. . Bilateral carotid arterial duplex examination was performed using B-mode, color flow and spectral analysis. Carotid stenosis is reported according to validated velocity parameters, similar to NASCET criteria. FINDINGS: RIGHT CAROTID ARTERY: Mild plaque without significant stenosis. RIGHT VERTEBRAL: Antegrade flow. Subclavian: PSV: 214.2 cm/s EDV: 0.0 cm/s CCA: Prox: PSV: 124.0 cm/s EDV: 13.6 cm/s Mid: PSV: 98.4 cm/s EDV: 15.6 cm/s Distal: PSV: 82.6 cm/s EDV: 17.5 cm/s BULB: PSV: 47.2 cm/s EDV: 8.7 cm/s ICA: Prox: PSV: 76.2 cm/s EDV: 16.7 cm/s Mid: PSV: 93.5 cm/s EDV: 24.1 cm/s Distal: PSV: 114.1 cm/s EDV: 31.3 cm/s ECA: PSV: 150.1 cm/s EDV: 13.6 cm/s VERTEBRAL: PSV: 33.9 cm/s EDV: 9.5 cm/s ICA/CCA ratio: PSV: 1.4 EDV: 1.8 LEFT CAROTID ARTERY: Mild plaque without significant stenosis. LEFT VERTEBRAL: Antegrade flow. Subclavian: PSV: 155.4 cm/s EDV: 0.0 cm/s CCA: Prox: PSV: 85.4 cm/s EDV: 12.8 cm/s Mid: PSV: 69.3 cm/s EDV: 12.8 cm/s Distal: PSV: 75.7 cm/s EDV: 16.0 cm/s BULB: PSV: 38.4 cm/s EDV: 8.7 cm/s ICA: Prox: PSV: 77.4 cm/s EDV: 20.8 cm/s Mid: PSV: 87.1 cm/s EDV: 24.1 cm/s Distal: PSV: 119.4 cm/s EDV: 30.5 cm/s ECA: PSV: 169.6 cm/s EDV: 16.4 cm/s VERTEBRAL: PSV: 75.8 cm/s EDV: 17.6 cm/s ICA/CCA ratio: PSV: 1.6 EDV: 1.9 IMPRESSION: 1. 0-49% flow stenosis within the right and left carotid arteries. 2. Minimal atherosclerotic disease. Electronically authenticated by: CHRISTOPHER BRIONES Date: 2021-05-31 16:06 Normal [facility] Vital Signs Date Time Vital Sign Value Performing Clinician Facility 08-22-2022 09:52-0500 Blood Pressure Location [facility] 08-22-2022 09:52-0500 Diastolic blood pressure 61 mm[Hg] [facility] 08-22-2022 09:52-0500 Heart rate 76 /min [facility] 08-22-2022 09:52-0500 Respiratory rate 16 /min [facility] 08-22-2022 09:52-0500 Systolic blood pressure 125 mm[Hg] [facility] 12-28-2021 10:35-0400 Blood Pressure Location [facility] 12-28-2021 10:35-0400 Body temperature 97.7 [degF] [facility] 12-28-2021 10:35-0400 Diastolic blood pressure 72 mm[Hg] [facility] 12-28-2021 10:35-0400 Heart rate 75 /min [facility] 12-28-2021 10:35-0400 Mean blood pressure 94 mm[Hg] [facility] 12-28-2021 10:35-0400 Systolic blood pressure 138 mm[Hg] [facility] 12-28-2021 10:33-0400 Blood Pressure Location [facility] 12-28-2021 10:33-0400 BP/Pulse Patient Position [facility] 12-28-2021 10:33-0400 Diastolic blood pressure 68 mm[Hg] [facility] 12-28-2021 10:33-0400 Heart rate 80 /min [facility] 12-28-2021 10:33-0400 Mean blood pressure 86 mm[Hg] [facility] 12-28-2021 10:33-0400 Respiratory rate 16 /min [facility] 12-28-2021 10:33-0400 SaO2% (BldA) [Mass fraction] 97 % [facility] 12-28-2021 10:33-0400 Systolic blood pressure 123 mm[Hg] [facility] 11-23-2021 13:36-0400 Blood Pressure Location [facility] 11-23-2021 13:36-0400 Body temperature 98.06 [degF] [facility] 11-23-2021 13:36-0400 Diastolic blood pressure 77 mm[Hg] [facility] 11-23-2021 13:36-0400 Heart rate 53 /min [facility] 11-23-2021 13:36-0400 Mean blood pressure 104 mm[Hg] [facility] 11-23-2021 13:36-0400 Respiratory rate 18 /min [facility] 11-23-2021 13:36-0400 SaO2% (BldA) [Mass fraction] 97 % [facility] 11-23-2021 13:36-0400 Systolic blood pressure 158 mm[Hg] [facility] 11-23-2021 13:26-0400 Body temperature 97.7 [degF] [facility] 11-23-2021 13:26-0400 Diastolic blood pressure 60 mm[Hg] [facility] 11-23-2021 13:26-0400 Heart rate 58 /min [facility] 11-23-2021 13:26-0400 Respiratory rate 20 /min [facility] 11-23-2021 13:26-0400 SaO2% (BldA) [Mass fraction] 96 % [facility] 11-23-2021 13:26-0400 Systolic blood pressure 141 mm[Hg] [facility] 11-23-2021 13:20-0400 Diastolic blood pressure 72 mm[Hg] [facility] 11-23-2021 13:20-0400 Heart rate 57 /min [facility] 11-23-2021 13:20-0400 Respiratory rate 18 /min [facility] 11-23-2021 13:20-0400 SaO2% (BldA) [Mass fraction] 94 % [facility] 11-23-2021 13:20-0400 Systolic blood pressure 159 mm[Hg] [facility] 11-23-2021 13:05-0400 Respiratory rate 22 /min [facility] 11-23-2021 12:40-0400 Blood Pressure Location [facility] 11-23-2021 12:40-0400 Body temperature 97.7 [degF] [facility] 11-23-2021 12:36-0400 Blood Pressure Location [facility] 11-23-2021 12:30-0400 Respiratory rate 30 /min [facility] 11-23-2021 12:25-0400 Respiratory rate 30 /min [facility] 11-23-2021 12:20-0400 Body temperature 96.8 [degF] [facility] 11-23-2021 12:15-0400 Body temperature 96.8 [degF] [facility] 11-23-2021 12:10-0400 Body temperature 96.8 [degF] [facility] 11-23-2021 10:21-0400 Mean blood pressure 96 mm[Hg] [facility] 11-23-2021 10:20-0400 Body temperature 97.7 [degF] [facility] 11-23-2021 10:20-0400 Mean blood pressure 97 mm[Hg] [facility] 11-23-2021 10:20-0400 Heart rate 62 /min [facility] 10-27-2021 10:07-0400 Hourly Rounding [facility] 10-27-2021 10:07-0400 Promise to Return [facility] 10-27-2021 09:11-0400 Hourly Rounding [facility] 10-27-2021 09:11-0400 Promise to Return [facility] 10-27-2021 08:59-0400 Diastolic blood pressure 78 mm[Hg] [facility] 10-27-2021 08:59-0400 Systolic blood pressure 158 mm[Hg] [facility] 10-27-2021 08:11-0400 Promise to Return [facility] 10-27-2021 07:57-0400 SaO2% (BldA) [Mass fraction] 97 % [facility] 10-27-2021 03:40-0400 Body temperature 97.52 [degF] [facility] 10-27-2021 03:40-0400 Heart rate 68 /min [facility] 10-27-2021 03:40-0400 Respiratory rate 16 /min [facility] 10-27-2021 03:40-0400 SaO2% (BldA) [Mass fraction] 96 % [facility] 10-26-2021 23:51-0400 SaO2% (BldA) [Mass fraction] 96 % [facility] 10-26-2021 23:25-0400 Body temperature 98.42 [degF] [facility] 10-26-2021 23:25-0400 Diastolic blood pressure 78 mm[Hg] [facility] 10-26-2021 23:25-0400 Heart rate 75 /min [facility] 10-26-2021 23:25-0400 Respiratory rate 16 /min [facility] 10-26-2021 23:25-0400 Systolic blood pressure 148 mm[Hg] [facility] 10-26-2021 20:25-0400 Body temperature 98.06 [degF] [facility] 10-26-2021 20:25-0400 Heart rate 77 /min [facility] 10-26-2021 20:25-0400 Respiratory rate 16 /min [facility] 10-26-2021 15:45-0400 Mean blood pressure 100 mm[Hg] [facility] 10-26-2021 14:00-0400 Blood Pressure Location [facility] [facility] 10-26-2021 14:00-0400 Body temperature 97.88 [degF] Hasan AMIR [facility] 10-26-2021 14:00-0400 Mean blood pressure 91 mm[Hg] Hasan AM[facility] 10-26-2021 13:45-0400 Blood Pressure Location [facility]an AM[facility] 10-26-2021 13:45-0400 Mean blood pressure 87 mm[Hg] Hasan AM[facility] 10-26-2021 13:45-0400 Respiratory rate 16 /min Hasan AM[facility] 10-26-2021 13:40-0400 Blood Pressure Location Hasan AMIR [facility] 10-26-2021 13:40-0400 Mean blood pressure 85 mm[Hg] Hasan AMIR [facility] 10-26-2021 13:40-0400 Respiratory rate 16 /min Hasan AM[facility] 10-26-2021 13:33-0400 Body temperature 96.98 [degF] Hasan AMIR [facility] 10-26-2021 08:09-0400 BP/Pulse Patient Position [facility]an AMIR [facility] 10-26-2021 03:00-0400 BP/Pulse Patient Position [facility] 10-26-2021 00:00-0400 BP/Pulse Patient Position Hasan AMIR [facility] 10-25-2021 19:52-0400 Mean blood pressure 80 mm[Hg] Hasan AMIR [facility] 10-25-2021 18:09-0400 Mean blood pressure 93 mm[Hg] Hasan AMIR [facility] 10-25-2021 18:08-0400 Heart rate 68 /min Hasan AMIR [facility] 10-25-2021 18:07-0400 Heart rate 68 /min Hasan AMIR [facility] 10-25-2021 15:03-0400 Heart rate 75 /min Hasan AMIR [facility] Encounters Encounter Date Encounter Type Care Provider Facility Start: 08-27-2023 ambulatory Joey DAVIS Facility :[facility] Start: 08-22-2022 End: 08-23-2022 ambulatory Joey DAVIS Facility: [facility] Start: 08-22-2022 End: 08-22-2022 Patient encounter procedure Joey DAVIS [facility] Start: 08-20-2022 End: 08-21-2022 ambulatory Joey DAVIS Facility:[facility] Start: 08-20-2022 End: 08-20-2022 Patient encounter procedure Joey DAVIS [facility] Start: 05-21-2022 End: 05-22-[address] UZIEL HALLMAN Facility: Start: 01-04-2022 End: 01-04-2022 ambulatory Joey DAVIS Facility:[facility] Start: 12-28-2021 End: 12-29-2021 ambulatory Joey DAVIS Facility:[facility] Start: 12-28-2021 End: 12-28-2021 Patient encounter procedure Joey DAVIS [facility] Start: 12-04-2021 End: 12-05-2021 ambulatory Joey DAVIS Facility:[facility] Start: 12-04-2021 End: 12-05-2021 ambulatory Joey DAVIS Facility:[facility] Start: 12-04-2021 End: 12-04-2021 Patient encounter procedure Joey DAVIS [facility] Start: 12-04-2021 End: 12-04-2021 Patient encounter procedure Joey DAVIS [facility] Start: 11-23-2021 End: 11-23-2021 ambulatory Joey DAVIS Facility:[facility] Start: 11-23-2021 End: 11-23-2021 Admission to same day surgery center Joey DAVIS [facility] Start: 11-13-2021 End: 11-14-2021 ambulatory Joey DAVIS Facility:[facility] Start: 11-13-2021 End: 11-13-2021 Patient encounter procedure Joey DAVIS [facility] Start: 11-09-2021 End: 11-10-2021 ambulatory Joey DAVIS Facility:[facility] Start: 11-09-2021 End: 11-09-2021 Patient encounter procedure Joey DAVIS [facility] Start: 10-27-2021 ambulatory Joey MARIBEL Facility:[facility] Start: 04-29-2022 ambulatory Joey DAVIS Facility:[facility] Start: 10-25-2021 End: 10-27-2021 ambulatory Hasan AMIR Facility:[facility] Start: 10-25-2021 End: 10-27-2021 Observation Hasan AMIR [facility] Start: 10-24-2021 End: 10-24-[address] CHRISTOPHER BRIONES Facility:[facility] Start: 05-31-2021 End: 06-01-[address] UZIEL HALLMAN Facility:[facility] Procedures Date Procedure Procedure Detail Performing Clinician Start: 05-21-[address] CHRISTOPHER BRIONES Comment on above: Performed By: #### [facility], FT4 ####[address] [id number] Keaton Dominick Start: 01-04-2022 Cystoscopy Joey DAVIS Start: 11-23-2021 Extracorporeal shockwave lithotripsy of calculus of kidney Joey DAVIS Start: 10-26-2021 Cystoscopy Hasan AMIR Comment on above: stent placement Start: 07-01-2015 Structure of eye proper (body structure) Hasan AMIR Comment on above: Bilateral lens implants Start: 09-21-2013 Excision of ganglion of wrist, recurrent Hasan AMIR Start: 07-01-2013 Upper limb structure (body structure) Hasan AMIR Comment on above: left arm plates and screws Start: 07-01-2012 Esophagogastroduodenoscopy gastric outlet reduction Hasan AMIR Start: 07-01-2010 Extracorporeal shockwave lithotripsy of calculus of kidney Hasan AMIR Cataract extraction and insertion of intraocular lens Joey DAVIS Colonoscopy Hasan AMIR History of subtotal thyroidectomy Hasan AMIR INGUINAL HERNIA REPAIR,RIGHT Hasluis alfredo AMIR OPEN REDUCTION LEFT RADIUS H haydee AMIR Payers Date Payer Category Payer Medicare [id number] 1958 Unknown [id number] 1945 Unknown [id number] 2.16.84 [id number] 1945 Unknown [id number] 2.16.84 [id number] 1945 Unknown [id number] 2.16.84 0.1.078171.3.579.2.593 1945 Unknown [id number] 2.16.8 40.1.843934.3.579.2.727 1945 Unknown [id number] 2.16.8 40.1.549339.3.579.2.727 1946 Unknown [id number] 2.16.84 0.1.280448.3.579.2.727 1946 Unknown [id number] 2.16.8 40.1.167942.3.579.2.727 1946 Unknown [id number] 2.16.8 40.1.604084.3.579.2.727 1946 Unknown [id number] 2.16.8 40.1.812696.3.579.2.727 1946 Unknown [id number] 2.16.8 40.1.114596.3.579.2.727 1946 Unknown [id number] 2.16.8 40.1.268968.3.579.2.727 1946 Unknown [id number] 2.16.8 40.1.021709.3.579.2.727 1946 Unknown [id number] 2.16.8 40.1.133063.3.579.2.727 1946 Unknown [id number] 2.16.8 40.1.740495.3.579.2.727 1946 Unknown [id number] 2.16.8 40.1.334245.3.579.2.727 1945 Unknown [id number] 2.16.8 [id number] Social History Date Type Detail Facility Start: 11-08-2020 End: 08-22-2022 Tobacco smoking status Never smoked tobacco (finding) [facility] Sex Assigned At Male [facility] Medical Equipment Procedure Code Equipment Code Equipment Origin al Text Equipment Identifier Dates {[id number] [address] [facility] Start: 10-26-2021 Functional Status Date Assessment Result Facility 08-22-2022 Functional Status N/A [facility] 12-28-2021 Functional Status No [facility] Clinical Notes 10-25-2021 to 08-22-2022 Note Date & Type Note Facility 08-22-2022 Hospital Discharg e instructions Patient Education 08/22/2022 10:18:31 Kidney Stones, Birt-fr-Gysj Kidney Stones Kidney stones are rock-like masses that form inside of the kidneys. Kidneys are organs that make pee (urine). A kidney stone may move into other parts of the urinary tract, including: The tubes that connect the kidneys to the bladder (ureters). The bladder. The tube that carries urine out of the body (urethra). Kidney stones can cause very bad pain and can block the flow of pee. The stone usually leaves your body (passes) through your pee. You may need to have a doctor take out the stone. What are the causes? Kidney stones may be caused by: A condition in which certain glands make too much parathyroid hormone (primary hyperparathyroidism). A buildup of a type of crystals in the bladder made of a chemical called uric acid. The body makes uric acid when you eat certain foods. Narrowing (stricture) of one or both of the ureters. A kidney blockage that you were born with. Past surgery on the kidney or the ureters, such as gastric bypass surgery. What increases the risk? You are more likely to develop this condition if: You have had a kidney stone in the past. You have a family history of kidney stones. You do not drink enough water. You eat a diet that is high in protein, salt (sodium), or sugar. You are overweight or very overweight (obese). What are the signs or symptoms? Symptoms of a kidney stone may include: Pain in the side of the belly, right below the ribs (flank pain). Pain usually spreads (radiates) to the groin. Needing to pee often or right away (urgently). Pain when going pee (urinating). Blood in your pee (hematuria). Feeling like you may vomit (nauseous). Vomiting. Fever and chills. How is this treated? Treatment depends on the size, location, and makeup of the kidney stones. The stones will often pass out of the body through peeing. You may need to: Drink more fluid to help pass the stone. In some cases, you may be given fluids through an IV tube put into one of your veins at the hospital. Take medicine for pain. Make changes in your diet to help keep kidney stones from coming back. Sometimes, medical procedures are needed to remove a kidney stone. This may involve: A procedure to break up kidney stones using a beam of light (laser) or shock waves. Surgery to remove the kidney stones. Follow these instructions at home: Medicines Take qokl-cjc-hdxmvib and prescription medicines only as told by your doctor. Ask your doctor if the medicine prescribed to you requires you to avoid driving or using heavy machinery. Eating and drinking Drink enough fluid to keep your pee pale yellow. You may be told to drink at least 8 10 glasses of water each day. This will help you pass the stone. If told by your doctor, change your diet. This may include: ?Limiting how much salt you eat. ?Eating more fruits and vegetables. ?Limiting how much meat, poultry, fish, and eggs you eat. Follow instructions from your doctor about eating or drinking restrictions. General instructions Collect pee samples as told by your doctor. You may need to collect a pee sample: ?24 hours after a stone comes out. ?8 12 weeks after a stone comes out, and every 6 12 months after that. Strain your pee every time you pee (urinate), for as long as told. Use the strainer that your doctor recommends. Do not throw out the stone. Keep it so that it can be tested by your doctor. Keep all follow-up visits as told by your doctor. This is important. You may need follow-up tests. How is this prevented? To prevent another kidney stone: Drink enough fluid to keep your pee pale yellow. This is the best way to prevent kidney stones. Eat healthy foods. Avoid certain foods as told by your doctor. You may be told to eat less protein. Stay at a healthy weight. Where to find more information National Kidney Foundation (NKF): www.kidney.org [employer] (UCF): www.urologyhealth.org Contact a doctor if: You have pain that gets worse or does not get better with medicine. Get help right away if: You have a fever or chills. You get very bad pain. You get new pain in your belly (abdomen). You pass out (faint). You cannot pee. Summary Kidney stones are rock-like masses that form inside of the kidneys. Kidney stones can cause very bad pain and can block the flow of pee. The stones will often pass out of the body through peeing. Drink enough fluid to keep your pee pale yellow. This information is not intended to replace advice given to you by your health care provider. Make sure you discuss any questions you have with your health care provider. Document Released: 12/03/2008 Document Revised: 11/03/2019 Document Reviewed: 11/03/2019 [employer] Patient Education 2019 [employer]. Follow Up Care 08/23/2021 10:36:48 With:MARIBEL ANN, Joey Cantu, URL Address: [address] [place] [address] When: Unknown [facility] 01-05-2022 Note [id number]:127 [facility] 12-19-2021 Note [id number]:127 [facility] 12-04-2021 Hospital Discharg e instructions Patient Education 12/04/2021 11:40:19 Lithotripsy, Care After Lithotripsy, Care After This sheet gives you information about how to care for yourself after your procedure. Your health care provider may also give you more specific instructions. If you have problems or questions, contact your health care provider. What can I expect after the procedure? After the procedure, it is common to have: Some blood in your urine. This should only last for a few days. Soreness in your back, sides, or upper abdomen for a few days. Blotches or bruises on your back where the pressure wave entered the skin. Pain, discomfort, or nausea when pieces (fragments) of the kidney stone move through the tube that carries urine from the kidney to the bladder (ureter). Stone fragments may pass soon after the procedure, but they may continue to pass for up to 4 8 weeks. ?If you have severe pain or nausea, contact your health care provider. This may be caused by a large stone that was not broken up, and this may mean that you need more treatment. Some pain or discomfort during urination. Some pain or discomfort in the lower abdomen or (in men) at the base of the penis. Follow these instructions at home: Medicines Take fyuf-kuj-yrkzdgv and prescription medicines only as told by your health care provider. If you were prescribed an antibiotic medicine, take it as told by your health care provider. Do not stop taking the antibiotic even if you start to feel better. Do not drive for 24 hours if you were given a medicine to help you relax (sedative). Do not drive or use heavy machinery while taking prescription pain medicine. Eating and drinking Drink enough water and fluids to keep your urine clear or pale yellow. This helps any remaining pieces of the stone to pass. It can also help prevent new stones from forming. Eat plenty of fresh fruits and vegetables. Follow instructions from your health care provider about eating and drinking restrictions. You may be instructed: ?To reduce how much salt (sodium) you eat or drink. Check ingredients and nutrition facts on packaged foods and beverages. ?To reduce how much meat you eat. Eat the recommended amount of calcium for your age and gender. Ask your health care provider how much calcium you should have. General instructions Get plenty of rest. Most people can resume normal activities 1 2 days after the procedure. Ask your health care provider what activities are safe for you. Your health care provider may direct you to lie in a certain position (postural drainage) and tap firmly (percuss) over your kidney area to help stone fragments pass. Follow instructions as told by your health care provider. If directed, strain all urine through the strainer that was provided by your health care provider. ?Keep all fragments for your health care provider to see. Any stones that are found may be sent to a medical lab for examination. The stone may be as small as a grain of salt. Keep all follow-up visits as told by your health care provider. This is important. Contact a health care provider if: You have pain that is severe or does not get better with medicine. You have nausea that is severe or does not go away. You have blood in your urine longer than your health care provider told you to expect. You have more blood in your urine. You have pain during urination that does not go away. You urinate more frequently than usual and this does not go away. You develop a rash or any other possible signs of an allergic reaction. Get help right away if: You have severe pain in your back, sides, or upper abdomen. You have severe pain while urinating. Your urine is very dark red. You have blood in your stool (feces). You cannot pass any urine at all. You feel a strong urge to urinate after emptying your bladder. You have a fever or chills. You develop shortness of breath, difficulty breathing, or chest pain. You have severe nausea that leads to persistent vomiting. You faint. Summary After this procedure, it is common to have some pain, discomfort, or nausea when pieces (fragments) of the kidney stone move through the tube that carries urine from the kidney to the bladder (ureter). If this pain or nausea is severe, however, you should contact your health care provider. Most people can resume normal activities 1 2 days after the procedure. Ask your health care provider what activities are safe for you. Drink enough water and fluids to keep your urine clear or pale yellow. This helps any remaining pieces of the stone to pass, and it can help prevent new stones from forming. If directed, strain your urine and keep all fragments for your health care provider to see. Fragments or stones may be as small as a grain of salt. Get help right away if you have severe pain in your back, sides, or upper abdomen or have severe pain while urinating. This information is not intended to replace advice given to you by your health care provider. Make sure you discuss any questions you have with your health care provider. Document Released: 07/06/2008 Document Revised: 09/28/2019 Document Reviewed: 05/08/2017 [employer] Patient Education 2019 [employer]. [facility] 11-23-2021 Hospital Discharg e instructions Patient Education 11/23/2021 12:41:03 Post Op Patient Instructions - FT (CUSTOM) 11/23/2021 10:55:00 Lithotripsy, Care After Lithotripsy, Care After This sheet gives you information about how to care for yourself after your procedure. Your health care provider may also give you more specific instructions. If you have problems or questions, contact your health care provider. What can I expect after the procedure? After the procedure, it is common to have: Some blood in your urine. This should only last for a few days. Soreness in your back, sides, or upper abdomen for a few days. Blotches or bruises on your back where the pressure wave entered the skin. Pain, discomfort, or nausea when pieces (fragments) of the kidney stone move through the tube that carries urine from the kidney to the bladder (ureter). Stone fragments may pass soon after the procedure, but they may continue to pass for up to 4 8 weeks. ?If you have severe pain or nausea, contact your health care provider. This may be caused by a large stone that was not broken up, and this may mean that you need more treatment. Some pain or discomfort during urination. Some pain or discomfort in the lower abdomen or (in men) at the base of the penis. Follow these instructions at home: Medicines Take yxro-gzx-wbfzldu and prescription medicines only as told by your health care provider. If you were prescribed an antibiotic medicine, take it as told by your health care provider. Do not stop taking the antibiotic even if you start to feel better. Do not drive for 24 hours if you were given a medicine to help you relax (sedative). Do not drive or use heavy machinery while taking prescription pain medicine. Eating and drinking Drink enough water and fluids to keep your urine clear or pale yellow. This helps any remaining pieces of the stone to pass. It can also help prevent new stones from forming. Eat plenty of fresh fruits and vegetables. Follow instructions from your health care provider about eating and drinking restrictions. You may be instructed: ?To reduce how much salt (sodium) you eat or drink. Check ingredients and nutrition facts on packaged foods and beverages. ?To reduce how much meat you eat. Eat the recommended amount of calcium for your age and gender. Ask your health care provider how much calcium you should have. General instructions Get plenty of rest. Most people can resume normal activities 1 2 days after the procedure. Ask your health care provider what activities are safe for you. Your health care provider may direct you to lie in a certain position (postural drainage) and tap firmly (percuss) over your kidney area to help stone fragments pass. Follow instructions as told by your health care provider. If directed, strain all urine through the strainer that was provided by your health care provider. ?Keep all fragments for your health care provider to see. Any stones that are found may be sent to a medical lab for examination. The stone may be as small as a grain of salt. Keep all follow-up visits as told by your health care provider. This is important. Contact a health care provider if: You have pain that is severe or does not get better with medicine. You have nausea that is severe or does not go away. You have blood in your urine longer than your health care provider told you to expect. You have more blood in your urine. You have pain during urination that does not go away. You urinate more frequently than usual and this does not go away. You develop a rash or any other possible signs of an allergic reaction. Get help right away if: You have severe pain in your back, sides, or upper abdomen. You have severe pain while urinating. Your urine is very dark red. You have blood in your stool (feces). You cannot pass any urine at all. You feel a strong urge to urinate after emptying your bladder. You have a fever or chills. You develop shortness of breath, difficulty breathing, or chest pain. You have severe nausea that leads to persistent vomiting. You faint. Summary After this procedure, it is common to have some pain, discomfort, or nausea when pieces (fragments) of the kidney stone move through the tube that carries urine from the kidney to the bladder (ureter). If this pain or nausea is severe, however, you should contact your health care provider. Most people can resume normal activities 1 2 days after the procedure. Ask your health care provider what activities are safe for you. Drink enough water and fluids to keep your urine clear or pale yellow. This helps any remaining pieces of the stone to pass, and it can help prevent new stones from forming. If directed, strain your urine and keep all fragments for your health care provider to see. Fragments or stones may be as small as a grain of salt. Get help right away if you have severe pain in your back, sides, or upper abdomen or have severe pain while urinating. This information is not intended to replace advice given to you by your health care provider. Make sure you discuss any questions you have with your health care provider. Document Released: 07/06/2008 Document Revised: 09/28/2019 Document Reviewed: 05/08/2017 [employer] Patient Education 2020 [employer]. Follow Up Care 11/13/2021 09:23:58 With:Joey DAVIS Address: [address] [place], [place] [id number] [facility] (1) When:1 to 2 weeks Comments:Call for followup appointment, with an abdominal X-ray prior to your visit. [facility] 11-23-2021 Evaluation + Plan note Extrac claudia from: Title:ANES POSTOP MAC/GEN NOTE Author:Kenneth Ramirez JR Date:11/23/21 Plan Transfer/ Discharge: Patient can be discharged from PACU when criteria met. Condition good. Extracted from: Title:ANES PREOP GEN ADULT NOTE Author:Kenneth Martinez JR, DO Date:11/23/21 Plan [place] [employer] (ASA) physical status classification: Class II. Anesthetic Preoperative Plan Anesthesia: General. . Anesthetic plan, risks, benefits, and alternatives discussed with the patient and/or family. Pt. and/or family present and agree to proceed as planned.. Discussed the importance of abstaining from tobacco products, and offered counseling if desired. Future Appointments Appointment Date:08/22/2022 09:30:00 AM Scheduled Provider:Joey DAVIS MD Location: Appointment Type:URO Office Visit [facility]05-17-2022 Note [id number]:127[facility] 11-13-2021 NoteChief Complaint Fu to procedure HPI Staff Follow up to cysto , left retrograde, left double J-stent placement, rt retrograde, rt ureteroscopy, ureteroscopic stone basket extraction, right double J-stent placement done 10/26/21 Dysuria: intermittent burning towards the end Incomplete blader emptying: no Hematuria: constant since procedure Frequency: yes Urgency: sudden severe Nocturia: every 2 hours Stream: weaker stream Leaking: no Post void dripping: no Wearing pads/ Depends: no Urge incontinence: no Stress incontinence: no Incontinence without Sensory Awareness: no Abdominal pain: mild low stomach pain Flank pain: no Sexual complaints: no History of Present Illness I have reviewed and verified the staff HPI to be accurate for this encounter. Review of Systems ROS - Provider Constitutional: denies weight loss, denies hot flashes. Eyes: denies eye problems. Gastrointestinal: denies nausea, denies vomiting. Cardiovascular: denies chest pain or angina. Integumentary: no dryness Musculoskeletal: denies musculoskeletal symptoms. ENMT: denies otolaryngeal symptoms. Respiratory: no shortness of breath. Heme/Lymph: denies easy bleeding tendency, denies easy bruising tendency. Psychiatric: no confusion, no anxiety. Genitourinary: denies dysuria, denies hematuria, denies discharge, denies urinary frequency, deniesurinary hesitancy, denies nocturia, denies incontinence, denies genital sores, denies decreased libido, and denies erectile dysfunction. Physical Exam Vitals & Measurements HT: 170.0 cm HT: 170.0 cm WT: 75.0 kg WT: 75 kg BMI: 25.95 General Appearance: alert, no distress, well nourished, well developed male. Genitourinary: normal scrotum, normal testes, normal urethra, normal epididymis, normal vas deferens/spermatic cord. Flank Pain: none. Bladder: nonpalpable. Assessment/Plan 1. Benign localized hyperplasia of prostate with urinary retention (N40.1: Benign prostatic hyperplasia with lower urinary tract symptoms) No current BPH medications. Reports severe urgency, dysuria and hematuria. Also reports mild low stomach pains. 2. Kidney stone (N20.0: Calculus of kidney) Cysto , left retrograde, left double J-stent placement, rt retrograde, rt ureteroscopy, ureteroscopic stone basket extraction, right double J-stent placement done 10/26/21 Left UPG stone and left kidney stone. Will order a right cysto with a right stent removal, and thena left ESWL. Will schedule ESWL. The procedure risks, benefits, details and treatment alternatives have been discussed with the patient. These include blood in the urine, infection, bleeding around the kidney, kidney bruising, inability to break up the stone, need for blood transfusion, blockage from stone fragments, and need for additional procedures, among others. Full informed consent has been obtained. Will order General anesthesia. 3. Urge incontinence (N39.41: Urge incontinence) No urge incontinence at this time, but sudden severe urgency. 4. Left hydrocele (N43.3: Hydrocele, unspecified) Mild left hydrocele noted on last exam on 08/10/20. Family history of malignant neoplasm of prostate (Z80.42: Family history of malignant neoplasm of prostate) Obstructive and reflux uropathy, unspecified (N13.9: Obstructive and reflux uropathy, unspecified) Other retention of urine (R33.8: Other retention of urine) Overall this patient has the recurrent kidney stones. He is now status post ureteroscopic extraction of a large right distal ureteral stone and a stent placement as well as a stent placement for an obstructing large left upper ureteral calculus. Reviewed KUB which demonstrates what looks to be 2 stones in the left upper ureter and possibly a small left kidney stone as well. I have advised lithotripsy of the left UPJ stone and the patient knows this may be a staged procedure. He understands that ureteroscopy and laser ablation may be in his future depending on results of lithotripsy. Cystoscopy and stent removal will be performed at the same time to remove the right stent. He understands the risk of general anesthesia with heart and lung problems etc. Follow-up With When Contact Information MARIBEL ANN, Joey Cantu, URZahida [address] [facility] [address] [place] [phone]- Additional Instructions: will schedule follow up after procedure Patient Education Kidney Stones, [id number]-[id number] Benign Prostatic Hyperplasia Samuel Aaron personally scribed for Dr. Davis on 11/13/2021 09:11:35. . Documentation recorded by the Samuel interiano, accurately reflects the services(s) I performed and decisions made by me. Authenticated by Dr. Davis on 11/13/2021 09:12:57. 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 Benign localized hyperplasia of prosta (more content not included)...[facility]Result Comment: Electronically Signed By: Joey DAVIS MD\.br\Date and Time Signed: 11/13/21 09:13 EDT\.br\Electronically Co-Signed By: Samuel Rodgers\.br\Date and Time Co- Signed: 11/13/21 09:[id number] Hospital Discharge instructions Patient Education 11/13/2021 09:05:39 Kidney Stones, Eqsp-tm-Ggef Kidney Stones Kidney stones are rock-like masses that form inside of the kidneys. Kidneys are organs that make pee (urine). A kidney stone may move into other parts of the urinary tract, including: The tubes that connect the kidneys to the bladder (ureters). The bladder. The tube that carries urine out of the body (urethra). Kidney stones can cause very bad pain and can block the flow of pee. The stone usually leaves your body (passes) through your pee. You may need to have a doctor take out the stone. What are the causes? Kidney stones may be caused by: A condition in which certain glands make too much parathyroid hormone (primary hyperparathyroidism). A buildup of a type of crystals in the bladder made of a chemical called uric acid. The body makes uric acid when you eat certain foods. Narrowing (stricture) of one or both of the ureters. A kidney blockage that you were born with. Past surgery on the kidney or the ureters, such as gastric bypass surgery. What increases the risk? You are more likely to develop this condition if: You have had a kidney stone in the past. You have a family history of kidney stones. You do not drink enough water. You eat a diet that is high in protein, salt (sodium), or sugar. You are overweight or very overweight (obese). What are the signs or symptoms? Symptoms of a kidney stone may include: Pain in the side of the belly, right below the ribs (flank pain). Pain usually spreads (radiates) to the groin. Needing to pee often or right away (urgently). Pain when going pee (urinating). Blood in your pee (hematuria). Feeling like you may vomit (nauseous). Vomiting. Fever and chills. How is this treated? Treatment depends on the size, location, and makeup of the kidney stones. The stones will often pass out of the body through peeing. You may need to: Drink more fluid to help pass the stone. In some cases, you may be given fluids through an IV tube put into one of your veins at the hospital. Take medicine for pain. Make changes in your diet to help keep kidney stones from coming back. Sometimes, medical procedures are needed to remove a kidney stone. This may involve: A procedure to break up kidney stones using a beam of light (laser) or shock waves. Surgery to remove the kidney stones. Follow these instructions at home: Medicines Take wzui-yre-hibzpum and prescription medicines only as told by your doctor. Ask your doctor if the medicine prescribed to you requires you to avoid driving or using heavy machinery. Eating and drinking Drink enough fluid to keep your pee pale yellow. You may be told to drink at least 8 10 glasses of water each day. This will help you pass the stone. If told by your doctor, change your diet. This may include: ?Limiting how much salt you eat. ?Eating more fruits and vegetables. ?Limiting how much meat, poultry, fish, and eggs you eat. Follow instructions from your doctor about eating or drinking restrictions. General instructions Collect pee samples as told by your doctor. You may need to collect a pee sample: ?24 hours after a stone comes out. ?8 12 weeks after a stone comes out, and every 6 12 months after that. Strain your pee every time you pee (urinate), for as long as told. Use the strainer that your doctor recommends. Do not throw out the stone. Keep it so that it can be tested by your doctor. Keep all follow-up visits as told by your doctor. This is important. You may need follow-up tests. How is this prevented? To prevent another kidney stone: Drink enough fluid to keep your pee pale yellow. This is the best way to prevent kidney stones. Eat healthy foods. Avoid certain foods as told by your doctor. You may be told to eat less protein. Stay at a healthy weight. Where to find more information National Kidney Foundation (NKF): www.kidney.org [facility] (F): www.urologyhealth.org Contact a doctor if: You have pain that gets worse or does not get better with medicine. Get help right away if: You have a fever or chills. You get very bad pain. You get new pain in your belly (abdomen). You pass out (faint). You cannot pee. Summary Kidney stones are rock-like masses that form inside of the kidneys. Kidney stones can cause very bad pain and can block the flow of pee. The stones will often pass out of the body through peeing. Drink enough fluid to keep your pee pale yellow. This information is not intended to replace advice given to you by your health care provider. Make sure you discuss any questions you have with your health care provider. Document Released: 12/03/2008 Document Revised: 11/03/2019 Document Reviewed: 11/03/2019 [employer] Patient Education 2020 [employer]. 11/13/2021 07:30:53 Benign Prostatic Hyperplasia Benign Prostatic Hyperplasia Benign prostatic hyperplasia (BPH) is an enlarged prostate gland that is caused by the normal agingprocess and not by cancer. The prostate is a walnut-sized gland that is involved in the production of semen. It is located in front of the rectum and below the bladder. The bladder stores urine and the urethra is the tube that carries the urine out of the body. The prostate may get bigger as a man gets older. An enlarged prostate can press on the urethra. This can make it harder to pass urine. The build-up of urine in the bladder can cause infection. Back pressure and infection may progress to bladder damage and kidney (renal) failure. What are the causes? This condition is part of a normal aging process. However, not all men develop problems from this condition. If the prostate enlarges away from the urethra, urine flow will not be blocked. If it enlarges toward the urethra and compresses it, there will be problems passing urine. What increases the risk? This condition is more likely to develop in men over the age of 50 years. What are the signs or symptoms? Symptoms of this condition include: Getting up often during the night to urinate. Needing to urinate frequently during the day. Difficulty starting urine flow. Decrease in size and strength of your urine stream. Leaking (dribbling) after urinating. Inability to pass urine. This needs immediate treatment. Inability to completely empty your bladder. Pain when you pass urine. This is more common if there is also an infection. Urinary tract infection (UTI). How is this diagnosed? This condition is diagnosed based on your medical history, a physical exam, and your symptoms. Tests will also be done, such as: A post-void bladder scan. This measures any amount of urine that may remain in your bladder after you finish urinating. A digital rectal exam. In a rectal exam, your health care provider checks your prostate by putting a lubricated, gloved finger into your rectum to feel the back of your prostate gland. This exam detects the size of your gland and any abnormal lumps or growths. An exam of your urine (urinalysis). A prostate specific antigen (PSA) screening. This is a blood test used to screen for prostate cancer. An ultrasound. This test uses sound waves to electronically produce a picture of your prostate gland. Your health care provider may refer you to a specialist in kidney and prostate diseases (urologist). How is this treated? Once symptoms begin, your health care provider will monitor your condition (active surveillance or watchful waiting). Treatment for this condition will depend on the severity of your condition. Treatment may include: Observation and yearly exams. This may be the only treatment needed if your condition and symptoms are mild. Medicines to relieve your symptoms, including: ?Medicines to shrink the prostate. ?Medicines to relax the muscle of the prostate. Surgery in severe cases. Surgery may include: ?Prostatectomy. In this procedure, the prostate tissue is removed completely through an open incision or with a laparoscope or robotics. ?Transurethral resection of the prostate (TURP). In this procedure, a tool is inserted through the opening at the tip of the penis (urethra). It is used to cut away tissue of the inner core of the prostate. The pieces are removed through the same opening of the penis. This removes the blockage. ?Transurethral incision (TUIP). In this procedure, small cuts are made in the prostate. This lessens the prostate's pressure on the urethra. ?Transurethral microwave thermotherapy (TUMT). This procedure uses microwaves to create heat. The heat destroys and removes a small amount of prostate tissue. ?Transurethral needle ablation (TUNA). This procedure uses radio frequencies to destroy and remove a small amount of prostate tissue. ?Interstitial laser coagulation (ILC). This procedure uses a laser to destroy and remove a small amount of prostate tissue. ?Transurethral electrovaporization (TUVP). This procedure uses electrodes to destroy and remove a small amount of prostate tissue. ?Prostatic urethral lift. This procedure inserts an implant to push the lobes of the prostate away from the urethra. Follow these instructions at home: Take junn-umd-ytmjmic and prescription medicines only as told by your health care provider. Monitor your symptoms for any changes. Contact your health care provider with any changes. Avoid drinking large amounts of liquid before going to bed or out in public. Avoid or reduce how much caffeine or alcohol you drink. Give yourself time when you urinate. Keep all follow-up visits as told by your health care provider. This is important. Contact a health care provider if: You have unexplained back pain. Your symptoms do not get better with treatment. You develop side effects from the medicine you are taking. Your urine becomes very dark or has a bad smell. Your lower abdomen becomes distended and you have trouble passing your urine. Get help right away if: You have a fever or chills. You suddenly cannot urinate. You feel lightheaded, or very dizzy, or you faint. There are large amounts of blood or clots in the urine. Your urinary problems become hard to manage. You develop moderate to severe low back or flank pain. The flank is the side of your body between the ribs and the hip. These symptoms may represent a serious problem that is an emergency. Do not wait to see if the symptoms will go away. Get medical help right away. Call your local emergency services (911 in the [place] Do not drive yourself to the hospital. Summary Benign prostatic hyperplasia (BPH) is an enlarged prostate that is caused by the normal aging process and not by cancer. An enlarged prostate can press on the urethra. This can make it hard to pass urine. This condition is part of a normal aging process and is more likely to develop in men over the age of 50 years. Get help right away if you suddenly cannot urinate. This information is not intended to replace advice given to you by your health care provider. Make sure you discuss any questions you have with your health care provider. Document Released: 06/17/2006 Document Revised: 05/12/2019 Document Reviewed: 07/22/2017 [employer] Patient Education 2020 [employer]. Follow Up Care 10/27/2021 08:21:24 With:MARIBEL ANN, Joey Cantu, URL Address: [address] [phone]- When: Unknown Comments:will schedule follow up after procedure [facility] 04-29-2022 Evaluation + Plan noteExtracted from: Title:Progress Note * Author:Dickson Sanches MD Santana e:10/27/21 Impression and Plan 1. MARKUS - due to obstructive uropathy and component of AIN from kidney stones. may also have a component of volume depletion. No need for emergent HD. With IVF, kidney function continue to show improvement. Will continue to follow up with urology. Continue to avoid nephrotoxic agents. 2. ?CKD - unknown baseline. Will see where the cr will level out at Extracted from: Title:Discharge Note Author:Mckay FORREST MD Date: 10/27/21 Discharge Status: Improved Discharge Instructions Given: To patient Discharge disposition: Home Prescriptions reviewed with PatientPatient 1. Renal calculus, bilateral (N20.0: Calculus of kidney) 2. Other acute kidney failure (N17.8: Other acute kidney failure) 3. Hypothyroid (E03.9: Hypothyroidism, unspecified) 4. No contraindication to deep vein thrombosis (DVT) prophylaxis (Z78.9: Other specified health status) Hydronephrosis with ureteral calculus (N13.2: Hydronephrosis with renal and ureteral calculous obstruction) Orders: cephalexin, 500 mg = 1 cap(s), Oral, TID, X 3 day(s), # 9 cap(s), Refills(s) 0, Pharmacy: [facility]/pharmacy #[id number], 170, cm, 10/25/21 16:22:00 EDT, Height/Length Dosing, 75.5, kg, 10/25/21 16:22:00 EDT, Weight Dosing Discharge Patient Incentive Spirometry Troponin 3 Hr. Troponin 6 Hr. Troponin 9 Hr. Prescriptions Keflex 500 mg Cap, 500 mg= 1 cap(s), Oral, TID Home [place] Thyroid 60 mg Tab, 60 mg= 1 tab(s), Oral, Daily mometasone Top 0.1% Crm 15 gram, 1 jarrod, Topical, Daily mometasone Top 0.1% Lotion, 1 jarrod, Topical, Daily ondansetron 4 mg Dis Tab, 4 mg= 1 tab(s), Oral, q6hr, PRN tamsulosin 0.4 mg Cap, 0.4 mg= 1 cap(s), Oral, Daily With When Contact Information Joey DAVIS 11/13/2021 08:30 AM EDT [address] [address]- Business (1) Additional Instructions: abdominal X-ray prior to your office visit. We will make decisions regarding the stone in the left upper ureter, as well as when to remove the right stent.Call central scheduling at [phone] ext [phone] to schedule xrlorrie UZIEL ARAUJORING Within 3 to [address] [place] [phone]- Business (1) Additional Instructions: Call for followup appointment Kidney Stones, Zijd-[id number] Extracted from: Title:Inpatient Consultation-Floor Code* Author: Dickson Sanches MD Date:10/26/21 Impression and Plan 1. MARKUS - due to obstructive uropathy and component of AIN from kidney stones. may also have a component of volume depletion. No need for emergent HD. Agree with IVF and await on urology consult. continue to avoid nephrotoxic agents. Will follow out kidney function. 2. ?CKD - unknown baseline. Will see where the cr will level out at Extracted from: Title:Urology Consult and H&P 2 Author:Joey DAVIS MD Date:10/26/21 Impression and Plan Diagnosis Renal calculus, bilateral ([id number] N20.0, Discharge, Medical). Other acute kidney failure ([id number] N17.8, Discharge, Medical). Hydronephrosis with ureteral calculus ([id number] N13.2, Working, Medical). Complaint of Hematuria (PNED [id number], Reason For Visit, Nursing). Condition: Fair. Course: Worsening, Discussed with Dr. Forrest, discussed with the patient, reviewed CT scan report from the [facility], reviewed KUBs from this admission. In summary this patient has bilateral ureteral calculi and fairly florid renal failure. KUB is inconclusive for distal passage of either calculus secondary to the number of phleboliths. Patient's urine output has improved with fluid hydration. Initial bladder scan in the emergency room was only for 30 cc. The patient's pain has always been either in the right or left lower abdomen/inguinal region and never was in the flank. However CT scan findings are as noted above. I discussed options but the most obvious course is to proceed to the operating room for cystoscopy and bilateral retrograde pyelograms and the possibility of a ureteroscopic stone basket extraction or laser ablation, especially on the right side. Unclear as to the location of the left ureteral calculus but again it is difficult to tell based on KUB. The possibility of stent placement has been discussed, depending on findings. Operative intervention is indicated he is certainly aware the risk benefits and details of this procedure as outlined to him. He understands the risk of the need for additional procedures, the risk of ureteral injury, risk of stent pain and irritation among others. Intravenous antibiotics already being administered by primary service. Thank for consultation. Over 50% of this consultation is dedicated to chart review, lab review, discussion with primary service, discussion with patient, coordination of care, and the other 50% dedicated to yehg-yo-hcvu patient contact. 80 minutes spent.. Extracted from: Title:APSO Note Author:Mckay FORREST MD Date: 1. Renal calculus, bilateral (N20.0: Calculus of kidney) - 5x4x4 mm non obstructing stone within distal right ureter and partially obstructing 7x6x5 mm stone within the left ureter on CT imaging from [place] 10/23 - d/w urology Dr. Davis, plan for OR tomorrow, NPO for OR today - IVF, ceftriaxone IV Ordered: 2. Other acute kidney failure (N17.8: Other acute kidney failure) - secondary to a combination of pre-renal causes, may have obstructive component - IVF, BMP in AM - hold nephrotoxic meds -slight decrease in Cr today, will consult nephrology, will attempt to get baseline labs from PCP and from visit at [place] 3. Hypothyroid (E03.9: Hypothyroidism, unspecified) - [place] thyroid 4. No contraindication to deep vein thrombosis (DVT) prophylaxis (Z78.9: Other specified health status) - [facility] Orders: acetaminophen, 650 mg = 2 tab(s), Tab, Oral, q6hr PRN Pain, Routine, Start date 10/25/21 17:06:00 EDT, 10/25/21 17:06:00 EDT Al hydroxide/Mg hydroxide/simethicone, 30 mL, Susp-Oral, Oral, q6hr PRN Indigestion, STAT, Start date 10/25/21 17:06:00 EDT ceftriaxone + Sodium Chloride 0.9% intravenous solution 50 mL, 1,000 mg = 1 EA, Injection, IV Piggyback, Daily, Routine, Start date 10/26/21 9:00:00 EDT, 100 mL/hr, Infuse over 30 minute(s) magnesium hydroxide, 30 mL, Susp-Oral, Oral, q6hr PRN Constipation, STAT, Start date 10/25/21 17:06:00 EDT morphine, 2 mg = 1 mL, Injection, IV Push, q4hr PRN Pain for 5 day(s), Stop date 10/30/21 17:05:00 EDT, Routine, Start date 10/25/21 17:06:00 EDT, 10/25/21 17:06:00 EDT ondansetron, 4 mg = 2 mL, Injection, IV Push, q6hr PRN Nausea, Routine, Start date 10/25/21 17:06:00 EDT, 10/25/21 17:06:00 EDT Sodium Chloride 0.9% intravenous solution 1,000 mL, 1,000 mL, IV, 125 mL/hr, Routine, Start date 10/25/21 17:06:00 EDT, 8 hour(s), Total volume (mL): 1,000, 75.5 kg, 1.89, m2 tamsulosin, 0.4 mg = 1 cap(s), Cap, Oral, Daily, Routine, Start date 10/26/21 9:00:00 EDT, 10/25/21 17:04:00 EDT thyroid desiccated, 60 mg = 2 tab(s), Tab, Oral, Daily, Routine, Start date 10/26/21 6:30:00 EDT triamcinolone topical, 1 jarrod, Cream, Topical, Daily, STAT, Start date 10/25/21 17:04:00 EDT Ambulate with Assistance Automated Diff Basic Metabolic Panel Below the Knee Intermittent Pneumatic Compression Device Cardiac Monitoring CBC w/ Auto Diff Consult to Urology eGFR Evaluate Need For Continued Telemetry Extra Blue Tube Extra Lav Tube Intake and Output Notify Provider Vital Signs Notify Provider Vital Signs NPO Diet Oxygen Protocol Place in Status Pulse Oximetry Regular Diet Troponin 0 Hr. Troponin 3 Hr. Troponin 6 Hr. Troponin 9 Hr. Vital Signs Weight Extracted from: Title:Admission H & P Author:Mckay FORREST MD Date :10/25/21 1. Renal calculus, bilateral (N20.0: Calculus of kidney) - 5x4x4 mm non obstructing stone within distal right ureter and partially obstructing 7x6x5 mm stone within the left ureter on CT imaging from [place] 10/23 - d/w urology Dr. Davis, plan for OR tomorrow, NPO after midnight - IVF, ceftriaxone IV 2. Other acute kidney failure (N17.8: Other acute kidney failure) - secondary to a combination of pre-renal causes, may have obstructive component - IVF, BMP in AM - hold nephrotoxic meds 3. Hypothyroid (E03.9: Hypothyroidism, unspecified) - [place] thyroid 4. No contraindication to deep vein thrombosis (DVT) prophylaxis (Z78.9: Other specified health status) - SCDs pt will be admitted for observation possible discharge in next 24 hours Orders: acetaminophen, 650 mg = 2 tab(s), Tab, Oral, q6hr PRN Pain, Routine, Start date 10/25/21 17:06:00 EDT, 10/25/21 17:06:00 EDT Al hydroxide/Mg hydroxide/simethicone, 30 mL, Susp-Oral, Oral, q6hr PRN Indigestion, STAT, Start date 10/25/21 17:06:00 EDT ceftriaxone + Sodium Chloride 0.9% intravenous solution 50 mL, 1,000 mg = 1 EA, Injection, IV Piggyback, Daily, Routine, Start date 10/26/21 9:00:00 EDT, 100 mL/hr, Infuse over 30 minute(s) magnesium hydroxide, 30 mL, Susp-Oral, Oral, q6hr PRN Constipation, STAT, Start date 10/25/21 17:06:00 EDT morphine, 2 mg = 1 mL, Injection, IV Push, q4hr PRN Pain for 5 day(s), Stop date 10/30/21 17:05:00 EDT, Routine, Start date 10/25/21 17:06:00 EDT, 10/25/21 17:06:00 EDT ondansetron, 4 mg = 2 mL, Injection, IV Push, q6hr PRN Nausea, Routine, Start date 10/25/21 17:06:00 EDT, 10/25/21 17:06:00 EDT Sodium Chloride 0.9% intravenous solution 1,000 mL, 1,000 mL, IV, 125 mL/hr, Routine, Start date 10/25/21 17:06:00 EDT, 8 hour(s), Total volume (mL): 1,000, 75.5 kg, 1.89, m2 tamsulosin, 0.4 mg = 1 cap(s), Cap, Oral, Daily, Routine, Start date 10/26/21 9:00:00 EDT, 10/25/21 17:04:00 EDT thyroid desiccated, 60 mg = 2 tab(s), Tab, Oral, Daily, Routine, Start date 10/26/21 6:30:00 EDT triamcinolone topical, 1 jarrod, Cream, Topical, Daily, STAT, Start date 10/25/21 17:04:00 EDT Ambulate with Assistance Basic Metabolic Panel Below the Knee Intermittent Pneumatic Compression Device Cardiac Monitoring CBC w/ Auto Diff Consult to Urology Evaluate Need For Continued Telemetry Incentive Spirometry Intake and Output Notify Provider Vital Signs Notify Provider Vital Signs NPO Diet Oxygen Protocol Place in Status Pulse Oximetry Regular Diet Vital Signs Weight Extracted from: Title:ED Note Author:Nelson SILVESTRE, Jose Ibrahim te:10/25/21 1. Renal calculus, bilateral (N20.0: Calculus of kidney) 2. Hypothyroid (E03.9: Hypothyroidism, unspecified) 3. No contraindication to deep vein thrombosis (DVT) prophylaxis (Z78.9: Other specified health status) 4. Acute kidney injury (N17.9: Acute kidney failure, unspecified) Orders: ceftriaxone + Sodium Chloride 0.9% intravenous solution 50 mL, 1,000 mg = 1 EA, IV Piggyback, Once, Stop date 10/25/21 15:23:00 EDT, STAT, Start date 10/25/21 15:23:00 EDT, 100 mL/hr, Infuse over 30 minute(s), 10/25/21 15:23:00 EDT morphine, 4 mg = 1 mL, Injection, IV Push, Once, Stop date 10/25/21 15:23:00 EDT, STAT, Start date 10/25/21 15:23:00 EDT, 10/25/21 15:23:00 EDT ondansetron, 4 mg = 2 mL, Injection, IV Push, Once, Stop date 10/25/21 15:23:00 EDT, STAT, Start date 10/25/21 15:23:00 EDT, 10/25/21 15:23:00 EDT Automated Diff Basic Metabolic Panel CBC w/ Auto Diff ED Physician consult Hospitalist for continued care eGFR UA With Cult Reflex XR Abdomen 1 View Future Appointments Appointment Date:11/13/2021 08:30:00 AM Scheduled Provider:Joey DAVIS MD Location: Appointment Type:URO Office Visit Appointment Date:08/22/2022 09:30:00 AM Scheduled Provider:Joey DAVIS MD Location: Appointment Type:URO Office Visit Diagnostic Tests Pending * Calculi Analysis Urinary 10/26/21 Future Scheduled Tests Radiology* XR Abdomen 1 View 10/27/21 [facility]22 NoteAdmission Information Admitting Physician - LON ANN, Mckay Consulting Physician - MARIBEL ANN, Joey Sanches MD, Dickson Referring Physician - MARIBEL ANN, Joey Cantu Hospital Course Pt is a 76 M admitted with bilateral renal calculus and MARKUS. Pt was seen by nephrology and urology.Pt had MARKUS secondary to obstructive uropathy and component of AIN from kidney stones, also with component of volume depletion. pt was seen by urology, Dr. Davis, had a cystoscopy with left retrograde pyelogram, left double J stent placement, right retrograde pyelogram, right double J stent placement, and ureteroscopic stone basket extraction. pt had decrease in Cr to near baseline the next day. Pttaking PO well, up ambulating without difficulty. Pt being discharged with rx for keflex for 3 days. Pt being discharged home to follow up with PCP and urology as an outpatient. Significant Findings Size: 4.7 (10/26/21 13:45:21) WBC: 7.4 E9/L (10/27/21 05:54:00) RBC: 4.4 E12/L (10/27/21 05:54:00) HGB: 12.6 gm/dL Low (10/27/21 05:54:00) Hct: 37.3 % Low (10/27/21 05:54:00) MCV: 85.9 fL (10/27/21 05:54:00) MCH: 29.1 pg (10/27/21 05:54:00) MCHC: 33.9 gm/dL (10/27/21 05:54:00) RDW: 13.8 % (10/27/21 05:54:00) Platelet: 224 E9/L (10/27/21 05:54:00) MPV: 7.5 fL (10/27/21 05:54:00) Neutro Auto: 84.8 % High (10/27/21 05:54:00) Lymph Auto: 7.7 % Low (10/27/21 05:54:00) Glasscock Auto: 7.2 % (10/27/21 05:54:00) Eos Auto: 0.1 % (10/27/21 05:54:00) Basophil Auto: 0.2 % (10/27/21 05:54:00) Neutro Absolute: 6.3 E9/L (10/27/21 05:54:00) Lymph Absolute: 0.6 E9/L Low (10/27/21 05:54:00) Glasscock Absolute: 0.5 E9/L (10/27/21 05:54:00) Eos Absolute: 0 E9/L (10/27/21 05:54:00) Basophil Absolute: 0 E9/L (10/27/21 05:54:00) Glucose Lvl: 120 mg/dL (10/27/21 05:54:00) BUN: 16 mg/dL (10/27/21 05:54:00) Creatinine: 1.2 mg/dL (10/27/21 05:54:00) eGFR: 59 mL/min/1.73 m2 (10/27/21 05:54:00) eGFR AA: >60 (10/27/21 05:54:00) BUN/Creat Ratio: 13 (10/27/21 05:54:00) Sodium Lvl: 140 mmol/L (10/27/21 05:54:00) Potassium Lvl: 4.2 mmol/L (10/27/21 05:54:00) Chloride: 111 mmol/L (10/27/21 05:54:00) CO2: 26 mmol/L (10/27/21 05:54:00) AGAP: 7 mEq/L (10/27/21 05:54:00) Calcium Lvl: 8.6 mg/dL Low (10/27/21 05:54:00) Troponin: 6.1 pg/mL Low (10/26/21 17:42:00) Physical Exam Vitals & Measurements T: 36.4 ?C(Oral) TMIN: 36.1 ?C(Temporal Artery) TMAX: 36.9 ?C(Oral) HR: 68(Monitored) RR: 16 BP: 158/78 SpO2: 97% WT: 77.1 kg General: alert, no acute distress ENMT: oral mucosa moist, no pharyngeal erythema or exudate Cardiovascular: regular rate and rhythm, normal peripheral perfusion Respiratory: Lungs CTA, respirations non labored Abdomen: soft, NTND, +BS Skin: warm, dry, intact Extremities: no deformity, no trauma Neurological: LOC appropriate for age, CN II-XII intact, motor strength equal & normal bilaterally, sensation equal & normal bilaterally, speech normal Images XR Urography Retrograde Bilateral 10/26/21 14:31:28 IMPRESSION: FLUOROSCOPIC ASSISTANCE IS PROVIDED DURING PLEASE REFER TO THE OPERATIVE REPORT CLINICAL HISTORY: Kidney stone. COMPARISON: None available. FINDINGS: Fluoroscopic assistance was provided during retrograde pyelogram. Fluoroscopy time is 1.5 minutes Total radiation dose is 2.0mGy, 15 images Signed By: Guicho Cohen MD, V. 10/26/21 13:31:53 Radiation Dose: Kar in mGy = 12 Signed By: Guicho Cohen MD, V. Discharge Plan Discharge Status: Improved Discharge Instructions Given: To patient Discharge disposition: Home Prescriptions reviewed with PatientPatient 1. Renal calculus, bilateral (N20.0: Calculus of kidney) 2. Other acute kidney failure (N17.8: Other acute kidney failure) 3. Hypothyroid (E03.9: Hypothyroidism, unspecified) 4. No contraindication to deep vein thrombosis (DVT) prophylaxis (Z78.9: Other specified health status) Hydronephrosis with ureteral calculus (N13.2: Hydronephrosis with renal and ureteral calculous obstruction) Orders: cephalexin, 500 mg = 1 cap(s), Oral, TID, X 3 day(s), # 9 cap(s), Refills(s) 0, Pharmacy: [facility]/pharmacy #[id number], 170, cm, 10/25/21 16:22:00 EDT, Height/Length Dosing, 75.5, kg, 10/25/21 16:22:00 EDT, Weight Dosing Discharge Patient Incentive Spirometry Troponin 3 Hr. Troponin 6 Hr. Troponin 9 Hr. Discharge Medication List Prescriptions Keflex 500 mg Cap, 500 mg= 1 cap(s), Oral, TID Home [place] Thyroid 60 mg Tab, 60 mg= 1 tab(s), Oral, Daily mometasone Top 0.1% Crm 15 gram, 1 jarrod, Topical, Daily mometasone Top 0.1% Lotion, 1 jarrod, Topical, Daily ondansetron 4 mg Dis Tab, 4 mg= 1 tab(s), Oral, q6hr, PRN tamsulosin 0.4 mg Cap, 0.4 mg= 1 cap(s), Oral, Daily Follow-up With When Contact Information Joey DAVIS 11/13/2021 08:30 AM EDT [address] [place] [id number] Business (1) Additional Instructions: abdominal X-ray prior to your office visit. We will make decisions regarding the stone in the left u (more content not included)... [facility]Result Comment: Electronically Signed By: LON ANN, Mckay\.br\Date and Time Signed: 10/27/21 10:50 [id number] Hospital Discharge instructions Patient Education 10/27/2021 08:41:13 Kidney Stones, [id number] Kidney Stones Kidney stones are rock-like masses that form inside of the kidneys. Kidneys are organs that make pee (urine). A kidney stone may move into other parts of the urinary tract, including: The tubes that connect the kidneys to the bladder (ureters). The bladder. The tube that carries urine out of the body (urethra). Kidney stones can cause very bad pain and can block the flow of pee. The stone usually leaves your body (passes) through your pee. You may need to have a doctor take out the stone. What are the causes? Kidney stones may be caused by: A condition in which certain glands make too much parathyroid hormone (primary hyperparathyroidism). A buildup of a type of crystals in the bladder made of a chemical called uric acid. The body makes uric acid when you eat certain foods. Narrowing (stricture) of one or both of the ureters. A kidney blockage that you were born with. Past surgery on the kidney or the ureters, such as gastric bypass surgery. What increases the risk? You are more likely to develop this condition if: You have had a kidney stone in the past. You have a family history of kidney stones. You do not drink enough water. You eat a diet that is high in protein, salt (sodium), or sugar. You are overweight or very overweight (obese). What are the signs or symptoms? Symptoms of a kidney stone may include: Pain in the side of the belly, right below the ribs (flank pain). Pain usually spreads (radiates) to the groin. Needing to pee often or right away (urgently). Pain when going pee (urinating). Blood in your pee (hematuria). Feeling like you may vomit (nauseous). Vomiting. Fever and chills. How is this treated? Treatment depends on the size, location, and makeup of the kidney stones. The stones will often pass out of the body through peeing. You may need to: Drink more fluid to help pass the stone. In some cases, you may be given fluids through an IV tube put into one of your veins at the hospital. Take medicine for pain. Make changes in your diet to help keep kidney stones from coming back. Sometimes, medical procedures are needed to remove a kidney stone. This may involve: A procedure to break up kidney stones using a beam of light (laser) or shock waves. Surgery to remove the kidney stones. Follow these instructions at home: Medicines Take [id number]-[id number] and prescription medicines only as told by your doctor. Ask your doctor if the medicine prescribed to you requires you to avoid driving or using heavy machinery. Eating and drinking Drink enough fluid to keep your pee pale yellow. You may be told to drink at least 8 10 glasses of water each day. This will help you pass the stone. If told by your doctor, change your diet. This may include: ?Limiting how much salt you eat. ?Eating more fruits and vegetables. ?Limiting how much meat, poultry, fish, and eggs you eat. Follow instructions from your doctor about eating or drinking restrictions. General instructions Collect pee samples as told by your doctor. You may need to collect a pee sample: ?24 hours after a stone comes out. ?8 12 weeks after a stone comes out, and every 6 12 months after that. Strain your pee every time you pee (urinate), for as long as told. Use the strainer that your doctor recommends. Do not throw out the stone. Keep it so that it can be tested by your doctor. Keep all follow-up visits as told by your doctor. This is important. You may need follow-up tests. How is this prevented? To prevent another kidney stone: Drink enough fluid to keep your pee pale yellow. This is the best way to prevent kidney stones. Eat healthy foods. Avoid certain foods as told by your doctor. You may be told to eat less protein. Stay at a healthy weight. Where to find more information National Kidney Foundation (NKF): www.kidney.org [employer] (UCF): www.urologyhealth.org Contact a doctor if: You have pain that gets worse or does not get better with medicine. Get help right away if: You have a fever or chills. You get very bad pain. You get new pain in your belly (abdomen). You pass out (faint). You cannot pee. Summary Kidney stones are rock-like masses that form inside of the kidneys. Kidney stones can cause very bad pain and can block the flow of pee. The stones will often pass out of the body through peeing. Drink enough fluid to keep your pee pale yellow. This information is not intended to replace advice given to you by your health care provider. Make sure you discuss any questions you have with your health care provider. Document Released: 12/03/2008 Document Revised: 11/03/2019 Document Reviewed: 11/03/2019 [employer] Patient Education 2019 [employer]. Follow Up Care 10/25/2021 15:01:17 With:Joey DAVIS Address: [address] [address]- Business (1) When:11/13/2021 08:30:00 Comments:abdominal X-ray prior to your office visit. We will make decisions regarding the stone in the left upper ureter, as well as when to remove the right stent.Call central scheduling at [phone] ext [phone] to schedule xray With:UZIEL HALLMAN Address: [facility] [place] [address]- Business (1) When:3 to 5 days Comments:Call for followup appointment [facility]04-27-2022 NoteBasic Information Accompanied by: Family member Source of History: Self Present at Bedside: Family member Referral Source: ED History Limitation: None Chief Complaint Pt presents to ED from Dr Davis's office. Pt complaint of urinating blood, CT confirmed kidney stones on left and right. Pt hasn't voided. History of Present Illness Pt is a 76 M PMH hypothyroid admitted from ED complaining of hematuria, difficulty urinating. pt says he was seen at [facility] yesterday. Pt was found to have bilateral renal calculus. Pt was found tohave 5x4x4 mm non obstructing stone within distal right ureter and partially obstructing 7x6x5 mm stone within the left ureter. Pt with some subjective fevers. pt with nausea, no vomiting, has had decreased PO intake. pt denies any flank pain,did have some right groin pain. pt with no other complaints. Review of Systems Additional ROS info: Except as noted in the above Review of Systems and in the History of Present Illness all other systems have been reviewed and are negative or noncontributory. Physical Exam Vitals & Measurements T: 36.9 ?C(Oral) HR: 70(Monitored) RR: 18 BP: 132/70 SpO2: 95% WT: 75.5 kg WT: 75.5 kg General: alert, no acute distress Skin: warm, dry Head: no trauma, normocephalic Neck: Trachea midline, no adenopathy, no tenderness Eye: normal conjunctiva, sclera clear ENMT: oral mucosa dry, no pharyngeal erythema or exudate Cardiovascular: regular rate and rhythm, normal peripheral perfusion Respiratory: Lungs CTA, respirations non labored Chest wall: no deformity. Gastrointestinal: soft, non distended, no tenderness, no guarding. Back: No tenderness, Normal ROM, Normal alignment. Extremities: no deformity, no trauma Neurological: oriented x 4, LOC appropriate for age, CN II-XII intact, motor strength equal & normal bilaterally, sensation equal & normal bilaterally, speech normal Psychiatric: cooperative, affect appropriate for age, normal judgement, normal psychiatric thoughts. Lab Results WBC: 9 E9/L (10/25/21 15:14:00) RBC: 4.9 E12/L (10/25/21 15:14:00) HGB: 14.2 gm/dL (10/25/21 15:14:00) Hct: 41.8 % (10/25/21 15:14:00) MCV: 86.1 fL (10/25/21 15:14:00) MCH: 29.2 pg (10/25/21 15:14:00) MCHC: 33.9 gm/dL (10/25/21 15:14:00) RDW: 14.1 % (10/25/21 15:14:00) Platelet: 262 E9/L (10/25/21 15:14:00) MPV: 7.1 fL (10/25/21 15:14:00) Neutro Auto: 82.2 % High (10/25/21 15:14:00) Lymph Auto: 6.8 % Low (10/25/21 15:14:00) Glasscock Auto: 10 % (10/25/21 15:14:00) Eos Auto: 0.6 % (10/25/21 15:14:00) Basophil Auto: 0.4 % (10/25/21 15:14:00) Neutro Absolute: 7.4 E9/L (10/25/21 15:14:00) Lymph Absolute: 0.6 E9/L Low (10/25/21 15:14:00) Glasscock Absolute: 0.9 E9/L (10/25/21 15:14:00) Eos Absolute: 0.1 E9/L (10/25/21 15:14:00) Basophil Absolute: 0 E9/L (10/25/21 15:14:00) Glucose Lvl: 116 mg/dL (10/25/21 15:14:00) BUN: 33 mg/dL High (10/25/21 15:14:00) Creatinine: 3.5 mg/dL High (10/25/21 15:14:00) eGFR: 17 mL/min/1.73 m2 Low (10/25/21 15:14:00) eGFR AA: 21 mL/min/1.73 m2 Low (10/25/21 15:14:00) BUN/Creat Ratio: 9 Low (10/25/21 15:14:00) Sodium Lvl: 135 mmol/L (10/25/21 15:14:00) Potassium Lvl: 4 mmol/L (10/25/21 15:14:00) Chloride: 104 mmol/L (10/25/21 15:14:00) CO2: 21 mmol/L (10/25/21 15:14:00) AGAP: 14 mEq/L (10/25/21 15:14:00) Calcium Lvl: 8.7 mg/dL Low (10/25/21 15:14:00) Images XR Abdomen 1 View 10/25/21 16:01:11 IMPRESSION: THERE ARE NO ACUTE INTRA-ABDOMINAL CHANGES. CLINICAL HISTORY: Kidney stone COMPARISON: NONE. FINDINGS: The bowel gas pattern is unremarkable. There are no dilated loops of bowel. Overlying bowel gas and contents limit evaluation for renal stones. There are degenerative changes of the lumbar spine. There calcified phleboliths in the pelvis. Signed By: Guicho Cohen MD, V. Assessment/Plan 1. Renal calculus, bilateral (N20.0: Calculus of kidney) - 5x4x4 mm non obstructing stone within distal right ureter and partially obstructing 7x6x5 mm stone within the left ureter on CT imaging from [place] 10/23 - d/w urology Dr. Davis, plan for OR tomorrow, NPO after midnight - IVF, ceftriaxone IV 2. Other acute kidney failure (N17.8: Other acute kidney failure) - secondary to a combination of pre-renal causes, may have obstructive component - IVF, BMP in AM - hold nephrotoxic meds 3. Hypothyroid (E03.9: Hypothyroidism, unspecified) - [place] thyroid 4. No contraindication to deep vein thrombosis (DVT) prophylaxis (Z78.9: Other specified health status) - SCDs pt will be admitted for observation possible discharge in next 24 hours Orders: acetaminophen, 650 mg = 2 tab(s), Tab, Oral, q6hr PRN Pain, Routine, Start date 10/25/21 17:06:00 EDT, 10/25/21 17:06:00 EDT Al hydroxide/Mg hydroxide/simethicone, 30 mL, Susp-Oral, Oral, q6hr PRN Indigestion, STAT, Start date 10/25/21 17:06:00 EDT ceftriaxone + Sodium Chloride 0.9% intravenous solution 50 mL, 1,000 mg = 1 EA, Injection, IV Piggyback, Daily, Routine (more content not included)...[facility] HospitalComment on above:Result Comment: Electronically Signed By: LON ANN, Mckay\.br\Date and Time Signed: 10/25/21 17:29 EDTEvaluation + Plan note Future Appointments Appointment Date:11/13/2021 08:30:00 AM Scheduled Provider:Joey DAVIS MD Location: Appointment Type:URO Office Visit Appointment Date:08/22/2022 09:30:00 AM Scheduled Provider:Joey DAVIS MD Location: [facility]ment [facility] Future App[facility]ments Appointment Date:11/14/2021 07:45:00 AM Scheduled Provider: Location:[facility] Appointment Type:Surgery CALL PAT FT Appointment Date:11/23/2021 02:00:00 PM Scheduled Provider: Location:[facility] Appointment Type:Surgery FT Appointment Date:08/22/2022 09:30:00 AM Scheduled Provider:Joey DAVIS MD Location: Appointment Type:URO Office Visit [facility] Evaluation + Plan note Future Appointments Appointment Date:08/22/2022 09:30:00 AM Scheduled Provider:Joey DAVIS MD Location: Appointment Type:URO Office Visit [facility] Evaluation + Plan note Future Appointments Appointment Date:01/04/2022 12:30:00 PM Scheduled Provider: Location:[facility] Appointment Type:Surgery FT Appointment Date:08/22/2022 09:30:00 AM Scheduled Provider:Joey DAVIS MD Location: [facility]ment [facility] Future Appointments Appointment Date:08/27/2023 08:45:00 AM Scheduled Provider:Joey DAVIS MD Location:[facility] Appointment Type:URO Office Visit Future Scheduled Tests Radiology* XR Abdomen 1 View 07/01/23 [facility] Hospital course Narrative No data available for this section [facility] No data available for this section [facility] No data available for this section [facility] Summary Purpose Family History No Family History Records FoundNo Family History Records Found Advance Directives No Advanced Directives Records FoundNo Advanced Directives Records Found Additional Source Comments Care Team (unrecognized sect ion and content) Personnel Name: UZIEL HALLMAN DO Address: [address] [place] [address] Personnel Name: UZIEL HALLMAN DO Address: Address: [address] [place] [address] Personnel Name: UZIEL HALLMAN DO Address: Address: [address] [place] [address] (unrecognized sect ion and content) No Status Records FoundNo Status Records Found INFORMATION SOURCE (unrecogn ized section and content) DATE CREATED AUTHOR 05/23/2022 [employer] DATE CREATED AUTHOR AUTHOR'S ORGANIZ ATION 08/24/2022 [facility] FOR RECORDS PERTAINING TO PATIENTS WHO ARE OR HAVE BEEN ENROLLED IN A CHEMICAL DEPENDENCY/SUBSTANCEABUSE PROGRAM, SOME INFORMATION MAY BE OMITTED. This clinical summary was aggregated from multiple sources. Caution should be exercised in using it in the provision of clinical care. This summary normalizes information from multiple sources, and as a consequence, information in this document may materially change the coding, format and clinical context of patient data. In addition, data may be omitted in some cases. CLINICAL DECISIONS SHOULD BE BASED ON THE PRIMARY CLINICAL RECORDS. [facility]. provides no warranty or guarantee of the accuracy or completeness of information in this document.
== END 2023-08-14 11:57 | disposition home or self-care (01) ==
LOC: LAB 12:34
PROVIDERS: PCP Family Medicine; Visit Provider Family Medicine
DX: E78.00 Pure hypercholesterolemia, unspecified (principal); R73.03 Prediabetes; E55.9 Vitamin D deficiency, unspecified; Z12.5 Encounter for screening for malignant neoplasm of prostate
CPT/HCPCS: 36415; 80053; 80061; 82306; 83036; 85025; G0103

== ENCOUNTER 2023-12-31 10:08 | Outpatient (OUT) | payer MEDICARE, SELFPAY ==
--- OUTSIDE RECORDS SUMMARY | 2023-12-31 10:20 | XMS_ITS | CCD ---
Author Organization [facility] Care Team Providers Care Thermal Molder Name Role Phone MILAGRO HALLMAN Primary Care Physician ANSELMO, DR CHRISTOPHER Wilkes Consulting Unavailable HAY, DR COELHO Attending Unavailable HAY, DR COELHO Admitting Unavailable HALLMAN, DR MILAGRO Yao Primary Care Unavailable HAY, DR COELHO Consulting Unavailable HALLMAN, DR MILAGRO Yao Admitting Unavailable HALLMAN, DR MILAGRO Yao Attending Unavailable HALLMAN, DR MILAGRO Yao Consulting Unavailable HALLMAN, DR MILAGRO Yao Primary Care Unavailable HALLMAN, DR MILAGRO Yao Admitting Unavailable HALLMAN, DR MILAGRO Yao Attending Unavailable HALLMAN, DR MILAGRO Yao Consulting Unavailable HALLMAN, DR MILAGRO Yao Primary Care Unavailable ZIEBER, DR CHRISTOPHER Wilkes Consulting Unavailable COOKJOEY Referring Unavailable COOK, Joey Cantu Attending Unavailable COOK, Joey Cantu Attending Unavailable Allergies Allergy Classification Reported Allergen(s) Allergy Type Date of Onset Reaction(s) Facility (11 sources) Adhesive Tape; Translations: [Tape] Drug allergy Red color (finding) [facility] (13 sources) Ketorolac; Translations: [ketorolac] Drug Allergy Swelling [facility] (11 sources) peanut; Translations: [Peanuts] Drug allergy Headache (finding) [facility] (11 sources) Sulfamethoxazole; Translations: [sulfamethoxazole ] Drug Allergy On examination - lip swelling (context-depend ent category) [facility] (1 source) Desonide Drug Allergy 4 [facility] (1 source) peanut allergenic extract Drug Allergy 4 [facility] (1 source) Sulfonamides (Antibiotic) Drug allergy (disorder) 4 [facility] (2 sources) Amoxicillin; Translations: [amoxicillin] Drug Allergy [facility] Medications Current Medications Medication Drug Class(es) Dates [...] day(s), # 9 cap(s), Refills(s) 0, Pharmacy: [facility]/pharmacy #[id number], 170, cm, 10/25/21 16:22:00 EDT, Height/Length Dosing, 75.5, kg, 10/25/21 16:22:00 EDT, Weight Dosing Start Date: 10/27/21 Stop Date: 10/30/21 Status: Ordered ciprofloxacin 500 mg oral tablet (2 sources) Quinolone Antimicrobial Start: 01-04-2022 take 1 tablet by mouth twice daily Cipro 500 mg Tab 500 mg = 1 tab(s), Oral, BID, # 10 tab(s), Refills(s) 0, Pharmacy: [facility]/pharmacy #[id number], 170, cm, 12/28/21 10:50:00 EDT, Height/Length Dosing, 73, kg, 12/28/21 10:50:00 EDT, Weight Dosing Start Date: 01/04/22 Status: Ordered Mometasone (14 sources) Corticosteroid Start: 12-28-2021 mometasone = 0.1 [...] 0 Start Date: 10/25/21 Status: Ordered thyroid (jail) 60 mg oral tablet (10 sources) Start: 10-25-2021 take 1 tablet by mouth once daily Starbuck Thyroid 60 mg Tab 60 mg = 1 tab(s), Oral, Daily, # 30 tab(s), Refills(s) 0, Thyroid Start Date: 10/25/21 Status: Ordered Problems Active Problems Problem Classification Problem Date Documented Date Episodic/Chronic Acute and unspecified renal failure (1 source) Acute renal failure syndrome; Translations: [Other acute kidney failure] Onset: 2 Episodic Calculus of urinary tract (17 sources) Kidney stone; Translations: [Calculus of kidney] Onset: 2 Episodic Coagulation and hemorrhagic disorders (1 source) Thrombocytopenia, unspecified; Translations: [THROMBOCYTOPENIA UNSPECIFIED] Onset: 2 Chronic Diabetes mellitus without complication (1 source) Prediabetes; Translations: [PREDIABETES] Onset: 2 Episodic Disorders of lipid metabolism (11 sources) Hypercholesterolemia; Translations: [Pure hypercholesterolemia, unspecified] Onset: 2 09-11-2013 Chronic Genitourinary symptoms and ill-defined conditions (9 sources) Urge incontinence; Translations: [Urge incontinence of urine] Onset: 2 Chronic Genitourinary symptoms and ill-defined conditions (6 sources) Urinary tract obstruction; Translations: [Obstructive and reflux uropathy, unspecified] Onset: 2 Episodic Headache; including migraine (10 sources) Headache 11-08-2020 Episodic Heart valve disorders (1 source) Rheumatic disorders of both mitral and aortic valves; Translations: [RHEUMATIC D/O MITRAL AORTIC VALVES] Onset: 1 Chronic Hyperplasia of prostate (20 sources) Benign prostatic hypertrophy with outflow obstruction; Translations: [Benign prostatic hyperplasia with lower urinary tract symptoms] Onset: 2 Chronic Nausea and vomiting (10 sources) Postoperative nausea and vomiting 11-07-2020 Episodic Open wounds of extremities (10 sources) Traumatic amputation, finger, 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 Comment on above: Partial amputation, 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 Other ear and sense organ disorders (10 sources) Hearing loss 11-07-2020 Chronic Other female genital disorders (8 sources) Disorder of reproductive system 11-13-2021 Episodic Other inflammatory condition of skin (10 sources) Psoriasis 09-11-2013 Chronic Other male genital disorders (1 source) Hydrocele of testis; Translations: [Hydrocele, unspecified] Onset: 2 Episodic Other nutritional; endocrine; and metabolic disorders (10 sources) Body mass index 25-29 - overweight [...] prostate] Onset: 2 Episodic Residual codes; unclassified (8 sources) Family history of prostate cancer 11-13-2021 Episodic Thyroid disorders (15 sources) Hypothyroidism; Translations: [Hypothyroidism, unspecified] Onset: 2 Chronic Unclassified (2 sources) Asymptomatic microscopic hematuria 08-22-2022 Viral infection (10 sources) Herpes labialis 09-11-2013 Episodic Past or [...] Episodic Other aftercare (1 source) Other 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 00TIFF Normal [facility] Screenson 08-28-2023 Screens [id number]. 00TIFF [facility] Ambulatory Visit Summaryon 0 08-27-2023 Ambulatory Visit Summary WALT SKELTON :1945 Visit Date:08/27/2023 Ambulatory Visit Instructions Your Diagnosis 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 Kidney stone Asymptomatic microscopic hematuria Tests Performed XR Abdomen 1 View -- Results Pending -- Please visit your patient portal for your results or contact your primary care physician. Your Care Team Attending Physician - Joey LÓPEZ MD Primary Care Physician - MILAGRO HALLMAN DO This Is Your Medications List Contact prescribing physician if questions or concerns mometasone mometasone topical (mometasone Top 0.1% Crm 15 gram) thyroid desiccated (Starbuck Thyroid 60 mg Tab) Procedures Performed Cystoscopy (01/04/2022), ESWL of kidney (11/23/2021), Cystoscopy (10/26/2021), Eye (07/01/2015), Excision of ganglion cyst of wrist, recurrent (09/21/2013), Arm (07/01/2013), EGD (esophagogastroduodeno scopy) gastric outlet reduction (07/01/2012), ESWL - Extracorporeal shockwave lithotripsy for renal calculus (07/01/2010), Cataract extraction and insertion of intraocular lens, Colonoscopy, History of subtotal thyroidectomy, INGUINAL HERNIA REPAIR,RIGHT, OPEN REDUCTION LEFT RADIUS. Discharge Vitals Heart Rate (Peripheral) 85 Blood Pressure 121/77 Height 170 cm Height 67 in Weight 75 kg Weight 165 lb BMI 25.95 What to do next You Need to Schedule the Following Appointments Follow Up with MARIBEL ANN, Joey Cantu, URL When: Comments: 1 yr w/ KUB Where: [address] [facility] [address] [place] [id number]- Medications What How Much When Instructions Unchanged mometasone 0.1 Percent Topical Every day solution for scalp Contact prescribing physician if questions or concerns Unchanged mometasone topical (mometasone Top 0.1% Crm 15 gram) 1 Application Topical prn psoriasis Contact prescribing physician if questions or concerns Unchanged thyroid desiccated (Starbuck Thyroid 60 mg Tab) 1 Tablets By Mouth Every day Contact prescribing physician if questions or concerns Medications and Immunizations Administered Not Given influenza virus vaccine, inactivated, Postpone due to refusal Allergies Peanuts (Headache) Tape (Redness) Toradol (Swelling) amoxicillin ketorolac sulfamethoxazole (O/E - lip swelling) Problems Ongoing - Any problem that you are currently receiving treatment for. 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 Cold sore Hypercholesterolemia Psoriasis Patient Survey You may receive a survey via text or e-mail asking about your office visit. Please share your experience with us by completing your survey. We appreciate your feedback and thank you for choosing us for your care. Education Materials Benign Prostatic Hyperplasia Benign prostatic hyperplasia (BPH) is an enlarged prostate gland that is caused by the normal aging process. The prostate may get bigger as a man gets older. The condition is not caused by cancer. The prostate is a walnut-sized gland that is involved in the production of semen. It is located in front of the rectum and below the bladder. The bladder stores urine. The urethra carries stored urine out of the body. An enlarged prostate can press on the urethra. This can make it harder to pass urine. The buildup of urine in the bladder can cause infection. Back pressure and infection may progress to bladder damage and kidney (renal) failure. What are the causes? This condition is part of the normal aging process. However, not all men develop problems from this condition. If the prostate enlarges away from the urethra, urine flow will not be blocked. If it enlarges toward the urethra and compresses it, there will be problems passing urine. What increases the risk? This condition is more likely to develop in men older than 50 years. What are the signs or symptoms? Symptoms of this condition include: ? Getting up often during the night to urinate. ? Needing to urinate frequently during the day. ? Difficulty starting urine flow. ? Decrease in size and strength of your urine stream. ? Leaking (dribbling) after urinating. ? Inability to pass urine. This needs immediate treatment. ? Inability to completely empty your bladder. ? Pain when you pass urine. This is more common if there is also an infection. ? Urinary tract i (more content not included)... Normal [facility] Patient Educationon 08-27-19 24 Patient Education Urology Benign Prostatic Hyperplasia Benign prostatic hyperplasia (BPH) is an enlarged prostate gland that is caused by the normal aging process. The prostate may get bigger as a man gets older. The condition is not caused by cancer. The prostate is a walnut-sized gland that is involved in the production of semen. It is located in front of the rectum and below the bladder. The bladder stores urine. The urethra carries stored urine out of the body. An enlarged prostate can press on the urethra. This can make it harder to pass urine. The buildup of urine in the bladder can cause infection. Back pressure and infection may progress to bladder damage and kidney (renal) failure. What are the causes? This condition is part of the normal aging process. However, not all men develop problems from this condition. If the prostate enlarges away from the urethra, urine flow will not be blocked. If it enlarges toward the urethra and compresses it, there will be problems passing urine. What increases the risk? This condition is more likely to develop in men older than 50 years. What are the signs or symptoms? Symptoms of this condition include: ? Getting up often during the night to urinate. ? Needing to urinate frequently during the day. ? Difficulty starting urine flow. ? Decrease in size and strength of your urine stream. ? Leaking (dribbling) after urinating. ? Inability to pass urine. This needs immediate treatment. ? Inability to completely empty your bladder. ? Pain when you pass urine. This is more common if there is also an infection. ? Urinary tract infection (UTI). How is this diagnosed? This condition is diagnosed based on your medical history, a physical exam, and your symptoms. Tests will also be done, such as: ? A post-void bladder scan. This measures any amount of urine that may remain in your bladder after you finish urinating. ? A digital rectal exam. In a rectal exam, your health care provider checks your prostate by putting a lubricated, gloved finger into your rectum to feel the back of your prostate gland. This exam detects the size of your gland and any abnormal lumps or growths. ? An exam of your urine (urinalysis). ? A prostate specific antigen (PSA) screening. This is a blood test used to screen for prostate cancer. ? An ultrasound. This test uses sound waves [...] severity of your condition. Treatment may include: ? Observation and yearly exams. This may be the only treatment needed if your condition and symptoms are mild. ? Medicines to relieve your symptoms, including: ? Medicines to shrink the prostate. ? Medicines to relax the muscle of the prostate. ? Surgery in severe cases. Surgery may include: ? Prostatectomy. In this procedure, the prostate tissue is removed completely through an open incision or with a laparoscope or robotics. ? Transurethral resection of the prostate (TURP). In this procedure, a tool is inserted through the opening at the tip of the penis (urethra). It is used to cut away tissue of the inner core of the prostate. The pieces are removed through the same opening of the penis. This removes the blockage. ? Transurethral incision (TUIP). In this procedure, small cuts are made in the prostate. This lessens the prostate's pressure on the urethra. ? Transurethral microwave thermotherapy (TUMT). This procedure uses microwaves to create heat. The heat destroys and removes a small amount of prostate tissue. ? Transurethral needle ablation (TUNA). This procedure uses radio frequencies to destroy and remove a small amount of prostate tissue. ? Interstitial laser coagulation (ILC). This procedure uses a laser to destroy and remove a small amount of prostate tissue. ? Transurethral electrovaporization (TUVP). This procedure uses electrodes to destroy and remove a small amount of prostate tissue. ? Prostatic urethral lift. This procedure inserts an implant to push the lobes of the prostate away from the urethra. Follow these instructions at home: ? Take qzdf-rgl-boamzdw and prescription medicines only as told by your health care provider. ? Monitor your symptoms for any changes. Contact your health care provider with any changes. ? Avoid drinking large amounts of liquid before going to bed or out in public. ? Avoid or reduce how much caffeine or alcohol you drink. ? Give yourself time when you urinate. ? Keep all follow-up visits. This is important. Contact a health care provider if: ? You have unexplained back pain. ? Your symptoms do not get better with treatment. ? You develop side effects from the medicine (more content not included)... Normal [facility] Urology Office/Clinic Noteon 08-27-2023 Urology Office/Clinic Note Chief Complaint Pt is here for 1 yr f/u w/ KUB HPI Staff 1 yr f/u w/ KUB. KUB done on 08/13/23. Current PSA 3.08 done on 08/14/23. Previous dx: kidney stone, benign localized hyperplasia of prostate with urinary obstruction and lower urinary tract symptoms, asymptomatic microscopic hematuria. Dysuria: denies Incomplete bladder emptying: denies Hematuria: denies Frequency: denies Urgency: mild Nocturia: 2x a night Stream: steady stream but weak in the morning Leaking: mild Post void dripping: denies Wearing pads/ Depends: denies Urge incontinence: denies Stress incontinence: denies Incontinence without Sensory Awareness: denies Abdominal pain: denies Flank pain: denies Sexual complaints: _ History of Present Illness Tests reviewed: reviewed UA, KUB, PSA, labs I have reviewed the previous health record information and history for this patient from Dr. López. I have reviewed and verified the staff HPI to be accurate for this encounter. Review of Systems PHQ Score Initial Depression Screen Score: 0 SCORE ROS - Provider Constitutional: denies weight loss, denies hot flashes. Eyes: denies eye problems. Gastrointestinal: denies nausea, denies vomiting. Cardiovascular: denies chest pain or angina. Integumentary: no dryness Musculoskeletal: denies musculoskeletal symptoms. ENMT: denies otolaryngeal symptoms. Respiratory: no shortness of breath. Heme/Lymph: denies easy bleeding tendency, denies easy bruising tendency. Psychiatric: no confusion, no anxiety. Genitourinary: See HPI. Physical Exam Vitals & Measurements HR: 85(Peripheral) BP: 121/77 HT: 67 in HT: 170 cm WT: 75 kg WT: 165 lb BMI: 25.95 General Appearance: alert, no distress, well nourished, well developed male. Assessment/Plan 1. 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 Not currently taking any BPH meds. Not voicing any urinary complaints. PSA 08/14/23 - 3.08, checked by PCP. Discussed level w/ pt. Advised him to compare to previous level to ensure PSA is not increasing. 2. Kidney stone (N20.0: Calculus of kidney) KUB 08/13/23 NOMS - neg for stones but bowel contents obstruct view. Discussed imaging results w/ pt, no obvious stones. Denies any stone episodes since last encounter. Reports lower right abdominal pain, not likely stone related. Discussed location is typically where hernias form. Will continue to monitor for stones. -KUB in 1 yr 3. Asymptomatic microscopic hematuria (R31.21: Asymptomatic microscopic hematuria) UA today shows trace-intact blood (trace-intact previously). Denies gross hematuria. Pt knows to call our office if he ever experiences visible blood in his urine. Overall the patient is doing well. KUB demonstrates no obvious calculi. He wants to continue on yearly follow-ups. PSA being followed by his PCP and it is 3.08 as noted above. He knows that he needs to compare this to prior levels and let us know if the PSA is increasing over time. He agrees with plan Portions of this record may have been created with voice recognition artificial intelligence software, specifically General Specific, [employer] and or Speed Dating by [employer]. Substitutions may have occurred due to the inherent limitations of voice recognition and artificial intelligence software. Follow-up With When Contact Information MARIBEL ANN, Joey Cantu, URL [address] [place] [id number]- Additional Instructions: 1 yr w/ KUB Patient Education Benign Prostatic Hyperplasia ILynn, personally scribed for Dr. López on 08/27/2023 09:08:14. . Documentation recorded by the Lynn interiano acurately reflects the services(s) I performed and decisions made by me. Authenticated by Dr. López on 08/27/2023 09:09:06. Problem List/Past Medical History Ongoing Adult BMI [...] Historical Cold sore Hypercholesterolemia Psoriasis Procedure/Surgical History Cystoscopy (01/04/2022), ESWL of kidney (11/23/2021), Cystoscopy (10/26/2021), Eye (07/01/2015), Excision of ganglion cyst of wrist, recurrent (09/21/2013), Arm (07/01/2013), EGD (esophagogastroduodeno scopy) gastric outlet reduction (07/01/2012), ESWL - Extracorporeal shockwave lithotripsy for renal calculus (07/01/2010), Cataract extraction and inserti (more content not included)... Normal [facility] Comment on above: Result Comment: Elec tronically Signed By: Joey LÓPEZ MD\.br\Date and Time Signed: 08/27/23 09:09 EST\.br\Electronically Co-Signed By: Lynn Mendoza\.br\Date and Time Co-Signed: 08/27/23 09:08 EST XR ABDOMEN 1 VIEWon 08-13-19 XR ABDOMEN 1 VIEW CLINICAL HISTORY: kidney stones COMPARISON: FINDINGS: The bowel gas pattern is unremarkable. There are no dilated loops of bowel. Overlying bowel gas and contents limit evaluation for renal stones. There are severe degenerative changes of the lumbar spine. There our numerous phleboliths in the pelvis. IMPRESSION: There are no acute intra-abdominal changes. ELECTRONICALLY SIGNED BY: Guicho Cohen MD Normal Not Available CBC AUTO DIFFon 05-21-2022 BASO # 0.0 103/ul Normal 0.0-0.1 [facility] Comment on above: Performed By: #### C BC ####[facility] [address] [place] [id number] Tan Basophils/100 WBC (Bld) 0.4 % Normal 0.2-2.0 [facility] Comment on above: Performed By: #### C BC ####[facility] [address] [place] [id number] Tan EO # 0.3 103/ul Normal 0.0-0.7 [facility] Comment on above: Performed By: #### C BC ####[facility] [address] [place], [place] [address]Dr. Keaton Tan Eosinophils/100 WBC (Bld) 4.9 % Normal 0.9-7.0 [facility] Comment on above: Performed By: #### C BC ####[facility] [address] [place], [place] [address]Dr. Keaton Tan Erythrocyte distribution width (RBC) [Ratio] 13.6 % Normal 11.0-15.0 [facility] Comment on above: Performed By: #### C BC ####[facility] [address] [place], [place] [address]Dr. Keaton Tan Hematocrit (Bld) [Volume fraction] 44.4 % Normal 42.0-54.0 [facility] Comment on above: Performed By: #### C BC ####[facility] [address] [place], [place] [address]Dr. Keaton Tan Hemoglobin (Bld) [Mass/Vol] 14.8 g/dL Normal 14.0-18.0 [facility] Comment on above: Performed By: #### C BC ####[facility] [address] [place], [place] [address]Dr. Keaton Tan IG # 0.01 10e3/ul Normal 0.00-0.03 [facility] Comment on above: Performed By: #### C BC ####[facility] [address] [place], [place] [address]Dr. Keaton Tan IG % 0.2 % Normal 0.0-0.5 [facility] Comment on above: Performed By: #### C BC ####[facility] [address] [place], [place] [address]DrJak Tan LYMPH # 1.0 103/ul Critically low 1.2-3.8 [facility] Comment on above: Performed By: #### C BC ####[facility] [address] [place], [place] [address]DrJak Tan Lymphocytes/100 WBC (Bld) 19.8 % Critically low 20.5-60.0 [facility] Comment on above: Performed By: #### C BC ####[facility] [address] [place] [address]DrJak Tan MANUAL DIFF REQ NO Normal [facility] Comment on above: Performed By: #### C BC ####[facility] [address] [place] [address]DrJak Tan MCH (RBC) [Entitic mass] 29.1 pg Normal 25.9-34.0 [facility] Comment on above: Performed By: #### C BC ####[facility] [address] [place], [place] [address]DrJak Tan MCHC (RBC) [Mass/Vol] 33.3 g/dL Normal 29.9-35.2 [facility] Comment on above: Performed By: #### C BC ####[facility] [address] [place], [place] [address]DrJak Tan MCV (RBC) [Entitic vol] 87.2 fL Normal 80.0-94.0 [facility] Comment on above: Performed By: #### C BC ####[facility] [address] [place], [place] [address]DrJak Tan MONO # 0.4 103/ul Normal 0.3-0.8 [facility] Comment on above: Performed By: #### C BC ####[facility] [address] [place], [place] [address]DrJak Tan Monocytes/100 WBC (Bld) 7.6 % Normal 1.7-12.0 [facility] Comment on above: Performed By: #### C BC ####[facility] [address] [place], [place] [address]DrJak Tan NEUT # 3.5 103/ul Normal 1.4-6.5 [facility] Comment on above: Performed By: #### C BC ####[facility] [address] [place], [place] [address]DrJak Tan Neutrophils/100 WBC (Bld) 67.1 % Normal 43.0-75.0 [facility] Comment on above: Performed By: #### C BC ####[facility] [address] [place] [address]Dr. Keaton Tan Platelet mean volume (Bld) [Entitic vol] 8.8 fL Critically low 9.5-13.5 [facility] Comment on above: Performed By: #### C BC ####[facility] [address] [place] [address]DrJak Tan PLT 268 103/ul Normal 150-450 [facility] Comment on above: Performed By: #### C BC ####[facility] [address] [place] [address]Dr. Keaton Tan RBC 5.09 106/ul Normal 4.70-6.10 [facility] Comment on above: Performed By: #### C BC ####[facility] [address] [place] [address]DrJak Tan WBC 5.1 103/ul Normal 4.0-11.0 [facility] Comment on above: Performed By: #### C BC ####[facility] [address] [place] [address]Dr. Keaton Tan FREE T3on 05-21-2022 FREE T3 2.87 pg/mlL Normal 2.18-3.98 [facility] Comment on above: Performed By: #### C MP, TSH, LIPID, FT3 #### [facility] [address] [place], [place] [address] Dr. Keaton Tan FREE T4on 05-21-2022 Free T4 [Mass/Vol] 0.87 ng/dL Normal 0.76-1.46 [facility] Comment on above: Performed By: #### P SASC, FT4 ####[facility] [address] [place] [address]Dr. Keaton Tan GLYCOHEMOGLOBIN A1Con 2021 ADA RECOMMENDATION SEE BELOW Normal [facility] Comment on above: Result Comment: ADA RECOMMENDED LIMIT 4.0 - 6.0 ADA THERAPEUTIC TARGET < 7.0 ACTION SUGGESTED > 7.0 Performed By: #### A 1C ####[facility] [address] [place] [id number]. Keaton Tan Glucose [Mass/Vol] 126 mg/dL Normal [place] Comment on above: Performed By: #### A 1C ####[facility] [address] [place], [place] [address]DkDr. Keaton Tan HbA1c (Bld) [Mass fraction] 6.0 % Normal 4.5-6.2 [facility] Comment on above: Performed By: #### A 1C ####[facility] [address] [place] [id number]. Keaton Tan LIPID PROFILEon 05-21-2022 CHOL-HDL RATIO NORM SEE BELOW Normal [facility] Comment on above: Result Comment: 3.3 - 4.4 LOW RISK 4.4 - 7.1 AVERAGE RISK 7.1 - 11.0 MODERATE RISK >11.0 HIGH RISK Performed By: #### C MP, TSH, LIPID, FT3 #### [facility] [address] [place] [address] [address] Keaton Tan Cholesterol [Mass/Vol] 226 mg/dL Critically high <=200 [facility] Comment on above: Performed By: #### C MP, TSH, LIPID, FT3 #### [facility] [address] [place] [address] [address] Keaton Tan Cholesterol in HDL [Mass/Vol] 51 mg/dL Normal 40-60 [facility] Comment on above: Performed By: #### C MP, TSH, LIPID, FT3 #### [facility] [address] [place] [address] [address] Keaton Tan Cholesterol in LDL [Mass/Vol] 152.6 mg/dL Normal [facility] Comment on above: Performed By: #### C MP, TSH, LIPID, FT3 #### [facility] [address] [place] [address] [address] Keaton Tan Cholesterol.total/Cho lesterol in HDL [Mass ratio] 4.4 {ratio} Normal [facility] Comment on above: Performed By: #### C MP, TSH, LIPID, FT3 #### [facility] [address] [place], [place] [address] Dr. Keaton Tan HDL NORMAL > or = 60 mg/dl - LO W CARDIOVASCULAR RISK <40 mg/dl - HIGH CARDIOVASCULAR RISK Normal [facility] Comment on above: Performed By: #### C MP, TSH, LIPID, FT3 #### [facility] [address] [place] [id number] Keaton Tan LDL CALC NORMAL SEE BELOW Normal [facility] Comment on above: Result Comment: <100 mg/dl OPTIMAL 100 - 129 mg/dl NEAR OR ABOVE OPTIMAL 130 - 159 mg/dl BORDERLINE HIGH 160 - 189 mg/dl HIGH >190 mg/dl VERY HIGH Performed By: #### C MP, TSH, LIPID, FT3 #### [facility] [address] [place] [id number] [address] Keaton Tan Triglyceride [Mass/Vol] 112 mg/dL Normal <=150 [facility] Comment on above: Performed By: #### C MP, TSH, LIPID, FT3 #### [facility] [address] [place] [address] [address] Keaton Tan VLDL CALC 22.4 mg/dL Normal [facility] Comment on above: Performed By: #### C MP, TSH, LIPID, FT3 #### [facility] [address] [place] [id number] Keaton Tan MICROALB CREAT RATIO RANDOMo n 05-21-2022 mALB 1.7 mg/L Normal <=30.0 [facility] Comment on above: Performed By: #### M CRR ####[facility] [address] [place], [place] [address]OfJak Tan MALB CR RATIO 8.5 mg/g Normal 0.0-29.9 [facility] Comment on above: Performed By: #### M CRR ####[facility] [address] [place], [place] [address]ScJak Tan MALB CR RATIO RANGE SEE BELOW Normal [facility] Comment on above: Result Comment: NO M ICROALBUMINURIA 0-29 MG/G CLINICAL MICROALBUMINURIA 30-300 MG/G MACROALBUMINURIA >300 MG/G Performed By: #### M CRR ####[facility] [address] [place] [address]Dr. Keaton Tan URINE CREAT 199.60 mg/dL Normal 20.00-300.00 [facility] Comment on above: Performed By: #### M CRR ####[facility] [address] [place] [id number]. Keaton Tan PROF 14(COMP METB)on 022 Albumin [Mass/Vol] 3.7 g/dL Normal 3.4-5.0 [place] Comment on above: Performed By: #### C MP, TSH, LIPID, FT3 #### [facility] [address] [place] [address] [address] Keaton Tan Albumin/Globulin [Mass ratio] 1.1 {ratio} Normal [facility] Comment on above: Performed By: #### C MP, TSH, LIPID, FT3 #### [facility] [address] [place] [address] [address] Keaton Tan ALP [Catalytic activity/Vol] 88 U/L Normal 46-116 [facility] Comment on above: Performed By: #### C MP, TSH, LIPID, FT3 #### [facility] [address] [place] [address] [address] Keaton Tan ALT [Catalytic activity/Vol] 31 U/L Normal 16-63 [facility] Comment on above: Performed By: #### C MP, TSH, LIPID, FT3 #### [facility] [address] [place] [address] [address] Keaton Tan Anion gap [Moles/Vol] 8.6 mmol/L Normal [facility] Comment on above: Performed By: #### C MP, TSH, LIPID, FT3 #### [facility] [address] [place] [address] [address] Keaton Tan AST [Catalytic activity/Vol] 24 U/L Normal 15-37 [facility] Comment on above: Performed By: #### C MP, TSH, LIPID, FT3 #### [facility] [address] [place] [address] Dr. Keaton Tan Bilirubin [Mass/Vol] 0.6 mg/dL Normal 0.2-1.0 [facility] Comment on above: Performed By: #### C MP, TSH, LIPID, FT3 #### [facility] [address] [place] [address] Dr. Keaton Tan Calcium [Mass/Vol] 8.5 mg/dL Normal 8.5-10.1 [place] Comment on above: Performed By: #### C MP, TSH, LIPID, FT3 #### [facility] [address] [place] [address] Dr. Keaton Tan Chloride [Moles/Vol] 105 mmol/L Normal 98-107 [facility] Comment on above: Performed By: #### C MP, TSH, LIPID, FT3 #### [facility] [address] [place] [address] Dr. Keaton Tan CO2 [Moles/Vol] 29.3 mmol/L Normal 21.0-32.0 [facility] Comment on above: Performed By: #### C MP, TSH, LIPID, FT3 #### [facility] [address] [place] [address] Dr. Keaton Tan Creatinine [Mass/Vol] 0.95 mg/dL Normal 0.70-1.30 [facility] Comment on above: Performed By: #### C MP, TSH, LIPID, FT3 #### [facility] [address] [place] [address] Dr. Keaton Tan EGFR-AF BHUTANESE >60 Normal >=60 [facility] Comment on above: Performed By: #### C MP, TSH, LIPID, FT3 #### [facility] [address] [place] [address] Dr. Keaton Tan EGFR-NON AF BHUTANESE >60 Normal >=60 [facility] Comment on above: Performed By: #### C MP, TSH, LIPID, FT3 #### [facility] [address] [place] [address] Dr. Keaton Tan Globulin (S) [Mass/Vol] 3.3 g/dL Normal [facility] Comment on above: Performed By: #### C MP, TSH, LIPID, FT3 #### [facility] [address] [place] [address] Dr. Keaton Tan Glucose [Mass/Vol] 100 mg/dL Normal 74-106 [facility] Comment on above: Performed By: #### C MP, TSH, LIPID, FT3 #### [facility] [address] [place] [address] Dr. Keaton Tan Potassium [Moles/Vol] 3.9 mmol/L Normal 3.5-5.1 [facility] Comment on above: Performed By: #### C MP, TSH, LIPID, FT3 #### [facility] [address] [place] [address] Dr. Keaton Tan Protein [Mass/Vol] 7.0 g/dL Normal 6.4-8.2 [facility] Comment on above: Performed By: #### C MP, TSH, LIPID, FT3 #### [facility] [address] [place] [address] Dr. Keaton Tan Sodium [Moles/Vol] 139 mmol/L Normal 136-145 [facility] Comment on above: Performed By: #### C MP, TSH, LIPID, FT3 #### [facility] [address] [place] [address] Dr. Keaton Tan Urea nitrogen [Mass/Vol] 18.0 mg/dL Normal 7.0-18.0 [facility] Comment on above: Performed By: #### C MP, TSH, LIPID, FT3 #### [facility] [address] [place] [address] Dr. Keaton Tan Urea nitrogen/Creatinine [Mass ratio] 18.9 mg/mg Normal [facility] Comment on above: Performed By: #### C MP, TSH, LIPID, FT3 #### [facility] [address] [place] [address] Dr. Keaton Tan TSHon 05-21-2022 TSH 1.417 uIU/mL Normal 0.358-3.740 [facility] Comment on above: Performed By: #### C MP, TSH, LIPID, FT3 ####[facility] [address] [place], [place] [address]Qh. Keaton Tan CHEMISTRYOrdered By: SYSTEM SYSTEM on 12-28-2021 Anion gap [Moles/Vol] 12 mmol/L Normal 6 - 16 mEq/L F [facility] Remisol Calcium [Mass/Vol] 8.9 mg/dL Normal 8.9 - 11. 1 mg/dL [facility] Remisol Chloride [Moles/Vol] 107 mmol/L Normal 101 - 1 11 mmol/L [facility] Rem[facility] CO2 [Moles/Vol] 22 mmol/L Normal 21 - 31 mmol/L [facility] Rem[facility] Creatinine [Mass/Vol] 1.0 mg/dL Normal 0.5 - 1.3 mg/dL [facility] Remisol GFR/1.73 sq M.predicted among blacks MDRD (S/P/Bld) [Vol rate/Area] mL/min/1.73 m2 Normal >=59mL/min/1 .73 m2 FT Chem S GFR/1.73 sq M.predicted among non-blacks MDRD (S/P/Bld) [Vol rate/Area] mL/min/1.73 m2 Normal >=59mL/min/1 .73 m2 [facility] Chem S Glucose [Mass/Vol] 114 mg/dL Normal 55 - 199 mg/dL [facility] Remisol Potassium [Moles/Vol] 4.1 mmol/L Normal 3.5 - 5.3 mmol/L [facility]isol Sodium [Moles/Vol] 137 mmol/L Normal 135 - 145 mmol/L [facility] Urea nitrogen [Mass/Vol] 17 mg/dL Normal 5 - 21 mg/dL [facility] Urea nitrogen/Creatinine [Mass ratio] 17 mg/mg Normal 10 - 20 [facility] HEMATOLOGYOrdered By: SYSTEM SYSTEM on 12-28-2021 Basophils/100 WBC (Bld) 0.6 % Normal 0.0 - 2.0 % [facility]eAutoSS Basophils/Leukocytes Auto (Bld) [Pure # fraction] 0.0 E9/L Normal 0.0 - 0.2 E9/L [facility] Eosinophils/100 WBC (Bld) 2.7 % Normal 0.0 - 8.0 % [facility] Eosinophils/Leukocyte s Auto (Bld) [Pure # fraction] 0.1 E9/L Normal 0.0 - 0.5 E9/L [facility] Lymphocytes/100 WBC (Bld) 14.7 % Normal 14.0 - 50.0 % [facility] Lymphocytes/Leukocyte s Auto (Bld) [Pure # fraction] 0.7 E9/L Low 1.0 - 4.0 E9/L [facility] Monocytes/100 WBC (Bld) 6.8 % Normal 4.0 - 14.0 % [facility] Monocytes/Leukocytes Auto (Bld) [Pure # fraction] 0.3 E9/L Normal 0.2 - 1.0 E9/L [facility] Neutrophils/100 WBC (Bld) 75.2 % High 36.0 - 75.0 % [facility] Neutrophils/Leukocyte s Auto (Bld) [Pure # fraction] 3.5 E9/L Normal 2.0 - 7.5 E9/L [facility] HEMATOLOGYOrdered By: Ely Wong on 12-28-2021 Erythrocyte distribution width (RBC) [Ratio] 14.7 % High 10.9 - 14.2 % [facility] Hematocrit (Bld) [Volume fraction] 42.0 % Normal 37.7 - 49.0 % [facility] Hemoglobin (Bld) [Mass/Vol] 13.8 g/dL Normal 13.5 - 17.5 gm/dL [facility] MCH (RBC) [Entitic mass] 28.8 pg Normal 27.0 - 34.0 pg [facility] MCHC (RBC) [Mass/Vol] 32.8 g/dL Normal 31.4 - 36.0 gm/dL [facility] MCV (RBC) [Entitic vol] 87.7 fL Normal 80.0 - 100.0 fL [facility] Platelet mean volume (Bld) [Entitic vol] 8.6 fL Normal 6.4 - 10.8 fL [facility] Platelets (Bld) [#/Vol] 100.0 E9/L Low 150.0 - 500.0 E9/L [facility] RBC (Bld) [#/Vol] 4.8 E12/L Normal 4.3 - 5.9 E12/L [facility] WBC corrected for nucl RBC Auto (Bld) [#/Vol] 4.7 E9/L Normal 4.0 - 11.0 E9/L [facility] URINALYSISOrdered By: Cecilia Miller on 12-28-2021 Bacteria [...] [#/Area] 0-2 /HPF Normal 0-2/HPF [facility] UA Aut o SS Glucose Test strip (U) [Mass/Vol] Negative (12/28/21 11:01 AM) Normal Negative [facility] UA Auto SS Hemoglobin Ql (U) 3+ *ABN* (12/28/21 11:01 AM) Invalid Interpretation Code Negative [facility] UA Auto SS Ketones (U) [Mass/Vol] Negative (12/28/21 11:01 AM) Normal Negative [facility] UA Auto SS [place].plasma/Lithiu m.RBC (Bld) [Mass ratio] >75 /HPF Invalid Interpretation [...] Desc Clean Catch (12/28/21 11:01 AM) Normal [facility] UA Auto SS Urobilinogen Qn (U) 0.0993873 {Whitney'U}/dL Normal 0.0 - 1.0 EU/dL [facility] UA Auto SS WBC Auto Ql (U) Negative (12/28/21 11:01 AM) Normal Negative [facility] UA Auto SS WBC LM.HPF (Urine sed) [#/Area] 0-5 /HPF Normal 0-5/HPF [facility] UA Auto SS URINALYSISOrdered By: Ely Wong on 11-23-2021 Bilirubin Ql (U) Negative (11/23/21 10:21 AM) Normal Negative [facility] UA Auto SS Clarity (U) Cloudy *ABN* (11/23/21 10:21 AM) Invalid Interpretation Code Clear [facility] UA Auto SS Color (U) Red *ABN* (11/23/21 10:21 AM) Invalid Interpretation Code Yellow [facility] UA Auto SS Epithelial cells.squamous LM.HPF (Urine sed) [#/Area] 0-2 /HPF Normal 0-2/HPF [facility] UA Aut o SS Glucose Test strip (U) [Mass/Vol] Negative (11/23/21 10:21 AM) Normal Negative [facility] UA Auto SS Hemoglobin Ql (U) 3+ *ABN* (11/23/21 10:21 AM) Invalid Interpretation Code Negative [facility] UA Auto SS Ketones (U) [Mass/Vol] Negative (11/23/21 10:21 AM) Normal Negative [facility] UA Auto SS [place].plasma/Lithiu m.RBC (Bld) [Mass ratio] >75 /HPF Invalid Interpretation Code 0-3/HPF [facility] UA Auto SS Nitrite Ql (U) Negative (11/23/21 10:21 AM) Normal Negative [facility] UA Auto SS pH (U) 6.0 *NA* (11/23/21 10:21 AM) Invalid Interpretation Code 5.0 - 9.0 [facility] UA Auto SS Protein (U) [Mass/Vol] 2+ *ABN* (11/23/21 10:21 AM) Invalid Interpretation Code Negative [facility] UA Auto SS Specific gravity (U) [Rel density] 1.025 *NA* (11/23/21 10:21 AM) Invalid Interpretation Code 1.005 - 1.030 [facility] UA Auto SS UA Spec Desc Clean Catch (11/23/21 10:21 AM) Normal [facility] UA Auto SS Urobilinogen Qn (U) 0.9400125 {Whitney'U}/dL Normal 0.0 - 1.0 EU/dL [facility] UA Auto SS WBC Auto Ql (U) 1+ *ABN* (11/23/21 10:21 AM) Invalid Interpretation Code Negative [facility] UA Auto SS WBC LM.HPF (Urine sed) [#/Area] 0-5 /HPF Normal 0-5/HPF [facility] UA Auto SS CHEMISTRYOrdered By: SYSTEM SYSTEM on 10-27-2021 Anion gap [Moles/Vol] 7 mmol/L Normal 6 - 16 mEq/L [facility] Remisol Calcium [Mass/Vol] 8.6 mg/dL Low 8.9 - 11. 1 mg/dL [facility] Remisol Chloride [Moles/Vol] 111 mmol/L Normal 101 - 1 11 mmol/L [facility] CO2 [Moles/Vol] 26 mmol/L Normal 21 - 31 mmol/L [facility] GFR/1.73 sq M.predicted among blacks MDRD (S/P/Bld) [Vol rate/Area] mL/min/1.73 m2 Normal >=59mL/min/1 .73 m2 [facility] Chem S GFR/1.73 sq M.predicted among non-blacks MDRD (S/P/Bld) [Vol rate/Area] 59 mL/min/1.73 m2 Normal >=59mL/min/1 .73 m2 [facility] Chem S Glucose [Mass/Vol] 120 mg/dL Normal 55 - 199 mg/dL [facility] Potassium [Moles/Vol] 4.2 mmol/L Normal 3.5 - 5.3 mmol/L [facility] Sodium [Moles/Vol] 140 mmol/L Normal 135 - 145 mmol/L [facility] Urea nitrogen [Mass/Vol] 16 mg/dL Normal 5 - 21 mg/dL [facility] Urea nitrogen/Creatinine [Mass ratio] 13 mg/mg Normal 10 - 20 [facility] CHEMISTRYOrdered By: Brooklynn olivarez on 10-27-2021 Creatinine [Mass/Vol] 1.2 mg/dL Normal 0.5 - 1.3 mg/dL [facility] Remisol HEMATOLOGYOrdered By: SYSTEM SYSTEM on 10-27-2021 Basophils/100 WBC (Bld) 0.2 % Normal 0.0 - 2.0 % [facility] Basophils/Leukocytes Auto (Bld) [Pure # fraction] 0.0 E9/L Normal 0.0 - 0.2 E9/L [facility] Eosinophils/100 WBC (Bld) 0.1 % Normal 0.0 - 8.0 % [facility] Eosinophils/Leukocyte s Auto (Bld) [Pure # fraction] 0.0 E9/L Normal 0.0 - 0.5 E9/L [facility] Lymphocytes/100 WBC (Bld) 7.7 % Low 14.0 - 50.0 % [facility] Lymphocytes/Leukocyte s Auto (Bld) [Pure # fraction] 0.6 E9/L Low 1.0 - 4.0 E9/L [facility] Monocytes/100 WBC (Bld) 7.2 % Normal 4.0 - 14.0 % [facility] Monocytes/Leukocytes Auto (Bld) [Pure # fraction] 0.5 E9/L Normal 0.2 - 1.0 E9/L [facility] Neutrophils/100 WBC (Bld) 84.8 % High 36.0 - 75.0 % [facility] Neutrophils/Leukocyte s Auto (Bld) [Pure # fraction] 6.3 E9/L [...] 7.5 fL Normal 6.4 - 10.8 fL [facility] Platelets (Bld) [#/Vol] 224.0 E9/L Normal 150.0 - 500.0 E9/L [facility] RBC (Bld) [#/Vol] 4.4 E12/L Normal 4.3 - 5.9 E12/L [facility] WBC corrected for nucl RBC Auto (Bld) [#/Vol] 7.4 E9/L Normal 4.0 - 11.0 E9/L FT [facility] CHEMISTRYOrdered By: SYSTEM SYSTEM on 10-26-2021 Troponin I.cardiac [Mass/Vol] 6.10 pg/mL Low 15.90 - 38.40 pg/mL [facility] Remisol Troponin I.cardiac [Mass/Vol] 4.00 pg/mL Low 15.90 - 38.40 pg/mL [facility] Troponin I.cardiac [Mass/Vol] 4.30 pg/mL Low 15.90 - 38.40 pg/mL [facility] Anion gap [Moles/Vol] 9 mmol/L Normal 6 - 16 mEq/L [facility] Remisol Calcium [Mass/Vol] 8.0 mg/dL Low 8.9 - 11. 1 mg/dL [facility] Chloride [Moles/Vol] 111 mmol/L Normal 101 - 1 11 mmol/L [facility] CO2 [Moles/Vol] 25 mmol/L Normal 21 - 31 mmol/L [facility] Creatinine [Mass/Vol] 3.3 mg/dL High 0.5 - 1.3 mg/dL [facility] Remisol GFR/1.73 sq M.predicted among blacks MDRD (S/P/Bld) [Vol rate/Area] 22 mL/min/1.73 m2 Low >=59mL/min/1 .73 m2 [facility] Chem S GFR/1.73 sq M.predicted among non-blacks MDRD (S/P/Bld) [Vol rate/Area] 18 mL/min/1.73 m2 Low >=59mL/min/1 .73 m2 [facility] Chem S Glucose [Mass/Vol] 101 mg/dL Normal 55 - 199 mg/dL [facility] Rem[facility] Potassium [Moles/Vol] 4.4 mmol/L Normal 3.5 - 5.3 mmol/L [facility] Sodium [Moles/Vol] 141 mmol/L Normal 135 - 145 mmol/L [facility] Urea nitrogen [Mass/Vol] 32 mg/dL High 5 - 21 mg/dL [facility] Urea nitrogen/Creatinine [Mass ratio] 10 mg/mg Normal 10 - 20 [facility] HEMATOLOGYOrdered By: SYSTEM SYSTEM on 10-26-2021 Basophils/100 WBC (Bld) 1.0 % Normal 0.0 - 2.0 % [facility] Basophils/Leukocytes Auto (Bld) [Pure # fraction] 0.1 E9/L Normal 0.0 - 0.2 E9/L [facility] Eosinophils/100 WBC (Bld) 2.9 % Normal 0.0 - 8.0 % [facility] Eosinophils/Leukocyte s Auto (Bld) [Pure # fraction] 0.2 E9/L Normal 0.0 - 0.5 E9/L [facility] Lymphocytes/100 WBC (Bld) 10.5 % Low 14.0 - 50.0 % [facility] Lymphocytes/Leukocyte s Auto (Bld) [Pure # fraction] 0.7 E9/L Low 1.0 - 4.0 E9/L [facility] Monocytes/100 WBC (Bld) 9.6 % Normal 4.0 - 14.0 % [facility] Monocytes/Leukocytes Auto (Bld) [Pure # fraction] 0.7 E9/L Normal 0.2 - 1.0 E9/L [facility] Neutrophils/100 WBC (Bld) 76.0 % High 36.0 - 75.0 % [facility] Neutrophils/Leukocyte s Auto (Bld) [Pure # fraction] 5.4 E9/L Normal 2.0 - 7.5 E9/L [facility] HEMATOLOGYOrdered By: Evie alvarenga on 10-26-2021 Erythrocyte distribution width (RBC) [Ratio] 14.1 % Normal 10.9 - 14.2 % [facility] Hematocrit (Bld) [Volume fraction] 37.0 % Low 37.7 - 49.0 % [facility] Hemoglobin (Bld) [Mass/Vol] 12.8 g/dL Low 13.5 - 17.5 gm/dL [facility] MCH (RBC) [Entitic mass] 29.8 pg Normal 27.0 - 34.0 pg [facility] MCHC (RBC) [Mass/Vol] 34.6 g/dL Normal 31.4 - 36.0 gm/dL [facility] MCV (RBC) [Entitic vol] 86.3 fL Normal 80.0 - 100.0 fL [facility] Platelet mean volume (Bld) [Entitic vol] 7.2 fL Normal 6.4 - 10.8 fL [facility] Platelets (Bld) [#/Vol] 232.0 E9/L Normal 150.0 - 500.0 E9/L [facility] RBC (Bld) [#/Vol] 4.3 E12/L Normal 4.3 - 5.9 E12/L [facility] WBC corrected for nucl RBC Auto (Bld) [#/Vol] 7.1 E9/L Normal 4.0 - 11.0 E9/L [facility] CHEMISTRYOrdered By: SYSTEM SYSTEM on 10-25-2021 Anion gap [Moles/Vol] 14 mmol/L Normal 6 - 16 mEq/L F C Remisol Calcium [Mass/Vol] 8.7 mg/dL Low 8.9 - 11. 1 mg/dL [facility] Chloride [Moles/Vol] 104 mmol/L Normal 101 - 1 11 mmol/L [facility] CO2 [Moles/Vol] 21 mmol/L Normal 21 - 31 mmol/L [facility] Creatinine [Mass/Vol] 3.5 mg/dL High 0.5 - 1.3 mg/dL [facility] GFR/1.73 sq M.predicted among blacks MDRD (S/P/Bld) [Vol rate/Area] 21 mL/min/1.73 m2 Low >=59mL/min/1 .73 m2 [facility] Chem S GFR/1.73 sq M.predicted among non-blacks MDRD (S/P/Bld) [Vol rate/Area] 17 mL/min/1.73 m2 Low >=59mL/min/1 .73 m2 [facility] Chem S Glucose [Mass/Vol] 116 mg/dL Normal 55 - 199 mg/dL [facility] Potassium [Moles/Vol] 4.0 mmol/L Normal 3.5 - 5.3 mmol/L [facility] Sodium [Moles/Vol] 135 mmol/L Normal 135 - 145 mmol/L [facility] Urea nitrogen [Mass/Vol] 33 mg/dL High 5 - 21 mg/dL [facility] Urea nitrogen/Creatinine [Mass ratio] 9 mg/mg Low 10 - 20 [facility] HEMATOLOGYOrdered By: SYSTEM SYSTEM on 10-25-2021 Basophils/100 WBC (Bld) 0.4 % Normal 0.0 - 2.0 % [facility] Basophils/Leukocytes Auto (Bld) [Pure # fraction] 0.0 E9/L Normal 0.0 - 0.2 E9/L [facility] Eosinophils/100 WBC (Bld) 0.6 % Normal 0.0 - 8.0 % [facility] Eosinophils/Leukocyte s Auto (Bld) [Pure # fraction] 0.1 E9/L Normal 0.0 - 0.5 E9/L [facility] Lymphocytes/100 WBC (Bld) 6.8 % Low 14.0 - 50.0 % [facility] Lymphocytes/Leukocyte s Auto (Bld) [Pure # fraction] 0.6 E9/L Low 1.0 - 4.0 E9/L [facility] Monocytes/100 WBC (Bld) 10.0 % Normal 4.0 - 14.0 % [facility] Monocytes/Leukocytes Auto (Bld) [Pure # fraction] 0.9 E9/L Normal 0.2 - 1.0 E9/L [facility] Neutrophils/100 WBC (Bld) 82.2 % High 36.0 - 75.0 % [facility]eAuto[facility] Neutrophils/Leukocyte s Auto (Bld) [Pure # fraction] 7.4 E9/L [...] 29.2 pg Normal 27.0 - 34.0 pg [facility] HemeAutoSS MCHC (RBC) [Mass/Vol] 33.9 g/dL Normal 31.4 - 36.0 gm/dL [facility] MCV (RBC) [Entitic vol] 86.1 fL Normal 80.0 - 100.0 fL [facility] Platelet mean volume (Bld) [Entitic vol] 7.1 fL Normal 6.4 - 10.8 fL [facility] HemeAutoSS Platelets (Bld) [#/Vol] 262.0 E9/L Normal 150.0 - 500.0 E9/L [facility]eAuto[facility] RBC (Bld) [#/Vol] 4.9 E12/L Normal 4.3 - 5.9 E12/L [facility] HemeAuto[facility] WBC corrected for nucl RBC Auto (Bld) [#/Vol] 9.0 E9/L Normal 4.0 - 11.0 E9/L [facility]eAuto[facility] CBC AUTO DIFFon 10-24-2021 BASO # 0.0 103/ul Normal 0.0-0.1 [facility] Comment on above: Performed By: #### C BC ####[facility] [id number] [place] [id number]. Keaton Tan Basophils/100 WBC (Bld) 0.3 % Normal 0.2-2.0 [facility] Comment on above: Performed By: #### C BC ####[facility] [id number] [place] [address]Dr. Keaton Tan EO # 0.2 103/ul Normal 0.0-0.7 [facility] Comment on above: Performed By: #### C BC ####[facility] [id number] [place] [id number] Tan Eosinophils/100 WBC (Bld) 3.3 % Normal 0.9-7.0 [facility] Comment on above: Performed By: #### C BC ####[facility] [id number] [place] [id number]. Keaton Tan Erythrocyte distribution width (RBC) [Ratio] 13.3 % Normal 11.0-15.0 [facility] Comment on above: Performed By: #### C BC ####[facility] [id number] [place] [address]Dr. Keaton Tan Hematocrit (Bld) [Volume fraction] 43.7 % Normal 42.0-54.0 [facility] Comment on above: Performed By: #### C BC ####[facility] [address] [place] [address]Dr. Gertrudisdelfina Dominick Hemoglobin (Bld) [Mass/Vol] 14.2 g/dL Normal 14.0-18.0 [facility] Comment on above: Performed By: #### C BC ####[facility] Sz[address] [place], [place] [address]Dr. Keaton Tan IG # 0.02 10e3/ul Normal 0.00-0.03 [facility] Comment on above: Performed By: #### C BC ####[facility] [address] [place], [place] [address]Dr. Keaton Tan IG % 0.3 % Normal 0.0-0.5 [facility] Comment on above: Performed By: #### C BC ####[facility] [address] [place], [place] [address]Dr. Gertrudisdelfina Tan LYMPH # 1.4 103/ul Normal 1.2-3.8 [facility] Comment on above: Performed By: #### C BC ####[facility] Cupwpvizkv[address] [place], [place] [address]Dr. Keaton Tan Lymphocytes/100 WBC (Bld) 19.9 % Critically low 20.5-60.0 [facility] Comment on above: Performed By: #### C BC ####[facility] [address] [place], [place] [address]Dr. Keaton Tan MANUAL DIFF REQ NO Normal [facility] Comment on above: Performed By: #### C BC ####[facility] [address] [place] [address]Dr. Keaton Tan MCH (RBC) [Entitic mass] 28.9 pg Normal 25.9-34.0 [facility] Comment on above: Performed By: #### C BC ####[facility] [address] [place] [id number]. Keaton Dominick MCHC (RBC) [Mass/Vol] 32.5 g/dL Normal 29.9-35.2 [facility] Comment on above: Performed By: #### C BC ####[facility] [address] [place] [id number]. Keaton Tan MCV (RBC) [Entitic vol] 89.0 fL Normal 80.0-94.0 [facility] Comment on above: Performed By: #### C BC ####[facility] [address] [place], [place] [address]DrJak Tan MONO # 0.6 103/ul Normal 0.3-0.8 [facility] Comment on above: Performed By: #### C BC ####[facility] [address] [place], [place] [address]Dr. Keaton Tan Monocytes/100 WBC (Bld) 7.9 % Normal 1.7-12.0 [facility] Comment on above: Performed By: #### C BC ####[facility] [address] [place], [place] [address]Dr. Keaton Tan NEUT # 4.8 103/ul Normal 1.4-6.5 [facility] Comment on above: Performed By: #### C BC ####[facility] [address] [place], [place] [address]Dr. Keaton Tan Neutrophils/100 WBC (Bld) 68.3 % Normal 43.0-75.0 [facility] Comment on above: Performed By: #### C BC ####[facility] [address] [place], [place] [id number] Tan Platelet mean volume (Bld) [Entitic vol] 9.0 fL Critically low 9.5-13.5 [facility] Comment on above: Performed By: #### C BC ####[facility] [address] [place], [place] [address]Dr. Keaton Tan PLT 306 103/ul Normal 150-450 [facility] Comment on above: Performed By: #### C BC ####[facility] [address] [place], [place] [address]Ta. Keaton Tan RBC 4.91 106/ul Normal 4.70-6.10 [facility] Comment on above: Performed By: #### C BC ####[facility] [address] [place], [place] [address]Kb. Keaton Tan WBC 7.0 103/ul Normal 4.0-11.0 [facility] Comment on above: Performed By: #### C BC ####[facility] [address] [place], [place] [address]Uz. Keaton Tan CT ABD/PELVIS WO CONon 10-24 [...] proximal left ureteral stone. Electronically authenticated by: CHRISTOPHERAN BRIONES Date: 2021-10-24 17:14 Normal [facility] CULTURE URINEon 10-24-2021 CULTURE URINE Culture Observations : No growth Normal [facility] Comment on above: Performed By: #### U RCX #### [facility] [address] [address] [address] Keaton Tan ER URINE PROFILEon 2 Bilirubin Ql (U) SMALL Abnormal NEGATIVE [facility] Comment on above: Performed By: #### E RUR, UMICRO #### [facility] [address] [place] [address] Dr. Keaton Tan Clarity (U) TURBID Abnormal CLEAR [facility] Comment on above: Performed By: #### E RUR, UMICRO #### [facility] [address] [place] [address] Dr. Keaton Tan Color (U) BROWN Abnormal YELLOW [facility] Comment on above: Performed By: #### E RUR, UMICRO #### [facility] [address] [address] [address] Keaton LIV[place] A micrscopic examination will be performed if indicated. Normal [facility] Comment on above: Performed By: #### E RUR, UMICRO #### [facility] [address] [place] [address] Dr. Keaton Tan Glucose Ql (U) Negative Normal NEGATIVE [facility] Comment on above: Performed By: #### E RUR, UMICRO #### [facility] [address] [address] [address] Keaton Tan Hemoglobin Ql (U) LARGE Abnormal NEGATIVE [facility] Comment on above: Performed By: #### E RUR, UMICRO #### [facility] [address] [address] [address] Keaton Tan Ketones Ql (U) TRACE Abnormal NEGATIVE [facility] Comment on above: Performed By: #### E RUR, UMICRO #### [facility] [address] [place] [address] Dr. Keaton Tan LEUKOCYTES Negative Normal NEGATIVE [facility] Comment on above: Performed By: #### SARAY ANDREWS #### [facility] [address] [place] [address] Dr. Keaton Tan Nitrite Ql (U) Negative Normal NEGATIVE [facility] Comment on above: Performed By: #### SARAY ANRDEWS #### [facility] [address] [place] [address] Dr. Keaton Tan pH (U) 5.5 [pH] Normal 5-9 [facility] Comment on above: Performed By: #### SARAY ANDREWS #### [facility] [address] [place] [address] Dr. Keaton Tan Protein (U) [Mass/Vol] 100 mg/dL Abnormal NEGATIVE/ TRACE [facility] Comment on above: Performed By: #### SARAY ANDREWS #### [facility] [address] [place] [address] Dr. Keaton Tan SPEC GRAVITY >=1.030 Abnormal 1.005-<=1.02 5 [facility] Comment on above: Performed By: #### SARAY ANDREWS #### [facility] [address] [place] [address] Dr. Keaton Tan UR MICRO IND INDICATED Normal [facility] Comment on above: Performed By: #### SARAY ANDREWS #### [facility] [address] [place] [address] Dr. Keaton Tan Urobilinogen Qn (U) 0.2 {Whitney'U}/dL Normal 0.2 - 1. 0 [facility] Comment on above: Performed By: #### SARAY ANDREWS #### [facility] [address] [place] [address] Dr. Keaton Tan PROF 14(COMP METB)on 022 Albumin [Mass/Vol] 3.5 g/dL Normal 3.4-5.0 [place] Comment on above: Performed By: #### C MP ####[facility] [address] [place] [address]Dr. Keaton Dominick Albumin/Globulin [Mass ratio] 1.1 {ratio} Normal [facility] Comment on above: Performed By: #### C MP ####[facility] [address] [place] [id number]. Keaton Dominick ALP [Catalytic activity/Vol] 97 U/L Normal 46-116 [facility] Comment on above: Performed By: #### C MP ####[facility] [address] [place], [place] [address]Dr. Keaton Dominick ALT [Catalytic activity/Vol] 21 U/L Normal 16-63 [facility] Comment on above: Performed By: #### C MP ####[facility] E[address] [place], [place] [address]Dr. Keaton Tan Anion gap [Moles/Vol] 14.6 mmol/L Normal [facility] Comment on above: Performed By: #### C MP ####[facility] [address] [place], [place] [address]Dr. Keaton Dominick AST [Catalytic activity/Vol] 16 U/L Normal 15-37 [facility] Comment on above: Performed By: #### C MP ####[facility] [address] [place], [place] [address]Dr. Keaton Tan Bilirubin [Mass/Vol] 0.5 mg/dL Normal 0.2-1.0 [facility] Comment on above: Performed By: #### C MP ####[facility] [address] [place], [place] [address]Dr. Keaton Tan Calcium [Mass/Vol] 8.3 mg/dL Critically low 8.5-10.1 [facility] Comment on above: Performed By: #### C MP ####[facility] Dr[address] [place], [place] [address]Dr. Keaton Tan Chloride [Moles/Vol] 101 mmol/L Normal 98-107 [facility] Comment on above: Performed By: #### C MP ####[facility] [address] [place] [address]Dr. Keaton Dominick CO2 [Moles/Vol] 26.0 mmol/L Normal 21.0-32.0 [facility] Comment on above: Performed By: #### C MP ####[facility] [address] [place] [address]Dr. Keaton Tan Creatinine [Mass/Vol] 0.95 mg/dL Normal 0.70-1.30 [facility] Comment on above: Performed By: #### C MP ####[facility] [address] [place] [address]Dr. Keaton Dominick EGFR-AF BHUTANESE >60 Normal >=60 [facility] Comment on above: Performed By: #### C MP ####[facility] [address] [place], [place] [address]Dr. Keaton Tan EGFR-NON AF BHUTANESE >60 Normal >=60 [facility] Comment on above: Performed By: #### C MP ####[facility] [address] [place], [place] [address]Dr. Keaton Tan Globulin (S) [Mass/Vol] 3.2 g/dL Normal [facility] Comment on above: Performed By: #### C MP ####[facility] [address] [place], [place] [address]Dr. Keaton Tan Glucose [Mass/Vol] 132 mg/dL Critically high 74-106 [facility] Comment on above: Performed By: #### C MP ####[facility] [address] [place], [place] [address]Dr. Keaton Tan Potassium [Moles/Vol] 3.6 mmol/L Normal 3.5-5.1 [facility] Comment on above: Performed By: #### C MP ####[facility] [address] [place], [place] [address]Dr. Keaton Tan Protein [Mass/Vol] 6.7 g/dL Normal 6.1-8.2 [facility] Comment on above: Performed By: #### C MP ####[facility] [address] [place], [place] [address]Dr. Keaton Tan Sodium [Moles/Vol] 138 mmol/L Normal 136-145 [place] Comment on above: Performed By: #### C MP ####[facility] [address] [place] [address]Dr. Keaton Tan Urea nitrogen [Mass/Vol] 21.0 mg/dL Critically high 7.0-18.0 [facility] Comment on above: Performed By: #### C MP ####[facility] [address] [place] [address]Dr. Keaton Tan Urea nitrogen/Creatinine [Mass ratio] 22.1 mg/mg Normal [facility] Comment on above: Performed By: #### C MP ####[facility] [address] [place] [address]Dr. Keaton Tan PROTIMEon 10-24-2021 INR Coag (PPP) [Relative time] 1.01 {INR} Normal [facility] Comment on above: Performed By: #### P TT, PT #### [facility] [address] [address] [address] Keaton Tan INR GUIDELINES SEE BELOW Normal [facility] Comment on above: Result Comment: JOZEF RED INR: 2.0 - 3.0 CONDITIONS NOT LISTED BELOW 2.5 - 3.5 FOR PROSTHETIC HEART VALVE REPLACEMENT 2.5 - 3.5 RECURRENT THROMBOSIS Performed By: #### P TT, PT #### [facility] [address] [address] [address] Keaton Tan PT Coag (PPP) [Time] 10.9 s Normal 9.0-11.6 [facility] Comment on above: Performed By: #### P TT, PT #### [facility] [address] [address] [address] Keaton Tan PTTon 10-24-2021 aPTT Coag (Bld) [Time] 29.0 s Normal 22.3-36.2 [facility] Comment on above: Performed By: #### P TT, PT #### [facility] [address] [address] [address] Keaton Tan URINE MICROSCOPIC ONLYon BACTERIA SMALL Abnormal NONE SEEN [facility] Comment on above: Performed By: #### E RUR, UMICRO #### [facility] [address] [place] [address] Dr. Keaton Tan Bacteria identified Cx Nom (U) INDICATED Normal [facility] Comment on above: Performed By: #### E RUR, UMICRO #### [facility] [address] [place] [address] Dr. Keaton Tan CAST NONE SEEN Normal NONE SEEN [facility] Comment on above: Performed By: #### E RUR, UMICRO #### [facility] [address] [place] [address] Dr. Keaton Tan Crystals LM Nom (Urine sed) NONE SEEN Normal NONE SEEN [facility] Comment on above: Performed By: #### E RUR, UMICRO #### [facility] [address] [place] [address] Dr. Keaton Tan Epithelial cells LM Ql (Urine sed) FEW Abnormal NONE SEEN /RARE [facility] Comment on above: Performed By: #### E RUY, UMICRO #### [facility] [address] [place] [address] Dr. Keaton Tan MUCOUS LARGE Abnormal NONE SEEN [facility] Comment on above: Performed By: #### E RUR, UMICRO #### [facility] [address] [place] [address] Dr. Keaton Tan RBC (U) [#/Vol] /uL Abnormal 0-2 [facility] Comment on above: Performed By: #### E RUR, UMICRO #### [facility] [address] [place] [address] Dr. Keaton Tan WBC 0-2 Abnormal NONE SEEN [facility] Comment on above: Performed By: #### E RUR, UMICRO #### [facility] [address] [place] [address] Dr. Keaton Tan ECHOCARDIO M/2D COMPLETEon 1 08-01-2020 ECHOCARDIO M/2D COMPLETE Patient: WALT SKELTON Exam Date: 05/31/2021 : 1945 Gender:M Ordering : DR MILAGRO HALLMAN D.O. Admission #: [id number] Family : Order #: [id number] CLICK HERE TO VIEW EXAM ECHOCARDIOGRAM REPORT [...] Area(A4C): 14.80 cm2 Left Atrium Systolic Volume(A2C): 41426 mm3 Left Atrium Systolic Volume(A4C): 22198 mm3 Mitral Valve MV E to A [...] Gradient: 8 mm[Hg] Right Atrium Dictated by: vIory Short M.D. on 06/01/2021 at 16:10 Approved by: Ivory Short M.D. on 06/01/2021 at 16:16 Normal [facility] US CAROTID ART BILon 12-01-2 021 US CAROTID ART SHANTA EXAMINATION: US [...] by: CHRISTOPHER BRIONES Date: 2021-05-31 16:06 Normal [facility] Vital Signs Date Time Vital Sign Value Performing Clinician Facility 08-27-2023 08:40-0500 Diastolic blood pressure 77 mm[Hg] Joey LÓPEZ [facility] 08-27-2023 08:40-0500 Heart rate 85 /min Joey LÓPEZ [facility] 08-27-2023 08:40-0500 Systolic blood pressure 121 mm[Hg] Joey COOK [facility] 08-22-2022 09:52-0500 Blood Pressure Location Joey COOK [facility] 08-22-2022 09:52-0500 Diastolic blood pressure 61 mm[Hg] Joey COOK [facility] 08-22-2022 09:52-0500 Heart rate 76 /min Joey COOK [facility] 08-22-2022 09:52-0500 Respiratory rate 16 /min Joey COOK [facility] 08-22-2022 09:52-0500 Systolic blood pressure 125 mm[Hg] Joey COOK [facility] 12-28-2021 10:35-0400 Blood Pressure Location Joey COOK [facility] 12-28-2021 10:35-0400 Body temperature 97.7 [degF] Joey COOK [facility] 12-28-2021 10:35-0400 Diastolic blood pressure 72 mm[Hg] Joey COOK [facility] 12-28-2021 10:35-0400 Heart rate 75 /min Joey COOK [facility] 12-28-2021 10:35-0400 Mean blood pressure 94 mm[Hg] Joey COOK [facility] 12-28-2021 10:35-0400 Systolic blood pressure 138 mm[Hg] Joey COOK [facility] 12-28-2021 10:33-0400 Blood Pressure Location Joey LÓPEZ [facility] 12-28-2021 10:33-0400 BP/Pulse Patient Position Joey LÓPEZ [facility] 12-28-2021 10:33-0400 Diastolic blood pressure 68 mm[Hg] Joey LÓPEZ [facility] 12-28-2021 10:33-0400 Heart rate 80 /min Joey LÓPEZ [facility] 12-28-2021 10:33-0400 Mean blood pressure 86 mm[Hg] Joey LÓPEZ [facility] 12-28-2021 10:33-0400 Respiratory rate 16 /min Joey LÓPEZ [facility] 12-28-2021 10:33-0400 SaO2% (BldA) [Mass fraction] 97 % Joey LÓPEZ [facility] 12-28-2021 10:33-0400 Systolic blood pressure 123 mm[Hg] Joey LÓPEZ [facility] 11-23-2021 13:36-0400 Blood Pressure Location Joey LÓPEZ [facility] 11-23-2021 13:36-0400 Body temperature 98.06 [degF] Joey LÓPEZ [facility] 11-23-2021 13:36-0400 Diastolic blood pressure 77 mm[Hg] Joey LÓPEZ [facility] 11-23-2021 13:36-0400 Heart rate 53 /min Joey LÓPEZ [facility] 11-23-2021 13:36-0400 Mean blood pressure 104 mm[Hg] Joey LÓPEZ [facility] 11-23-2021 13:36-0400 Respiratory rate 18 /min Joey LÓPEZ [facility] 11-23-2021 13:36-0400 SaO2% (BldA) [Mass fraction] 97 % Joey LÓPEZ [facility] 11-23-2021 13:36-0400 Systolic blood pressure 158 mm[Hg] Joey LÓPEZ [facility] 11-23-2021 13:26-0400 Body temperature 97.7 [degF] Joey LÓPEZ [facility] 11-23-2021 13:26-0400 Diastolic blood pressure 60 mm[Hg] Joey LÓPEZ [facility] 11-23-2021 13:26-0400 Heart rate 58 /min Joey LÓPEZ [facility] 11-23-2021 13:26-0400 Respiratory rate 20 /min Joey LÓPEZ [facility] 11-23-2021 13:26-0400 SaO2% (BldA) [Mass fraction] 96 % Joey LÓPEZ [facility] 11-23-2021 13:26-0400 Systolic blood pressure 141 mm[Hg] Joey LÓPEZ [facility] 11-23-2021 13:20-0400 Diastolic blood pressure 72 mm[Hg] Joey LÓPEZ [facility] 11-23-2021 13:20-0400 Heart rate 57 /min Joey LÓPEZ [facility] 11-23-2021 13:20-0400 Respiratory rate 18 /min Joey LÓPEZ [facility] 11-23-2021 13:20-0400 SaO2% (BldA) [Mass fraction] 94 % Joey LÓPEZ [facility] 11-23-2021 13:20-0400 Systolic blood pressure 159 mm[Hg] Joey LÓPEZ [facility] 11-23-2021 13:05-0400 Respiratory rate 22 /min Joey LÓPEZ [facility] 11-23-2021 12:40-0400 Blood Pressure Location Joey LÓPEZ [facility] 11-23-2021 12:40-0400 Body temperature 97.7 [degF] Joey LÓPEZ [facility] 11-23-2021 12:36-0400 Blood Pressure Location Joey LÓPEZ [facility] 11-23-2021 12:30-0400 Respiratory rate 30 /min Joey LÓPEZ [facility] 11-23-2021 12:25-0400 Respiratory rate 30 /min Joey LÓPEZ [facility] 11-23-2021 12:20-0400 Body temperature 96.8 [degF] Joey LÓPEZ [facility] 11-23-2021 12:15-0400 Body temperature 96.8 [degF] Joey LÓPEZ [facility] 11-23-2021 12:10-0400 Body temperature 96.8 [degF] Joey LÓPEZ [facility] 11-23-2021 10:21-0400 Mean blood pressure 96 mm[Hg] Joey LÓPEZ [facility] 11-23-2021 10:20-0400 Body temperature 97.7 [degF] Joey LÓPEZ [facility] 11-23-2021 10:20-0400 Mean blood pressure 97 mm[Hg] Joey LÓPEZ [facility] 11-23-2021 10:20-0400 Heart rate 62 /min Joey LÓPEZ [facility] 10-27-2021 10:07-0400 Hourly Rounding Hasan AMIR [facility] 10-27-2021 10:07-0400 Promise to Return Hasan [facility] 10-27-2021 09:11-0400 Hourly Rounding [facility] 10-27-2021 09:11-0400 Promise to Return [facility]an [facility] 10-27-2021 08:59-0400 Diastolic blood pressure 78 mm[Hg] [facility] 10-27-2021 08:59-0400 Systolic blood pressure 158 mm[Hg] [facility] 10-27-2021 08:11-0400 Promise to Return [facility] 10-27-2021 07:57-0400 SaO2% (BldA) [Mass fraction] 97 % [facility] 10-27-2021 03:40-0400 Body temperature 97.52 [degF] [facility] 10-27-2021 03:40-0400 Heart rate 68 /min [facility] 10-27-2021 03:40-0400 Respiratory rate 16 /min [facility] 10-27-2021 03:40-0400 SaO2% (BldA) [Mass fraction] 96 % [facility] 10-26-2021 23:51-0400 SaO2% (BldA) [Mass fraction] 96 % [facility] 10-26-2021 23:25-0400 Body temperature 98.42 [degF] [facility] 10-26-2021 23:25-0400 Diastolic blood pressure 78 mm[Hg] [facility] 10-26-2021 23:25-0400 Heart rate 75 /min [facility] 10-26-2021 23:25-0400 Respiratory rate 16 /min [facility] 10-26-2021 23:25-0400 Systolic blood pressure 148 mm[Hg] [facility] 10-26-2021 20:25-0400 Body temperature 98.06 [degF] [facility] 10-26-2021 20:25-0400 Heart rate 77 /min [facility] 10-26-2021 20:25-0400 Respiratory rate 16 /min [facility] 10-26-2021 15:45-0400 Mean blood pressure 100 mm[Hg] [facility] 10-26-2021 14:00-0400 Blood Pressure Location [facility] 10-26-2021 14:00-0400 Body temperature 97.88 [degF] [facility] 10-26-2021 14:00-0400 Mean blood pressure 91 mm[Hg] [facility] 10-26-2021 13:45-0400 Blood Pressure Location [facility] 10-26-2021 13:45-0400 Mean blood pressure 87 mm[Hg] [facility] 10-26-2021 13:45-0400 Respiratory rate 16 /min [facility] 10-26-2021 13:40-0400 Blood Pressure Location [facility] 10-26-2021 13:40-0400 Mean blood pressure 85 mm[Hg] [facility] 10-26-2021 13:40-0400 Respiratory rate 16 /min [facility] 10-26-2021 13:33-0400 Body temperature 96.98 [degF] [facility] 10-26-2021 08:09-0400 BP/Pulse Patient Position [facility] 10-26-2021 03:00-0400 BP/Pulse Patient Position [facility] 10-26-2021 00:00-0400 BP/Pulse Patient Position [facility] 10-25-2021 19:52-0400 Mean blood pressure 80 mm[Hg] [facility] 10-25-2021 18:09-0400 Mean blood pressure 93 mm[Hg] [facility] 10-25-2021 18:08-0400 Heart rate 68 /min [facility] 10-25-2021 18:07-0400 Heart rate 68 /min [facility] 10-25-2021 15:03-0400 Heart rate 75 /min [facility] Encounters Encounter Date Encounter Type Care Provider Facility Start: 08-25-2024 ambulatory Joey LÓPEZ Facility :[facility] Start: 08-27-2023 End: 08-28-2023 ambulatory Joey LÓPEZ Facility:[facility] Start: 08-27-2023 End: 08-27-2023 Patient encounter procedure Joey LÓPEZ [facility] [place] Start: 08-13-2023 End: 08-14-2023 ambulatory JOEY LÓPEZ Not Available Start: 08-22-2022 End: 08-22-2022 Patient encounter procedure oJey LÓPEZ [facility] [place] Start: 08-20-2022 End: 08-20-2022 Patient encounter procedure Joye LÓPEZ [facility] Start: 05-21-2022 End: 05-22-[address] MILAGRO HALLMAN Facility:[facility] Start: 12-28-2021 End: 12-28-2021 Patient encounter procedure Joey LÓPEZ [facility] Start: 12-04-2021 End: 12-04-2021 Patient encounter procedure Joey LÓPEZ [facility] Start: 12-04-2021 End: 12-04-2021 Patient encounter procedure Joey LÓPEZ [facility] Start: 11-23-2021 End: 11-23-2021 Admission to same day surgery center Joey LÓPEZ [facility] Start: 11-13-2021 End: 11-13-2021 Patient encounter procedure Joey LÓPEZ [facility] Start: 11-09-2021 End: 11-09-2021 Patient encounter procedure Joey LÓPEZ [facility] Start: 10-25-2021 End: 10-27-2021 Observation Mckay SHAYR [facility] Start: 10-24-2021 End: 10-24-[address] CHRISTOPHER BRIONES Facility:[facility] Start: 05-31-2021 End: 06-01-[address] MILAGRO HALLMAN Facility:[facility] Procedures Date Procedure Procedure Detail Performing Clinician Start: 05-21-[address] CHRISTOPHER BRIONES Comment on above: Performed By: #### PSASC, FT4 ####[place] [address]Dr. Keaton Tan Start: 01-04-2022 Cystoscopy Joey LÓPEZ Start: 11-23-2021 Extracorporeal shockwave lithotripsy of calculus of kidney Joey LÓPEZ Start: 10-26-2021 Cystoscopy Hasan AMIR Comment on [...] extraction and insertion of intraocular lens Joey LÓPEZ Colonoscopy Hasan AMIR History of subtotal thyroidectomy Hasan AMIR INGUINAL HERNIA REPAIR,RIGHT Hasan AMIR OPEN REDUCTION LEFT RADIUS H asan AMIR Immunizations Immunization Date Immunization Notes Care Provider Orestes romero 12-13-2020 SARS-CoV-2 (COVID-19 ) mRNA-1273 vaccine Joey LÓPEZ [facility] Comment on above: Result Comment: 2023: TPV70 11-15-2020 SARS-CoV-2 (COVID-19 ) mRNA-1273 vaccine Joey LÓPEZ [facility] Comment on above: Result Comment: 2023: TPV70 08-05-2018 pneumococcal polysaccharide vaccine, 23 valent Joey LÓPEZ [facility] 08-08-2017 pneumococcal conjuga te vaccine, 13 valent Joey LÓPEZ [facility] NEGATED: Highlighted row has not occurred!08-27-2023 influenza virus vaccine, unspecified formulation Joey LÓPEZ [facility] Payers Date Payer Category Payer Medicare [id number] 1958 Medicare [id number] 1958 Unknown [id number] 1945 Unknown [id number] 2.16.84 [id number] 1945 Unknown [id number] 2.16.84 [id number] 1945 Unknown [id number] 2.16.84 [id number] 1945 Unknown [id number] 2.16.84 [id number] 1945 Unknown [id number] 2.16.8 [id number] 1945 Unknown [id number] 2.16.8 [id number] Social History Date Type Detail Facility Start: 11-08-2020 End: 08-27-2023 Tobacco smoking status Never smoked tobacco (finding) [facility] Sex Assigned At Male [facility] Tobacco smoking status Never [facility] Medical Equipment Procedure Code Equipment Code Equipment Origin al Text Equipment Identifier Dates [id number] FDA Start: 10-26-2021 Functional Status Date Assessment Result Facility 08-27-2023 Functional Status N/A [facility] 08-22-2022 Functional Status N/A [facility] 12-28-2021 Functional Status No [facility] Clinical Notes 10-27-2021 to 08-27-2023 Note Date & Type Note Facility 08-27-2023 Hospital Discharge instructions Patient Education 08/27/2023 09:06:40 Benign Prostatic Hyperplasia Benign Prostatic Hyperplasia Benign prostatic hyperplasia (BPH) is an enlarged prostate gland that is caused by the normal aging process. The prostate may get bigger as a man gets older. The condition is not caused by cancer. The prostate is a walnut-sized gland that is involved in the production of semen. It is located in front of the rectum and below the bladder. The bladder stores urine. The urethra carries stored urine out of the body. An enlarged prostate can press on the urethra. This can make it harder to pass urine. The buildup of urine in the bladder can cause infection. Back pressure and infection may progress to bladder damage and kidney (renal) failure. What are the causes? This condition is part of the normal aging process. However, not all men develop problems from this condition. If the prostate enlarges away from the urethra, urine flow will not be blocked. If it enlarges toward the urethra and compresses it, there will be problems passing urine. What increases the risk? This condition is more likely to develop in men older than 50 years. What are the signs or [...] urethra. Follow these instructions at home: Take ugwh-cyn-okcrwuc and prescription medicines only as told by your health care provider. Monitor your symptoms for any changes. Contact your health care provider with any changes. Avoid drinking large amounts of liquid before going to bed or out in public. Avoid or reduce how much caffeine or alcohol you drink. Give yourself time when you urinate. Keep all follow-up visits. This is important. Contact a health care provider if: You have unexplained back pain. Your symptoms do not get better with treatment. You develop side effects from the medicine you are taking. Your urine becomes very dark or has a bad smell. Your lower abdomen becomes distended and you have trouble passing urine. Get help right away if: You have a fever or chills. You suddenly cannot urinate. You feel light-headed or very dizzy, or you faint. There are large amounts of blood or clots in your urine. Your urinary problems become hard to manage. You develop moderate to severe low back or flank pain. The flank is the side of your body between the ribs and the hip. These symptoms may be an emergency. Get help right away. Call 911. Do not wait to see if the symptoms will go away. Do not drive yourself to the hospital. Summary Benign prostatic hyperplasia (BPH) is an enlarged prostate that is caused by the normal aging process. It is not caused by cancer. An enlarged prostate can press on the urethra. This can make it hard to pass urine. This condition is more likely to develop in men older than 50 years. Get help right away if you suddenly cannot urinate. This information is not intended to replace advice given to you by your health care provider. Make sure you discuss any questions you have with your health care provider. Document Revised: 01/03/2022 Document Reviewed: 01/03/2022 [employer] Patient Education 2022 [employer]. Follow Up Care 08/22/2022 10:26:53 With:MARIBEL ANN, Joey Cantu, URL Address: [address] [place], [place] [id number]- When: Unknown Comments:2 yr w/ TOÑITO [facility] 08-22-2022 Hospital Discharge instructions Patient Education 08/22/2022 10:18:31 Kidney Stones, Pbdj-xh-Vfmo Kidney Stones Kidney stones are rock-like masses [...] Follow these instructions at home: Medicines Take boze-ohr-ugsgnmz and prescription medicines only as told by [...] 12/03/2008 Document Revised: 11/03/2019 Document Reviewed: 11/03/2019 Elsevier Patient Education 2020 [employer] Follow Up Care 08/23/2021 10:36:48 With:MARIBEL ANN, Joey Cantu, URL Address: [address] [place] [id number]- When: Unknown [facility] 12-04-2021 Hospital Discharge instructions Patient Education 12/04/2021 11:40:19 Lithotripsy, Care [...] Follow these instructions at home: Medicines Take ltlv-det-sstoqfj and prescription medicines only as told by [...] Document Reviewed: 05/08/2017 Elsevier Patient Education 2019 [employer]. [facility] 11-23-2021 Hospital Discharge instructions Patient Education 11/23/2021 12:41:03 Post Op [...] Follow these instructions at home: Medicines Take wavv-org-abxfeuh and prescription medicines only as told by [...] 07/06/2008 Document Revised: 09/28/2019 Document Reviewed: 05/08/2017 [employer] Patient Education 2020 [employer]. Follow Up Care 11/13/2021 09:23:58 With:Joey LÓPEZ Address: [address] [place], [place] [id number] [facility] (1) When:1 to 2 weeks Comments:Call for followup appointment, with an abdominal X-ray prior to your visit. [facility] 11-23-2021 Evaluation + Plan note Extrac claudia from: Title:ANES POSTOP MAC/GEN NOTE Author:Kenneth Ramirez JR Date:11/23/21 Plan Transfer/ Discharge: Patient can be discharged from PACU when criteria met. Condition good. Extracted from: Title:ANES PREOP GEN ADULT NOTE Author:Kenneth Martinez JR, DO Date:11/23/21 Plan [employer] Anesthesiologists (ASA) physical status classification: Class II. Anesthetic Preoperative Plan Anesthesia: General. . Anesthetic plan, risks, benefits, and alternatives discussed with the patient and/or family. Pt. and/or family present and agree to proceed as planned.. Discussed the importance of abstaining from tobacco products, and offered counseling if desired. Future Appointments Appointment Date:08/22/2022 09:30:00 AM Scheduled Provider:Joey LÓPEZ MD Location:[facility] Appointment Type:URO Office Visit [facility]05-16-2022 Hospital Discharge instructions Patient Education 11/13/2021 09:05:39 Kidney Stones, Gmqz-xd-Pxyp Kidney Stones Kidney stones are rock-like masses [...] Follow these instructions at home: Medicines Take icid-xxh-wbfjumf and prescription medicines only as told by [...] 12/03/2008 Document Revised: 11/03/2019 Document Reviewed: 11/03/2019 [employer] Patient Education 2019 [employer]. 11/13/2021 07:30:53 Benign Prostatic Hyperplasia Benign Prostatic [...] urethra. Follow these instructions at home: Take pcgi-hgz-xcqlxdm and prescription medicines only as told by [...] 06/17/2006 Document Revised: 05/12/2019 Document Reviewed: 07/22/2017 [employer] Patient Education 2020 [employer]. Follow Up Care 10/27/2021 08:21:24 With:MARIBEL ANN, Joey Cantu, URL Address: [facility] [place] [address] [place] [id number] When: Unknown Comments:will schedule follow up after procedure [facility] 04-29-2022 Evaluation + Plan noteExtracted from: Title:Progress Note * Author:Myron ANNDickson Santana e:10/27/21 Impression and Plan 1. MARKUS [...] out at Extracted from: Title:Discharge Note Author:Mckay BARRETT MD Date: 10/27/21 Discharge Status: Improved Discharge [...] day(s), # 9 cap(s), Refills(s) 0, Pharmacy: [facility]/pharmacy #[id number], 170, cm, 10/25/21 16:22:00 EDT, Height/Length Dosing, 75.5, kg, 10/25/21 16:22:00 EDT, Weight Dosing Discharge Patient Incentive Spirometry Troponin 3 Hr. Troponin 6 Hr. Troponin 9 Hr. Prescriptions Keflex 500 mg Cap, 500 mg= 1 cap(s), Oral, TID Home Starbuck Thyroid 60 mg Tab, 60 mg= 1 tab(s), Oral, Daily mometasone Top 0.1% Crm 15 gram, 1 jarrod, Topical, Daily mometasone Top 0.1% Lotion, 1 jarrod, Topical, Daily ondansetron 4 mg Dis Tab, 4 mg= 1 tab(s), Oral, q6hr, PRN tamsulosin 0.4 mg Cap, 0.4 mg= 1 cap(s), Oral, Daily With When Contact Information Joey LÓPEZ 11/13/2021 08:30 AM EDT [facility] [address] [place] [id number] [employer] (1) Additional Instructions: abdominal X-ray prior to your office visit. We will make decisions regarding the stone in the left upper ureter, as well as when to remove the right stent.Call central scheduling at [phone] ext [phone] to schedule xrlorrie HALLMAN Within 3 to 5 days [address] [place] [address]- [employer] (1) Additional Instructions: Call for followup appointment Kidney Stones, Cugo-wr-Yvgs Extracted from: Title:Inpatient Consultation-Floor Code* Author: Dickson [...] from: Title:Urology Consult and H&P 2 Author:Joey LÓPEZ MD Date:10/26/21 Impression and Plan Diagnosis Renal calculus, bilateral (TCR59-NL N20.0, Discharge, Medical). Other acute kidney failure (PDX15-PP N17.8, Discharge, Medical). Hydronephrosis with ureteral calculus (CXY94-KR N13.2, Working, Medical). Complaint of Hematuria (PNED [id number], Reason For Visit, Nursing). Condition: Fair. Course: Worsening, Discussed with Dr. Barrett, discussed with the patient, reviewed CT scan report from the [facility], reviewed KUBs from this admission. In [...] care, and the other 50% dedicated to vpxu-zv-avxe patient contact. 80 minutes spent.. Extracted from: Title:APSO Note Author:Mckya BARRETT MD Date: 1. Renal calculus, bilateral (N20.0: Calculus of kidney) - 5x4x4 mm non obstructing stone within distal right ureter and partially obstructing 7x6x5 mm stone within the left ureter on CT imaging from [facility] 10/23 - d/w urology Dr. López, plan for OR tomorrow, NPO for OR [...] labs from PCP and from visit at [facility] 3. Hypothyroid (E03.9: Hypothyroidism, unspecified) - Starbuck thyroid 4. No contraindication to deep vein [...] Extracted from: Title:Admission H & P Author:Mckay BARRETT MD Date :10/25/21 1. Renal calculus, bilateral (N20.0: Calculus of kidney) - 5x4x4 mm non obstructing stone within distal right ureter and partially obstructing 7x6x5 mm stone within the left ureter on CT imaging from [facility] 10/23 - d/w urology Dr. López, plan for OR tomorrow, NPO after midnight - IVF, ceftriaxone IV 2. Other acute kidney failure (N17.8: Other acute kidney failure) - secondary to a combination of pre-renal causes, may have obstructive component - IVF, BMP in AM - hold nephrotoxic meds 3. Hypothyroid (E03.9: Hypothyroidism, unspecified) - Starbuck thyroid 4. No contraindication to deep vein [...] Appointments Appointment Date:11/13/2021 08:30:00 AM Scheduled Provider:Joey LÓPEZ MD Location:[facility] Appointment Type:URO Office Visit Appointment Date:08/22/2022 09:30:00 AM Scheduled Provider:Joey LÓPEZ MD Location:[facility] Appointment Type:URO Office Visit Diagnostic Tests Pending * Calculi Analysis Urinary 10/26/21 Future Scheduled Tests Radiology* XR Abdomen 1 View 10/27/21 [facility]04-29-2022 Hospital Discharge instructions Patient Education 10/27/2021 08:41:13 Kidney Stones, Mqfy-it-Sgbu Kidney Stones Kidney stones are rock-like masses [...] Follow these instructions at home: Medicines Take vbgv-nyx-hhmclba and prescription medicines only as told by [...] 12/03/2008 Document Revised: 11/03/2019 Document Reviewed: 11/03/2019 [employer] Patient Education 2020 [employer]. Follow Up Care 10/25/2021 15:01:17 With:Joey LÓPEZ Address: [address] [place] [id number]- Business (1) When:11/13/2021 08:30:00 Comments:abdominal X-ray prior to your office visit. We will make decisions regarding the stone in the left upper ureter, as well as when to remove the right stent.Call central scheduling at [phone] ext [phone] to schedule xray With:MILAGRO HALLMAN Address: [facility] [place] [address]- Business (1) When:3 to 5 days Comments:[facility]up appointment [facility] Future Appointments Appointment Date:11/13/2021 08:30:00 AM Scheduled Provider:Joey LÓPEZ MD Location:[facility] Appointment Type:URO Office Visit Appointment Date:08/22/2022 09:30:00 AM Scheduled Provider:Joey LÓPEZ MD Location:[facility] Appointment Type[facility] Future Appointments Appointment Date:11/14/2021 07:45:00 AM Scheduled Provider: Location:[facility] Appointment Type:Surgery CALL PAT FT Appointment Date:11/23/2021 02:00:00 PM Scheduled Provider: Location:[facility] Appointment Type:Surgery FT Appointment Date:08/22/2022 09:30:00 AM Scheduled Provider:Joey LÓPEZ MD Location:[facility] Appointment Type:URO Office Visit [facility] Evaluation + Plan note Future Appointments Appointment Date:08/22/2022 09:30:00 AM Scheduled Provider:Joey LÓPEZ MD Location:[facility] Appointment Type:URO Office Visit [facility] Evaluation + Plan note Future Appointments Appointment Date:01/04/2022 12:30:00 PM Scheduled Provider: Location:[facility] Appointment Type:Surgery FT Appointment Date:08/22/2022 09:30:00 AM Scheduled Provider:Joey LÓPEZ MD Location:[facility] Appointment Type:URO [facility] Future Appointments Appointment Date:08/27/2023 08:45:00 AM Scheduled Provider:Joey LÓPEZ MD Location:[facility] Appointment Type:URO Office Visit Future Scheduled Tests Radiology* XR Abdomen 1 View 07/01/23 [facility] Evaluation + Plan note Future Appointments Appointment Date:08/25/2024 08:15:00 AM Scheduled Provider:Joey LÓPEZ MD Location:[facility] Appointment Type:URO Office Visit Future Scheduled Tests Radiology* XR Abdomen 1 View 07/01/23 [facility] Hospital course Narrative No data available for this section [facility] No data available for this section [facility] No data available for this section [facility] Summary Purpose Family History No Family History Records FoundNo Family History Records Found No data available for this section No Family History Records Found Advance Directives No Advanced Directives Records FoundNo Advanced Directives Records FoundNo Advanced Directives Records Found Additional Source Comments Care Team (unrecognized sect ion and content) Personnel Name: MILAGRO HALLMAN DO Address: [address] [place] [address] Personnel Name: MILAGRO HALLMAN DO Address: Address: [address] [place] [address] Personnel Name: MILAGRO HALLMAN DO Address: Address: [address] [place] [address] Personnel Name: MILAGRO HALLMAN DO Address: Address: [address] [place] [address] (unrecognized sect ion and content) No Status Records FoundNo Status Records FoundNo Status Records Found INFORMATION SOURCE (unrecogn ized section and content) DATE CREATED AUTHOR 05/23/2022 [facility] DATE CREATED AUTHOR AUTHOR'S ORGANIZ ATION 08/17/2023 [facility] EPIC DATE CREATED AUTHOR AUTHOR'S ORGANIZ ATION 09/03/2023 [facility] FOR RECORDS PERTAINING TO PATIENTS WHO ARE [...] BE BASED ON THE PRIMARY CLINICAL RECORDS. [employer] [facility]. provides no warranty or guarantee of the accuracy or completeness of information in this document.
[2023-12-31 11:19] LABS: Free T4 0.91 ng/dL (0.76-1.46)
[2023-12-31 11:24] LABS: Free T3 4.36 pg/mL (2.18-3.98); Thyroid Stimulating Hormone 3.337 uIU/mL (0.358-3.740)
== END 2023-12-31 10:09 | disposition home or self-care (01) ==
LOC: LAB 10:12
PROVIDERS: PCP Family Medicine; Visit Provider Family Medicine
DX: E03.9 Hypothyroidism, unspecified (principal)
CPT/HCPCS: 36415; 84439; 84443; 84481

== ENCOUNTER 2024-08-18 08:45 | Outpatient (OUT) | payer MEDICARE, SELFPAY ==
--- OUTSIDE RECORDS SUMMARY | 2024-08-18 08:57 | XMS_ITS | CCD ---
Author Organization [facility] Care Team Providers Care Lab Support Tech Name Role Phone MILAGRO HALLMAN Primary Care [...] Translations: [Tape] Drug allergy Red color (finding) [facility] (13 sources) Ketorolac; Translations: [ketorolac] Drug Allergy Swelling [facility] (11 sources) peanut; Translations: [Peanuts] Drug allergy Headache (finding) [facility] (11 sources) Sulfamethoxazole; Translations: [sulfamethoxazole ] Drug Allergy On examination - lip swelling (context-depend ent category) [facility] (1 source) Desonide Drug Allergy 4 [facility] (1 source) peanut allergenic extract Drug Allergy 4 [facility] (1 source) Sulfonamides (Antibiotic) Drug allergy (disorder) 4 [facility] (2 sources) Amoxicillin; Translations: [amoxicillin] Drug Allergy [facility] Medications Current Medications Medication Drug Class(es) Dates [...] day(s), # 9 cap(s), Refills(s) 0, Pharmacy: [facility]/pharmacy #[id number], 170, cm, 10/25/21 16:22:00 EDT, Height/Length Dosing, 75.5, kg, 10/25/21 16:22:00 EDT, Weight Dosing Start Date: 10/27/21 Stop Date: 10/30/21 Status: Ordered ciprofloxacin 500 mg oral tablet (2 sources) Quinolone Antimicrobial Start: 01-04-2022 take 1 tablet by mouth twice daily Cipro 500 mg Tab 500 mg = 1 tab(s), Oral, BID, # 10 tab(s), Refills(s) 0, Pharmacy: [facility]/pharmacy #[id number], 170, cm, 12/28/21 10:50:00 EDT, Height/Length [...] thyroid (nursing home) 60 mg oral tablet (10 sources) Start: 10-25-2021 take 1 tablet by mouth once daily [place] Thyroid 60 mg Tab 60 mg = [...] 06-05-2021 Episodic Other aftercare (1 source) Other chcf (current) drug therapy; Translations: [OTH HALF-WAY CURRENT DRUG THERAPY] Onset: 10-26-2021 Episodic Results Test Name Value Interpretation Reference Range Facility Lab Reportson 08-28-2023 Lab Reports [id number]#1.0 0TIFF Normal [facility] RAD - MISCon 08-28-2023 RAD - MISC [id number]#1. 00TIFF Normal [facility] Screenson 08-28-2023 Screens [id number]#1. 00TIFF [facility] Ambulatory Visit Summaryon 0 08-27-2023 Ambulatory Visit [...] Top 0.1% Crm 15 gram) thyroid desiccated ([place] Thyroid 60 mg Tab) Procedures Performed Cystoscopy [...] Comments: 1 yr w/ KUB Where: [address] [facility] [address] [place] [id number]- Medications What How Much When Instructions Unchanged mometasone 0.1 Percent Topical Every day solution for scalp Contact prescribing physician if questions or concerns Unchanged mometasone topical (mometasone Top 0.1% Crm 15 gram) 1 Application Topical prn psoriasis Contact prescribing physician if questions or concerns Unchanged thyroid desiccated ([place] Thyroid 60 mg Tab) 1 Tablets By [...] i (more content not included)... Normal [facility] Patient Educationon 08-27-19 24 Patient Education Urology [...] Follow these instructions at home: ? Take qtgx-pme-vrqreth and prescription medicines only as told by [...] medicine (more content not included)... Normal [facility] Urology Office/Clinic Noteon 08-27-2023 Urology Office/Clinic Note [...] with voice recognition artificial intelligence software, specifically [employer], [employer] and or [employer]. Substitutions may have occurred due to the inherent limitations of voice recognition and artificial intelligence software. Follow-up With When Contact Information MARIBEL ANN, Joey Cantu, URL [address] [place] [id number]- Additional Instructions: 1 yr w/ KUB Patient [...] and inserti (more content not included)... Normal [facility] Comment on above: Result Comment: Elec tronically [...] 05-21-2022 BASO # 0.0 103/ul Normal 0.0-0.1 [facility] Comment on above: Performed By: #### C BC ####[facility] [address] [place] [id number] Tan Basophils/100 WBC (Bld) 0.4 % Normal 0.2-2.0 [facility] Comment on above: Performed By: #### C BC ####[facility] [address] [place] [id number] Tan EO # 0.3 103/ul Normal 0.0-0.7 [facility] Comment on above: Performed By: #### C BC ####[facility] Ch[address]ff[address] [place], [place] [address]Dr. Keaton Tan Eosinophils/100 WBC (Bld) 4.9 % Normal 0.9-7.0 [facility] Comment on above: Performed By: #### C BC ####[facility] Mmbneaoimg[address] [place], [place] [address]Dr. Keaton Tan Erythrocyte distribution width (RBC) [Ratio] 13.6 % Normal 11.0-15.0 [facility] Comment on above: Performed By: #### C BC ####[facility] Abgjdipgpr[address] [place], [place] [address]Dr. Keaton Tan Hematocrit (Bld) [Volume fraction] 44.4 % Normal 42.0-54.0 [facility] Comment on above: Performed By: #### C BC ####[facility] Btmrgynuiv[address] [place], [place] [address]Dr. Keaton Tan Hemoglobin (Bld) [Mass/Vol] 14.8 g/dL Normal 14.0-18.0 [facility] Comment on above: Performed By: #### C BC ####[facility] Ywcdbtnovz[address] [place], [place] [address]Dr. Keaton Tan IG # 0.01 10e3/ul Normal 0.00-0.03 [facility] Comment on above: Performed By: #### C BC ####[facility] Ctfxbcqwwy[address] [place], [place] [address]Dr. Keaton Tan IG % 0.2 % Normal 0.0-0.5 [facility] Comment on above: Performed By: #### C BC ####[facility] Ijryodsmlf[address] [place], [place] [address]DrJak Tan LYMPH # 1.0 103/ul Critically low 1.2-3.8 [facility] [place] [facility] Comment on above: Performed By: #### C BC ####[facility] Riaffaqzhf[address] [place], [place] [address]DrJak Tan Lymphocytes/100 WBC (Bld) 19.8 % Critically low 20.5-60.0 [facility] Comment on above: Performed By: #### C BC ####[facility] [address] [place] [address]DrJak Tan MANUAL DIFF REQ NO Normal [facility] Comment on above: Performed By: #### C BC ####[facility] [address]tq[address]ste[address] [place] [address]DrJak Tan MCH (RBC) [Entitic mass] 29.1 pg Normal 25.9-34.0 [facility] Comment on above: Performed By: #### C BC ####[facility] Vfixkwpqfh[address] [place], [place] [address]DrJak Tan MCHC (RBC) [Mass/Vol] 33.3 g/dL Normal 29.9-35.2 [facility] Comment on above: Performed By: #### C BC ####[facility] Xsvnirsruu[address] [place], [place] [address]DrJak Tan MCV (RBC) [Entitic vol] 87.2 fL Normal 80.0-94.0 [facility] Comment on above: Performed By: #### C BC ####[facility] Xpqpsxleuj[address] [place], [place] [address]DrJak Tan MONO # 0.4 103/ul Normal 0.3-0.8 [facility] Comment on above: Performed By: #### C BC ####[facility] Zievxsqsmy[address] [place], [place] [address]DrJak Tan Monocytes/100 WBC (Bld) 7.6 % Normal 1.7-12.0 [facility] Comment on above: Performed By: #### C BC ####[facility] Fbuygyitue[address] [place], [place] [address]DrJak Tan NEUT # 3.5 103/ul Normal 1.4-6.5 [facility] Comment on above: Performed By: #### C BC ####[facility] Qevavdxwir[address] [place], [place] [address]DrJak Tan Neutrophils/100 WBC (Bld) 67.1 % Normal 43.0-75.0 [facility] Comment on above: Performed By: #### C BC ####[facility] [address] [place] [address]Dr. Keaton Tan Platelet mean volume (Bld) [Entitic vol] 8.8 fL Critically low 9.5-13.5 [facility] Comment on above: Performed By: #### C BC ####[facility] [address] [place] [address]DrJak Tan PLT 268 103/ul Normal 150-450 [facility] Comment on above: Performed By: #### C BC ####[facility] [address]ub[address] [place] [address]Dr. Keaton Tan RBC 5.09 106/ul Normal 4.70-6.10 [facility] Comment on above: Performed By: #### C BC ####[facility] [address] [place] [address]DrJak Tan WBC 5.1 103/ul Normal 4.0-11.0 [facility] Comment on above: Performed By: #### C BC ####[facility] [address] [place] [address]Dr. Keaton Tan FREE T3on 05-21-2022 FREE T3 2.87 pg/mlL Normal 2.18-3.98 [facility] Comment on above: Performed By: #### C MP, TSH, LIPID, FT3 #### [facility] [address] [place], [place] [address] Dr. Keaton Tan FREE T4on 05-21-2022 Free T4 [Mass/Vol] 0.87 ng/dL Normal 0.76-1.46 [facility] Comment on above: Performed By: #### P SASC, FT4 ####[facility] [address] [place] [address]Dr. Keaton Tan GLYCOHEMOGLOBIN A1Con 2021 ADA RECOMMENDATION SEE BELOW Normal [facility] Comment on above: Result Comment: ADA RECOMMENDED LIMIT 4.0 - 6.0 ADA THERAPEUTIC TARGET < 7.0 ACTION SUGGESTED > 7.0 Performed By: #### A 1C ####[facility] [address] [place] [id number]. Keaton Tan Glucose [Mass/Vol] 126 mg/dL Normal [facility] Comment on above: Performed By: #### A 1C ####[facility] [address] [place], [place] [address]XxDr. Keaton Tan HbA1c (Bld) [Mass fraction] 6.0 % Normal 4.5-6.2 [facility] Comment on above: Performed By: #### A 1C ####[facility] [address] [place] [phone]. Keaton Tan LIPID PROFILEon 05-21-2022 CHOL-HDL RATIO NORM SEE BELOW Normal [facility] Comment on above: Result Comment: 3.3 - 4.4 LOW RISK 4.4 - 7.1 AVERAGE RISK 7.1 - 11.0 MODERATE RISK >11.0 HIGH RISK Performed By: #### C MP, TSH, LIPID, FT3 #### [facility] [address] [place] [address] [address] Keaton Tan Cholesterol [Mass/Vol] 226 mg/dL Critically high <=200 [facility] Comment on above: Performed By: #### C MP, TSH, LIPID, FT3 #### [facility] [address] [place] [address] [address] Keaton Tan Cholesterol in HDL [Mass/Vol] 51 mg/dL Normal 40-60 [facility] Comment on above: Performed By: #### C MP, TSH, LIPID, FT3 #### [facility] [address] [place] [address] [address] Keaton Tan Cholesterol in LDL [Mass/Vol] 152.6 mg/dL Normal [facility] Comment on above: Performed By: #### C MP, TSH, LIPID, FT3 #### [facility] [address] [place] [address] [address] Keaton Tan Cholesterol.total/Cho lesterol in HDL [Mass ratio] 4.4 {ratio} Normal [facility] Comment on above: Performed By: #### C MP, TSH, LIPID, FT3 #### [facility] [address] [place], [place] [address] Dr. Keaton Tan HDL NORMAL > or = 60 mg/dl - LO W CARDIOVASCULAR RISK <40 mg/dl - HIGH CARDIOVASCULAR RISK Normal [facility] Comment on above: Performed By: #### C MP, TSH, LIPID, FT3 #### [facility] [address] [place] [id number] [address] Keaton Tan LDL CALC NORMAL SEE BELOW Normal [facility] Comment on above: Result Comment: <100 mg/dl OPTIMAL 100 - 129 mg/dl NEAR OR ABOVE OPTIMAL 130 - 159 mg/dl BORDERLINE HIGH 160 - 189 mg/dl HIGH >190 mg/dl VERY HIGH Performed By: #### C MP, TSH, LIPID, FT3 #### [facility] [address] [place] [id number] [address] Keaton Tan Triglyceride [Mass/Vol] 112 mg/dL Normal <=150 [facility] Comment on above: Performed By: #### C MP, TSH, LIPID, FT3 #### [facility] [address] [place] [address] [address] Keaton Tan VLDL CALC 22.4 mg/dL Normal [facility] Comment on above: Performed By: #### C MP, TSH, LIPID, FT3 #### [facility] [address] [place] [id number] [address] Keaton Tan MICROALB CREAT RATIO RANDOMo n 05-21-2022 mALB 1.7 mg/L Normal <=30.0 [facility] Comment on above: Performed By: #### M CRR ####[facility] [address] [place], [place] [address]PzJak Tan MALB CR RATIO 8.5 mg/g Normal 0.0-29.9 [facility] Comment on above: Performed By: #### M CRR ####[facility] [address] [place], [place] [address]MrJak Tan MALB CR RATIO RANGE SEE BELOW Normal [facility] Comment on above: Result Comment: NO M ICROALBUMINURIA 0-29 MG/G CLINICAL MICROALBUMINURIA 30-300 MG/G MACROALBUMINURIA >300 MG/G Performed By: #### M CRR ####[facility] [address] [place] [address]Dr. Keaton Tan URINE CREAT 199.60 mg/dL Normal 20.00-300.00 [facility] Comment on above: Performed By: #### M CRR ####[facility] [address] [place] [phone]. Keaton Tan PROF 14(COMP METB)on 022 Albumin [Mass/Vol] 3.7 g/dL Normal 3.4-5.0 [facility] Comment on above: Performed By: #### C MP, TSH, LIPID, FT3 #### [facility] [address] [place] [address] [address] Keaton Tan Albumin/Globulin [Mass ratio] 1.1 {ratio} Normal [facility] Comment on above: Performed By: #### C MP, TSH, LIPID, FT3 #### [facility] [address] [place] [address] [address] Keaton Tan ALP [Catalytic activity/Vol] 88 U/L Normal 46-116 [facility] Comment on above: Performed By: #### C MP, TSH, LIPID, FT3 #### [facility] [address] [place] [address] [address] Keaton Tan ALT [Catalytic activity/Vol] 31 U/L Normal 16-63 [facility] Comment on above: Performed By: #### C MP, TSH, LIPID, FT3 #### [facility] [address] [place] [address] [address] Keaton Tan Anion gap [Moles/Vol] 8.6 mmol/L Normal [facility] Comment on above: Performed By: #### C MP, TSH, LIPID, FT3 #### [facility] [address] [place] [address] [address] Keaton Tan AST [Catalytic activity/Vol] 24 U/L Normal 15-37 [facility] Comment on above: Performed By: #### C MP, TSH, LIPID, FT3 #### [facility] [address] [place] [address] Dr. Keaton Tan Bilirubin [Mass/Vol] 0.6 mg/dL Normal 0.2-1.0 [facility] Comment on above: Performed By: #### C MP, TSH, LIPID, FT3 #### [facility] [address] [place] [address] Dr. Keaton Tan Calcium [Mass/Vol] 8.5 mg/dL Normal 8.5-10.1 [facility] Comment on above: Performed By: #### C MP, TSH, LIPID, FT3 #### [facility] [address] [place] [address] Dr. Keaton Tan Chloride [Moles/Vol] 105 mmol/L Normal 98-107 [facility] Comment on above: Performed By: #### C MP, TSH, LIPID, FT3 #### [facility] [address] [place] [address] Dr. Keaton Tan CO2 [Moles/Vol] 29.3 mmol/L Normal 21.0-32.0 [facility] Comment on above: Performed By: #### C MP, TSH, LIPID, FT3 #### [facility] [address] [place] [address] Dr. Keaotn Tan Creatinine [Mass/Vol] 0.95 mg/dL Normal 0.70-1.30 [facility] Comment on above: Performed By: #### C MP, TSH, LIPID, FT3 #### [facility] [address] [place] [address] Dr. Keaton Tan EGFR-AF BRUNEIAN >60 Normal >=60 [facility] Comment on above: Performed By: #### C MP, TSH, LIPID, FT3 #### [facility] [address] [place] [address] Dr. Keaton Tan EGFR-NON AF BRUNEIAN >60 Normal >=60 [facility] Comment on above: Performed By: #### C MP, TSH, LIPID, FT3 #### [facility] [address] [place] [address] Dr. Keaton Tan Globulin (S) [Mass/Vol] 3.3 g/dL Normal [facility] Comment on above: Performed By: #### C MP, TSH, LIPID, FT3 #### [facility] [address] [place] [address] Dr. Keaton Tan Glucose [Mass/Vol] 100 mg/dL Normal 74-106 [facility] Comment on above: Performed By: #### C MP, TSH, LIPID, FT3 #### [facility] [address] [place] [address] Dr. Keaton Tan Potassium [Moles/Vol] 3.9 mmol/L Normal 3.5-5.1 [facility] Comment on above: Performed By: #### C MP, TSH, LIPID, FT3 #### [facility] [address] [place] [address] Dr. Keaton Tan Protein [Mass/Vol] 7.0 g/dL Normal 6.4-8.2 [facility] Comment on above: Performed By: #### C MP, TSH, LIPID, FT3 #### [facility] [address] [place] [address] Dr. Keaton Tan Sodium [Moles/Vol] 139 mmol/L Normal 136-145 [facility] Comment on above: Performed By: #### C MP, TSH, LIPID, FT3 #### [facility] [address] [place] [address] Dr. Keaton Tan Urea nitrogen [Mass/Vol] 18.0 mg/dL Normal 7.0-18.0 [facility] Comment on above: Performed By: #### C MP, TSH, LIPID, FT3 #### [facility] [address] [place] [address] Dr. Keaton Tan Urea nitrogen/Creatinine [Mass ratio] 18.9 mg/mg Normal [facility] Comment on above: Performed By: #### C MP, TSH, LIPID, FT3 #### [facility] [address] [place] [address] Dr. Keaton Tan TSHon 05-21-2022 TSH 1.417 uIU/mL Normal 0.358-3.740 [facility] Comment on above: Performed By: #### C MP, TSH, LIPID, FT3 ####[facility] [address] [place], [place] [address]Wi. Keaton Tan CHEMISTRYOrdered By: SYSTEM SYSTEM on [...] rate/Area] mL/min/1.73 m2 Normal >=59mL/min/1 .73 m2 [facility] [place] S Glucose [Mass/Vol] 114 mg/dL Normal [...] 11.0 E9/L [facility] HemeAutoSS URINALYSISOrdered By: Cecilia Mliler on 12-28-2021 Bacteria LM Ql (Urine sed) [...] AM) Normal Negative [facility] UA Auto SS [place].plasma/Lithiu m.RBC (Bld) [Mass ratio] >75 /HPF Invalid [...] [facility] UA Auto SS Urobilinogen Qn (U) [id number] {Whitney'U}/dL Normal 0.0 - 1.0 EU/dL [facility] [...] AM) Normal Negative [facility] UA Auto SS [place].plasma/Lithiu m.RBC (Bld) [Mass ratio] >75 /HPF Invalid [...] [facility] UA Auto SS Urobilinogen Qn (U) 0.2912313 {Whitney'U}/dL Normal 0.0 - 1.0 EU/dL [facility] [place] UA Auto SS WBC Auto Ql (U) 1+ *ABN* (11/23/21 10:21 AM) Invalid Interpretation Code Negative [facility] [place] UA Auto SS WBC LM.HPF (Urine sed) [#/Area] 0-5 /HPF Normal 0-5/HPF [facility] [place] UA Auto SS CHEMISTRYOrdered By: SYSTEM SYSTEM [...] rate/Area] mL/min/1.73 m2 Normal >=59mL/min/1 .73 m2 [facility] [place] Chem S GFR/1.73 sq M.predicted among non-blacks MDRD (S/P/Bld) [Vol rate/Area] 59 mL/min/1.73 m2 Normal >=59mL/min/1 .73 m2 [facility] [place] Chem S Glucose [Mass/Vol] 120 mg/dL Normal [...] 7.1 E9/L Normal 4.0 - 11.0 E9/L [facility] [place] HemeAutoSS CHEMISTRYOrdered By: SYSTEM SYSTEM on 10-25-2021 [...] 17 mL/min/1.73 m2 Low >=59mL/min/1 .73 m2 [facility] [place] Chem S Glucose [Mass/Vol] 116 mg/dL Normal [...] 10-24-2021 BASO # 0.0 103/ul Normal 0.0-0.1 [facility] Comment on above: Performed By: #### C BC ####[facility] [address] [place] [address]Dr. Keaton Tan Basophils/100 WBC (Bld) 0.3 % Normal 0.2-2.0 [facility] Comment on above: Performed By: #### C BC ####[facility] [address] [place] [address]Dr. Keaton Tan EO # 0.2 103/ul Normal 0.0-0.7 [facility] Comment on above: Performed By: #### C BC ####[facility] [address] [place] [id number] Tan Eosinophils/100 WBC (Bld) 3.3 % Normal 0.9-7.0 [facility] Comment on above: Performed By: #### C BC ####[facility] [address]dsi[address] [place] [address]Dr. Keaton Tan Erythrocyte distribution width (RBC) [Ratio] 13.3 % Normal 11.0-15.0 [facility] Comment on above: Performed By: #### C BC ####[facility] [address] [place] [address]Dr. Keaton Tan Hematocrit (Bld) [Volume fraction] 43.7 % Normal 42.0-54.0 [facility] Comment on above: Performed By: #### C BC ####[facility] F[address]in[address] [place] [address]Dr. Gertrudisdelfina Dominick Hemoglobin (Bld) [Mass/Vol] 14.2 g/dL Normal 14.0-18.0 [facility] Comment on above: Performed By: #### C BC ####[facility] [address] [place], [place] [address]Dr. Keaton Tan IG # 0.02 10e3/ul Normal 0.00-0.03 [facility] Comment on above: Performed By: #### C BC ####[facility] [address]ro[address] [place], [place] [address]Dr. Keaton Tan IG % 0.3 % Normal 0.0-0.5 [facility] Comment on above: Performed By: #### C BC ####[facility] Bdzyzninvc[address] [place], [place] [address]Dr. Gertrudisdelfina Tan LYMPH # 1.4 103/ul Normal 1.2-3.8 [facility] Comment on above: Performed By: #### C BC ####[facility] Jpc[address]xfegd[address] [place], [place] [address]Dr. Keaton Tan Lymphocytes/100 WBC (Bld) 19.9 % Critically low 20.5-60.0 [facility] Comment on above: Performed By: #### C BC ####[facility] Xvlhzfrqpb[address] [place], [place] [address]Dr. Keaton Tan MANUAL DIFF REQ NO Normal [facility] Comment on above: Performed By: #### C BC ####[facility] [address]ws[address] [place] [address]Dr. Keaton Tan MCH (RBC) [Entitic mass] 28.9 pg Normal 25.9-34.0 [facility] Comment on above: Performed By: #### C BC ####[facility] [address] [place] [phone]. Keaton Dominick MCHC (RBC) [Mass/Vol] 32.5 g/dL Normal 29.9-35.2 [facility] Comment on above: Performed By: #### C BC ####[facility] [address] [place] [address]Dr. Keaton Tan MCV (RBC) [Entitic vol] 89.0 fL Normal 80.0-94.0 [facility] Comment on above: Performed By: #### C BC ####[facility] U[address]sc[address] [place], [place] [address]DrJak Tan MONO # 0.6 103/ul Normal 0.3-0.8 [facility] Comment on above: Performed By: #### C BC ####[facility] [address]zch[address] [place], [place] [address]Dr. Keaton Tan Monocytes/100 WBC (Bld) 7.9 % Normal 1.7-12.0 [facility] Comment on above: Performed By: #### C BC ####[facility] [address]bcgxisdz[address] [place], [place] [address]Dr. Keaton Tan NEUT # 4.8 103/ul Normal 1.4-6.5 [facility] Comment on above: Performed By: #### C BC ####[facility] [address] [place], [place] [address]Dr. Keaton Tan Neutrophils/100 WBC (Bld) 68.3 % Normal 43.0-75.0 [facility] Comment on above: Performed By: #### C BC ####[facility] [address] [place], [place] [id number] Tan Platelet mean volume (Bld) [Entitic vol] 9.0 fL Critically low 9.5-13.5 [facility] Comment on above: Performed By: #### C BC ####[facility] [address] [place], [place] [id number]. Keaton Tan PLT 306 103/ul Normal 150-450 [facility] Comment on above: Performed By: #### C BC ####[facility] [address] [place], [place] [address]In. Keaton Tan RBC 4.91 106/ul Normal 4.70-6.10 [facility] Comment on above: Performed By: #### C BC ####[facility] [address] [place], [place] [address]Yc. Keaton Tan WBC 7.0 103/ul Normal 4.0-11.0 [facility] Comment on above: Performed By: #### C BC ####[facility] [address]rowlx[address] [place], [place] [address] ABD/PELVIS WO CONon 10-24 [...] CHRISTOPHERAN BRIONES Date: 2021-10-24 17:14 Normal [facility] CULTURE URINEon 10-24-2021 CULTURE URINE Culture Observations : No growth Normal [facility] Comment on above: Performed By: #### U RCX #### [facility] [address] [place] [address] [address] Keaton Tan ER URINE PROFILEon 2 Bilirubin Ql (U) SMALL Abnormal NEGATIVE [facility] Comment on above: Performed By: #### E RUR, UMICRO #### [facility] [address] [place] [address] Dr. Keaton Tan Clarity (U) TURBID Abnormal CLEAR [facility] Comment on above: Performed By: #### E RUR, UMICRO #### [facility] [address] [place] [address] Dr. Keaton Tan Color (U) BROWN Abnormal YELLOW [facility] Comment on above: Performed By: #### E RUR, UMICRO #### [facility] [address] [address] [address] Keaton LIV[place] A micrscopic examination will be performed if indicated. Normal [facility] Comment on above: Performed By: #### E RUR, UMICRO #### [facility] [address] [place] [address] Dr. Keaton Tan Glucose Ql (U) Negative Normal NEGATIVE [facility] Comment on above: Performed By: #### E RUR, UMICRO #### [facility] [address] [address] [address] Keaton Tan Hemoglobin Ql (U) LARGE Abnormal NEGATIVE [facility] Comment on above: Performed By: #### E RUR, UMICRO #### [facility] [address] [address] [address] Keaton Tan Ketones Ql (U) TRACE Abnormal NEGATIVE [facility] Comment on above: Performed By: #### E RUR, UMICRO #### [facility] [address] [place] [address] Dr. Keaton Tan LEUKOCYTES Negative Normal NEGATIVE [facility] Comment on above: Performed By: #### SARAY ANDREWS #### [facility] [address] [place] [address] Dr. Keaton Tan Nitrite Ql (U) Negative Normal NEGATIVE [facility] Comment on above: Performed By: #### SARAY ANDREWS #### [facility] [address] [place] [address] Dr. Keaton Tan pH (U) 5.5 [pH] Normal 5-9 [facility] Comment on above: Performed By: #### SARAY ANDREWS #### [facility] [address] [place] [address] Dr. Keaton Tan Protein (U) [Mass/Vol] 100 mg/dL Abnormal NEGATIVE/ TRACE [facility] Comment on above: Performed By: #### SARAY ANDREWS #### [facility] [address] [place] [address] Dr. Keaton Tan SPEC GRAVITY >=1.030 Abnormal 1.005-<=1.02 5 [facility] Comment on above: Performed By: #### SARAY ANDREWS #### [facility] [address] [place] [address] Dr. Keaton Tan UR MICRO IND INDICATED Normal [facility] Comment on above: Performed By: #### SARAY ANDREWS #### [facility] [address] [place] [address] Dr. Keaton Tan Urobilinogen Qn (U) 0.2 {Whitney'U}/dL Normal 0.2 - 1. 0 [facility] Comment on above: Performed By: #### SARAY ANDREWS #### [facility] [address] [place] [address] Dr. Keaton Tan PROF 14(COMP METB)on 022 Albumin [Mass/Vol] 3.5 g/dL Normal 3.4-5.0 [facility] Comment on above: Performed By: #### C MP ####[facility] [address] [address]Dr. Keaton Dominick Albumin/Globulin [Mass ratio] 1.1 {ratio} Normal [facility] Comment on above: Performed By: #### C MP ####[facility] [address] [id number]. Keaton Dominick ALP [Catalytic activity/Vol] 97 U/L Normal 46-116 [facility] Comment on above: Performed By: #### C MP ####[facility] [address] [place], [place] [address]Dr. Keaton Dominick ALT [Catalytic activity/Vol] 21 U/L Normal 16-63 [facility] Comment on above: Performed By: #### C MP ####[facility] [address] [place], [place] [address]Dr. Keaton Tan Anion gap [Moles/Vol] 14.6 mmol/L Normal [facility] Comment on above: Performed By: #### C MP ####[facility] [address] [place], [place] [address]Dr. Keaton Dominick AST [Catalytic activity/Vol] 16 U/L Normal 15-37 [facility] Comment on above: Performed By: #### C MP ####[facility] [address] [place], [place] [address]Dr. Keaton Tan Bilirubin [Mass/Vol] 0.5 mg/dL Normal 0.2-1.0 [facility] Comment on above: Performed By: #### C MP ####[facility] [address] [place], [place] [address]Dr. Keaton Tan Calcium [Mass/Vol] 8.3 mg/dL Critically low 8.5-10.1 [facility] Comment on above: Performed By: #### C MP ####[facility] [address] [place], [place] [address]Dr. Keaton Tan Chloride [Moles/Vol] 101 mmol/L Normal 98-107 [facility] Comment on above: Performed By: #### C MP ####[facility] [address] [address]Dr. Keaton Dominick CO2 [Moles/Vol] 26.0 mmol/L Normal 21.0-32.0 [facility] Comment on above: Performed By: #### C MP ####[facility] [address] [address]Dr. Keaton Tan Creatinine [Mass/Vol] 0.95 mg/dL Normal 0.70-1.30 [facility] Comment on above: Performed By: #### C MP ####[facility] [address] [address]Dr. Keaton Dominick EGFR-AF BRUNEIAN >60 Normal >=60 [facility] Comment on above: Performed By: #### C MP ####[facility] [address] [place], [place] [address]Dr. Keaton Tan EGFR-NON AF BRUNEIAN >60 Normal >=60 [facility] Comment on above: Performed By: #### C MP ####[facility] [address] [place], [place] [address]Dr. Keaton Tan Globulin (S) [Mass/Vol] 3.2 g/dL Normal [facility] Comment on above: Performed By: #### C MP ####[facility] [address] [place], [place] [address]Dr. Keaton Tan Glucose [Mass/Vol] 132 mg/dL Critically high 74-106 [facility] Comment on above: Performed By: #### C MP ####[facility] [address] [place], [place] [address]Dr. Keaton Tan Potassium [Moles/Vol] 3.6 mmol/L Normal 3.5-5.1 [facility] Comment on above: Performed By: #### C MP ####[facility] [address] [place], [place] [address]Dr. Keaton Tan Protein [Mass/Vol] 6.7 g/dL Normal 6.1-8.2 [facility] Comment on above: Performed By: #### C MP ####[facility] [address] [place], [place] [address]Dr. Keaton Tan Sodium [Moles/Vol] 138 mmol/L Normal 136-145 [facility] Comment on above: Performed By: #### C MP ####[facility] [address] [address]Dr. Keaton Tan Urea nitrogen [Mass/Vol] 21.0 mg/dL Critically high 7.0-18.0 [facility] Comment on above: Performed By: #### C MP ####[facility] [address] [address]Dr. Keaton Tna Urea nitrogen/Creatinine [Mass ratio] 22.1 mg/mg Normal [facility] Comment on above: Performed By: #### C MP ####[facility] [address] [address]Dr. Keaton Tan PROTIMEon 10-24-2021 INR Coag (PPP) [Relative time] 1.01 {INR} Normal [facility] Comment on above: Performed By: #### P TT, PT #### [facility] [address] [address] [address] Keaton Tan INR GUIDELINES SEE BELOW Normal [facility] Comment on above: Result Comment: JOZEF RED INR: 2.0 - 3.0 CONDITIONS NOT LISTED BELOW 2.5 - 3.5 FOR PROSTHETIC HEART VALVE REPLACEMENT 2.5 - 3.5 RECURRENT THROMBOSIS Performed By: #### P TT, PT #### [facility] [address] [address] [address] Keaton Tan PT Coag (PPP) [Time] 10.9 s Normal 9.0-11.6 [facility] Comment on above: Performed By: #### P TT, PT #### [facility] [address] [address] [address] Keaton Tan PTTon 10-24-2021 aPTT Coag (Bld) [Time] 29.0 s Normal 22.3-36.2 [facility] Comment on above: Performed By: #### P TT, PT #### [facility] [address] [address] [address] Keaton Tan URINE MICROSCOPIC ONLYon BACTERIA SMALL Abnormal NONE SEEN [facility] Comment on above: Performed By: #### E RUR, UMICRO #### [facility] [address] [place] [address] Dr. Keaton aTn Bacteria identified Cx Nom (U) INDICATED Normal [facility] Comment on above: Performed By: #### E RUR, UMICRO #### [facility] [address] [place] [address] Dr. Keaton Tan CAST NONE SEEN Normal NONE SEEN [facility] Comment on above: Performed By: #### E RUR, UMICRO #### [facility] [address] [place] [address] Dr. Keaton Tan Crystals LM Nom (Urine sed) NONE SEEN Normal NONE SEEN [facility] Comment on above: Performed By: #### E RUR, UMICRO #### [facility] [address] [place] [address] Dr. Keaton Tan Epithelial cells LM Ql (Urine sed) FEW Abnormal NONE SEEN /RARE [facility] Comment on above: Performed By: #### E RUY, UMICRO #### [facility] [address] [place] [address] Dr. Keaton Tan MUCOUS LARGE Abnormal NONE SEEN [facility] Comment on above: Performed By: #### E RUR, UMICRO #### [facility] [address] [place] [address] Dr. Keaton Tan RBC (U) [#/Vol] /uL Abnormal 0-2 [facility] Comment on above: Performed By: #### E RUR, UMICRO #### [facility] [address] [place] [address] Dr. Keaton Tan WBC 0-2 Abnormal NONE SEEN [facility] Comment on above: Performed By: #### E RUR, UMICRO #### [facility] [address] [place] [address] Dr. Keaton Tan ECHOCARDIO M/2D COMPLETEon 1 08-01-2020 ECHOCARDIO M/2D COMPLETE Patient: WALT SKELTON Exam Date: 05/31/2021 : 1945 Gender:M Ordering : DR MILAGRO HALLMAN D.O. Admission #: [id number] Family : Order #: [id number] CLICK HERE TO VIEW EXAM ECHOCARDIOGRAM REPORT [...] Area(A4C): 14.80 cm2 Left Atrium Systolic Volume(A2C): 14633 mm3 Left Atrium Systolic Volume(A4C): 54359 mm3 Mitral Valve MV E to A [...] Short M.D. on 06/01/2021 at 16:16 Normal [facility] US CAROTID ART BILon 12-01-2 021 US [...] by: CHRISTOPHER BRIONES Date: 2021-05-31 16:06 Normal [facility] Vital Signs Date Time Vital Sign Value Performing Clinician Facility 08-27-2023 08:40-0500 Diastolic blood pressure 77 mm[Hg] Joey LÓPEZ [facility] 08-27-2023 08:40-0500 Heart rate 85 /min Joey LÓPEZ [facility] 08-27-2023 08:40-0500 Systolic blood pressure 121 mm[Hg] Joey COOK [facility] 08-22-2022 09:52-0500 Blood Pressure Location Joey COOK [facility] 08-22-2022 09:52-0500 Diastolic blood pressure 61 mm[Hg] Joey COOK [facility] 08-22-2022 09:52-0500 Heart rate 76 /min Joey COOK [facility] 08-22-2022 09:52-0500 Respiratory rate 16 /min Joey COOK [facility] 08-22-2022 09:52-0500 Systolic blood pressure 125 mm[Hg] Joey COOK [facility] 12-28-2021 10:35-0400 Blood Pressure Location Joey COOK [facility] 12-28-2021 10:35-0400 Body temperature 97.7 [degF] Joey COOK [facility] 12-28-2021 10:35-0400 Diastolic blood pressure 72 mm[Hg] Joey COOK [facility] 12-28-2021 10:35-0400 Heart rate 75 /min Joey COOK [facility] 12-28-2021 10:35-0400 Mean blood pressure 94 mm[Hg] Joey COOK [facility] 12-28-2021 10:35-0400 Systolic blood pressure 138 mm[Hg] Joey COOK [facility] 12-28-2021 10:33-0400 Blood Pressure Location Joey LÓPEZ [facility] 12-28-2021 10:33-0400 BP/Pulse Patient Position Joey LÓPEZ [facility] 12-28-2021 10:33-0400 Diastolic blood pressure 68 mm[Hg] Joey LÓPEZ [facility] 12-28-2021 10:33-0400 Heart rate 80 /min Joey LÓPEZ [facility] 12-28-2021 10:33-0400 Mean blood pressure 86 mm[Hg] Joey LÓPEZ [facility] 12-28-2021 10:33-0400 Respiratory rate 16 /min Joey LÓPEZ [facility] 12-28-2021 10:33-0400 SaO2% (BldA) [Mass fraction] 97 % Joey LÓPEZ [facility] 12-28-2021 10:33-0400 Systolic blood pressure 123 mm[Hg] Joey LÓPEZ [facility] 11-23-2021 13:36-0400 Blood Pressure Location Joey LÓPEZ [facility] 11-23-2021 13:36-0400 Body temperature 98.06 [degF] Joey LÓPEZ [facility] 11-23-2021 13:36-0400 Diastolic blood pressure 77 mm[Hg] Joey LÓPEZ [facility] 11-23-2021 13:36-0400 Heart rate 53 /min Joey LÓPEZ [facility] 11-23-2021 13:36-0400 Mean blood pressure 104 mm[Hg] Joey LÓPEZ [facility] 11-23-2021 13:36-0400 Respiratory rate 18 /min Joey LÓPEZ [facility] 11-23-2021 13:36-0400 SaO2% (BldA) [Mass fraction] 97 % Joey LÓPEZ [facility] 11-23-2021 13:36-0400 Systolic blood pressure 158 mm[Hg] Joey LÓPEZ [facility] 11-23-2021 13:26-0400 Body temperature 97.7 [degF] Joey LÓPEZ [facility] 11-23-2021 13:26-0400 Diastolic blood pressure 60 mm[Hg] Joey LÓPEZ [facility] 11-23-2021 13:26-0400 Heart rate 58 /min Joey LÓPEZ [facility] 11-23-2021 13:26-0400 Respiratory rate 20 /min Joey LÓPEZ [facility] 11-23-2021 13:26-0400 SaO2% (BldA) [Mass fraction] 96 % Joey LÓPEZ [facility] 11-23-2021 13:26-0400 Systolic blood pressure 141 mm[Hg] Joey LÓPEZ [facility] 11-23-2021 13:20-0400 Diastolic blood pressure 72 mm[Hg] Joey LÓPEZ [facility] 11-23-2021 13:20-0400 Heart rate 57 /min Joey LÓPEZ [facility] 11-23-2021 13:20-0400 Respiratory rate 18 /min Joey LÓPEZ [facility] 11-23-2021 13:20-0400 SaO2% (BldA) [Mass fraction] 94 % Joey LÓPEZ [facility] 11-23-2021 13:20-0400 Systolic blood pressure 159 mm[Hg] Joey LÓPEZ [facility] 11-23-2021 13:05-0400 Respiratory rate 22 /min Joey LÓPEZ [facility] 11-23-2021 12:40-0400 Blood Pressure Location Joey LÓPEZ [facility] 11-23-2021 12:40-0400 Body temperature 97.7 [degF] Joey LÓPEZ [facility] 11-23-2021 12:36-0400 Blood Pressure Location Joey LÓPEZ [facility] 11-23-2021 12:30-0400 Respiratory rate 30 /min Joey LÓPEZ [facility] 11-23-2021 12:25-0400 Respiratory rate 30 /min Joey LÓPEZ [facility] 11-23-2021 12:20-0400 Body temperature 96.8 [degF] Joey LÓPEZ [facility] 11-23-2021 12:15-0400 Body temperature 96.8 [degF] Joey LÓPEZ [facility] 11-23-2021 12:10-0400 Body temperature 96.8 [degF] Joey LÓPEZ [facility] 11-23-2021 10:21-0400 Mean blood pressure 96 mm[Hg] Joey LÓPEZ [facility] 11-23-2021 10:20-0400 Body temperature 97.7 [degF] Joey LÓPEZ [facility] 11-23-2021 10:20-0400 Mean blood pressure 97 mm[Hg] Joey LÓPEZ [facility] 11-23-2021 10:20-0400 Heart rate 62 /min Joey LÓPEZ [facility] 10-27-2021 10:07-0400 Hourly Rounding Hasan AMIR [facility] 10-27-2021 10:07-0400 Promise to Return Hasan AMIR [facility] 10-27-2021 09:11-0400 Hourly Rounding Hasan AMIR [facility] 10-27-2021 09:11-0400 Promise to Return Hasan AMIR [facility] 10-27-2021 08:59-0400 Diastolic blood pressure 78 mm[Hg] Hasan AMIR [facility] 10-27-2021 08:59-0400 Systolic blood pressure 158 mm[Hg] Hasan AMIR [facility] 10-27-2021 08:11-0400 Promise to Return Hasan AMIR [facility] 10-27-2021 07:57-0400 SaO2% (BldA) [Mass fraction] 97 % Hasan AMIR [facility] 10-27-2021 03:40-0400 Body temperature 97.52 [degF] Hasan AMIR [facility] 10-27-2021 03:40-0400 Heart rate 68 /min Hasan AMIR [facility] 10-27-2021 03:40-0400 Respiratory rate 16 /min Hasan AMIR [facility] 10-27-2021 03:40-0400 SaO2% (BldA) [Mass fraction] 96 % Hasan AMIR [facility] 10-26-2021 23:51-0400 SaO2% (BldA) [Mass fraction] 96 % Hasan AMIR [facility] 10-26-2021 23:25-0400 Body temperature 98.42 [degF] Hasan AMIR [facility] 10-26-2021 23:25-0400 Diastolic blood pressure 78 mm[Hg] Hasan AMIR [facility] 10-26-2021 23:25-0400 Heart rate 75 /min Hasan AMIR [facility] 10-26-2021 23:25-0400 Respiratory rate 16 /min Hasan AMIR [facility] 10-26-2021 23:25-0400 Systolic blood pressure 148 mm[Hg] Hasan AMIR [facility] 10-26-2021 20:25-0400 Body temperature 98.06 [degF] Hasan AMIR [facility] 10-26-2021 20:25-0400 Heart rate 77 /min Hasan AMIR [facility] 10-26-2021 20:25-0400 Respiratory rate 16 /min Hasan AMIR [facility] 10-26-2021 15:45-0400 Mean blood pressure 100 mm[Hg] Hasan AMIR [facility] 10-26-2021 14:00-0400 Blood Pressure Location Hasan AMIR [facility] 10-26-2021 14:00-0400 Body temperature 97.88 [degF] Hasan AMIR [facility] 10-26-2021 14:00-0400 Mean blood pressure 91 mm[Hg] Hasan AMIR [facility] 10-26-2021 13:45-0400 Blood Pressure Location Hasan AMIR [facility] 10-26-2021 13:45-0400 Mean blood pressure 87 mm[Hg] Hasan AMIR [facility] 10-26-2021 13:45-0400 Respiratory rate 16 /min Hasan AMIR [facility] 10-26-2021 13:40-0400 Blood Pressure Location Hasan AMIR [facility] 10-26-2021 13:40-0400 Mean blood pressure 85 mm[Hg] Hasan AMIR [facility] 10-26-2021 13:40-0400 Respiratory rate 16 /min Hasan AMIR [facility] 10-26-2021 13:33-0400 Body temperature 96.98 [degF] Hasan AMIR [facility] 10-26-2021 08:09-0400 BP/Pulse Patient Position Hasan AMIR [facility] 10-26-2021 03:00-0400 BP/Pulse Patient Position Hasan AMIR [facility] 10-26-2021 00:00-0400 BP/Pulse Patient Position Hasan AMIR [facility] 10-25-2021 19:52-0400 Mean blood pressure 80 mm[Hg] Hasan AMIR [facility] 10-25-2021 18:09-0400 Mean blood pressure 93 mm[Hg] Hasan AMIR [facility] 10-25-2021 18:08-0400 Heart rate 68 /min Hasan AMIR [facility] 10-25-2021 18:07-0400 Heart rate 68 /min Hasan AMIR [facility] 10-25-2021 15:03-0400 Heart rate 75 /min Hasan AMIR [facility] Encounters Encounter Date Encounter Type Care Provider Facility Start: 08-25-2024 ambulatory Joey LÓPEZ Facility :[facility] Start: 08-27-2023 End: 08-28-2023 ambulatory Joey LÓPEZ Facility:[facility] Start: 08-27-2023 End: 08-27-2023 Patient encounter procedure Joey LÓPEZ [facility] Start: 08-13-2023 End: 08-14-2023 ambulatory JOEY LÓPEZ Not Available Start: 08-22-2022 End: 08-22-2022 Patient encounter procedure Joey LÓPEZ [facility] Start: 08-20-2022 End: 08-20-2022 Patient encounter procedure Joey LÓPEZ [facility] Start: 05-21-2022 End: 05-22-[address] MILAGRO HALLMAN Facility:[facility] Start: 12-28-2021 End: 12-28-2021 Patient encounter procedure Joey LÓPEZ [facility] Start: 12-04-2021 End: 12-04-2021 Patient encounter procedure Joey LÓPEZ [facility] Start: 12-04-2021 End: 12-04-2021 Patient encounter procedure Joey LÓPEZ [facility] Start: 11-23-2021 End: 11-23-2021 Admission to same day surgery center Joey LÓPEZ [facility] Start: 11-13-2021 End: 11-13-2021 Patient encounter procedure Joey LÓPEZ [facility] Start: 11-09-2021 End: 11-09-2021 Patient encounter procedure Joey LÓPEZ [facility] Start: 10-25-2021 End: 10-27-2021 Observation Mckay SHAYR [facility] Start: 10-24-2021 End: 10-24-[address] CHRISTOPHER BRIONES Facility:[facility] Start: 05-31-2021 End: 06-01-[address] MILAGRO HALLMAN Facility:[facility] Procedures Date Procedure Procedure Detail Performing Clinician Start: 05-21-[address] CHRISTOPHER BRIONES Comment on above: Performed By: #### PSASC, FT4 ####[address] [address]Dr. Keaton Tan Start: 01-04-2022 Cystoscopy Joey LÓPEZ [...] mRNA-1273 vaccine Joey LÓPEZ [facility] Comment on above: Result Comment: 2023: TPV70 11-15-2020 SARS-CoV-2 (COVID-19 ) mRNA-1273 vaccine Joey LÓPEZ [facility] Comment on above: Result Comment: 2023: TPV70 08-05-2018 pneumococcal polysaccharide vaccine, 23 valent Joey LÓPEZ [facility] 08-08-2017 pneumococcal conjuga te vaccine, 13 valent Joey LÓPEZ [facility] NEGATED: Highlighted row has not occurred!08-27-2023 influenza virus vaccine, unspecified formulation Joey LÓPEZ [facility] Payers Date Payer Category Payer Medicare [id number] 1958 Medicare [id number] 1958 Unknown [id number] 1945 Unknown [id number] 2.16.84 [id number] 1945 Unknown [id number] 2.16.84 [id number] 1945 Unknown [id number] 2.16.84 [id number] 1945 Unknown [id number] 2.16.84 [id number] 1945 Unknown [id number] 2.16.8 [id number] 1945 Unknown [id number] 2.16.8 [id number] Social History Date Type Detail Facility Start: 11-08-2020 End: 08-27-2023 Tobacco smoking status Never smoked tobacco (finding) [facility] Sex Assigned At Male [facility] Tobacco smoking status Never [facility] Medical Equipment Procedure Code Equipment Code Equipment Origin al Text Equipment Identifier Dates [id number] FDA Start: 10-26-2021 Functional Status Date Assessment Result Facility 08-27-2023 Functional Status N/A [facility] 08-22-2022 Functional Status N/A [facility] 12-28-2021 Functional Status No [facility] Clinical Notes 10-27-2021 to 08-27-2023 Note [...] urethra. Follow these instructions at home: Take tanv-rzr-eiiameu and prescription medicines only as told by [...] provider. Document Revised: 01/03/2022 Document Reviewed: 01/03/2022 [employer] Patient Education 2022 [employer] Follow Up Care 08/22/2022 10:26:53 With:MARIBEL ANN, Joey Cantu, URL Address: [address] [place], [place] [address]- When: Unknown Comments:2 yr w/ TOÑITO [facility] 08-22-2022 Hospital Discharge instructions Patient Education 08/22/2022 10:18:31 Kidney Stones, Cbax-qb-Qxww Kidney Stones Kidney stones are rock-like masses [...] Follow these instructions at home: Medicines Take neaz-qpp-iggovbc and prescription medicines only as told by [...] Document Reviewed: 11/03/2019 [employer] Patient Education 2020 [employer] Follow Up Care 08/23/2021 10:36:48 With:MARIBEL ANN, Joey Cantu, URL Address: [address] [place] [address]- When: Unknown [facility] 12-04-2021 Hospital Discharge instructions Patient Education 12/04/2021 [...] Follow these instructions at home: Medicines Take uqvt-xqr-gecyynw and prescription medicines only as told by [...] Document Reviewed: 05/08/2017 [employer] Patient Education 2019 [employer] [facility] 11-23-2021 Hospital Discharge instructions Patient Education 11/23/2021 [...] Follow these instructions at home: Medicines Take vkly-qsa-zqdpoaj and prescription medicines only as told by [...] 07/06/2008 Document Revised: 09/28/2019 Document Reviewed: 05/08/2017 [employer] Patient Education 2020 [employer] Follow Up Care 11/13/2021 09:23:58 With:Joey LÓPEZ Address: [address] [place], [place] [id number] [facility] (1) When:1 to 2 weeks Comments:Call for followup appointment, with an abdominal X-ray prior to your visit. [facility] 11-23-2021 Evaluation + Plan note Extrac claudia from: Title:ANES POSTOP MAC/GEN NOTE Author:Kenneth Ramirez JR Date:11/23/21 Plan Transfer/ Discharge: Patient can be discharged from PACU when criteria met. Condition good. Extracted from: Title:ANES PREOP GEN ADULT NOTE Author:Kenneth Martinez JR, DO Date:11/23/21 Plan [place] [employer] (ASA) physical status classification: Class II. Anesthetic Preoperative Plan Anesthesia: General. . Anesthetic plan, risks, benefits, and alternatives discussed with the patient and/or family. Pt. and/or family present and agree to proceed as planned.. Discussed the importance of abstaining from tobacco products, and offered counseling if desired. Future Appointments Appointment Date:08/22/2022 09:30:00 AM Scheduled Provider:Joey LÓPEZ MD Location:[facility] Appointment Type:URO Office Visit [facility]05-16-2022 Hospital Discharge instructions Patient Education 11/13/2021 09:05:39 Kidney Stones, Msmu-pz-Hbms Kidney Stones Kidney stones are rock-like masses [...] Follow these instructions at home: Medicines Take hldj-hgh-rytkaxf and prescription medicines only as told by [...] 12/03/2008 Document Revised: 11/03/2019 Document Reviewed: 11/03/2019 [employer] Patient Education 2019 [employer] 11/13/2021 07:30:53 Benign Prostatic Hyperplasia Benign Prostatic [...] urethra. Follow these instructions at home: Take yypc-bao-odnfxcf and prescription medicines only as told by [...] 06/17/2006 Document Revised: 05/12/2019 Document Reviewed: 07/22/2017 [employer] Patient Education 2020 [employer] Follow Up Care 10/27/2021 08:21:24 With:MARIBEL ANN, Joey Cantu, URL Address: [facility] [employer] [address] [place] [id number]- When: Unknown Comments:will schedule follow up after procedure [facility] 04-29-2022 Evaluation + Plan noteExtracted from: Title:Progress [...] day(s), # 9 cap(s), Refills(s) 0, Pharmacy: [facility]/pharmacy #[id number], 170, cm, 10/25/21 16:22:00 EDT, Height/Length Dosing, 75.5, kg, 10/25/21 16:22:00 EDT, Weight Dosing Discharge Patient Incentive Spirometry Troponin 3 Hr. Troponin 6 Hr. Troponin 9 Hr. Prescriptions Keflex 500 mg Cap, 500 mg= 1 cap(s), Oral, TID Home [place] Thyroid 60 mg Tab, 60 mg= 1 tab(s), Oral, Daily mometasone Top 0.1% Crm 15 gram, 1 jarrod, Topical, Daily mometasone Top 0.1% Lotion, 1 jarrod, Topical, Daily ondansetron 4 mg Dis Tab, 4 mg= 1 tab(s), Oral, q6hr, PRN tamsulosin 0.4 mg Cap, 0.4 mg= 1 cap(s), Oral, Daily With When Contact Information Joey LÓPEZ 11/13/2021 08:30 AM EDT [facility] [address] [place] [id number] [place] (1) Additional Instructions: abdominal X-ray prior to your office visit. We will make decisions regarding the stone in the left upper ureter, as well as when to remove the right stent.Call central scheduling at [phone] to schedule xrlorrie HALLMAN Within 3 to 5 days [address] [place] [address]- [place] (1) Additional Instructions: Call for followup appointment Kidney Stones, Pxac-an-Qmpl Extracted from: Title:Inpatient Consultation-Floor Code* Author: Dickson [...] Impression and Plan Diagnosis Renal calculus, bilateral ([id number] N20.0, Discharge, Medical). Other acute kidney failure ([id number]-TO N17.8, Discharge, Medical). Hydronephrosis with ureteral calculus ([id number] N13.2, Working, Medical). Complaint of Hematuria (PNED [id number], Reason For Visit, Nursing). Condition: Fair. Course: Worsening, Discussed with Dr. Barrett, discussed with the patient, reviewed CT scan report from the [facility], reviewed KUBs from this admission. In [...] care, and the other 50% dedicated to zvjy-fw-oefk patient contact. 80 minutes spent.. Extracted from: Title:APSO Note Author:Mckay BARRETT MD Date: 1. Renal calculus, bilateral (N20.0: Calculus of kidney) - 5x4x4 mm non obstructing stone within distal right ureter and partially obstructing 7x6x5 mm stone within the left ureter on CT imaging from [place] [facility] 10/23 - d/w urology Dr. López, plan [...] labs from PCP and from visit at [facility] 3. Hypothyroid (E03.9: Hypothyroidism, unspecified) - [place] thyroid 4. No contraindication to deep vein [...] the left ureter on CT imaging from [place] 10/23 - d/w urology Dr. López, plan for OR tomorrow, NPO after midnight - IVF, ceftriaxone IV 2. Other acute kidney failure (N17.8: Other acute kidney failure) - secondary to a combination of pre-renal causes, may have obstructive component - IVF, BMP in AM - hold nephrotoxic meds 3. Hypothyroid (E03.9: Hypothyroidism, unspecified) - [place] thyroid 4. No contraindication to deep vein [...] Date:11/13/2021 08:30:00 AM Scheduled Provider:Joey LÓPEZ MD Location:[facility] Appointment Type:URO Office Visit Appointment Date:08/22/2022 09:30:00 AM Scheduled Provider:Joey LÓPEZ MD Location:[facility] Appointment Type:URO Office Visit Diagnostic Tests Pending * Calculi Analysis Urinary 10/26/21 Future Scheduled Tests Radiology* XR Abdomen 1 View 10/27/21 [facility]04-29-2022 Hospital Discharge instructions Patient Education 10/27/2021 08:41:13 Kidney Stones, Kwap-kw-Mjmu Kidney Stones Kidney stones are rock-like masses [...] Follow these instructions at home: Medicines Take tuja-fdv-kxijebc and prescription medicines only as told by [...] 12/03/2008 Document Revised: 11/03/2019 Document Reviewed: 11/03/2019 [employer] Patient Education 2020 [employer] Follow Up Care 10/25/2021 15:01:17 With:Joey LÓPEZ Address: [address] [place] [id number]- Business (1) When:11/13/2021 08:30:00 Comments:abdominal X-ray prior to your office visit. We will make decisions regarding the stone in the left upper ureter, as well as when to remove the right stent.Call central scheduling at [phone] ext [phone] to schedule xray With:MILAGRO HALLMAN Address: [place] [address]- Business (1) When:3 to 5 days Comments:Call for followup appointment [facility] Future Appointments Appointment Date:11/13/2021 08:30:00 AM Scheduled Provider:Joey LÓPEZ MD Location:[facility] Appointment Type:URO Office Visit Appointment Date:08/22/2022 09:30:00 AM Scheduled Provider:Joey LÓPEZ MD Location:[facility] Appointment Type:URO [facility] Future Appointments Appointment Date:11/14/2021 07:45:00 AM Scheduled Provider: Location:[facility] Appointment Type:Surgery CALL PAT FT Appointment Date:11/23/2021 02:00:00 PM Scheduled Provider: Location:[facility] Appointment Type:Surgery FT Appointment Date:08/22/2022 09:30:00 AM Scheduled Provider:Joey LÓPEZ MD Location:[facility] Appointment Type:URO Office Visit [facility] Evaluation + Plan note Future Appointments Appointment Date:08/22/2022 09:30:00 AM Scheduled Provider:Joey LÓPEZ MD Location:[facility] Appointment Type:URO Office Visit [facility] Evaluation + Plan note Future Appointments Appointment Date:01/04/2022 12:30:00 PM Scheduled Provider: Location:[facility] Appointment Type:Surgery FT Appointment Date:08/22/2022 09:30:00 AM Scheduled Provider:Joey LÓPEZ MD Location:[facility] Appointment Type:URO [facility] Future Appointments Appointment Date:08/27/2023 08:45:00 AM Scheduled Provider:Joey LÓPEZ MD Location:[facility] Appointment Type:URO Office Visit Future Scheduled Tests Radiology* XR Abdomen 1 View 07/01/23 [facility] Evaluation + Plan note Future Appointments Appointment Date:08/25/2024 08:15:00 AM Scheduled Provider:Joey LÓPEZ MD Location:[facility] Appointment Type:URO Office Visit Future Scheduled Tests Radiology* XR Abdomen 1 View 07/01/23 [facility] Hospital course Narrative No data available for this section [facility] No data available for this section [facility] No data available for this section [facility] Summary Purpose Family History No Family History Records FoundNo Family History Records Found No data available for this section No Family History Records Found Advance Directives No Advanced Directives Records FoundNo Advanced Directives Records FoundNo Advanced Directives Records Found Additional Source Comments Care Team (unrecognized sect ion and content) Personnel Name: MILAGRO HALLMAN DO Address: [address] [place] [address] Personnel Name: MILAGRO HALLMAN DO Address: Address: [address] [place] [address] Personnel Name: MILAGRO HALLMAN DO Address: Address: [address] [place] [address] Personnel Name: MILAGRO HALLMAN DO Address: Address: [address] [place] [address] (unrecognized sect ion and content) No Status Records FoundNo Status Records FoundNo Status Records Found INFORMATION SOURCE (unrecogn ized section and content) DATE CREATED AUTHOR 05/23/2022 [facility] DATE CREATED AUTHOR AUTHOR'S ORGANIZ ATION 08/17/2023 [facility] EPIC DATE CREATED AUTHOR AUTHOR'S ORGANIZ ATION 09/03/2023 [facility] FOR RECORDS PERTAINING TO PATIENTS WHO [...] BE BASED ON THE PRIMARY CLINICAL RECORDS. [facility]. provides no warranty or guarantee of the accuracy or completeness of information in this document.
[2024-08-18 09:06] LABS: Basophils Percent Auto 0.6 % (0.2-2.0); Eosinophils Absolute Auto 0.2 10^3/uL (0.0-0.7); Eosinophils Percent Auto 4.4 % (0.9-7.0); Hematocrit 45.8 % (42.0-54.0); Hemoglobin 15.3 g/dL (14.0-18.0); Immature Granulocytes Abs Auto 0.01 10^3/uL (0.00-0.03); Immature Granulocytes Pct Auto 0.2 % (0.0-0.5); Lymphocytes Absolute Auto 1.2 10^3/uL (1.2-3.8); Lymphocytes Percent Auto 22.2 % (20.5-60.0); Mean Corpuscular HGB Conc 33.4 g/dL (29.9-35.2); Mean Corpuscular Hemoglobin 30.4 pg (25.9-34.0); Mean Corpuscular Volume 91.1 fL (80.0-94.0); Mean Platelet Volume 9.6 fL (9.5-13.5); Monocytes Absolute Auto 0.5 10^3/uL (0.3-0.8); Monocytes Percent Auto 9.4 % (1.7-12.0); Neutrophils Absolute Auto 3.3 10^3/uL (1.4-6.5); Neutrophils Percent Auto 63.2 % (43.0-75.0); Platelet Count 272 10^3/uL (150-450); Red Blood Count 5.03 10^6/uL (4.70-6.10); Red Cell Distribution Width 13.1 % (11.0-15.0); White Blood Count 5.2 10^3/uL (4.0-11.0)
[2024-08-18 09:33] LABS: Estimated Average Glucose 120 mg/dL; Glycohemoglobin A1C 5.8 % (4.5-6.2)
[2024-08-18 10:20] LABS: Alanine Aminotransferase 22 U/L (16-63); Albumin Globulin Ratio 1.2; Albumin Level 3.8 g/dL (3.4-5.0); Alkaline Phosphatase 85 U/L (46-116); Anion Gap 10.5; Aspartate Amino Transferase 22 U/L (15-37); BUN Creatinine Ratio 16.9; Bilirubin Total 0.8 mg/dL (0.2-1.0); Calcium 8.9 mg/dL (8.5-10.1); Carbon Dioxide 27.4 mmol/L (21.0-32.0); Chloride 106 mmol/L (98-107); Chol HDL Ratio 4.5; Cholesterol 241 mg/dL (<=200); Estimated GFR (African America >60 (>=60 mL/min/1.73m^2); Estimated GFR (Non-African Ame 60 (>=60 mL/min/1.73m^2); Free T3 3.37 pg/mL (2.18-3.98); Globulin 3.3 g/dL; Glucose 95 mg/dL (74-106); HDL Cholesterol 54 mg/dL (40-60); Potassium 3.9 mmol/L (3.5-5.1); Sodium 140 mmol/L (136-145); Thyroid Stimulating Hormone 4.889 uIU/mL (0.358-3.740); Total Protein 7.1 g/dL (6.4-8.2); Triglycerides 142 mg/dL (<=150); VLDL CHOLESTEROL 28.4 mg/dL
[2024-08-18 11:42] LABS: Free T4 0.88 ng/dL (0.76-1.46)
[2024-08-19 04:07] LABS: PSA, Free 0.66 ng/mL; Prostate Specific Ag 2.7 ng/mL (0.0-4.0)
== END 2024-08-18 08:46 | disposition home or self-care (01) ==
LOC: LAB 08:49
PROVIDERS: PCP Family Medicine; Visit Provider Family Medicine
DX: E78.00 Pure hypercholesterolemia, unspecified (principal); R73.03 Prediabetes; E55.9 Vitamin D deficiency, unspecified; E03.9 Hypothyroidism, unspecified; Z12.5 Encounter for screening for malignant neoplasm of prostate
CPT/HCPCS: 36415; 80053; 80061; 82306; 83036; 84153; 84154; 84439; 84443; 84481; 85025